=== PATIENT | male | born 1945 | race Caucasian/White ===

== ENCOUNTER 2016-08-22 17:40 | Emergency (ER) | payer OTHER, MEDICARE ==
[~2016-08-22] VITALS: Ht 175.3 cm; Wt 93.2 kg
[~2016-08-22 17:40] MED LIST: ASPI81CH CHEW; MULTCAP14; NAPR220T95 PO; VITA100T2 PO; VITATAB11
[2016-08-22 18:04] VITALS: BP 137/77; PULSE 112; RESP 20; TEMP 98.3; O2SAT 93
== END 2016-08-22 21:47 | disposition left against medical advice (07) ==
LOC: NED 17:40
DX: Z03.89 Encounter for observation for other suspected diseases and conditions ruled out (principal)
CPT/HCPCS: 99281

== ENCOUNTER 2016-09-16 16:29 | Observation (INO) | payer OTHER, MEDICARE ==
[~2016-09-16] VITALS: Ht 167.6 cm; Wt 90.0 kg
[2016-09-16 16:57] VITALS: BP 136/64; PULSE 90; RESP 17; TEMP 98.7; O2SAT 95
[2016-09-16] MEDS ORDERED: MECLIZINE HCL 25 MG TAB PO ONE (17:15)
[2016-09-16] MEDS ORDERED: SODIUM CHLORID 0.9% 500 ML INJ 500 ML IV ONE (17:15)
[2016-09-16] MEDS ORDERED: SODIUM CHLORIDE 0.9% FLUSH 10 ML FLUSH IVF PRN (17:15)
[2016-09-16 17:44] LABS: AUTOMATED NEUTROPHIL # 2.5 TH/MM3 (1.8-7.7); BASOPHIL % 0.7 % (0.0-2.0); EOSINOPHIL % 0.9 % (0.0-4.0); HEMATOCRIT 39.2 % (39.0-51.0); LYMPHOCYTE # 1.6 TH/MM3 (1.0-4.8); MEAN CELL VOLUME 97.9 FL (80.0-100.0); MEAN CORPUSCULAR HEMOGLOBIN 33.5 PG (27.0-34.0); MEAN CORPUSCULAR HGB CONC 34.3 % (32.0-36.0); MONO % 11.6 % (0.0-8.0); NEUT % 52.8 % (16.0-70.0); PLATELET COUNT 99 TH/MM3 (150-450); RED CELL DISTRIBUTION WIDTH 14.1 % (11.6-17.2); WHITE BLOOD COUNT 4.7 TH/MM3 (4.0-11.0)
[2016-09-16 17:46] LABS: HEMO FLAGS AUTO DIFF
[2016-09-16 17:53] VITALS: BP 146/84; PULSE 92; RESP 18; O2SAT 99
[2016-09-16 17:58] LABS: APTT (PATIENT) 31.3 SEC (24.3-30.1); INTERNATIONAL NORMALIZED RATIO 1.1 RATIO; PROTHROMBIN TIME - PATIENT 12.7 SEC (9.8-11.6)
--- NOTE | 2016-09-16 18:03 | RADRPT ---
EXAM DATE/TIME: 09/16/2016 17:31 [facility] COMPARISON: CHEST SINGLE AP, April 18, 2016, 20:37. INDICATIONS : Shortness of breath. MEDICAL HISTORY : None. SURGICAL HISTORY : None. ENCOUNTER: Initial ACUITY: 1 day PAIN SCORE: 0/10 LOCATION: Bilateral chest FINDINGS: The lungs are clear without infiltrate, nodule, or mass. There is no appreciable pleural effusion fo r technique. Heart and mediastinum are unremarkable. There are old healed rib fractures in the left chest with slight pleural thickening chronic in nature laterally. CONCLUSION: No acute cardiopulmonary disease. David Meyer MD on September 16, 2016 at 18:00 Board Certified Radiologist. This report was verified electronically.
[2016-09-16 18:11] LABS: PLATELET ESTIMATE SMEAR LOW (NORMAL); PLATELET MORPHOLOGY ENLARGED (NORMAL); SCAN/DIFF AUTO DIFF CONFIRMED
[2016-09-16 18:17] LABS: ALT (GPT) 81 U/L (12-78); ANION GAP 13 MEQ/L (5-15); AST (GOT) 116 U/L (15-37); BICARBONATE 22.5 MEQ/L (21.0-32.0); BLOOD UREA NITROGEN 3 MG/DL (7-18); CHLORIDE 101 MEQ/L (98-107); GLOMERULAR FILTRATION RATE 161 ML/MIN (>89); POTASSIUM 3.2 MEQ/L (3.5-5.1); SODIUM (NA) 136 MEQ/L (136-145)
--- NOTE | 2016-09-16 18:17 | PD ---
HPI Chief Complaint: Syncope/Near-Syncope Time Seen by Provider: 17:07 Travel History International Travel<30 days: No Contact w/Intl Traveler<30days: No Traveled to known affect area: No History of Present Illness HPI Patient is a 70 year old male who comes in complaining of dizziness and near syncope. He says he drinks daily, and he has been experiencing this dizziness for the past year. He says it is worse when he moves around. Today he said he was getting up she is the bathroom when he suddenly felt like he was going to pass out, so he went back to his chair and sat down. He did not lose consciousness, he did not fall. He then called 911 because he was worried that he would fall and pass out. He denies any chest pain or shortness of breath. He describes the dizziness as a lightheadedness. He denies any fever or chills. He has never spoken to her doctor about these symptoms. PFSH Past Medical History Arthritis: Yes Cancer: No Cardiovascular Problems: No Endocrine: No Gastrointestinal Disorders: No Genitourinary: No Hypertension: Yes Immune Disorder: No Neurologic: Yes Psychiatric: No Reproductive: No Respiratory: No Seizures: Yes Shingles: Yes Tetanus Vaccination: > 5 Years Influenza Vaccination: Yes Past Surgical History Tonsillectomy: Yes Other Surgery: No Social History Alcohol Use: Yes (DAILY, BEER) Tobacco Use: No Substance Use: No Allergies-Medications (Allergen,Severity, Reaction): Coded Allergies: No Known Allergies (Unverified , 09/16/16) Reported Meds & Prescriptions Reported Meds & Active Scripts Active Vitamin B-1 (Thiamine HCl) 100 Mg Tab 100 Mg PO DAILY Reported Multi For Him (Multiple Vitamins W/ Minerals) 1 Cap Cap Vitamin B Complex (B-Complex Vitamins) 1 Tab Aleve (Naproxen Sodium) 220 Mg Tab 220 Mg PO BID PRN Aspirin 81 Mg Chew 81 Mg CHEW DAILY Review of Systems Except as stated in HPI: all other systems reviewed are Neg General / Constitutional: No: Fever, Chills Eyes: No: Blurred Vision HENT: Positive: Lightheadedness, No: Headaches Cardiovascular: No: Chest Pain or Discomfort Respiratory: No: Shortness of Breath Gastrointestinal: No: Nausea, Vomiting Musculoskeletal: No: Pain Skin: No Rash, No Change in Pigmentation Neurologic: Positive: Dizziness, No: Weakness Physical Exam Narrative GENERAL: Awake and alert, in no acute distress. SKIN: Focused skin assessment warm/dry. HEAD: Atraumatic. Normocephalic. EYES: Pupils equal and round. No scleral icterus. Extraocular movements intact , no nystagmus. ENT: Mucous membranes pink and moist. NECK: Trachea midline. No JVD. CARDIOVASCULAR: Regular rate and rhythm. No murmur appreciated. RESPIRATORY: No accessory muscle use. Clear to auscultation. Breath sounds equal bilaterally. GASTROINTESTINAL: Abdomen soft, non-tender, nondistended. MUSCULOSKELETAL: No obvious deformities. No clubbing. No cyanosis. No edema. NEUROLOGICAL: Awake and alert. No obvious cranial nerve deficits. Motor grossly within normal limits. Normal speech. Cerebellar function testing within normal limits. PSYCHIATRIC: Appropriate mood and affect; insight and judgment normal. Data Data Last Documented VS Vital Signs Date Time Temp Pulse Resp B/P Pulse Ox O2 Delivery O2 Flow Rate FiO2 09/16/16 19:09 89 18 133/68 94 Room Air 09/16/16 16:57 98.7 Orders Electrocardiogram (09/16/16 17:15) Complete Blood Count With Diff (09/16/16 17:15) Comprehensive Metabolic Panel (09/16/16 17:15) B-Type Natriuretic Peptide (09/16/16 17:15) Ckmb (Isoenzyme) Profile (09/16/16 17:15) Troponin I (09/16/16 17:15) Act Partial Throm Time (Ptt) (09/16/16 17:15) Prothrombin Time / Inr (Pt) (09/16/16 17:15) Chest, Single Ap (09/16/16 17:15) Ct Brain W/O Iv Contrast(Rout) (09/16/16 17:15) Ecg Monitoring (09/16/16 17:15) Iv Access Insert/Monitor (09/16/16 17:15) Oximetry (09/16/16 17:15) Meclizine (Antivert) (09/16/16 17:15) Sodium Chloride 0.9% Flush (Ns Flush) (09/16/16 17:15) Sodium Chlorid 0.9% 500 Ml Inj (Ns 500 M (09/16/16 17:15) CKMB (09/16/16 17:30) CKMB% (09/16/16 17:30) Lorazepam Inj (Ativan Inj) (09/16/16 19:15) Admit Order (Ed Use Only) (09/16/16 ) Place In Observation (09/16/16 ) Vital Signs (Adult) Q4H (09/16/16 19:33) Activity Oob Ad Catalina (09/16/16 19:33) Dining Service Worker / Telemetry .CONTINUOUS (09/16/16 19:33) Intake + Output ALLAN.QSHIFT (09/16/16 19:33) Diet Heart Healthy (09/17/16 Breakfast) Sodium Chlor 0.9% 1000 Ml Inj (Ns 1000 M (09/16/16 19:33) Sodium Chloride 0.9% Flush (Ns Flush) (09/16/16 19:45) Sodium Chloride 0.9% Flush (Ns Flush) (09/16/16 21:00) Acetaminophen (Tylenol) (09/16/16 19:45) Ondansetron Inj (Zofran Inj) (09/16/16 19:45) Basic Metabolic Panel (Bmp) (09/17/16 06:00) Complete Blood Count With Diff (09/17/16 06:00) Resp Oxygen Fran C Titrat 1-4 L (09/16/16 ) Pt Request For Service (09/16/16 19:33) Scd Bilateral/Knee High ALLAN.BID (09/16/16 19:33) Naloxone Inj (Narcan Inj) (09/16/16 19:45) Aspirin Chew (Aspirin Chew) (09/17/16 09:00) Thiamine (Vit B1) (Vitamin B1) (09/17/16 09:00) Neuro Checks Q4H (09/16/16 19:33) Alcohol Withdrawal Asmt-Ciwa Q4HX18 (09/16/16 19:33) ^ Seizure Precautions (09/16/16 19:33) Folic Acid (Folate) (09/17/16 09:00) Flumazenil Inj (Romazicon Inj) (09/16/16 19:45) Lorazepam (Ativan) (09/16/16 19:45) Lorazepam Inj (Ativan Inj) (09/16/16 19:45) Lorazepam (Ativan) (09/16/16 19:45) Lorazepam Inj (Ativan Inj) (09/16/16 19:45) Lorazepam Inj (Ativan Inj) (09/16/16 19:45) Lorazepam Inj (Ativan Inj) (09/16/16 19:45) Orthostatic Blood Pressure (09/16/16 19:33) Orthostatic Vital Signs (09/16/16 19:33) Labs Laboratory Tests Test 09/16/16 17:30 White Blood Count 4.7 TH/MM3 Red Blood Count 4.00 MIL/MM3 Hemoglobin 13.4 GM/DL Hematocrit 39.2 % Mean Corpuscular Volume 97.9 FL Mean Corpuscular Hemoglobin 33.5 PG Mean Corpuscular Hemoglobin 34.3 % Concent Red Cell Distribution Width 14.1 % Platelet Count 99 TH/MM3 Mean Platelet Volume 9.1 FL Neutrophils (%) (Auto) 52.8 % Lymphocytes (%) (Auto) 34.0 % Monocytes (%) (Auto) 11.6 % Eosinophils (%) (Auto) 0.9 % Basophils (%) (Auto) 0.7 % Neutrophils # (Auto) 2.5 TH/MM3 Lymphocytes # (Auto) 1.6 TH/MM3 Monocytes # (Auto) 0.5 TH/MM3 Eosinophils # (Auto) 0.0 TH/MM3 Basophils # (Auto) 0.0 TH/MM3 CBC Comment AUTO DIFF Differential Comment AUTO DIFF CONFIRMED Platelet Estimate LOW Platelet Morphology Comment ENLARGED Red Cell Morphology Comment NORMAL Prothrombin Time 12.7 SEC Prothromb Time International 1.1 RATIO Ratio Activated Partial 31.3 SEC Thromboplast Time Sodium Level 136 MEQ/L Potassium Level 3.2 MEQ/L Chloride Level 101 MEQ/L Carbon Dioxide Level 22.5 MEQ/L Anion Gap 13 MEQ/L Blood Urea Nitrogen 3 MG/DL Creatinine 0.51 MG/DL Estimat Glomerular Filtration 161 ML/MIN Rate Random Glucose 116 MG/DL Calcium Level 8.4 MG/DL Total Bilirubin 2.2 MG/DL Aspartate Amino Transf 116 U/L (AST/SGOT) Alanine Aminotransferase 81 U/L (ALT/SGPT) Alkaline Phosphatase 110 U/L Total Creatine Kinase 199 U/L Creatine Kinase MB 2.0 NG/ML Troponin I LESS THAN 0.02 NG/ML B-Type Natriuretic Peptide 45 PG/ML Total Protein 7.2 GM/DL Albumin 3.5 GM/DL MDM Medical Decision Making Medical Screen Exam Complete: Yes Emergency Medical Condition: Yes Medical Record Reviewed: Yes Interpretation(s) ECG shows NSR at 87, large artifact, no ST elevation Differential Diagnosis Electrolyte abnormalities vs dehydration vs ACS vs intoxication Narrative Course Patient is a 71 year old male who comes in complaining of a near syncopal episode. Exam shows no neurologic abnormalities. Patient admits to drinking daily. IV established, labs sent. Connected to the ekg monitor tech. ECG shows no evidence of ischemia. Patient hydrated with IVF. Labs show evidence of worsening liver function. Patient given Ativan because he said he felt he was starting to withdraw from alcohol. Placed in observation for further management. Diagnosis Primary Impression: Syncope, near Additional Impression: Alcohol withdrawal Qualified Code: F10.230 - Alcohol withdrawal, uncomplicated Admitting Information Admitting Physician Requests: Observation Scripts Walker/Adult/Folding 1 Mis Mis #1 EA .ROUTE CONTINUOUS Ref 0 Use walker when weak Prov:Graham Kirk MD 09/18/16 Condition: Stable Concha Benz MD Sep 16, 2016 18:17
--- NOTE | 2016-09-16 18:20 | RADRPT ---
EXAM DATE/TIME: 09/16/2016 17:59 [facility] COMPARISON: MRI BRAIN W/O CONTRAST, April 20, 2016, 16:05. CT BRAIN W/O CONTRAST, April 18, 2016, 21:20. INDICATIONS : Trauma; fall. ETOH. RADIATION DOSE: 56.35 CTDIvol (mGy) MEDICAL HISTORY : Seizures. Hypertension. ETOH abuse SURGICAL HISTORY : None. ENCOUNTER: Initial ACUITY: 1 day PAIN SCALE: Non-responsive LOCATION: cranial TECHNIQUE: Multiple contiguous axial images were obtained of the head. Using automated exposure control and adj ustment of the mA and/or kV according to patient size, radiation dose was kept as low as reasonably a chievable to obtain optimal diagnostic quality images. FINDINGS: There is no evidence for intracranial hemorrhage, mass effect, mass lesions, or edema. The visualize d bony structures appear intact. Moderate degree of brain atrophy is seen. Slight periventricular wh ite matter changes are seen nonspecific mostly consistent with chronic small vessel ischemic changes. There are no signs of acute infarction for technique. CONCLUSION: Chronic and small vessel ischemic changes without any evidence for acute hemorrhage o r mass effect. David Meyer MD on September 16, 2016 at 18:17 Board Certified Radiologist. This report was verified electronically.
[2016-09-16 18:21] LABS: ALKALINE PHOSPHATASE 110 U/L (45-117); CREATINE KINASE 199 U/L (39-308); TOTAL BILIRUBIN ADULT 2.2 MG/DL (0.2-1.0)
[2016-09-16 19:09] VITALS: BP 133/68; PULSE 89; RESP 18; O2SAT 94
[2016-09-16] MEDS ORDERED: LORazepam 2 MG/ML VIAL IV PUSH ONE (19:15)
[2016-09-16] MEDS ORDERED: LORazepam 2 MG TAB PO PRN (19:45)
[2016-09-16] MEDS ORDERED: POTASSIUM CHLORIDE 20 MEQ CONTROLLED RELEASE TAB PO ONE (19:45)
[2016-09-16] MEDS ORDERED: SODIUM CHLORIDE 0.9% FLUSH 10 ML FLUSH IV FLUSH PRN (19:45)
[2016-09-16] MEDS ORDERED: LORazepam 2 MG/ML VIAL IV PUSH PRN ×4 (19:45)
[2016-09-16] MEDS ORDERED: FLUMAZENIL 0.5 MG/5 ML VIAL IV PUSH PRN (19:45)
[2016-09-16] MEDS ORDERED: NALOXONE HCL 0.4 MG/ML AMP IV PRN (19:45)
[2016-09-16] MEDS ORDERED: ACETAMINOPHEN 325 MG TAB PO PRN (19:45)
[2016-09-16] MEDS ORDERED: ONDANSETRON HCL 4 MG/2 ML VIAL IVP PRN (19:45)
[2016-09-16] MEDS ORDERED: LORazepam 1 MG TAB PO PRN (19:45)
[2016-09-16 19:55] VITALS: O2SAT 94
--- NOTE | 2016-09-16 20:07 | HHI.HP ---
[facility] Primary Care Physician [facility] Admission Diagnosis syncope Diagnoses: Chief Complaint: I think I had a seizure Travel History International Travel<30 Days: No Contact w/Intl Traveler <30 Da: No Traveled to Known Affected Are: No History of Present Illness This is a 70 year old male patient with a past medical history of ETOH abuse and HTN- no longer on medication secondary to hypotension. Patient is a poor historian therefore information gathered from patient as well as prior computerized charting. Patient reports he usually drinks a 12 pack of 16 ounce beers every day. Patient reports 3-4 days every month takes a break from drinking. Patient was trying to abstain from alcohol for the past 2-3 days and reports he thinks he had a seizure this morning approximately 9- 10 AM. The patient believes he lost consciousness for unknown period of time as he lives alone. Patient woke up laying on the floor was able to get up have lunch drink approximately 6 beers and then had information security specialist call 911 to take him to the hospital for further evaluation and treatment. Patient denies tongue biting, incontinence or head trauma during the incident. Patient believes he had a seizure as he has had seizures before when he stops drinking. Patient also complains that when he rolls from side to side in bed he gets dizzy. Patient reports this has been going on for approximately 2 days. At this time the dizziness is better after receiving meclizine in the emergency department. Patient reports shortness of breath is at baseline. Patient denies chest pain nausea or vomiting at this time. Review of Systems ROS Limitations: Poor Historian Except as stated in HPI: all other systems reviewed are Neg Past Family Social History Past Medical History EtOH abuse and hypertension no longer medications are clear to hypotension Past Surgical History Tonsillectomy as a child Reported Medications Reported Meds & Active Scripts Active Vitamin B-1 (Thiamine HCl) 100 Mg Tab 100 Mg PO DAILY Reported Multi For Him (Multiple Vitamins W/ Minerals) 1 Cap Cap Vitamin B Complex (B-Complex Vitamins) 1 Tab Aleve (Naproxen Sodium) 220 Mg Tab 220 Mg PO BID PRN Aspirin 81 Mg Chew 81 Mg CHEW DAILY Allergies: Coded Allergies: No Known Allergies (Unverified , 09/16/16) Active Ordered Medications Current Medications Medications (Trade) Dose Ordered Sig/Joés Route Start Time Stop Time Status Last Admin Sodium Chloride 2 ml 2 ml UNSCH PRN IVF 09/16/16 17:15 (NS 1000 ml Inj) 1,000 ml @ 100 mls/hr Q10H IV 09/16/16 19:33 (NS Flush) 2 ml UNSCH PRN IV FLUSH 09/16/16 19:45 (NS Flush) 2 ml BID IV FLUSH 09/16/16 21:00 (Tylenol) 650 mg Q4H PRN PO 09/16/16 19:45 (Zofran Inj) 4 mg Q6H PRN IVP 09/16/16 19:45 (Narcan Inj) 0.4 mg UNSCH PRN IV 09/16/16 19:45 (Aspirin Chew) 81 mg DAILY CHEW 09/17/16 09:00 (Vitamin B1) 100 mg DAILY PO 09/17/16 09:00 (Folate) 1 mg DAILY PO 09/17/16 09:00 09/22/16 08:59 (Romazicon Inj) 0.2 mg Q1M PRN IV PUSH 09/16/16 19:45 (Ativan) 1 mg Q4H PRN PO 09/16/16 19:45 (Ativan Inj) 1 mg Q4H PRN IV PUSH 09/16/16 19:45 (Ativan) 2 mg Q2H PRN PO 09/16/16 19:45 (Ativan Inj) 2 mg Q2H PRN IV PUSH 09/16/16 19:45 (Ativan Inj) 2 mg Q1H PRN IV PUSH 09/16/16 19:45 (Ativan Inj) 2 mg Q15M PRN IV PUSH 09/16/16 19:45 Family History Mother at 86 secondary to old age Father at 73 6. Lung cancer Patient reports paternal uncle had CAD Social History Patient lives alone Express my 12 pack 16 ounce beers per day Denies tobacco use now the past Denies illicit drug use Physical Exam Vital Signs Vital Signs Date Time Temp Pulse Resp B/P Pulse Ox O2 Delivery O2 Flow Rate FiO2 09/16/16 19:55 94 09/16/16 19:09 89 18 133/68 94 Room Air 09/16/16 17:53 92 18 146/84 99 Room Air 09/16/16 17:07 Room Air 09/16/16 16:57 98.7 90 17 136/64 95 Physical Exam GENERAL: This is a well-nourished, well-developed patient, mildly tremulous SKIN: Ecchymosis left anterior thorax HEAD: Atraumatic. Normocephalic. No temporal or scalp tenderness. EYES: Extraocular motions intact. No scleral icterus. No injection or drainage. CARDIOVASCULAR: Regular rate and rhythm without murmurs, gallops, or rubs. RESPIRATORY: Clear to auscultation. Breath sounds equal bilaterally. No wheezes , rales, or rhonchi. GASTROINTESTINAL: Abdomen soft, non-tender MUSCULOSKELETAL: Extremities without clubbing, cyanosis, or edema. No joint tenderness, effusion, or edema noted. No calf tenderness. Negative Homans sign bilaterally. NEUROLOGICAL: Awake and alert. No focal deficits appreciated. Motor and sensory grossly within normal limits. 4 out of 5 muscle strength in all muscle groups. Normal speech. Laboratory Laboratory Tests Test 09/16/16 17:30 White Blood Count 4.7 Red Blood Count 4.00 Hemoglobin 13.4 Hematocrit 39.2 Mean Corpuscular Volume 97.9 Mean Corpuscular Hemoglobin 33.5 Mean Corpuscular Hemoglobin 34.3 Concent Red Cell Distribution Width 14.1 Platelet Count 99 Mean Platelet Volume 9.1 Neutrophils (%) (Auto) 52.8 Lymphocytes (%) (Auto) 34.0 Monocytes (%) (Auto) 11.6 Eosinophils (%) (Auto) 0.9 Basophils (%) (Auto) 0.7 Neutrophils # (Auto) 2.5 Lymphocytes # (Auto) 1.6 Monocytes # (Auto) 0.5 Eosinophils # (Auto) 0.0 Basophils # (Auto) 0.0 CBC Comment AUTO DIFF Differential Comment AUTO DIFF CONFIRMED Platelet Estimate LOW Platelet Morphology Comment ENLARGED Red Cell Morphology Comment NORMAL Prothrombin Time 12.7 Prothromb Time International 1.1 Ratio Activated Partial 31.3 Thromboplast Time Sodium Level 136 Potassium Level 3.2 Chloride Level 101 Carbon Dioxide Level 22.5 Anion Gap 13 Blood Urea Nitrogen 3 Creatinine 0.51 Estimat Glomerular Filtration 161 Rate Random Glucose 116 Calcium Level 8.4 Total Bilirubin 2.2 Aspartate Amino Transf 116 (AST/SGOT) Alanine Aminotransferase 81 (ALT/SGPT) Alkaline Phosphatase 110 Total Creatine Kinase 199 Creatine Kinase MB 2.0 Troponin I LESS THAN 0.02 B-Type Natriuretic Peptide 45 Total Protein 7.2 Albumin 3.5 Result Diagram: 09/16/16 1730 09/16/16 1730 Imaging Last Impressions Head CT 09/16/16 1715 Signed Impressions: Service Date/Time: Friday, September 16, 2016 17:59 - CONCLUSION: Chronic and small vessel ischemic changes without any evidence for acute hemorrhage or mass effect. David Meyer MD Chest X-Ray 09/16/161714 Signed Impressions: Service Date/Time: Friday, September 16, 2016 17:31 - CONCLUSION: No acute cardiopulmonary disease. David Meyer MD Assessment and Plan Problem List: (1) Syncopal episodes ICD Code: R55 Status: Acute (2) Vertigo ICD Code: R42 Status: Acute Assessment and Plan This is a 70 year old male patient with a past medical history of ETOH abuse and HTN- no longer on medication secondary to hypotension. Presents with seizure secondary EtOH withdrawal and vertigo symptoms. Syncope possible seizure secondary to EtOH withdrawal EtOH abuse CT of the head reviewed reveals chronic and small vessel ischemic changes without any evidence for acute hemorrhage or mass effect Patient counseled on EtOH abuse encouraged to abstain CIWA protocol with thiamine and folic acid Seizure precautions Patient had ultrasound bilateral carotid arteries 04/19/2017 showed no hemodynamically significant stenosis Patient had echocardiogram 04/19/2017 showed EF 55-60% no aortic stenosis Dizziness likely Vertigo Improved with meclizine given in emergency department will continue meclizine as needed DVT prophylaxis with SCDs Discussed with the provider, nursing, Dr. Kirk and patient This note was transcribed by scribe [Ruthann Ramey]. I, Dr. Graham Kirk personally performed the history, physical exam, and medical decision making; and confirmed the accuracy of the information in the transcribed note. Authenticated by Dr. Graham Kirk on 09/17/16 at 00:10. Ruthann Ramey Sep 16, 2016 20:07 Graham Kirk MD September 17, 2016 00:11
[2016-09-16] MEDS: SODIUM CHLOR 0.9% 1000 ML INJ 1,000 ML IV SCH (20:18)
[2016-09-16] MEDS ORDERED: MECLIZINE HCL 25 MG TAB PO PRN (20:30)
[2016-09-16] MEDS: SODIUM CHLORIDE 0.9% FLUSH 10 ML FLUSH IV FLUSH SCH (21:00)
[2016-09-16 21:25] VITALS: BP 141/69; PULSE 87; RESP 18; TEMP 98.4; O2SAT 97
[2016-09-17] VITALS (9 sets, daily range): BP systolic 136–165; BP diastolic 64–100; PULSE 68–96; RESP 17–20; TEMP 98–100; O2SAT 93–97
[2016-09-17] MEDS: SODIUM CHLOR 0.9% 1000 ML INJ 1,000 ML IV SCH (07:24)
[2016-09-17 08:01] LABS: AUTOMATED NEUTROPHIL # 2.2 TH/MM3 (1.8-7.7); BASOPHIL % 0.6 % (0.0-2.0); EOSINOPHIL % 0.6 % (0.0-4.0); HEMATOCRIT 40.9 % (39.0-51.0); LYMPH % 27.3 % (9.0-44.0); LYMPHOCYTE # 1.1 TH/MM3 (1.0-4.8); MEAN CELL VOLUME 98.2 FL (80.0-100.0); MEAN CORPUSCULAR HEMOGLOBIN 33.8 PG (27.0-34.0); MEAN CORPUSCULAR HGB CONC 34.4 % (32.0-36.0); MONO % 16.8 % (0.0-8.0); NEUT % 54.7 % (16.0-70.0); PLATELET COUNT 91 TH/MM3 (150-450); RED BLOOD COUNT 4.16 MIL/MM3 (4.50-5.90); RED CELL DISTRIBUTION WIDTH 14.1 % (11.6-17.2)
[2016-09-17 08:05] LABS: HEMO FLAGS AUTO DIFF
[2016-09-17 08:25] LABS: BICARBONATE 26.9 MEQ/L (21.0-32.0); POTASSIUM 3.9 MEQ/L (3.5-5.1)
[2016-09-17 08:43] LABS: PLATELET ESTIMATE SMEAR LOW (NORMAL); PLATELET MORPHOLOGY NORMAL (NORMAL); SCAN/DIFF AUTO DIFF CONFIRMED
[2016-09-17] MEDS: SODIUM CHLORIDE 0.9% FLUSH 10 ML FLUSH IV FLUSH SCH ×3 (09:00→21:28)
[2016-09-17] MEDS: FOLIC ACID 1 MG TAB PO SCH (11:04)
[2016-09-17] MEDS: ASPIRIN 81 MG CHEW TAB CHEW SCH (11:05)
[2016-09-17] MEDS: THIAMINE HCL 100 MG TAB PO SCH (11:05)
--- NOTE | 2016-09-17 14:47 | HHI.PR ---
Subjective Remarks Mr. Jo feels fatigued today and still has tremors. PT has recommended a walker, he prefers a cane. However, he does not feel as if he could function at home in his present state. No further seizure activity. Orthostatic BP check remains pending and is a needed evaluation prior to discharge. Objective Vital Signs Date Time Temp Pulse Resp B/P Pulse Ox O2 Delivery O2 Flow Rate FiO2 09/17/16 12:11 99.3 96 18 136/64 95 09/17/16 08:00 96 21 09/17/16 08:00 100.0 70 20 165/77 94 09/17/16 01:40 68 09/17/16 00:20 98.8 78 18 148/77 97 09/16/16 21:25 98.4 87 18 141/69 97 09/16/16 19:55 94 09/16/16 19:09 89 18 133/68 94 Room Air 09/16/16 17:53 92 18 146/84 99 Room Air 09/16/16 17:07 Room Air 09/16/16 16:57 98.7 90 17 136/64 95 I/O 09/16/16 09/16/16 09/16/16 09/17/16 09/17/16 09/17/16 07:00 15:00 23:00 07:00 15:00 23:00 Output Total 300 ml Balance -300 ml Output Urine Total 300 ml Result Diagram: 09/17/16 0657 09/17/16 0657 Objective Remarks GENERAL: NAD, A&Ox3 SKIN: Warm and dry. HEAD: Normocephalic. EYES: No scleral icterus. No injection or drainage. NECK: Supple, trachea midline. No JVD or lymphadenopathy. CARDIOVASCULAR: Regular rate and rhythm without murmurs, gallops, or rubs. RESPIRATORY: Breath sounds equal bilaterally. No accessory muscle use. GASTROINTESTINAL: Abdomen soft, non-tender, nondistended. MUSCULOSKELETAL: No cyanosis, or edema. BACK: Nontender without obvious deformity. No CVA tenderness. Medications and IVs Administered Medications Medications (Trade) Dose Ordered Sig/José Route PRN Reason Start Time Stop Time Status Last Admin Dose Admin Aspirin (Aspirin Chew) 81 mg DAILY CHEW 09/17/16 09:00 09/17/16 11:05 Thiamine HCl (Vitamin B1) 100 mg DAILY PO 09/17/16 09:00 09/17/16 11:05 Folic Acid (Folate) 1 mg DAILY PO 09/17/16 09:00 09/22/16 08:59 09/17/16 11:04 Lorazepam (Ativan) 1 mg Q4H PRN PO CIWA 8 - 10 09/16/16 19:45 09/17/16 07:23 A/P Problem List: (1) Alcohol withdrawal ICD Code: F10.239 (2) Alcohol withdrawal seizure ICD Code: F10.239 (3) Syncopal episodes ICD Code: R55 Assessment and Plan Syncope Recent work up No need for repeat ultrasound or echo Repeat orthostatic BP check pending ETOH Withdraw ETOH Withdraw seizure No further recurrence Continue CIWA and follow Librium started Thiamine, Folic Acid Weakness Walker with PT while in hospital Graham Kirk MD September 17, 2016 14:47
--- NOTE | 2016-09-17 23:01 | EKG ---
Date Performed: 09/16/2016 Time Performed: 17:25:59 PTAGE: 70 years EKG: Sinus rhythm ABNORMAL RHYTHM ECG PREVIOUS TRACING : 04/19/2016 12.49 Compared to prior tracing no significant change DOCTOR: Bharat Major Interpretating Date/Time 09/17/2016 22:59:55
[2016-09-18 00:06] VITALS: BP 147/70; PULSE 78; RESP 18; TEMP 98; O2SAT 97
[2016-09-18 04:54] VITALS: BP 142/68; PULSE 87; RESP 21; TEMP 98; O2SAT 96
[2016-09-18 07:52] VITALS: BP 154/78; PULSE 81; RESP 22; TEMP 98.3; O2SAT 94
[2016-09-18] MEDS: ASPIRIN 81 MG CHEW TAB CHEW SCH (10:22)
[2016-09-18] MEDS: THIAMINE HCL 100 MG TAB PO SCH (10:23)
[2016-09-18] MEDS: FOLIC ACID 1 MG TAB PO SCH (10:23)
[2016-09-18] MEDS ORDERED: WALKER/ADULT/FO1 MIS (13:29)
--- NOTE | 2016-09-18 13:31 | HHI.FF ---
Face to Face Verification Diagnosis: (1) Generalized weakness Physical Therapy Order: Evaluate and Treat I have seen patient Mario Jo on 09/18/16. My clinical findings support the need for the requested home health care services because: Patient has SOB Med compliance is questionable Limited ability to care for self High risk of falls I certify that my clinical findings support that this patient is homebound because: Impaired cognitive ability/safety Unsteady gait/balance Unable to use public transportation Graham Kirk MD September 18, 2016 13:31
--- NOTE | 2016-09-19 14:48 | HHI.DS ---
Discharge Summary Admission Date Sep 16, 2016 at 19:36 Discharge Date: September 18, 2016 Admitting Diagnosis syncope (1) Syncopal episodes ICD Code: R55 Diagnosis: Principal (2) Vertigo ICD Code: R42 Diagnosis: Secondary Procedures none Brief History - From Admission This is a 70 year old male patient with a past medical history of ETOH abuse and HTN- no longer on medication secondary to hypotension. Patient is a poor historian therefore information gathered from patient as well as prior computerized charting. Patient reports he usually drinks a 12 pack of 16 ounce beers every day. Patient reports 3-4 days every month takes a break from drinking. Patient was trying to abstain from alcohol for the past 2-3 days and reports he thinks he had a seizure this morning approximately 9- 10 AM. The patient believes he lost consciousness for unknown period of time as he lives alone. Patient woke up laying on the floor was able to get up have lunch drink approximately 6 beers and then had information security architect call 911 to take him to the hospital for further evaluation and treatment. Patient denies tongue biting, incontinence or head trauma during the incident. Patient believes he had a seizure as he has had seizures before when he stops drinking. Patient also complains that when he rolls from side to side in bed he gets dizzy. Patient reports this has been going on for approximately 2 days. At this time the dizziness is better after receiving meclizine in the emergency department. Patient reports shortness of breath is at baseline. Patient denies chest pain nausea or vomiting at this time. CBC/BMP: 09/17/16 0657 09/17/16 0657 Significant Findings Laboratory Tests Test 09/16/16 09/17/16 17:30 06:57 Red Blood Count 4.00 MIL/MM3 4.16 MIL/MM3 (4.50-5.90) (4.50-5.90) Platelet Count 99 TH/MM3 91 TH/MM3 (150-450) (150-450) Monocytes (%) (Auto) 11.6 % 16.8 % (0.0-8.0) (0.0-8.0) Platelet Estimate LOW (NORMAL) LOW (NORMAL) Platelet Morphology Comment ENLARGED (NORMAL) Prothrombin Time 12.7 SEC (9.8-11.6) Activated Partial 31.3 SEC Thromboplast Time (24.3-30.1) Potassium Level 3.2 MEQ/L (3.5-5.1) Blood Urea Nitrogen 3 MG/DL (7-18) 6 MG/DL (7-18) Creatinine 0.51 MG/DL 0.53 MG/DL (0.60-1.30) (0.60-1.30) Random Glucose 116 MG/DL (74-106) Calcium Level 8.4 MG/DL (8.5-10.1) Total Bilirubin 2.2 MG/DL (0.2-1.0) Aspartate Amino Transf 116 U/L (15-37) (AST/SGOT) Alanine Aminotransferase 81 U/L (12-78) (ALT/SGPT) Troponin I LESS THAN 0.02 NG/ML (0.02-0.05) Imaging Last Impressions Head CT 09/16/161714 Signed Impressions: Service Date/Time: Friday, September 16, 2016 17:59 - CONCLUSION: Chronic and small vessel ischemic changes without any evidence for acute hemorrhage or mass effect. David Meyer MD Chest X-Ray 09/16/161714 Signed Impressions: Service Date/Time: Friday, September 16, 2016 17:31 - CONCLUSION: No acute cardiopulmonary disease. David Meyer MD PE at Discharge GENERAL: NAD, A&Ox3 SKIN: Warm and dry. HEAD: Normocephalic. EYES: No scleral icterus. No injection or drainage. NECK: Supple, trachea midline. No JVD or lymphadenopathy. CARDIOVASCULAR: Regular rate and rhythm without murmurs, gallops, or rubs. RESPIRATORY: Breath sounds equal bilaterally. No accessory muscle use. GASTROINTESTINAL: Abdomen soft, non-tender, nondistended. MUSCULOSKELETAL: No cyanosis, or edema. BACK: Nontender without obvious deformity. No CVA tenderness. Pt update on day of discharge SNF offered patient elects for home with home PT. Hospital Course Mr. Jo is a 71 year old male with a history of alcoholism. He had stopped drinking to see if he could quit and says he has done this occasionally since the age of 18. He was brought in for syncope, but etiology may have been related to a seizure from ETOH withdraw. He was briefly treated with librium and never suffered progressive DTs. At day of discharge his DT symptoms resolved. He remained unsteady, but was ambulatory with a walker. SNF was offered, but he decliend and elected for home health PT. Medically cleared and stable for discharge to home. Pt Condition on Discharge: Stable Discharge Disposition: Disch w/ Home Health Serv Discharge Time: > 30 minutes Discharge Instructions DIET: Follow Instructions for: As Tolerated, No Restrictions Activities you can perform: Regular-No Restrictions Follow up Referrals: PCP Follow-up New Medications: Walker/Adult/Folding (Walker/Adult/Folding) 1 Mis Mis 1 EA .ROUTE CONTINUOUS Use walker when weak weakness #1 Ref 0 EA Continued Medications: Aspirin (Aspirin) 81 Mg Chew 81 MG CHEW DAILY Ref 0 TAB B-Complex Vitamins (Vitamin B Complex) 1 Tab Multiple Vitamins W/ Minerals (Multi For Him) 1 Cap Cap Naproxen Sodium (Aleve) 220 Mg Tab 220 MG PO BID PRN Pain Management Ref 0 TAB Thiamine (Vitamin B-1) 100 Mg Tab 100 MG PO DAILY supplement #30 TAB Graham Kirk MD September 19, 2016 14:48
== END 2016-09-18 14:45 | disposition home or self-care (01) ==
LOC: NEPE 16:29 → UNDOADMIN 19:17 → NEDA 19:17 → INTOOBSV 19:36 → NEPGCP 20:29
PROVIDERS: ADMIT Hospitalist; ATTEND Hospitalist
DX: R55 Syncope and collapse (principal); R42 Dizziness and giddiness; I10 Essential (primary) hypertension; F10.230 Alcohol dependence with withdrawal, uncomplicated
CPT/HCPCS: 70450; 71010; 80048; 80053; 82550; 82552; 83880; 84484; 85025; 85610; 85730; 93005; 96374; 97162; 99285; G0378; G8987; G8988; J2060; J7030; J7040

== ENCOUNTER 2017-01-17 18:40 | Emergency (ER) | payer OTHER, MEDICARE ==
[~2017-01-17] VITALS: Ht 177.8 cm; Wt 86.4 kg
[~2017-01-17 18:40] MED LIST changes: +WALKER/ADULT/FO1 MIS
--- NOTE | 2017-01-17 19:19 | PD ---
HPI Chief Complaint: feeling weak, constipation Time Seen by Provider: 19:18 Travel History International Travel<30 days: No Contact w/Intl Traveler<30days: No Traveled to known affect area: No History of Present Illness HPI 71-year-old male came to the emergency room with history of constipation. Patient says he last went and had a bowel movement 4 days ago. He is tried taking lax[facility] that [facility] as well as [id number] nothing seems to be helping. He says he's just tired and was feeling weak and called EMS. When ambulance arrived they noticed that his blood pressure was 88 systolic. They gave him a liter fluid bolus after which his blood pressure was in 100s. Patient says his appetite has been good. No history of vomiting. No history of abdominal pain. No history of fever or chills. PFSH Past Medical History Narrative Medical List of his past medical, surgical, social and family history reviewed from the nursing note. Arthritis: Yes Blood Disorders: No Heart Rhythm Problems: No Cancer: No Cardiovascular Problems: No High Cholesterol: No Chest Pain: No Congestive Heart Failure: No Endocrine: No Gastrointestinal Disorders: No Genitourinary: No Hypertension: Yes Immune Disorder: No Neurologic: Yes Psychiatric: No Reproductive: No Respiratory: No Seizures: Yes Shingles: Yes Past Surgical History Tonsillectomy: Yes Other Surgery: No Social History Alcohol Use: Yes (DAILY, BEER) Tobacco Use: No Substance Use: No Allergies-Medications (Allergen,Severity, Reaction): Coded Allergies: No Known Allergies (Unverified , 01/17/17) Comments No known drug allergies Reported Meds & Prescriptions Reported Meds & Active Scripts Active Walker/Adult/Folding (Device) 1 Mis Mis 1 Ea .ROUTE CONTINUOUS Use walker when weak Reported Multi For Him (Multiple Vitamins W/ Minerals) 0.4 Mg-2 Mg-250 Mcg Tab Aleve Arthritis (Naproxen Sodium) 220 Mg Tab 220 Mg PO BID Vitamin B Complex (B-Complex Vitamins) 1 Tab Aspirin 81 Mg Chew 81 Mg CHEW DAILY Narrative Medication List of his home medications reviewed from the nursing note. Review of Systems Except as stated in HPI: all other systems reviewed are Neg Physical Exam Narrative GENERAL: Awake, alert, moderate distress SKIN: Focused skin assessment warm/dry. HEAD: Atraumatic. Normocephalic. EYES: Pupils equal and round. No scleral icterus. No injection or drainage. ENT: No nasal bleeding or discharge. Mucous membranes pink and moist. NECK: Trachea midline. No JVD. CARDIOVASCULAR: Regular rate and rhythm. No murmur appreciated. RESPIRATORY: No accessory muscle use. Clear to auscultation. Breath sounds equal bilaterally. GASTROINTESTINAL: Abdomen soft, non-tender, nondistended. Hepatic and splenic margins not palpable. Rectal was done and has hard stool in the rectal MUSCULOSKELETAL: No obvious deformities. No clubbing. No cyanosis. No edema. NEUROLOGICAL: Awake and alert. No obvious cranial nerve deficits. Motor grossly within normal limits. Normal speech. PSYCHIATRIC: Appropriate mood and affect; insight and judgment normal. Data Data Last Documented VS Vital Signs Date Time Temp Pulse Resp B/P (MAP) Pulse Ox O2 Delivery O2 Flow Rate FiO2 01/17/17 19:31 95 Room Air 01/17/17 19:20 98.6 88 16 107/69 (82) Orders Orders Complete Blood Count With Diff (01/17/17 19:26) Comprehensive Metabolic Panel (01/17/17 19:26) Prothrombin Time / Inr (Pt) (01/17/17 19:26) Urinalysis - C+S If Indicated (01/17/17 19:26) Iv Access Insert/Monitor (01/17/17 19:26) Ecg Monitoring (01/17/17 19:26) Oximetry (01/17/17 19:26) Sodium Chlor 0.9% 1000 Ml Inj (Ns 1000 M (01/17/17 19:26) Sodium Chloride 0.9% Flush (Ns Flush) (01/17/17 19:30) Enema (01/17/17 19:26) Labs Laboratory Tests Test 01/17/17 20:05 01/17/17 20:10 Urine Color LIGHT-YELLOW Urine Turbidity CLEAR Urine pH 6.0 Urine Specific [place] 1.002 Urine Protein NEG mg/dL Urine Glucose (UA) NEG mg/dL Urine Ketones NEG mg/dL Urine Occult Blood NEG Urine Nitrite NEG Urine Bilirubin NEG Urine Urobilinogen LESS THAN 2.0 MG/DL Urine Leukocyte Esterase NEG Microscopic Urinalysis Comment CULT NOT INDICATED White Blood Count 7.5 TH/MM3 Red Blood Count 4.00 MIL/MM3 Hemoglobin 13.3 GM/DL Hematocrit 40.1 % Mean Corpuscular Volume 100.3 FL Mean Corpuscular Hemoglobin 33.2 PG Mean Corpuscular Hemoglobin Concent 33.1 % Red Cell Distribution Width 13.3 % Platelet Count 150 TH/MM3 Mean Platelet Volume 9.0 FL Neutrophils (%) (Auto) 54.7 % Lymphocytes (%) (Auto) 36.0 % Monocytes (%) (Auto) 7.9 % Eosinophils (%) (Auto) 0.8 % Basophils (%) (Auto) 0.6 % Neutrophils # (Auto) 4.1 TH/MM3 Lymphocytes # (Auto) 2.7 TH/MM3 Monocytes # (Auto) 0.6 TH/MM3 Eosinophils # (Auto) 0.1 TH/MM3 Basophils # (Auto) 0.0 TH/MM3 CBC Comment DIFF FINAL Differential Comment Prothrombin Time 12.0 SEC Prothromb Time International Ratio 1.1 RATIO Blood Urea Nitrogen 2 MG/DL Creatinine 0.57 MG/DL Random Glucose 74 MG/DL Total Protein 6.3 GM/DL Albumin 2.8 GM/DL Calcium Level 7.6 MG/DL Alkaline Phosphatase 105 U/L Aspartate Amino Transf (AST/SGOT) 46 U/L Alanine Aminotransferase (ALT/SGPT) 38 U/L Total Bilirubin 0.7 MG/DL Sodium Level 140 MEQ/L Potassium Level 3.7 MEQ/L Chloride Level 109 MEQ/L Carbon Dioxide Level 21.3 MEQ/L Anion Gap 10 MEQ/L Estimat Glomerular Filtration Rate 141 ML/MIN [facility] Medical Decision Making Medical Screen Exam Complete: Yes Emergency Medical Condition: Yes Medical Record Reviewed: Yes Differential Diagnosis Constipation, dehydration Narrative Course 9:56 PM patient was given soapsuds enema. I was told by the nurse that there was a large stool output and patient feels much better. The test results of back and they appear to be within normal limit. He was given 1 more liter of IV fluid bolus. I will discharge him home. Procedures EKG Prior to Arrival: No Diagnosis Primary Impression: Constipation Qualified Codes: K59.00 - Constipation, unspecified Additional Impression: Generalized weakness Referrals: Primary Care Physician Additional Instructions: Eat diet that surgeon fiber and drink lots of fluid. Continue taking the laxative that your primary care has given you. Follow-up with your primary care in next couple days. Return to the ER if the condition worsens or any other new concerns. Med/Other Pt SpecificInfo: No Change to Meds Disposition: 01 DISCHARGE HOME Condition: Stable Sherita Sykes MD Jan 17, 2017 19:19
[2017-01-17 19:20] VITALS: BP 107/69; PULSE 88; RESP 16; TEMP 98.6; O2SAT 96
[2017-01-17] MEDS ORDERED: SODIUM CHLOR 0.9% 1000 ML INJ 1,000 ML IV SCH (19:26)
[2017-01-17] MEDS ORDERED: MULTTAB22 (19:27)
[2017-01-17] MEDS ORDERED: ALEV220T14 PO (19:27)
[2017-01-17] MEDS ORDERED: SODIUM CHLORIDE 0.9% FLUSH 10 ML FLUSH IV FLUSH PRN (19:30)
[2017-01-17 19:31] VITALS: O2SAT 95
[2017-01-17 20:48] LABS: AUTOMATED NEUTROPHIL # 4.1 TH/MM3 (1.8-7.7); BASOPHIL % 0.6 % (0.0-2.0); EOSINOPHIL # 0.1 TH/MM3 (0-0.4); EOSINOPHIL % 0.8 % (0.0-4.0); HEMATOCRIT 40.1 % (39.0-51.0); HEMO FLAGS DIFF FINAL; LYMPHOCYTE # 2.7 TH/MM3 (1.0-4.8); MEAN CELL VOLUME 100.3 FL (80.0-100.0); MEAN CORPUSCULAR HEMOGLOBIN 33.2 PG (27.0-34.0); MEAN CORPUSCULAR HGB CONC 33.1 % (32.0-36.0); MONO % 7.9 % (0.0-8.0); NEUT % 54.7 % (16.0-70.0); PLATELET COUNT 150 TH/MM3 (150-450); RED CELL DISTRIBUTION WIDTH 13.3 % (11.6-17.2); WHITE BLOOD COUNT 7.5 TH/MM3 (4.0-11.0)
[2017-01-17 20:57] LABS: BLOOD, URINE NEG (NEG); GLUCOSE,URINE NEG (NEG); KETONE, URINE NEG (NEG); NITRITE,URINE NEG (NEG); URINE COLOR LIGHT-YELLOW (YELLW/STRAW)
[2017-01-17 20:58] LABS: INTERNATIONAL NORMALIZED RATIO 1.1 RATIO
[2017-01-17 20:59] LABS: COMMENT (UR) CULT NOT INDICATED; CULTURE IF INDICATED CULT NOT INDICATED
[2017-01-17 21:10] LABS: ANION GAP 10 MEQ/L (5-15); AST (GOT) 46 U/L (15-37); BICARBONATE 21.3 MEQ/L (21.0-32.0); BLOOD UREA NITROGEN 2 MG/DL (7-18); CHLORIDE 109 MEQ/L (98-107); GLOMERULAR FILTRATION RATE 141 ML/MIN (>89); POTASSIUM 3.7 MEQ/L (3.5-5.1); SODIUM (NA) 140 MEQ/L (136-145)
[2017-01-17 21:12] LABS: ALT (GPT) 38 U/L (12-78)
[2017-01-17 21:14] LABS: ALKALINE PHOSPHATASE 105 U/L (45-117); TOTAL BILIRUBIN ADULT 0.7 MG/DL (0.2-1.0)
== END 2017-01-17 22:22 | disposition home or self-care (01) ==
LOC: NEPD 18:40
DX: K59.00 Constipation, unspecified (principal); R53.1 Weakness; R53.83 Other fatigue; I10 Essential (primary) hypertension; Z87.39 Personal history of other diseases of the musculoskeletal system and connective tissue; Z86.69 Personal history of other diseases of the nervous system and sense organs
CPT/HCPCS: 80053; 81001; 85025; 85610; 96360; 99284; J7030

== ENCOUNTER 2017-04-15 17:12 | Inpatient (IN) | payer MEDICARE, OTHER ==
[~2017-04-15] VITALS: Ht 175.3 cm; Wt 88.6 kg
[~2017-04-15 17:12] MED LIST changes: +ALEV220T14 PO; +ASPI-516 CHEW; -ASPI81CH CHEW; -MULTCAP14; +MULTTAB22; -NAPR220T95 PO; -VITA100T2 PO
[2017-04-15 18:08] VITALS: BP 174/84; PULSE 105; RESP 16; O2SAT 98
[2017-04-15] MEDS ORDERED: ASPI-183 PO (18:08)
[2017-04-15 18:12] VITALS: BP 174/84; PULSE 99; RESP 15; O2SAT 98
[2017-04-15] MEDS ORDERED: LORazepam 1 MG TAB PO PRN (18:30)
[2017-04-15] MEDS ORDERED: LORazepam 2 MG/ML VIAL IV PUSH PRN ×3 (18:30)
[2017-04-15] MEDS ORDERED: FLUMAZENIL 0.5 MG/5 ML VIAL IV PUSH PRN (18:30)
[2017-04-15] MEDS ORDERED: LORazepam 2 MG TAB PO PRN (18:30)
--- NOTE | 2017-04-15 18:33 | PD ---
HPI Chief Complaint: Alcohol/Drug Intoxication Time Seen by Provider: 18:30 Travel History International Travel<30 days: No Contact w/Intl Traveler<30days: No Traveled to known affect area: No History of Present Illness HPI 71-year-old male patient with history of alcohol abuse, presents to the ER brought in by EMS because he states he is feeling weak today, according to EMS they believe that he was going through DTs, however, patient is not able to tell me whether he had seizures or not. He denies any chest pains, shortness of breath, vomiting, fevers, or any other symptoms. He reported to EMS that he was not drinking since this morning, trying to quit alcohol again. Modifying Factors: None Associated Signs & Symptoms: General weakness, alcohol withdrawal Risk Factors: Alcohol abuse PFSH Past Medical History Hx Anticoagulant Therapy: Yes (ASPIRIN) Arthritis: Yes Blood Disorders: No Heart Rhythm Problems: No Cancer: No Cardiovascular Problems: No High Cholesterol: No Chest Pain: No Congestive Heart Failure: No Diminished Hearing: No Endocrine: No Gastrointestinal Disorders: No Genitourinary: No Hypertension: Yes Immune Disorder: No Neurologic: Yes Psychiatric: No Reproductive: No Respiratory: No Seizures: Yes (FROM ETOH ) Shingles: Yes Tetanus Vaccination: < 5 Years Past Surgical History Surgical History: No Previous Surgery Tonsillectomy: Yes Other Surgery: No Social History Alcohol Use: Yes (DAILY, BEER) Tobacco Use: No Substance Use: No Allergies-Medications (Allergen,Severity, Reaction): Coded Allergies: No Known Allergies (Verified Adverse Reaction, Unknown, 04/15/17) Reported Meds & Prescriptions Reported Meds & Active Scripts Active Walker/Adult/Folding (Device) 1 Mis Mis 1 Ea .ROUTE CONTINUOUS Use walker when weak Reported Aspirin 325 Mg Tab 325 Mg PO DAILY Aleve Arthritis (Naproxen Sodium) 220 Mg Tab 220 Mg PO BID Vitamin B Complex (B-Complex Vitamins) 1 Tab Review of Systems ROS Limitations: Intoxication Except as stated in HPI: all other systems reviewed are Neg Physical Exam Narrative GENERAL: Well-developed disheveled appearing elderly white male patient currently and mild distress. Awake, alert, oriented 3. SKIN: Focused skin assessment warm/dry. HEAD: Atraumatic. Normocephalic. EYES: Pupils equal and round. No scleral icterus. No injection or drainage. ENT: No nasal bleeding or discharge. Mucous membranes pink and moist. NECK: Trachea midline. No JVD. CARDIOVASCULAR: Regular rate and rhythm. No murmur appreciated. RESPIRATORY: No accessory muscle use. Clear to auscultation. Breath sounds equal bilaterally. GASTROINTESTINAL: Abdomen soft, non-tender, nondistended. Hepatic and splenic margins not palpable. MUSCULOSKELETAL: No obvious deformities. No clubbing. No cyanosis. No edema. NEUROLOGICAL: Awake and alert. No obvious cranial nerve deficits. Motor grossly within normal limits. Normal speech. PSYCHIATRIC: Appropriate mood and affect; insight and judgment poor. Data Data Last Documented VS Vital Signs Date Time Temp Pulse Resp B/P (MAP) Pulse Ox O2 Delivery O2 Flow Rate FiO2 04/15/17 18:12 99 15 174/84 (114) 98 Room Air Orders Orders Bedside Glucose ALLAN.CSUGAR (04/15/17 18:26) Alcohol Withdrawal Asmt-Ciwa ONCE (04/15/17 18:26) Flumazenil Inj (Romazicon Inj) (04/15/17 18:30) Lorazepam (Ativan) (04/15/17 18:30) Lorazepam Inj (Ativan Inj) (04/15/17 18:30) Lorazepam (Ativan) (04/15/17 18:30) Lorazepam Inj (Ativan Inj) (04/15/17 18:30) Lorazepam Inj (Ativan Inj) (04/15/17 18:30) Lorazepam Inj (Ativan Inj) (04/15/17 18:30) Electrocardiogram (04/15/17 18:33) Complete Blood Count With Diff (04/15/17 18:33) Comprehensive Metabolic Panel (04/15/17 18:33) Magnesium (Mg) (04/15/17 18:33) Ckmb (Isoenzyme) Profile (04/15/17 18:33) Troponin I (04/15/17 18:33) Act Partial Throm Time (Ptt) (04/15/17 18:33) Prothrombin Time / Inr (Pt) (04/15/17 18:33) Urinalysis - C+S If Indicated (04/15/17 18:33) Chest, Single Ap (04/15/17 18:33) Ct Brain W/O Iv Contrast(Rout) (04/15/17 18:33) Ecg Monitoring (04/15/17 18:33) Iv Access Insert/Monitor (04/15/17 18:33) Oximetry (04/15/17 18:33) Sodium Chloride 0.9% Flush (Ns Flush) (04/15/17 18:45) [facility] Medical Decision Making Medical Screen Exam Complete: Yes Emergency Medical Condition: Yes Medical Record Reviewed: Yes Differential Diagnosis General weakness: Dehydration versus alcohol withdrawals versus metabolic issues versus intracranial injuries Narrative Course CIWA protocol initiated due to patient's history of alcohol abuse. Lab work, CAT scan initiated in the ER for further evaluation of general weakness. Patient has no focal findings, but is not a reliable historian. Physician Communication Physician Communication Case is signed out to Dr. Cleveland at 7 PM pending workup of generalized weakness. Diagnosis Primary Impression: Generalized weakness Additional Impression: Alcohol withdrawal Condition: Stable Chung Skinner MD Apr 15, 2017 18:33
[2017-04-15] MEDS ORDERED: SODIUM CHLORIDE 0.9% FLUSH 10 ML FLUSH IVF PRN (18:45)
[2017-04-15 19:25] LABS: AUTOMATED NEUTROPHIL # 3.6 TH/MM3 (1.8-7.7); BASOPHIL % 0.4 % (0.0-2.0); HEMATOCRIT 36.2 % (39.0-51.0); LYMPH % 16.7 % (9.0-44.0); LYMPHOCYTE # 0.8 TH/MM3 (1.0-4.8); MEAN CELL VOLUME 98.9 FL (80.0-100.0); MEAN CORPUSCULAR HEMOGLOBIN 33.5 PG (27.0-34.0); MEAN CORPUSCULAR HGB CONC 33.9 % (32.0-36.0); MONO % 10.7 % (0.0-8.0); NEUT % 72.2 % (16.0-70.0); PLATELET COUNT 86 TH/MM3 (150-450); RED BLOOD COUNT 3.66 MIL/MM3 (4.50-5.90); WHITE BLOOD COUNT 4.9 TH/MM3 (4.0-11.0)
[2017-04-15 19:27] LABS: HEMO FLAGS AUTO DIFF
[2017-04-15 19:32] LABS: INTERNATIONAL NORMALIZED RATIO 1.2 RATIO
[2017-04-15 19:42] LABS: ANION GAP 13 MEQ/L (5-15); AST (GOT) 82 U/L (15-37); BLOOD UREA NITROGEN 5 MG/DL (7-18); CHLORIDE 99 MEQ/L (98-107); GLOMERULAR FILTRATION RATE 138 ML/MIN (>89); MAGNESIUM 1.8 MG/DL (1.5-2.5); POTASSIUM 3.4 MEQ/L (3.5-5.1); SODIUM (NA) 135 MEQ/L (136-145)
[2017-04-15 19:43] LABS: ALT (GPT) 33 U/L (12-78)
[2017-04-15 19:45] VITALS: BP 189/88; PULSE 88; RESP 20; O2SAT 98
[2017-04-15 19:47] LABS: ALKALINE PHOSPHATASE 196 U/L (45-117); CREATINE KINASE 285 U/L (39-308); TOTAL BILIRUBIN ADULT 2.6 MG/DL (0.2-1.0)
[2017-04-15 19:59] LABS: CKMB 3.1 NG/ML (0.5-3.6)
[2017-04-15 20:01] LABS: PLATELET ESTIMATE SMEAR LOW (NORMAL); PLATELET MORPHOLOGY NORMAL (NORMAL); SCAN/DIFF AUTO DIFF CONFIRMED
--- NOTE | 2017-04-15 20:05 | RADRPT ---
EXAM DATE/TIME: 04/15/2017 18:45 [facility] COMPARISON: CHEST SINGLE AP, September 16, 2016, 17:31. INDICATIONS : Chest pain and coughing up blood. MEDICAL HISTORY : Seizures. Hypertension. SURGICAL HISTORY : None. ENCOUNTER: Initial ACUITY: 1 day PAIN SCORE: 4/10 LOCATION: Bilateral chest FINDINGS: A single view of the chest is limited by multiple structures overlying the thorax including the left arm. However, lungs remain grossly clear. No obvious effusion. Heart size is normal. Osseous structur es are intact. CONCLUSION: Limited exam with no acute cardiopulmonary process. Benji Panchal MD on April 15, 2017 at 20:02 Board Certified Radiologist. This report was verified electronically.
--- NOTE | 2017-04-15 21:50 | RADRPT ---
EXAM DATE/TIME: 04/15/2017 20:15 [facility] COMPARISON: CT BRAIN W/O CONTRAST, September 16, 2016, 17:59. INDICATIONS : Weakness, dizziness. Altered mental status. RADIATION DOSE: 69.15 CTDIvol (mGy) MEDICAL HISTORY : Hypertension. Seizures. SURGICAL HISTORY : None. ENCOUNTER: Initial ACUITY: 1 day PAIN SCALE: 0/10 LOCATION: cranial TECHNIQUE: Multiple contiguous axial images were obtained of the head. Using automated exposure control and adj ustment of the mA and/or kV according to patient size, radiation dose was kept as low as reasonably a chievable to obtain optimal diagnostic quality images. DICOM format image data is available electro nically for review and comparison. FINDINGS: CEREBRUM: Stable chronic changes with some cortical and central atrophy and minimal periventricular small vesse l ischemic demyelination. No evidence of midline shift, mass lesion, hemorrhage or acute infarction. No extra-axial fluid collections are seen. POSTERIOR FOSSA: The cerebellum and brainstem are intact. The 4th ventricle is midline. The cerebellopontine angle i s unremarkable. EXTRACRANIAL: The visualized portion of the orbits is intact. SKULL: The calvaria is intact. No evidence of skull fracture. CONCLUSION: 1. Stable chronic changes with cortical and central atrophy and minimal periventricular small vessel ischemic demyelination. 2. Nothing acute Benji Panchal MD on April 15, 2017 at 21:47 Board Certified Radiologist. This report was verified electronically.
--- NOTE | 2017-04-15 22:48 | PD ---
Physical Exam Narrative Patient was seen by ED physician and signed out to me. Data Data Last Documented VS Vital Signs Date Time Temp Pulse Resp B/P (MAP) Pulse Ox O2 Delivery O2 Flow Rate FiO2 04/16/17 03:00 81 20 162/78 (106) 96 Room Air Orders Orders Bedside Glucose ALLAN.CSUGAR (04/15/17 18:26) Alcohol Withdrawal Asmt-Ciwa ONCE (04/15/17 18:26) Flumazenil Inj (Romazicon Inj) (04/15/17 18:30) Lorazepam (Ativan) (04/15/17 18:30) Lorazepam Inj (Ativan Inj) (04/15/17 18:30) Lorazepam (Ativan) (04/15/17 18:30) Lorazepam Inj (Ativan Inj) (04/15/17 18:30) Lorazepam Inj (Ativan Inj) (04/15/17 18:30) Lorazepam Inj (Ativan Inj) (04/15/17 18:30) Electrocardiogram (04/15/17 18:33) Complete Blood Count With Diff (04/15/17 18:33) Comprehensive Metabolic Panel (04/15/17 18:33) Magnesium (Mg) (04/15/17 18:33) Ckmb (Isoenzyme) Profile (04/15/17 18:33) Troponin I (04/15/17 18:33) Act Partial Throm Time (Ptt) (04/15/17 18:33) Prothrombin Time / Inr (Pt) (04/15/17 18:33) Urinalysis - C+S If Indicated (04/15/17 18:33) Chest, Single Ap (04/15/17 18:33) Ct Brain W/O Iv Contrast(Rout) (04/15/17 18:33) Ecg Monitoring (04/15/17 18:33) Iv Access Insert/Monitor (04/15/17 18:33) Oximetry (04/15/17 18:33) Sodium Chloride 0.9% Flush (Ns Flush) (04/15/17 18:45) CKMB (04/15/17 19:00) CKMB% (04/15/17 19:00) Sodium Chlor 0.9% 1000 Ml Inj (Ns 1000 M (04/15/17 23:00) Thiamine Inj (Thiamine Inj) (04/16/17 05:30) Sodium Chlor 0.9% 1000 Ml Inj (Ns 1000 M (04/16/17 05:30) Labs Laboratory Tests Test 04/15/17 19:00 04/16/17 02:35 White Blood Count 4.9 TH/MM3 Red Blood Count 3.66 MIL/MM3 Hemoglobin 12.3 GM/DL Hematocrit 36.2 % Mean Corpuscular Volume 98.9 FL Mean Corpuscular Hemoglobin 33.5 PG Mean Corpuscular Hemoglobin Concent 33.9 % Red Cell Distribution Width 15.0 % Platelet Count 86 TH/MM3 Mean Platelet Volume 8.7 FL Neutrophils (%) (Auto) 72.2 % Lymphocytes (%) (Auto) 16.7 % Monocytes (%) (Auto) 10.7 % Eosinophils (%) (Auto) 0.0 % Basophils (%) (Auto) 0.4 % Neutrophils # (Auto) 3.6 TH/MM3 Lymphocytes # (Auto) 0.8 TH/MM3 Monocytes # (Auto) 0.5 TH/MM3 Eosinophils # (Auto) 0.0 TH/MM3 Basophils # (Auto) 0.0 TH/MM3 CBC Comment AUTO DIFF Differential Comment AUTO DIFF CONFIRMED Platelet Estimate LOW Platelet Morphology Comment NORMAL Prothrombin Time 13.0 SEC Prothromb Time International Ratio 1.2 RATIO Activated Partial Thromboplast Time 32.0 SEC Blood Urea Nitrogen 5 MG/DL Creatinine 0.58 MG/DL Random Glucose 80 MG/DL Total Protein 7.3 GM/DL Albumin 3.2 GM/DL Calcium Level 7.5 MG/DL Magnesium Level 1.8 MG/DL Alkaline Phosphatase 196 U/L Aspartate Amino Transf (AST/SGOT) 82 U/L Alanine Aminotransferase (ALT/SGPT) 33 U/L Total Bilirubin 2.6 MG/DL Sodium Level 135 MEQ/L Potassium Level 3.4 MEQ/L Chloride Level 99 MEQ/L Carbon Dioxide Level 23.0 MEQ/L Anion Gap 13 MEQ/L Estimat Glomerular Filtration Rate 138 ML/MIN Total Creatine Kinase 285 U/L Creatine Kinase MB 3.1 NG/ML Troponin I LESS THAN 0.02 NG/ML Urine Color YELLOW Urine Turbidity CLEAR Urine pH 7.0 Urine Specific [place] 1.016 Urine Protein TRACE mg/dL Urine Glucose (UA) NEG mg/dL Urine Ketones 150 mg/dL Urine Occult Blood NEG Urine Nitrite NEG Urine Bilirubin NEG Urine Urobilinogen 4.0 MG/DL Urine Leukocyte Esterase NEG Urine RBC LESS THAN 1 /hpf Urine WBC 2 /hpf Urine Bacteria FEW /hpf Urine Mucus FEW /lpf Microscopic Urinalysis Comment CULT NOT INDICATED [facility] Supervised Visit with PAULO: No Interpretation(s) 22:44 PM. Chest x-ray shows no acute process. CT scan of the brain shows no acute pathology. CBC WBC 4.9. Hemoglobin 12.3 hematocrit 36.2. Platelet 86. 72 neutrophil. Sodium 135. Potassium 3.4. Total bili 2.6. AST 82. Alkaline phosphatase 196. Cardiac enzymes are normal. Narrative Course Patient was given IV fluid and Ativan. 5:25 AM. Patient is unable to ambulate much at all. Patient's unsteady on his feet. Patient will be admitted for observation with PT assessment. Normal saline solution 100 cc an hour. Thiamine 100 mg IV. Diagnosis Primary Impression: Generalized weakness Additional Impressions: Alcohol withdrawal Qualified Codes: F10.239 - Alcohol dependence with withdrawal, unspecified Unable to ambulate Tinea cruris Admitting Information Admitting Physician Requests: Observation Condition: Stable Jonnie Cleveland MD Apr 15, 2017 22:48
[2017-04-15] MEDS ORDERED: SODIUM CHLOR 0.9% 1000 ML INJ 1,000 ML IV ONE (23:00)
[2017-04-15] MEDS: LORazepam 2 MG/ML VIAL IV PUSH PRN (23:51)
[2017-04-16 03:00] VITALS: BP 162/78; PULSE 81; RESP 20; O2SAT 96
[2017-04-16 03:06] LABS: BACTERIA, URINE FEW /hpf; BLOOD, URINE NEG (NEG); COMMENT (UR) CULT NOT INDICATED; CULTURE IF INDICATED CULT NOT INDICATED; GLUCOSE,URINE NEG (NEG); KETONE, URINE 150 mg/dL (NEG); MUCUS URINE FEW /lpf (OCC); NITRITE,URINE NEG (NEG); URINE COLOR YELLOW (YELLW/STRAW)
[2017-04-16] MEDS ORDERED: CLOTRIMAZOLE 1% CREAM 15 GM TOPICAL ONE (05:30)
[2017-04-16] MEDS: SODIUM CHLOR 0.9% 1000 ML INJ 1,000 ML IV SCH ×2 (05:30→15:30)
[2017-04-16] MEDS ORDERED: THIAMINE INJ 100 MG in SODIUM CHLORIDE 0.9% INJ 100 ML IV ONE (05:30)
[2017-04-16] MEDS: LORazepam 2 MG/ML VIAL IV PUSH PRN (05:44)
[2017-04-16 05:45] VITALS: BP 154/73; PULSE 74; RESP 20; O2SAT 95
[2017-04-16] MEDS ORDERED: BISACODYL 10 MG SUPP RECTAL PRN (05:45)
[2017-04-16] MEDS ORDERED: MAGNESIUM HYDROXIDE SUSP 30 ML CUP PO PRN (05:45)
[2017-04-16] MEDS ORDERED: POTASSIUM CHLORIDE 20 MEQ CONTROLLED RELEASE TAB PO ONE (05:45)
[2017-04-16] MEDS ORDERED: ONDANSETRON HCL 4 MG/2 ML VIAL IVP PRN (05:45)
[2017-04-16] MEDS ORDERED: NALOXONE HCL 0.4 MG/ML AMP IV PUSH PRN (05:45)
[2017-04-16] MEDS ORDERED: ACETAMINOPHEN 325 MG TAB PO PRN (05:45)
[2017-04-16] MEDS ORDERED: SODIUM CHLORIDE 0.9% FLUSH 10 ML FLUSH IV FLUSH PRN (05:45)
[2017-04-16] MEDS ORDERED: SENNOSIDES 8.6 MG TAB PO PRN (05:45)
[2017-04-16] MEDS ORDERED: LACTULOSE SYRUP 20 GM/30 ML CUP PO PRN (05:45)
[2017-04-16] MEDS: HEPARIN SODIUM - SQ 10,000 UNITS/ML VIAL SQ SCH ×2 (06:41→15:48)
[2017-04-16 07:28] VITALS: BP 169/82; PULSE 67; RESP 18; TEMP 98; O2SAT 98
[2017-04-16] MEDS: SODIUM CHLORIDE 0.9% FLUSH 10 ML FLUSH IV FLUSH SCH ×2 (09:00→21:00)
[2017-04-16 12:41] VITALS: BP 157/85; PULSE 92; RESP 18; TEMP 98.2; O2SAT 95
--- NOTE | 2017-04-16 12:50 | HHI.HP ---
[facility] Service [facility] Primary Care Physician [facility] Admission Diagnosis physical deconditioning. Alcohol abuse. Diagnoses: Chief Complaint: weakness, withdrawal Travel History International Travel<30 Days: No Contact w/Intl Traveler <30 Da: No Traveled to Known Affected Are: No History of Present Illness Written by Melvina Mon, acting as scribe for Dr. Ferreira on 04/16/17 at 14:18 71-year-old male with history of alcohol abuse, alcohol withdrawal seizures, hypertension, presents with 2 day history of weakness, inability to ambulate, and concern for alcohol withdrawal. The patient reports 2 days ago he just couldn't get out of his chair. He states both legs were weak as well as his back. He denies any specific pains. He reports drinking 12-14 beers a day, stopped drinking yesterday morning, and now reports feeling shaky but denies any seizure activity. He denies any recent fevers/chills, chest pain, palpitations, shortness of breath, lightheadedness, dizziness. The patient does report while he was in the hospital this morning he became nauseous and vomited a small amount of emesis that looked like blood. He denies any abdominal pain. He did not have any episodes of vomiting prior to his arrival to the hospital. He denies any recent diarrhea or constipation. He takes only 1 Aleve daily for arthritic pains. He has a desire to quit drinking and occasionally will stop for a week or so. He has a neighbor friend who will mushroom picker beer for him, or he takes his rolling walker to the store to pick it up himself. He states he did have [facility] agency [employer] who were checking on him before and did help him quite a bit. He has one brother in [place] but otherwise does not have any local family members. He lives alone. He has no other medical complaints to report at this time. Review of Systems Except as stated in HPI: all other systems reviewed are Neg Past Family Social History Past Medical History Hypertension, not on antihypertensives Arthritis Past Surgical History Tonsillectomy Reported Medications Walker/Adult/Folding (Device) 1 Mis Mis 1 Ea .ROUTE CONTINUOUS Use walker when weak Aspirin 325 Mg Tab 325 Mg PO DAILY Aleve Arthritis (Naproxen Sodium) 220 Mg Tab 220 Mg PO BID Vitamin B Complex (B-Complex Vitamins) 1 Tab Allergies: Coded Allergies: No Known Allergies (Verified Allergy, Unknown, 04/16/17) Active Ordered Medications Current Medications Medications (Trade) Dose Ordered Sig/José Route Start Time Stop Time Status Last Admin (Romazicon Inj) 0.2 mg Q1M PRN IV PUSH 04/15/17 18:30 (Ativan) 1 mg Q4H PRN PO 04/15/17 18:30 (Ativan Inj) 1 mg Q4H PRN IV PUSH 04/15/17 18:30 (Ativan) 2 mg Q2H PRN PO 04/15/17 18:30 (Ativan Inj) 2 mg Q2H PRN IV PUSH 04/15/17 18:30 04/16/17 05:44 (Ativan Inj) 2 mg Q1H PRN IV PUSH 04/15/17 18:30 04/15/17 19:43 (Ativan Inj) 2 mg Q15M PRN IV PUSH 04/15/17 18:30 Sodium Chloride 1,000 ml @ 100 mls/hr Q10H IV 04/16/17 05:30 04/16/17 05:30 (NS Flush) 2 ml UNSCH PRN IV FLUSH 04/16/17 05:45 (NS Flush) 2 ml BID IV FLUSH 04/16/17 09:00 (Tylenol) 650 mg Q4H PRN PO 04/16/17 05:45 (Zofran Inj) 4 mg Q6H PRN IVP 04/16/17 05:45 (Heparin Inj) 5,000 units Q8H SQ 04/16/17 06:00 04/16/17 06:41 (Narcan Inj) 0.4 mg UNSCH PRN IV PUSH 04/16/17 05:45 (Milk Of Magnesia Liq) 30 ml Q12H PRN PO 04/16/17 05:45 (Senokot) 17.2 mg Q12H PRN PO 04/16/17 05:45 (Dulcolax Supp) 10 mg DAILY PRN RECTAL 04/16/17 05:45 (Lactulose Liq) 30 ml DAILY PRN PO 04/16/17 05:45 Family History Mother at age 86 secondary to old age Father with Lung cancer Paternal uncle with heart disease, at age 55 Social History Denies any tobacco use Drinks alcohol daily, mostly 12-14 beers a day for 50years Denies any illicit drug use Physical Exam Vital Signs Vital Signs Date Time Temp Pulse Resp B/P (MAP) Pulse Ox O2 Delivery O2 Flow Rate FiO2 04/16/17 12:41 98.2 92 18 157/85 (109) 95 04/16/17 07:28 98.0 67 18 169/82 (111) 98 04/16/17 05:45 74 20 154/73 (100) 95 Room Air 04/16/17 03:00 81 20 162/78 (106) 96 Room Air 04/15/17 19:45 88 20 189/88 (121) 98 Room Air 04/15/17 18:12 99 15 174/84 (114) 98 Room Air 04/15/17 18:12 98 Room Air 04/15/17 18:08 105 16 174/84 (114) 98 Physical Exam GENERAL: Well-nourished, well-developed unkempt appearing male patient in NAD. Tremulous. SKIN: Warm and dry. No rash. Multiple abrasion and scabs throughout bilateral lower extremities, worse on the left foot. Stage 1 sacral pressure ulcer. HEAD: Normocephalic. Atraumatic. EYES: Pupils equal and round. No scleral icterus. No injection or drainage. ENT: No nasal bleeding or discharge. Mucous membranes pink and moist. NECK: Supple. Trachea midline. CARDIOVASCULAR: Regular rate and rhythm. S1, S2 noted. No murmur appreciated. RESPIRATORY: No accessory muscle use. Clear to auscultation. Breath sounds equal bilaterally. GASTROINTESTINAL: Abdomen soft, non-tender, nondistended. Normoactive bowel sounds x4. MUSCULOSKELETAL: No obvious deformities. Extremities without clubbing, cyanosis , or edema. NEUROLOGICAL: Awake and alert. No obvious cranial nerve deficits. Motor grossly within normal limits. 5/5 muscle strength in bilateral upper and lower extremities. Normal speech. PSYCHIATRIC: Appropriate mood and affect; insight and judgment normal. Laboratory Laboratory Tests Test 04/15/17 19:00 04/16/17 02:35 White Blood Count 4.9 Red Blood Count 3.66 Hemoglobin 12.3 Hematocrit 36.2 Mean Corpuscular Volume 98.9 Mean Corpuscular Hemoglobin 33.5 Mean Corpuscular Hemoglobin Concent 33.9 Red Cell Distribution Width 15.0 Platelet Count 86 Mean Platelet Volume 8.7 Neutrophils (%) (Auto) 72.2 Lymphocytes (%) (Auto) 16.7 Monocytes (%) (Auto) 10.7 Eosinophils (%) (Auto) 0.0 Basophils (%) (Auto) 0.4 Neutrophils # (Auto) 3.6 Lymphocytes # (Auto) 0.8 Monocytes # (Auto) 0.5 Eosinophils # (Auto) 0.0 Basophils # (Auto) 0.0 CBC Comment AUTO DIFF Differential Comment AUTO DIFF CONFIRMED Platelet Estimate LOW Platelet Morphology Comment NORMAL Prothrombin Time 13.0 Prothromb Time International Ratio 1.2 Activated Partial Thromboplast Time 32.0 Blood Urea Nitrogen 5 Creatinine 0.58 Random Glucose 80 Total Protein 7.3 Albumin 3.2 Calcium Level 7.5 Magnesium Level 1.8 Alkaline Phosphatase 196 Aspartate Amino Transf (AST/SGOT) 82 Alanine Aminotransferase (ALT/SGPT) 33 Total Bilirubin 2.6 Sodium Level 135 Potassium Level 3.4 Chloride Level 99 Carbon Dioxide Level 23.0 Anion Gap 13 Estimat Glomerular Filtration Rate 138 Total Creatine Kinase 285 Creatine Kinase MB 3.1 Troponin I LESS THAN 0.02 Urine Color YELLOW Urine Turbidity CLEAR Urine pH 7.0 Urine Specific [place] 1.016 Urine Protein TRACE Urine Glucose (UA) NEG Urine Ketones 150 Urine Occult Blood NEG Urine Nitrite NEG Urine Bilirubin NEG Urine Urobilinogen 4.0 Urine Leukocyte Esterase NEG Urine RBC LESS THAN 1 Urine WBC 2 Urine Bacteria FEW Urine Mucus FEW Microscopic Urinalysis Comment CULT NOT INDICATED Result Diagram: 04/15/17189904/15/171899 Imaging Last Impressions Head CT 04/15/171832 Signed Impressions: Service Date/Time: Saturday, April 15, 2017 20:15 - CONCLUSION: 1. Stable chronic changes with cortical and central atrophy and minimal periventricular small vessel ischemic demyelination. 2. Nothing acute Benji Panchal MD Chest X-Ray 04/15/171832 Signed Impressions: Service Date/Time: Saturday, April 15, 2017 18:45 - CONCLUSION: Limited exam with no acute cardiopulmonary process. MD Rizwan Lawson VTE Risk Assessment Caprini VTE Risk Assessment: Mod/High Risk (score >= 2) Caprini Risk Assessment Model Point Value = 1 Point Value = 2 Point Value = 3 Point Value = 5 Age 41-60 Minor surgery BMI > 25 kg/m2 Swollen legs Varicose veins or History of unexplained or recurrent spontaneous Oral contraceptives or hormone replacement Sepsis (< 1 month) Serious lung disease, including pneumonia (< 1 month) Abnormal pulmonary function Acute myocardial infarction Congestive heart failure (< 1 month) History of inflammatory bowel disease Medical patient at bed rest Age 61-74 Arthroscopic surgery Major open surgery (> 45 min) Laparoscopic surgery (> 45 min) Malignancy Confined to bed (> 72 hours) Immobilizing plaster cast Central venous access Age >= 75 History of VTE Family history of VTE Factor V Leiden Prothrombin [id number] Lupus anticoagulant Anticardiolipin antibodies Elevated serum homocysteine Heparin-induced thrombocytopenia Other congenital or acquired thrombophilia Stroke (< 1 month) Elective arthroplasty Hip, pelvis, or leg fracture Acute spinal cord injury (< 1 month) Prophylaxis Regimen Total Risk Factor Score Risk Level Prophylaxis Regimen 0-1 Low Early ambulation 2 Moderate Order ONE of the following: *Sequential Compression Device (SCD) *Heparin 5000 units SQ BID 3-4 Higher Order ONE of the following medications: *Heparin 5000 units SQ TID *Enoxaparin/Lovenox 40 mg SQ daily (WT < 150 kg, CrCl > 30 mL/min) *Enoxaparin/Lovenox 30 mg SQ daily (WT < 150 kg, CrCl > 10-29 mL/min) *Enoxaparin/Lovenox 30 mg SQ BID (WT < 150 kg, CrCl > 30 mL/min) AND/OR *Sequential Compression Device (SCD) 5 or more Highest Order ONE of the following medications: *Heparin 5000 units SQ TID (Preferred with Epidurals) *Enoxaparin/Lovenox 40 mg SQ daily (WT < 150 kg, CrCl > 30 mL/min) *Enoxaparin/Lovenox 30 mg SQ daily (WT < 150 kg, CrCl > 10-29 mL/min) *Enoxaparin/Lovenox 30 mg SQ BID (WT < 150 kg, CrCl > 30 mL/min) AND *Sequential Compression Device (SCD) Assessment and Plan Problem List: (1) Alcohol withdrawal ICD Code: F10.239 - Alcohol dependence with withdrawal, unspecified Status: Acute (2) Unable to ambulate ICD Code: R26.2 - Difficulty in walking, not elsewhere classified Status: Acute (3) Generalized weakness ICD Code: R53.1 - Weakness Status: Acute Assessment and Plan 71-year-old male with history of alcohol abuse, alcohol withdrawal seizures, hypertension, presents with 2 day history of weakness, inability to ambulate, and concern for alcohol withdrawal. Generalized Weakness, Inability to Ambulate: suspect multifactorial with alcohol abuse/withdrawal, chronic deconditioning, dehydration. -Head CT images reviewed, shows stable chronic changes; no acute findings -CXR images reviewed, no acute findings -Urinalysis unremarkable -Give IVF hydration -treat alcohol withdrawal as below -Check vitamin D, TSH, give thiamine 500mg po x1 now -Consult PT, likely needs HHC vs rehab Acute Alcohol Withdrawal: patient tremulous with increased weakness, nausea/ vomiting. Last alcohol drink 04/14. -continue CIWA protocol with IV ativan prn -started on scheduled librium 10mg tid -give IV thiamine x3 days, then po thiamine -started on multivitamin and folate -case management consult Hematemesis: patient reports streaks of blood tinged emesis this morning x1. Suspect secondary to gastritis with alcohol abuse and NSAID use, however possibility of varices. -hold patient's aspirin and aleve -start on PPI -monitor serial H&H -check stool hemoccult and gastroccult -consult GI for further evaluation Hypertension: BP consistently in 160s/80s. Likely secondary to acute alcohol withdrawal. The patient is not on antihypertensives at home. -Monitor for now, treat alcohol withdrawal as above -Clonidine prn SBP > 180 -consider adding antihypertensive if no improvement Thrombocytopenia: Platelets 86K. Suspect secondary to chronic alcohol abuse. -continue to monitor CBC DVT Prophylaxis: teds/SCDs; avoid chemoprophylaxis with possible GI bleed and coagulopathy Discussed Condition With Patient, CDU RN Attending Statement This note was transcribed by vaibhav Mon. I, Dr. Georges Ferreira personally performed the history, physical exam, and medical decision making; and confirmed the accuracy of the information in the transcribed note. Authenticated by Dr. Georges Ferreira on 04/16/17 at 17:20. Problem Qualifiers (1) Alcohol withdrawal: Qualified Codes: F10.239 - Alcohol dependence with withdrawal, unspecified Melvina Mon PA-C Apr 16, 2017 12:50 Georges Ferreira MD Apr 16, 2017 17:20
--- NOTE | 2017-04-16 16:08 | HHI.FF ---
Face to Face Verification Diagnosis: (1) Impaired mobility and ADLs (2) Generalized weakness (3) Unable to ambulate (4) Alcohol withdrawal Physical Therapy Order: Evaluate and Treat, Improve ambulation, Strength and gait training Home Health Nursing Order: Medical education Signs/symptoms of disease process Nursing assessment with vital signs Program Director Order: To Evaluate: Living conditions/environment, Support services Order: To Provide: Long range planning, Community services I have seen patient Mario Jo on 04/16/17. My clinical findings support the need for the requested home health care services because: Ltd mobility - disease progression Deconditioned w/ increased weakness Limited ability to care for self High risk of falls I certify that my clinical findings support that this patient is homebound because: Unsteady gait/balance Unsafe to leave home unassisted Need for psychosocial assistance Unable to use public transportation Melvina Mon PA-C Apr 16, 2017 4:08 pm
[2017-04-16] MEDS ORDERED: PANTOPRAZOLE SOD 40 MG DELAYED RELEASE TAB PO ONE (16:15)
[2017-04-16] MEDS ORDERED: THIAMINE HCL 100 MG TAB PO ONE (16:30)
[2017-04-16] MEDS ORDERED: cloNIDine HCL 0.1 MG TAB PO PRN (16:30)
[2017-04-16 16:48] VITALS: BP 167/97; PULSE 98; RESP 18; TEMP 98.2; O2SAT 96
--- NOTE | 2017-04-16 18:06 | EKG ---
Date Performed: 04/15/2017 Time Performed: 19:25:59 PTAGE: 71 years EKG: Sinus rhythm PROLONGED QT INTERVAL Since previous tracing, no significant change noted ABNORMAL ECG PREVIOUS TRACING : 09/16/2016 17.25.59 DOCTOR: Mariel Gordon Interpretating Date/Time 04/16/2017 18:05:20
[2017-04-16] MEDS: FOLIC ACID 1 MG TAB PO SCH (19:10)
[2017-04-16] MEDS: MULTIVITAMINS/MINERALS THERAPEUTIC TAB PO SCH (19:49)
[2017-04-16] MEDS: THIAMINE INJ 100 MG in SODIUM CHLORIDE 0.9% INJ 100 ML IV SCH (19:52)
[2017-04-16 20:01] VITALS: BP 151/80; PULSE 100; RESP 16; TEMP 97.8; O2SAT 95
[2017-04-16 20:46] LABS: REVIEW FLAG FINAL
[2017-04-17] VITALS (7 sets, daily range): BP systolic 102–158; BP diastolic 52–81; PULSE 87–104; RESP 18–20; TEMP 97.5–99.9; O2SAT 90–97
--- NOTE | 2017-04-17 08:56 | HHI.PR ---
Subjective Remarks She says that extreme weakness continues. Nausea somewhat improved. Denies any chest pain or shortness of breath. Still cannot ambulate by himself. Objective Vital Signs Date Time Temp Pulse Resp B/P (MAP) Pulse Ox O2 Delivery O2 Flow Rate FiO2 04/17/17 05:00 97.5 104 18 158/74 (102) 97 04/17/17 00:00 97.8 94 18 146/72 (96) 96 04/16/17 20:01 97.8 100 16 151/80 (103) 95 04/16/17 16:48 98.2 98 18 167/97 (120) 96 04/16/17 12:41 98.2 92 18 157/85 (109) 95 I/O 04/16/17 04/16/17 04/16/17 04/17/17 04/17/17 04/17/17 07:00 15:00 23:00 07:00 15:00 23:00 Intake Total 100 ml Balance 100 ml Intake IV Total 100 ml Result Diagram: 04/16/17192904/15/171899 Objective Remarks GENERAL: Sitting up in bed. Appears comfortable SKIN: Warm and dry. HEAD: Normocephalic. EYES: No scleral icterus. No injection or drainage. NECK: Supple, trachea midline. No JVD. CARDIOVASCULAR: Regular rate and rhythm without murmurs, gallops, or rubs. RESPIRATORY: Breath sounds equal bilaterally. No accessory muscle use. GASTROINTESTINAL: Abdomen soft, non-tender, nondistended. MUSCULOSKELETAL: No cyanosis, or edema. Neurologic. generalized weakness continues. BACK: Nontender without obvious deformity. No CVA tenderness. A/P Assessment and Plan 71-year-old male with history of alcohol abuse, alcohol withdrawal seizures, hypertension, presents with 2 day history of weakness, inability to ambulate, and concern for alcohol withdrawal. 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 EKG pending. Vitamin D level pending. //Generalized Weakness, Inability to Ambulate: suspect multifactorial with alcohol abuse/withdrawal, chronic deconditioning, dehydration. -Head CT images reviewed, shows stable chronic changes; no acute findings -CXR images reviewed, no acute findings -Urinalysis unremarkable -Give IVF hydration -treat alcohol withdrawal as below -Check vitamin D, TSH, give thiamine 500mg po x1 now -Consult PT, likely needs HHC vs rehab = Appreciate PT assistance. PT will continue to work with patient, but still unable to go home. //Acute Alcohol Withdrawal: patient tremulous with increased weakness, nausea/ vomiting. Last alcohol drink 04/14. -continue CIWA protocol with IV ativan prn -started on scheduled librium 10mg tid -give IV thiamine x3 days, then po thiamine -started on multivitamin and folate -case management consult = Improved on Librium. Still tachycardic. Continue on current dose of Librium with CIWA protocol. //Hematemesis: patient reports streaks of blood tinged emesis this morning x1. Suspect secondary to gastritis with alcohol abuse and NSAID use, however possibility of varices. -hold patient's aspirin and aleve -start on PPI -monitor serial H&H -check stool hemoccult and gastroccult -consult GI for further evaluation = Follow-up GI recommendations. Repeat labs pending. //Hypertension: BP consistently in 160s/80s. Likely secondary to acute alcohol withdrawal. The patient is not on antihypertensives at home. -Monitor for now, treat alcohol withdrawal as above -Clonidine prn SBP > 180 -consider adding antihypertensive if no improvement = Systolic blood pressures in the 150s. Still elevated, but acceptable. Continue to monitor. //Thrombocytopenia: Platelets 86K. Suspect secondary to chronic alcohol abuse. -continue to monitor CBC = Repeat CBC pending. //DVT Prophylaxis: teds/SCDs; avoid chemoprophylaxis with possible GI bleed and coagulopathy Discharge Planning Pending improvement in generalized weakness. Unable to go home at this time. Would likely need SNF. Appreciate PT assistance. Georges Ferreira MD Apr 17, 2017 08:56
[2017-04-17] MEDS: SODIUM CHLORIDE 0.9% FLUSH 10 ML FLUSH IV FLUSH SCH ×2 (09:00→21:00)
[2017-04-17] MEDS ORDERED: PANTOPRAZOLE SOD 40 MG DELAYED RELEASE TAB PO SCH (09:00)
[2017-04-17] MEDS: SODIUM CHLOR 0.9% 1000 ML INJ 1,000 ML IV SCH ×3 (09:18→21:30)
[2017-04-17] MEDS: FOLIC ACID 1 MG TAB PO SCH (09:18)
[2017-04-17] MEDS: MULTIVITAMINS/MINERALS THERAPEUTIC TAB PO SCH (09:18)
--- NOTE | 2017-04-17 09:39 | PD.CONS ---
HPI History of Present Illness This is a 71 year old male admitted on 04/16/17 with alcohol abuse, alcohol withdrawal seizures, weakness and debility. Patient also notes a decreased appetite 1 week before coming into the hospital. Patient also has complaints of dry heaves a lot before his admission. Patient states yesterday he began having coughing spells, along with dry heaves , and states that he coughed up or vomited dark emesis which he states could have been blood X 1 episode. Patient denies any previous episodes of hemoptysis or hematocrit emesis. Patient states he has always been fairly healthy and has never seen any one from gastroenterology or had any type of GI procedures done. Patient denies any recent diarrhea or constipation or dysphasia. Patient has had no recent weight gain or weight loss Patient takes 1 Aleve daily for his arthritic pain. [facility] his [facility] approximately one month ago. (Chanel Paul) PFSH Past Medical History Hypertension, not on antihypertensives Arthritis EtOH abuse/dependence Nausea Past Surgical History Tonsillectomy (Chanel Paul) Coded Allergies: No Known Allergies (Verified Allergy, Unknown, 04/16/17) Medications Administered Medications Medications (Trade) Dose Ordered Sig/José Route PRN Reason Start Time Stop Time Status Last Admin Dose Admin Lorazepam (Ativan) 1 mg Q4H PRN PO CIWA 8 - 10 04/15/17 18:30 04/16/17 23:05 Lorazepam (Ativan Inj) 2 mg Q2H PRN IV PUSH CIWA 11-14 04/15/17 18:30 04/16/17 05:44 Lorazepam (Ativan Inj) 2 mg Q1H PRN IV PUSH CIWA 15-20 04/15/17 18:30 04/15/17 19:43 Sodium Chloride 1,000 ml @ 100 mls/hr Q10H IV 04/16/17 05:30 04/17/17 09:18 Ondansetron HCl (Zofran Inj) 4 mg Q6H PRN IVP NAUSEA OR VOMITING 04/16/17 05:45 04/16/17 23:05 Chlordiazepoxide (Librium) 10 mg TID PO 04/16/17 18:00 04/17/17 09:18 Folic Acid (Folate) 1 mg DAILY PO 04/16/17 16:00 04/21/17 15:59 04/17/17 09:18 Multivitamins/ Minerals Therapeutic (Theragran M Tab) 1 tab DAILY PO 04/16/17 16:00 04/21/17 15:59 04/17/17 09:18 Thiamine HCl 100 mg/Sodium Chloride 101 ml @ 100 mls/hr Q24H IV 04/16/17 16:00 04/18/17 17:01 04/16/17 19:52 Pantoprazole Sodium (Protonix) 40 mg DAILY PO 04/17/17 09:00 04/17/17 09:18 Family History Mother at age 86 secondary to old age Father with Lung cancer Paternal uncle with heart disease, at age 55 Social History Denies any history of tobacco use Drinks alcohol daily, mostly 12-14 beers a day for 53years Denies any illicit drug use Patient's 2, lives alone for many years (Chanel Paul) Review of Systems Constitutional: COMPLAINS OF: Fatigue, Change in appetite Respiratory: COMPLAINS OF: Cough, Hemoptysis Gastrointestinal: COMPLAINS OF: Nausea Musculoskeletal: COMPLAINS OF: Muscle aches Psychiatric: COMPLAINS OF: Anxiety (Chanel Paul) GI Exam Vitals I&O Vital Signs Date Time Temp Pulse Resp B/P (MAP) Pulse Ox O2 Delivery O2 Flow Rate FiO2 04/17/17 08:56 99.0 87 18 154/81 (105) 95 04/17/17 05:00 97.5 104 18 158/74 (102) 97 04/17/17 00:00 97.8 94 18 146/72 (96) 96 04/16/17 20:01 97.8 100 16 151/80 (103) 95 04/16/17 16:48 98.2 98 18 167/97 (120) 96 04/16/17 12:41 98.2 92 18 157/85 (109) 95 I/O 04/16/17 04/16/17 04/16/17 04/17/17 04/17/17 04/17/17 07:00 15:00 23:00 07:00 15:00 23:00 Intake Total 100 ml Balance 100 ml Intake IV Total 100 ml Imaging Last Impressions Head CT 11/27/17 1833 Signed Impressions: Service Date/Time: Saturday, April 15, 2017 20:15 - CONCLUSION: 1. Stable chronic changes with cortical and central atrophy and minimal periventricular small vessel ischemic demyelination. 2. Nothing acute Benji Panchal MD Chest X-Ray 04/15/171832 Signed Impressions: Service Date/Time: Saturday, April 15, 2017 18:45 - CONCLUSION: Limited exam with no acute cardiopulmonary process. Benji Panchal MD Laboratory Test 04/16/17 19:30 Hemoglobin 13.0 GM/DL Hematocrit 39.0 % Thyroid Stimulating Hormone 3rd Gen 1.660 uIU/ML Physical Examination HEENT: Pupils round and reactive to light; normocephalic; atraumatic; no jaundice. Throat clean. NECK: Neck is supple, no JVD, no lymphadenopathy. CHEST: Chest is clear to auscultation and percussion. CARDIAC: Regular rate and rhythm, occasional tachycardia with increase activity ABDOMEN: Round, Soft, nondistended, nontender; no hepatosplenomegaly; bowel sounds are present in all four quadrants. EXTREMITIES: No clubbing, cyanosis, or edema. SKIN: Normal; no rash, Jan complexion; no jaundice. PROSPECTING DRILLER: No focal deficits; fair historian, answers most questions appropriately (Chanel Paul) Assessment and Plan Plan Assessment: Possible GERD Hemoptysis 1 event, 04/16/17 Hematemesis: Patient states 1 event , but has been taking Aleve daily and has a significant history of EtOH abuse and dependence /. Varices varices is also a possibility. Possible gastritis related to EtOH abuse/dependence Hyperbilirubinemia, Note Bilirubin 2.6 AST 82 Plan: PPI / Protonix IV twice a day Monitor H&H's every 6 hours 3 to evaluate for any acute changes. Currently hemoglobin 13., and hematocrit are stable. Heparin subcutaneous be held for now Check Hemoccult/ gastroccult/pending Plan for possible endoscopy for a.m. according to patient has no history of GI procedures. Nothing by mouth except for meds after midnight. Consents to be signed. Check CMP am Plan of care will be based on findings in any acute changes during this admission Discussed with Dr. Gdowin, patient was evaluated and seen on her behalf (Chanel Paul) Physician Comments seen, examined agree with above complaining of back pain, had a recent fall states, has some bruising on knees and abdomen, also perianla rash -possible fungal infection ct abdomen pelvis direct/indirect bilirubin in am egd in am (Lida Godwin MD) Chanel Paul Apr 17, 2017 09:39 Ldia Godwin MD Apr 17, 2017 21:06
[2017-04-17 10:17] LABS: AUTOMATED NEUTROPHIL # 3.1 TH/MM3 (1.8-7.7); BASOPHIL % 0.5 % (0.0-2.0); EOSINOPHIL % 0.4 % (0.0-4.0); HEMO FLAGS AUTO DIFF; LYMPH % 23.8 % (9.0-44.0); LYMPHOCYTE # 1.2 TH/MM3 (1.0-4.8); MEAN CELL VOLUME 99.2 FL (80.0-100.0); MEAN CORPUSCULAR HEMOGLOBIN 32.8 PG (27.0-34.0); MEAN CORPUSCULAR HGB CONC 33.1 % (32.0-36.0); MONO % 12.7 % (0.0-8.0); NEUT % 62.6 % (16.0-70.0); PLATELET COUNT 64 TH/MM3 (150-450); RED BLOOD COUNT 4.24 MIL/MM3 (4.50-5.90); RED CELL DISTRIBUTION WIDTH 15.2 % (11.6-17.2)
[2017-04-17 10:48] LABS: ALKALINE PHOSPHATASE 202 U/L (45-117); ALT (GPT) 41 U/L (12-78); ANION GAP 7 MEQ/L (5-15); AST (GOT) 102 U/L (15-37); BICARBONATE 24.4 MEQ/L (21.0-32.0); BLOOD UREA NITROGEN 6 MG/DL (7-18); CHLORIDE 100 MEQ/L (98-107); GLOMERULAR FILTRATION RATE 147 ML/MIN (>89); SODIUM (NA) 131 MEQ/L (136-145); TOTAL BILIRUBIN ADULT 4.1 MG/DL (0.2-1.0)
[2017-04-17 10:54] LABS: POTASSIUM 2.9 MEQ/L (3.5-5.1)
[2017-04-17 10:59] LABS: PLATELET ESTIMATE SMEAR LOW (NORMAL); PLATELET MORPHOLOGY NORMAL (NORMAL); SCAN/DIFF AUTO DIFF CONFIRMED
[2017-04-17] MEDS ORDERED: CALCIUM GLUCONATE INJ 2 GM in DEXTROSE 5% IN WATER 100ML INJ 100 ML IV ONE ×2 (11:00)
[2017-04-17] MEDS: PANTOPRAZOLE SODIUM 40 MG VIAL IV PUSH SCH ×2 (11:20→21:24)
[2017-04-17] MEDS: THIAMINE INJ 100 MG in SODIUM CHLORIDE 0.9% INJ 100 ML IV SCH (17:08)
[2017-04-17] MEDS ORDERED: MAGNESIUM SULFATE 1 GM PREMIX 100 ML IV ONE (17:15)
[2017-04-17] MEDS: POTASSIUM CHLOR 10 MEQ PREMIX 100 ML IV SCH ×3 (17:15→21:24)
[2017-04-17] MEDS ORDERED: POTASSIUM CHLORIDE 10 MEQ CONTROLLED RELEASE TAB PO ONE (18:00)
[2017-04-17 18:23] LABS: HEMATOCRIT 39.2 % (39.0-51.0)
[2017-04-17 18:24] LABS: REVIEW FLAG FINAL
[2017-04-17] MEDS ORDERED: DIATRIZOATE MEGLUM/DIATRIZOATE SOD 9 ML CUP PO ONE (21:45)
[2017-04-17 23:38] LABS: HEMATOCRIT 39.2 % (39.0-51.0)
[2017-04-17 23:39] LABS: REVIEW FLAG FINAL
[2017-04-18] VITALS (7 sets, daily range): BP systolic 111–142; BP diastolic 58–86; PULSE 79–110; RESP 18–20; TEMP 97.6–99.5; O2SAT 96–99
[2017-04-18] MEDS ORDERED: IOHEXOL 350 MG/ML 10 ML VIAL (for RAD DIAG) IVCONTRAST ONE (01:52)
--- NOTE | 2017-04-18 02:01 | RADRPT ---
EXAM DATE/TIME: 04/18/2017 01:41 [place] COMPARISON: No previous studies available for comparison. INDICATIONS : Abdomen and back pain. Elevated liver enzymes. IV CONTRAST: 90 cc Omnipaque 350 (iohexol) IV ORAL CONTRAST: Prescribed oral contrast ingested. RADIATION DOSE: 14.89 CTDIvol (mGy) MEDICAL HISTORY : Hypertension. ETOH abuse SURGICAL HISTORY : None. ENCOUNTER: Initial ACUITY: 1 day PAIN SCALE: 5/10 LOCATION: back and abdomen TECHNIQUE: Volumetric scanning of the abdomen and pelvis was performed. Using automated exposure control and ad justment of the mA and/or kV according to patient size, radiation dose was kept as low as reasonably achievable to obtain optimal diagnostic quality images. DICOM format image data is available electro nically for review and comparison. FINDINGS: LOWER LUNGS: There is mild increased density at the posterior right lung base related to either consolidation or a telectasis. Coronary artery calcifications are present. LIVER: There is diffuse decreased attenuation the liver. There is some heterogeneity to the liver. Calcified gallstones are not present. SPLEEN: Normal size without lesion. PANCREAS: There are a few calcifications in the pancreatic head region which may be from mild chronic pancreati tis. Acute pancreatitis is not seen. KIDNEYS: Normal in size and shape. There is no mass, stone or hydronephrosis. ADRENAL GLANDS: Within normal limits. VASCULAR: There is no aortic aneurysm. BOWEL/MESENTERY: The stomach, small bowel, and colon demonstrate no acute abnormality. There is no free intraperitone al air or fluid. The appendix appears normal. There are scattered colonic diverticula. ABDOMINAL WALL: Within normal limits. RETROPERITONEUM: There is no lymphadenopathy. BLADDER: No wall thickening or mass. REPRODUCTIVE: Within normal limits. INGUINAL: There is no lymphadenopathy or hernia. MUSCULOSKELETAL: There is degenerative change throughout the lumbar spine. CONCLUSION: 1. Hepatic steatosis. 2. There are a few scattered calcifications of the pancreatic head which may be from chronic pancreat itis. Acute pancreatitis is not present. 3. Degenerative change in lumbar spine. 4. Suspected mild atelectasis or consolidation at the posterior right lung base. Nehemias Marcelino MD on April 18, 2017 at 1:56 Board Certified Radiologist. This report was verified electronically.
[2017-04-18] MEDS ORDERED: POTASSIUM CHLOR 20 MEQ PREMIX 100 ML IV ONE (09:30)
--- NOTE | 2017-04-18 10:45 | GIPROC ---
[facility] [address] [facility]. [facility], [address] EGD PROCEDURE REPORT EXAM DATE: 04/18/2017 PATIENT NAME: Mario Jo MR #: [id number] BIRTHDATE: 1945 ATTENDING: Lida Godwin MD ORDER #: [id number] SHIPPING LEAD PERSON: Giovanny Davalos and Joyce Pak STATUS: inpatient INDICATIONS: The patient is a 71 yr old male here for an EGD due to gi bleeding, abdominal pain PROCEDURE PERFORMED: EGD w/ biopsy MEDICATIONS: None and Per Anesthesia. TOPICAL ANESTHETIC: none CONSENT: The patient understands the risks and benefits of the procedure and understands that these risks include, but are not limited to: sedation, allergic reaction, infection, perforation and/or bleeding. Alternative means of evaluation and treatment include, among others: physical exam, x-rays, and/or surgical intervention. The patient elects to proceed with this endoscopic procedure. medical equipment was checked for proper function. Hand hygiene and appropriate measures for infection prevention was taken. After the risks, benefits and alternatives of the procedure were thoroughly explained, Informed consent was verified, confirmed and timeout was successfully executed by the treatment team. The patient was anesthetized with topical anesthesia and the Pentax EG-[id number] endoscope was introduced through the mouth and advanced to the second portion of the duodenum. Retroflexed views revealed a hiatal hernia The gastroscope was then slowly withdrawn and removed. Duodenitis second portion-biopsy superficial ulcers antrum-biopsy esophagitis/Schatzki's ring -biopsy. Ok to dc home from gi point if dc fu gi 2 weeks. ADVERSE EVENTS: There were no complications. IMPRESSIONS: 1. Duodenitis second portion-biopsy superficial ulcers antrum-biopsy esophagitis/Schatzki's ring -biopsy 2. Retroflexed views revealed a hiatal hernia RECOMMENDATIONS: 1. Await biopsy results. Biopsy results will not be ready for 7-10 days. If you don't hear from us in two weeks, call our office for biopsy results. 2. Anti-reflux regimen 3. Continue PPI 4. Avoid NSAIDS 5. Avoid ETOH pancreatic enzymes -Creon with meals and snacks colonoscopy-screening -op same time with egd PATIENT CONDITION: stable DISPOSITION: Inpatient REPEAT EXAM: Return 3 months EGD Lida Godwin MD eSigned: Lida Godwin MD 04/18/2017 10:44 AM cc: PATIENT NAME: Mario Jo MR#: [id number]
[2017-04-18] MEDS: FOLIC ACID 1 MG TAB PO SCH (11:44)
[2017-04-18] MEDS: PANTOPRAZOLE SODIUM 40 MG VIAL IV PUSH SCH ×2 (11:45→22:40)
[2017-04-18] MEDS: SODIUM CHLORIDE 0.9% FLUSH 10 ML FLUSH IV FLUSH SCH ×2 (11:45→22:40)
[2017-04-18] MEDS: SODIUM CHLOR 0.9% 1000 ML INJ 1,000 ML IV SCH ×2 (11:46→22:41)
[2017-04-18] MEDS ORDERED: PROPOFOL 200 MG/20 ML AMP IV ONE (12:00)
--- NOTE | 2017-04-18 12:26 | HHI.PR ---
Subjective Remarks Follow-up on patient with generalized weakness, hematemesis. Patient seen and examined. Patient reports persistent weakness. Denies any complaints of fever or chills. Denies any chest pain or shortness of breath. Reports he has some nausea but denies any vomiting. Denies any abdominal pain. Denies any urinary difficulties, diarrhea or constipation. Objective Vitals Vital Signs Date Time Temp Pulse Resp B/P (MAP) Pulse Ox O2 Delivery O2 Flow Rate FiO2 04/18/17 11:52 98.3 79 18 123/58 (79) 96 04/18/17 10:56 111/68 (82) 04/18/17 10:39 97.3 91 18 105/69 (81) 98 04/18/17 07:28 98.4 80 18 129/66 (87) 99 04/18/17 03:57 97.8 81 19 123/59 (80) 98 04/18/17 00:05 97.6 110 20 142/73 (96) 99 04/17/17 21:54 98.0 90 20 118/61 (80) 97 04/17/17 15:27 99.9 94 18 118/56 (76) 96 I/O 04/17/17 04/17/17 04/17/17 04/18/17 04/18/17 04/18/17 07:00 15:00 23:00 07:00 15:00 23:00 Intake Total 120 ml 201 ml 1150 ml Balance 120 ml 201 ml 1150 ml Intake IV Total 120 ml 201 ml 950 ml Other 200 ml # Voids 3 Result Diagram: 04/17/17 2252 04/17/17 0955 Imaging Last Impressions Abdomen/Pelvis CT 04/17/17 0000 Signed Impressions: Service Date/Time: March 01:41 - CONCLUSION: 1. Hepatic steatosis. 2. There are a few scattered calcifications of the pancreatic head which may be from chronic pancreatitis. Acute pancreatitis is not present. 3. Degenerative change in lumbar spine. 4. Suspected mild atelectasis or consolidation at the posterior right lung base. Nehemias Marcelino MD Head CT 04/15/17 1833 Signed Impressions: Service Date/Time: Saturday, April 15, 2017 20:15 - CONCLUSION: 1. Stable chronic changes with cortical and central atrophy and minimal periventricular small vessel ischemic demyelination. 2. Nothing acute Benji D. Klioze, MD Chest X-Ray 04/15/17 3319 Signed Impressions: Service Date/Time: Saturday, April 15, 2017 18:45 - CONCLUSION: Limited exam with no acute cardiopulmonary process. Benji Panchal MD Objective Remarks GENERAL: Well-nourished, well-developed patient in NAD. Awake and alert. Appears comfortable. SKIN: Warm and dry. No rash. HEAD: Normocephalic. Atraumatic. EYES: EOMI. No scleral icterus. No injection or drainage. ENT: No nasal bleeding or discharge. Mucous membranes pink and moist. NECK: Supple. Trachea midline. CARDIOVASCULAR: Regular rate and rhythm. S1, S2 noted. No murmur appreciated. RESPIRATORY: Nonlabored. Clear to auscultation. Breath sounds equal bilaterally. GASTROINTESTINAL: Abdomen soft, non-tender, nondistended. Normoactive bowel sounds x4. MUSCULOSKELETAL: No obvious deformities. Extremities without clubbing, cyanosis , or edema. NEUROLOGICAL: Awake and alert. No obvious cranial nerve deficits. Motor grossly within normal limits. 5/5 muscle strength in bilateral upper and lower extremities. Normal speech. Medications and IVs Current Medications Medications (Trade) Dose Ordered Sig/José Route Start Time Stop Time Status Last Admin (Romazicon Inj) 0.2 mg Q1M PRN IV PUSH 04/15/17 18:30 (Ativan) 1 mg Q4H PRN PO 04/15/17 18:30 04/16/17 23:05 (Ativan Inj) 1 mg Q4H PRN IV PUSH 04/15/17 18:30 (Ativan) 2 mg Q2H PRN PO 04/15/17 18:30 (Ativan Inj) 2 mg Q2H PRN IV PUSH 04/15/17 18:30 04/16/17 05:44 (Ativan Inj) 2 mg Q1H PRN IV PUSH 04/15/17 18:30 04/15/17 19:43 (Ativan Inj) 2 mg Q15M PRN IV PUSH 04/15/17 18:30 Sodium Chloride 1,000 ml @ 100 mls/hr Q10H IV 04/16/17 05:30 04/18/17 11:46 (NS Flush) 2 ml UNSCH PRN IV FLUSH 04/16/17 05:45 (NS Flush) 2 ml BID IV FLUSH 04/16/17 09:00 04/18/17 11:45 (Tylenol) 650 mg Q4H PRN PO 04/16/17 05:45 (Zofran Inj) 4 mg Q6H PRN IVP 04/16/17 05:45 04/16/17 23:05 (Narcan Inj) 0.4 mg UNSCH PRN IV PUSH 04/16/17 05:45 (Milk Of Magnesia Liq) 30 ml Q12H PRN PO 04/16/17 05:45 (Senokot) 17.2 mg Q12H PRN PO 04/16/17 05:45 (Dulcolax Supp) 10 mg DAILY PRN RECTAL 04/16/17 05:45 (Lactulose Liq) 30 ml DAILY PRN PO 04/16/17 05:45 (Librium) 10 mg TID PO 04/16/17 18:00 04/18/17 11:44 (Folate) 1 mg DAILY PO 04/16/17 16:00 04/21/17 15:59 04/18/17 11:44 (Theragran M Tab) 1 tab DAILY PO 04/16/17 16:00 04/21/17 15:59 04/17/17 09:18 Thiamine HCl 100 mg/Sodium Chloride 101 ml @ 100 mls/hr Q24H IV 04/16/17 16:00 04/18/17 17:01 04/17/17 17:08 (Vitamin B1) 100 mg DAILY PO 04/19/17 09:00 (Catapres) 0.1 mg Q6H PRN PO 04/16/17 16:30 (Protonix Inj) 40 mg Q12HR IV PUSH 04/17/17 09:30 04/18/17 11:45 A/P Problem List: (1) Alcohol withdrawal ICD Code: F10.239 - Alcohol dependence with withdrawal, unspecified Status: Acute (2) Unable to ambulate ICD Code: R26.2 - Difficulty in walking, not elsewhere classified Status: Acute (3) Generalized weakness ICD Code: R53.1 - Weakness Status: Acute Assessment and Plan 71-year-old male with history of alcohol abuse, alcohol withdrawal seizures, hypertension, presents with 2 day history of weakness, inability to ambulate, and concern for alcohol withdrawal. 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 //Generalized Weakness, Inability to Ambulate: suspect multifactorial with alcohol abuse/withdrawal, chronic deconditioning, dehydration. -Head CT images reviewed, shows stable chronic changes; no acute findings -CXR images reviewed, no acute findings -Urinalysis unremarkable -Continue IVF hydration -treat alcohol withdrawal as below -Vitamin D level pending -TSH WNL -Continue participation with PT who recommends home with home health PT or inpatient rehabilitation. //Acute Alcohol Withdrawal: patient tremulous with increased weakness, nausea/ vomiting. Last alcohol drink 04/14. -CT abd/pelvis showing Hepatic steatosis and calcifications of the pancreatic head which may be from chronic pancreatitis. Acute pancreatitis is not present -continue CIWA protocol with IV ativan prn -started on scheduled librium 10mg tid - improved. Begin taper. -given IV thiamine x3 days, now on po thiamine -continue on multivitamin and folate -case management consult, reviewed last note. Patient plans to return home at time of discharge. //Hematemesis: patient reports streaks of blood tinged emesis this morning x1. Suspect secondary to gastritis with alcohol abuse and NSAID use, however possibility of varices. -hold patient's aspirin and aleve -GI following, appreciate his assistance. Status post EGD this morning showing esophagitis, duodenitis and superficial ulcers. Recommends Creon with meals and snacks. Repeat EGD in 3 months with colonoscopy screening. -Discussed with patient the importance of alcohol cessation and avoidance of NSAIDs. -continue on PPI -monitor serial H&H, stable -check stool hemoccult and gastroccult //Hypokalemia -Potassium 2.9 yesterday. Status post IV and po repletion. Am labs pending. //Hyponatremia - //Hypertension: BP consistently in 160s/80s. Likely secondary to acute alcohol withdrawal. The patient is not on antihypertensives at home. -Monitor for now, treat alcohol withdrawal as above -Clonidine prn SBP > 180 -BP improved, 123/58 -consider adding antihypertensive if BP worsens //Thrombocytopenia: Platelets 86K. Suspect secondary to chronic alcohol abuse. -continue to monitor CBC -Platelets trending down, now 64,000. //DVT Prophylaxis: teds/SCDs; avoid chemoprophylaxis with possible GI bleed and coagulopathy Discussed with patient, , nursing staff and Dr. Ferreira Problem Qualifiers (1) Alcohol withdrawal: Qualified Codes: F10.239 - Alcohol dependence with withdrawal, unspecified Aliza Yang Apr 18, 2017 12:25
[2017-04-18] MEDS ORDERED: WALKER WHEELS/F1 MIS (13:04)
[2017-04-18 13:49] LABS: ALT (GPT) 55 U/L (12-78); ANION GAP 5 MEQ/L (5-15); AST (GOT) 100 U/L (15-37); BICARBONATE 26.8 MEQ/L (21.0-32.0); BLOOD UREA NITROGEN 7 MG/DL (7-18); CHLORIDE 102 MEQ/L (98-107); GLOMERULAR FILTRATION RATE 176 ML/MIN (>89); POTASSIUM 3.3 MEQ/L (3.5-5.1); SODIUM (NA) 134 MEQ/L (136-145)
[2017-04-18 13:51] LABS: ALKALINE PHOSPHATASE 178 U/L (45-117); TOTAL BILIRUBIN ADULT 3.3 MG/DL (0.2-1.0)
[2017-04-18] MEDS ORDERED: POTASSIUM CHLORIDE 10 MEQ CONTROLLED RELEASE TAB PO ONE (16:30)
[2017-04-18] MEDS: MULTIVITAMINS/MINERALS THERAPEUTIC TAB PO SCH (17:16)
[2017-04-18] MEDS: THIAMINE INJ 100 MG in SODIUM CHLORIDE 0.9% INJ 100 ML IV SCH (17:16)
[2017-04-19] VITALS: BP 112/54; PULSE 76; RESP 20; TEMP 98; O2SAT 96
[2017-04-19 04:00] VITALS: BP 119/64; PULSE 78; RESP 20; TEMP 98; O2SAT 96
[2017-04-19 08:10] LABS: ALT (GPT) 50 U/L (12-78); ANION GAP 5 MEQ/L (5-15); AST (GOT) 84 U/L (15-37); BICARBONATE 27.9 MEQ/L (21.0-32.0); BLOOD UREA NITROGEN 8 MG/DL (7-18); CHLORIDE 104 MEQ/L (98-107); GLOMERULAR FILTRATION RATE 176 ML/MIN (>89); SODIUM (NA) 137 MEQ/L (136-145)
[2017-04-19 08:12] LABS: ALKALINE PHOSPHATASE 156 U/L (45-117); TOTAL BILIRUBIN ADULT 2.5 MG/DL (0.2-1.0)
[2017-04-19 08:44] VITALS: BP 130/62; PULSE 76; RESP 18; TEMP 99.1; O2SAT 96
[2017-04-19] MEDS ORDERED: POTASSIUM BICARBONATE 25 MEQ EFFERVESCENT TAB PO ONE (08:45)
[2017-04-19] MEDS ORDERED: ERGOCALCIFEROL (VIT D2) 50,000 UNIT CAP PO ONE (09:00)
[2017-04-19] MEDS: THIAMINE HCL 100 MG TAB PO SCH (09:05)
[2017-04-19] MEDS: MULTIVITAMINS/MINERALS THERAPEUTIC TAB PO SCH (09:05)
[2017-04-19] MEDS: SODIUM CHLORIDE 0.9% FLUSH 10 ML FLUSH IV FLUSH SCH ×2 (09:06→21:15)
[2017-04-19] MEDS: FOLIC ACID 1 MG TAB PO SCH (09:06)
[2017-04-19] MEDS: PANTOPRAZOLE SODIUM 40 MG VIAL IV PUSH SCH (09:06)
--- NOTE | 2017-04-19 09:54 | HHI.GIFU ---
Subjective Remarks Resting in bed. Denies any dysphagia. No nausea or vomiting. Complains of occasional mild lower abdominal cramping, but states his main discomfort is in his lower back. He reports that he feels weak and has not been able to walk. No bleeding (Hanna Amaya) Objective Vitals I&O Vital Signs Date Time Temp Pulse Resp B/P (MAP) Pulse Ox O2 Delivery O2 Flow Rate FiO2 04/19/17 08:44 99.1 76 18 130/62 (84) 96 04/19/17 04:00 98.0 78 20 119/64 (82) 96 04/19/17 00:00 98.0 76 20 112/54 (73) 96 04/18/17 20:00 97.6 79 20 123/86 (98) 97 04/18/17 15:40 99.5 89 18 118/67 (84) 96 04/18/17 11:52 98.3 79 18 123/58 (79) 96 04/18/17 10:56 111/68 (82) 04/18/17 10:39 97.3 91 18 105/69 (81) 98 I/O 04/18/17 04/18/17 04/18/17 04/19/17 04/19/17 04/19/17 07:00 15:00 23:00 07:00 15:00 23:00 Intake Total 1350 ml 100 ml 300 ml Balance 1350 ml 100 ml 300 ml Intake Oral 300 ml IV Total 1150 ml 100 ml Other 200 ml # Voids 3 Laboratory Laboratory Tests Test 04/18/17 12:51 04/18/17 17:08 04/19/17 06:30 Blood Urea Nitrogen 7 8 Creatinine 0.47 0.47 Random Glucose 89 80 Total Protein 7.0 6.3 Albumin 3.1 2.7 Calcium Level 8.4 8.1 Alkaline Phosphatase 178 156 Aspartate Amino Transf (AST/SGOT) 100 84 Alanine Aminotransferase (ALT/SGPT) 55 50 Total Bilirubin 3.3 2.5 Direct Bilirubin 1.4 Sodium Level 134 137 Potassium Level 3.3 3.0 Chloride Level 102 104 Carbon Dioxide Level 26.8 27.9 Anion Gap 5 5 Estimat Glomerular Filtration Rate 176 176 Imaging Last Impressions Abdomen/Pelvis CT 04/17/17 0000 Signed Impressions: Service Date/Time: March 01:41 - CONCLUSION: 1. Hepatic steatosis. 2. There are a few scattered calcifications of the pancreatic head which may be from chronic pancreatitis. Acute pancreatitis is not present. 3. Degenerative change in lumbar spine. 4. Suspected mild atelectasis or consolidation at the posterior right lung base. Nehemias Marcelino MD Head CT 04/15/171832 Signed Impressions: Service Date/Time: Saturday, April 15, 2017 20:15 - CONCLUSION: 1. Stable chronic changes with cortical and central atrophy and minimal periventricular small vessel ischemic demyelination. 2. Nothing acute Benji Panchal MD Chest X-Ray 04/15/171832 Signed Impressions: Service Date/Time: Saturday, April 15, 2017 18:45 - CONCLUSION: Limited exam with no acute cardiopulmonary process. Benji Panchal MD Physical Exam HEENT: Normocephalic; atraumatic; no jaundice. CHEST: CTA CARDIAC: RRR ABDOMEN: Soft, nondistended, nontender; no hepatosplenomegaly; bowel sounds are present in all four quadrants. EXTREMITIES: No clubbing, cyanosis, or edema. SKIN: Normal; no rash; no jaundice. RESCUE INSTRUCTOR: No focal deficits; alert and oriented times three. (Hanna Amaya) Assessment and Plan Plan Assessment: - Hematemesis. S/P EGD (04/18/17)---> 1. Duodenitis second portion-biopsy superficial ulcers antrum-biopsy esophagitis/Schatzki's ring -biopsy 2. Retroflexed views revealed a hiatal hernia. Pathology pending. No further episodes. HH stable. PPI - Esophagitis, Duodenitis, Superficial gastric ulcers. Pathology pending. PPI. - Elevated LFTs, pattern consistent with ETOH abuse. Trending down. T. Bili 2.5, AST 84, ALk phosph 156. Hepatitis profile pending. Recommend ETOH cessation. Plan: - Okay to d/c home from GI standpoint - RAMANDEEP - Await biopsy - PPI - Avoid NSAIDs - ETOH Cessation - FU COLT 2 weeks - Pt seen and examined by Dr. Godwin and myself and this note is written on her behalf (Hanna Amaya) Hanna Amaya Apr 19, 2017 09:54 Lida Godwin MD Apr 19, 2017 19:33
--- NOTE | 2017-04-19 12:19 | HHI.PR ---
Subjective Remarks Written by Aliza Yang, acting as scribe for Dr. Lopez on 04/19/17 at 12: 19. Follow-up on patient with generalized weakness, hematemesis. Patient seen and examined. Patient complaining of difficulty walking. He does not feel he can go home. He would like to go to a rehabilitation facility. Otherwise, patient is doing well. Denies any complaints of active bleeding. Tolerating diet. Denies any fever or chills. Denies any nausea, vomiting or abdominal pain. Denies any chest pain or shortness of breath. Objective Vitals Vital Signs Date Time Temp Pulse Resp B/P (MAP) Pulse Ox O2 Delivery O2 Flow Rate FiO2 04/19/17 08:44 99.1 76 18 130/62 (84) 96 04/19/17 04:00 98.0 78 20 119/64 (82) 96 04/19/17 00:00 98.0 76 20 112/54 (73) 96 04/18/17 20:00 97.6 79 20 123/86 (98) 97 04/18/17 15:40 99.5 89 18 118/67 (84) 96 I/O 04/18/17 04/18/17 04/18/17 04/19/17 04/19/17 04/19/17 07:00 15:00 23:00 07:00 15:00 23:00 Intake Total 1350 ml 100 ml 300 ml Balance 1350 ml 100 ml 300 ml Intake Oral 300 ml IV Total 1150 ml 100 ml Other 200 ml # Voids 3 Result Diagram: 04/17/17 2252 04/19/17 0630 Imaging Last Impressions Abdomen/Pelvis CT 04/17/17 0000 Signed Impressions: Service Date/Time: March 01:41 - CONCLUSION: 1. Hepatic steatosis. 2. There are a few scattered calcifications of the pancreatic head which may be from chronic pancreatitis. Acute pancreatitis is not present. 3. Degenerative change in lumbar spine. 4. Suspected mild atelectasis or consolidation at the posterior right lung base. Nehemias Marcelino MD Head CT 04/15/17 1833 Signed Impressions: Service Date/Time: Saturday, April 15, 2017 20:15 - CONCLUSION: 1. Stable chronic changes with cortical and central atrophy and minimal periventricular small vessel ischemic demyelination. 2. Nothing acute Benji Panchal MD Chest X-Ray 04/15/17 0865 Signed Impressions: Service Date/Time: Saturday, April 15, 2017 18:45 - CONCLUSION: Limited exam with no acute cardiopulmonary process. Benji Panchal MD Objective Remarks GENERAL: Well-nourished, well-developed patient in NAD. Awake and alert. Appears comfortable. Sitting on side of bed eating breakfast. SKIN: Warm and dry. No rash. HEAD: Normocephalic. Atraumatic. EYES: EOMI. No scleral icterus. No injection or drainage. ENT: No nasal bleeding or discharge. Mucous membranes pink and moist. NECK: Supple. Trachea midline. CARDIOVASCULAR: Regular rate and rhythm. S1, S2 noted. No murmur appreciated. RESPIRATORY: Nonlabored. Clear to auscultation. Breath sounds equal bilaterally. GASTROINTESTINAL: Abdomen soft, non-tender, nondistended. Normoactive bowel sounds x4. MUSCULOSKELETAL: No obvious deformities. Extremities without clubbing, cyanosis , or edema. NEUROLOGICAL: Awake and alert. No obvious cranial nerve deficits. Motor grossly within normal limits. 5/5 muscle strength in bilateral upper and lower extremities. Normal speech. Medications and IVs Current Medications Medications (Trade) Dose Ordered Sig/José Route Start Time Stop Time Status Last Admin (Romazicon Inj) 0.2 mg Q1M PRN IV PUSH 04/15/17 18:30 (Ativan) 1 mg Q4H PRN PO 04/15/17 18:30 04/16/17 23:05 (Ativan Inj) 1 mg Q4H PRN IV PUSH 04/15/17 18:30 (Ativan) 2 mg Q2H PRN PO 04/15/17 18:30 (Ativan Inj) 2 mg Q2H PRN IV PUSH 04/15/17 18:30 04/16/17 05:44 (Ativan Inj) 2 mg Q1H PRN IV PUSH 04/15/17 18:30 04/15/17 19:43 (Ativan Inj) 2 mg Q15M PRN IV PUSH 04/15/17 18:30 Sodium Chloride 1,000 ml @ 100 mls/hr Q10H IV 04/16/17 05:30 04/18/17 22:41 (NS Flush) 2 ml UNSCH PRN IV FLUSH 04/16/17 05:45 (NS Flush) 2 ml BID IV FLUSH 04/16/17 09:00 04/19/17 09:06 (Tylenol) 650 mg Q4H PRN PO 04/16/17 05:45 (Zofran Inj) 4 mg Q6H PRN IVP 04/16/17 05:45 04/16/17 23:05 (Narcan Inj) 0.4 mg UNSCH PRN IV PUSH 04/16/17 05:45 (Milk Of Magnesia Liq) 30 ml Q12H PRN PO 04/16/17 05:45 (Senokot) 17.2 mg Q12H PRN PO 04/16/17 05:45 (Dulcolax Supp) 10 mg DAILY PRN RECTAL 04/16/17 05:45 (Lactulose Liq) 30 ml DAILY PRN PO 04/16/17 05:45 (Folate) 1 mg DAILY PO 04/16/17 16:00 04/21/17 15:59 04/19/17 09:06 (Theragran M Tab) 1 tab DAILY PO 04/16/17 16:00 04/21/17 15:59 04/19/17 09:05 (Vitamin B1) 100 mg DAILY PO 04/19/17 09:00 04/19/17 09:05 (Catapres) 0.1 mg Q6H PRN PO 04/16/17 16:30 (Protonix Inj) 40 mg Q12HR IV PUSH 04/17/17 09:30 04/19/17 09:06 (Librium) 10 mg BID PO 04/18/17 21:00 04/19/17 09:05 (Vitamin D3) 2,000 units DAILY PO 04/20/17 09:00 A/P Problem List: (1) Alcohol withdrawal ICD Code: F10.239 - Alcohol dependence with withdrawal, unspecified Status: Acute (2) Unable to ambulate ICD Code: R26.2 - Difficulty in walking, not elsewhere classified Status: Acute (3) Generalized weakness ICD Code: R53.1 - Weakness Status: Acute Assessment and Plan 71-year-old male with history of alcohol abuse, alcohol withdrawal seizures, hypertension, presents with 2 day history of weakness, inability to ambulate, and concern for alcohol withdrawal. 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 //Generalized Weakness, Inability to Ambulate: suspect multifactorial with alcohol abuse/withdrawal, chronic deconditioning, dehydration. -Head CT images reviewed, shows stable chronic changes; no acute findings -CXR images reviewed, no acute findings -Urinalysis unremarkable -treat alcohol withdrawal as below -TSH WNL -Continue participation with PT. patient does not feel he can be discharged to home secondary to difficulty with ambulation. Will discuss with case management rehabilitation options discharge. //Acute Alcohol Withdrawal: patient tremulous with increased weakness, nausea/ vomiting. Last alcohol drink 04/14. -Advised on complete alcohol abstinence -CT abd/pelvis showing Hepatic steatosis and calcifications of the pancreatic head which may be from chronic pancreatitis. Acute pancreatitis is not present -continue CIWA protocol with IV ativan prn -started on scheduled librium, now on taper -given IV thiamine x3 days, now on po thiamine -continue on multivitamin and folate //Chronic pancreatitis -Started on Creon with meals and with snacks per GI -Reiterated to patient importance of complete alcohol cessation //Hematemesis: patient reports streaks of blood tinged emesis this morning x1. Suspect secondary to gastritis with alcohol abuse and NSAID use, however possibility of varices. -GI following, appreciate his assistance. Status post EGD showing esophagitis, duodenitis and superficial ulcers. Repeat EGD in 3 months with colonoscopy screening. -Discussed with patient the importance of alcohol cessation and avoidance of NSAIDs. -cleared for discharge from GI standpoint. F/U with COLT in 2 weeks. -continue on PPI -monitor serial H&H, stable //Hyperbilirubinemia -Trending down -Discussed with GI. Follow up as outpatient //Hypokalemia -Potassium 3.0, replete, am labs to monitor response -Mag 1.7 04/16 //Hyponatremia -given IVF -resolved //Vitamin D deficiency - ergocalciferol 50,000u today - Vitamin D supplementation 2000u daily - follow up with PCP in 3 mos to have Vitamin D level rechecked //Hypertension: BP consistently in 160s/80s. Likely secondary to acute alcohol withdrawal. The patient is not on antihypertensives at home. -Monitor for now, treat alcohol withdrawal as above -Clonidine prn SBP > 180 -BP controlled overall -consider adding antihypertensive if BP worsens //Thrombocytopenia: Platelets 86K. Suspect secondary to chronic alcohol abuse. -continue to monitor CBC -Platelets trending down, now 64,000. -CBC in am //DVT Prophylaxis: teds/SCDs; avoid chemoprophylaxis with possible GI bleed and coagulopathy This note was transcribed by vaibhav Yang. I, Dr. Rodrigo Lopez personally performed the history, physical exam, and medical decision making; and confirmed the accuracy of the information in the transcribed note. Authenticated by Dr. Rodrigo Lopez on 04/19/17 at 12:19. Discharge Planning Likely discharge tomorrow to rehabilitation facility Problem Qualifiers (1) Alcohol withdrawal: Qualified Codes: F10.239 - Alcohol dependence with withdrawal, unspecified Aliza Yang Apr 19, 2017 12:19 Rodrigo Lopez MD Apr 19, 2017 12:19
[2017-04-19 12:34] VITALS: BP 141/90; PULSE 96; RESP 18; TEMP 97.8; O2SAT 100
[2017-04-19] MEDS: SODIUM CHLOR 0.9% 1000 ML INJ 1,000 ML IV SCH (14:01)
[2017-04-19] MEDS ORDERED: LIPASE/PROTEASE/AMYLASE (24,000/76,000/120,000) CAP PO SCH (15:45)
[2017-04-19 16:00] VITALS: BP 121/66; PULSE 79; RESP 16; TEMP 98; O2SAT 99
[2017-04-19] MEDS: LIPASE/PROTEASE/AMYLASE (24,000/76,000/120,000) CAP PO SCH (17:50)
[2017-04-19 20:00] VITALS: BP 121/72; PULSE 78; RESP 17; TEMP 99.2; O2SAT 99
[2017-04-20] VITALS: BP 131/75; PULSE 87; RESP 16; TEMP 96.2; O2SAT 97
[2017-04-20 04:00] VITALS: BP 114/68; PULSE 69; RESP 17; TEMP 98.3; O2SAT 96
[2017-04-20 06:22] LABS: AUTOMATED NEUTROPHIL # 2.8 TH/MM3 (1.8-7.7); BASOPHIL % 0.6 % (0.0-2.0); EOSINOPHIL # 0.1 TH/MM3 (0-0.4); EOSINOPHIL % 1.5 % (0.0-4.0); HEMATOCRIT 34.7 % (39.0-51.0); LYMPH % 26.3 % (9.0-44.0); LYMPHOCYTE # 1.3 TH/MM3 (1.0-4.8); MEAN CELL VOLUME 101.6 FL (80.0-100.0); MEAN CORPUSCULAR HEMOGLOBIN 33.6 PG (27.0-34.0); MEAN CORPUSCULAR HGB CONC 33.1 % (32.0-36.0); MONO % 16.1 % (0.0-8.0); NEUT % 55.5 % (16.0-70.0); PLATELET COUNT 71 TH/MM3 (150-450); RED BLOOD COUNT 3.42 MIL/MM3 (4.50-5.90); RED CELL DISTRIBUTION WIDTH 15.1 % (11.6-17.2)
[2017-04-20 06:28] LABS: HEMO FLAGS DIFF FINAL
[2017-04-20 08:57] VITALS: BP 111/59; PULSE 66; RESP 18; TEMP 98.5; O2SAT 96
[2017-04-20] MEDS ORDERED: CHOLECALCIFEROL (VIT D3) 1000 UNIT TAB PO SCH (09:00)
[2017-04-20] MEDS ORDERED: PANTOPRAZOLE SOD 40 MG DELAYED RELEASE TAB PO SCH (09:00)
[2017-04-20] MEDS: MULTIVITAMINS/MINERALS THERAPEUTIC TAB PO SCH (10:09)
[2017-04-20] MEDS: THIAMINE HCL 100 MG TAB PO SCH (10:09)
[2017-04-20] MEDS: FOLIC ACID 1 MG TAB PO SCH (10:09)
[2017-04-20] MEDS: SODIUM CHLORIDE 0.9% FLUSH 10 ML FLUSH IV FLUSH SCH (10:09)
[2017-04-20] MEDS: LIPASE/PROTEASE/AMYLASE (24,000/76,000/120,000) CAP PO SCH ×2 (10:09→14:15)
[2017-04-20 12:00] VITALS: BP 116/66; PULSE 77; RESP 17; TEMP 98.3; O2SAT 98
--- NOTE | 2017-04-20 12:13 | HHI.PR ---
Subjective Remarks Less tremors. Eating well no n/v/d/c. Says he feels good. No chest pain or sob. No palpitations. Objective Vitals Vital Signs Date Time Temp Pulse Resp B/P (MAP) Pulse Ox O2 Delivery O2 Flow Rate FiO2 04/20/17 08:57 98.5 66 18 111/59 (76) 96 04/20/17 04:00 98.3 69 17 114/68 (83) 96 04/20/17 00:00 96.2 87 16 131/75 (93) 97 04/19/17 20:00 99.2 78 17 121/72 (88) 99 04/19/17 16:00 98.0 79 16 121/66 (84) 99 04/19/17 12:34 97.8 96 18 141/90 (107) 100 I/O 04/19/17 04/19/17 04/19/17 04/20/17 04/20/17 04/20/17 07:00 15:00 23:00 07:00 15:00 23:00 Intake Total 300 ml 950 ml 480 ml 480 ml Balance 300 ml 950 ml 480 ml 480 ml Intake Oral 300 ml 480 ml 480 ml IV Total 950 ml # Voids 2 2 Result Diagram: 04/20/17 0531 04/20/17 0531 Imaging Last Impressions Abdomen/Pelvis CT 04/17/17 0000 Signed Impressions: Service Date/Time: March 01:41 - CONCLUSION: 1. Hepatic steatosis. 2. There are a few scattered calcifications of the pancreatic head which may be from chronic pancreatitis. Acute pancreatitis is not present. 3. Degenerative change in lumbar spine. 4. Suspected mild atelectasis or consolidation at the posterior right lung base. Nehemias Marcelino MD Head CT 04/15/171832 Signed Impressions: Service Date/Time: Saturday, April 15, 2017 20:15 - CONCLUSION: 1. Stable chronic changes with cortical and central atrophy and minimal periventricular small vessel ischemic demyelination. 2. Nothing acute Benji Panchal MD Chest X-Ray 04/15/171832 Signed Impressions: Service Date/Time: Saturday, April 15, 2017 18:45 - CONCLUSION: Limited exam with no acute cardiopulmonary process. Benji Panchal MD Objective Remarks GENERAL: Well-nourished, well-developed patient in NAD. Awake and alert. Appears comfortable. Sitting on side of bed eating breakfast. CARDIOVASCULAR: Regular rate and rhythm. S1, S2 noted. No murmur appreciated. RESPIRATORY: Nonlabored. Clear to auscultation. Breath sounds equal bilaterally. GASTROINTESTINAL: Abdomen soft, non-tender, nondistended. Normoactive bowel sounds x4. MUSCULOSKELETAL: No obvious deformities. Extremities without clubbing, cyanosis , or edema. NEUROLOGICAL: Awake and alert. No obvious cranial nerve deficits. Motor grossly within normal limits. 5/5 muscle strength in bilateral upper and lower extremities. Normal speech. A/P Problem List: (1) Alcohol withdrawal ICD Code: F10.239 - Alcohol dependence with withdrawal, unspecified Status: Acute (2) Unable to ambulate ICD Code: R26.2 - Difficulty in walking, not elsewhere classified Status: Acute (3) Generalized weakness ICD Code: R53.1 - Weakness Status: Acute Assessment and Plan 71-year-old male with history of alcohol abuse, alcohol withdrawal seizures, hypertension, presents with 2 day history of weakness, inability to ambulate, and concern for alcohol withdrawal. 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 Status post EGD showing esophagitis, duodenitis and superficial ulcers. Repeat EGD in 3 months with colonoscopy screening. Discussed with patient the importance of alcohol cessation and avoidance of NSAIDs. Cleared for discharge from GI standpoint. F/U with COLT in 2 weeks. Patient improved. Discharged to rehab in stable condition to follwo up as oP with PCP and consultants. Generalized Weakness, Inability to Ambulate: suspect multifactorial with alcohol abuse/withdrawal, chronic deconditioning, dehydration. -Head CT images reviewed, shows stable chronic changes; no acute findings -CXR images reviewed, no acute findings -Urinalysis unremarkable -treat alcohol withdrawal as below -TSH WNL -Continue participation with PT. patient does not feel he can be discharged to home secondary to difficulty with ambulation. Will discuss with case management rehabilitation options discharge. Acute Alcohol Withdrawal: patient tremulous with increased weakness, nausea/ vomiting. Last alcohol drink 04/14. -Advised on complete alcohol abstinence -CT abd/pelvis showing Hepatic steatosis and calcifications of the pancreatic head which may be from chronic pancreatitis. Acute pancreatitis is not present -continue CIWA protocol with IV ativan prn -started on scheduled librium, now on taper -given IV thiamine x3 days, now on po thiamine -continue on multivitamin and folate Chronic pancreatitis -Started on Creon with meals and with snacks per GI -Reiterated to patient importance of complete alcohol cessation Hematemesis: patient reports streaks of blood tinged emesis this morning x1. Suspect secondary to gastritis with alcohol abuse and NSAID use, however possibility of varices. -GI following, appreciate his assistance. Status post EGD showing esophagitis, duodenitis and superficial ulcers. Repeat EGD in 3 months with colonoscopy screening. -Discussed with patient the importance of alcohol cessation and avoidance of NSAIDs. -cleared for discharge from GI standpoint. F/U with COLT in 2 weeks. -continue on PPI -monitor serial H&H, stable Hyperbilirubinemia -Trending down -Discussed with GI. Follow up as outpatient Hypokalemia -Potassium 3.0, replete, am labs to monitor response -Mag 1.7 04/16 Hyponatremia -given IVF -resolved Vitamin D deficiency - ergocalciferol 50,000u today - Vitamin D supplementation 2000u daily - follow up with PCP in 3 mos to have Vitamin D level rechecked Hypertension: BP consistently in 160s/80s. Likely secondary to acute alcohol withdrawal. The patient is not on antihypertensives at home. -Monitor for now, treat alcohol withdrawal as above -Clonidine prn SBP > 180 -BP controlled overall -consider adding antihypertensive if BP worsens Thrombocytopenia: Platelets 86K. Suspect secondary to chronic alcohol abuse. -continue to monitor CBC -Platelets trending down, now 64,000. -CBC in am DVT Prophylaxis: teds/SCDs; avoid chemoprophylaxis with possible GI bleed and coagulopathy Discharge Planning Likely discharge to rehabilitation facility Discussed with the patient. nurse Problem Qualifiers (1) Alcohol withdrawal: Qualified Codes: F10.239 - Alcohol dependence with withdrawal, unspecified Pat Nolen MD Apr 20, 2017 12:13
[2017-04-20] MEDS ORDERED: THERM PO (12:18)
[2017-04-20] MEDS ORDERED: THIA100 PO (12:18)
[2017-04-20] MEDS ORDERED: CHOL1000 PO (12:18)
[2017-04-20] MEDS ORDERED: CREON24 PO (12:18)
[2017-04-20] MEDS ORDERED: PANT40TA3 PO (12:18)
[2017-04-20] MEDS ORDERED: FOLI1TAB6 PO (12:18)
[2017-04-20] MEDS ORDERED: LORA0.5T PO (12:18)
--- NOTE | 2017-04-20 12:19 | HHI.DS ---
Discharge Summary Admission Date Apr 17, 2017 at 08:52 Discharge Date: Apr 20, 2017 Admitting Diagnosis physical deconditioning. Alcohol abuse. (1) Alcohol withdrawal ICD Code: F10.239 - Alcohol dependence with withdrawal, unspecified Status: Acute (2) Unable to ambulate ICD Code: R26.2 - Difficulty in walking, not elsewhere classified Status: Acute (3) Generalized weakness ICD Code: R53.1 - Weakness Status: Acute Procedures egd Brief History - From Admission Written by Melvina Mon, acting as scribe for Dr. Ferreira on 04/16/17 at 14:18 71-year-old male with history of alcohol abuse, alcohol withdrawal seizures, hypertension, presents with 2 day history of weakness, inability to ambulate, and concern for alcohol withdrawal. The patient reports 2 days ago he just couldn't get out of his chair. He states both legs were weak as well as his back. He denies any specific pains. He reports drinking 12-14 beers a day, stopped drinking yesterday morning, and now reports feeling shaky but denies any seizure activity. He denies any recent fevers/chills, chest pain, palpitations, shortness of breath, lightheadedness, dizziness. The patient does report while he was in the hospital this morning he became nauseous and vomited a small amount of emesis that looked like blood. He denies any abdominal pain. He did not have any episodes of vomiting prior to his arrival to the hospital. He denies any recent diarrhea or constipation. He takes only 1 Aleve daily for arthritic pains. He has a desire to quit drinking and occasionally will stop for a week or so. He has a neighbor friend who will cherry picker operator beer for him, or he takes his rolling walker to the store to pick it up himself. He states he did have [facility] agency [employer] who were checking on him before and did help him quite a bit. He has one brother in [place] but otherwise does not have any local family members. He lives alone. He has no other medical complaints to report at this time. CBC/BMP: 04/20/17 0531 04/20/17 0531 Significant Findings Laboratory Tests Test 04/17/17 17:21 04/17/17 22:52 04/18/17 12:51 04/18/17 17:08 Creatinine 0.47 MG/DL (0.60-1.30) Albumin 3.1 GM/DL (3.4-5.0) Calcium Level 8.4 MG/DL (8.5-10.1) Alkaline Phosphatase 178 U/L (45-117) Aspartate Amino Transf (AST/SGOT) 100 U/L (15-37) Total Bilirubin 3.3 MG/DL (0.2-1.0) Direct Bilirubin 1.4 MG/DL (0.0-0.2) Sodium Level 134 MEQ/L (136-145) Potassium Level 3.3 MEQ/L (3.5-5.1) Test 04/19/17 06:30 04/20/17 05:31 Creatinine 0.47 MG/DL (0.60-1.30) Total Protein 6.3 GM/DL (6.4-8.2) Albumin 2.7 GM/DL (3.4-5.0) Calcium Level 8.1 MG/DL (8.5-10.1) Alkaline Phosphatase 156 U/L (45-117) Aspartate Amino Transf (AST/SGOT) 84 U/L (15-37) Total Bilirubin 2.5 MG/DL (0.2-1.0) Potassium Level 3.0 MEQ/L (3.5-5.1) 3.1 MEQ/L (3.5-5.1) Red Blood Count 3.42 MIL/MM3 (4.50-5.90) Hemoglobin 11.5 GM/DL (13.0-17.0) Hematocrit 34.7 % (39.0-51.0) Mean Corpuscular Volume 101.6 FL (80.0-100.0) Platelet Count 71 TH/MM3 (150-450) Monocytes (%) (Auto) 16.1 % (0.0-8.0) PE at Discharge GENERAL: Well-nourished, well-developed patient in NAD. Awake and alert. Appears comfortable. Sitting on side of bed eating breakfast. CARDIOVASCULAR: Regular rate and rhythm. S1, S2 noted. No murmur appreciated. RESPIRATORY: Nonlabored. Clear to auscultation. Breath sounds equal bilaterally. GASTROINTESTINAL: Abdomen soft, non-tender, nondistended. Normoactive bowel sounds x4. MUSCULOSKELETAL: No obvious deformities. Extremities without clubbing, cyanosis , or edema. NEUROLOGICAL: Awake and alert. No obvious cranial nerve deficits. Motor grossly within normal limits. 5/5 muscle strength in bilateral upper and lower extremities. Normal speech. Hospital Course 71-year-old male with history of alcohol abuse, alcohol withdrawal seizures, hypertension, presents with 2 day history of weakness, inability to ambulate, and concern for alcohol withdrawal. 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 Status post EGD showing esophagitis, duodenitis and superficial ulcers. Repeat EGD in 3 months with colonoscopy screening. Discussed with patient the importance of alcohol cessation and avoidance of NSAIDs. Cleared for discharge from GI standpoint. F/U with COLT in 2 weeks. Patient improved. Discharged to rehab in stable condition to follow up as OP with PCP and consultants. Pt Condition on Discharge: Stable Discharge Disposition: Discharge to SNF Discharge Time: > 30 minutes Discharge Instructions DIET: Follow Instructions for: Heart Healthy Diet Activities you can perform: Regular-No Restrictions Follow up Referrals: Gastroenterology - 2 Weeks PCP Follow-up - 1 Week New Medications: Lorazepam (Lorazepam) 0.5 Mg Tab 0.5 MG PO Q8H PRN for ANXIETY, #12 TAB 0 Refills Walker with Front Wheels (Walker with Front Wheels) 1 Mis Mis EA .ROUTE DIRECTED, #1 0 Refills Cholecalciferol (Gnp Vitamin D3 Extra Stre) 1,000 Unit Tab 2000 UNITS PO DAILY for Nutritional Supplement, #30 TAB Folic Acid (Folic Acid) 1 Mg Tablet 1 MG PO DAILY for Nutritional Supplement, #30 MG Multiple Vitamins W/ Minerals (Thera M Plus) 1 Tab 1 TAB PO DAILY for Nutritional Supplement, #30 TAB Pancrelipase (Creon) 24,000-76,000-120,000 Units Cap 1 CAP PO TID for Nutritional Supplement, #90 CAP Pantoprazole (Pantoprazole) 40 Mg Tab 40 MG PO DAILY for Dyspepsia, #30 TAB Thiamine HCl (Gnp Vitamin B-1) 100 Mg Tab 100 MG PO DAILY for Nutritional Supplement, #30 TAB Continued Medications: B-Complex Vitamins (Vitamin B Complex) 1 Tab Walker/Adult/Folding (Walker/Adult/Folding) 1 Mis Mis 1 EA .ROUTE CONTINUOUS for weakness, #1 EA 0 Refills Use walker when weak Discontinued Medications: Aspirin (Aspirin) 325 Mg Tab 325 MG PO DAILY, #30 TAB 0 Refills Naproxen Sodium (Aleve Arthritis) 220 Mg Tab 220 MG PO BID, TAB Pat Nolen MD Apr 20, 2017 12:19
== END 2017-04-20 16:28 | DRG 896 ==
LOC: NEPC 17:12 → NEDA 04-16 05:38 → NEPHCDU 04-16 06:11 → OBSVTOIN 04-17 08:52 → N06A 04-19 15:59
PROVIDERS: ADMIT Hospitalist; ATTEND Hospitalist
PROC: 0DB68ZX Excision of Stomach, Via Natural or Artificial Opening Endoscopic, Diagnostic (ICD-10-PCS; 2017-04-18)
PROC: 0DB58ZX Excision of Esophagus, Via Natural or Artificial Opening Endoscopic, Diagnostic (ICD-10-PCS; 2017-04-18)
PROC: 0DB98ZX Excision of Duodenum, Via Natural or Artificial Opening Endoscopic, Diagnostic (ICD-10-PCS; principal; 2017-04-18 10:23)
DX: F10.239 Alcohol dependence with withdrawal, unspecified (principal); K29.21 Alcoholic gastritis with bleeding; D69.59 Other secondary thrombocytopenia; R04.2 Hemoptysis; K76.0 Fatty (change of) liver, not elsewhere classified; K86.1 Other chronic pancreatitis; K22.2 Esophageal obstruction; K29.81 Duodenitis with bleeding; E87.1 Hypo-osmolality and hyponatremia; E86.0 Dehydration; K20.9 Esophagitis, unspecified; K44.9 Diaphragmatic hernia without obstruction or gangrene; E87.6 Hypokalemia; E55.9 Vitamin D deficiency, unspecified; I10 Essential (primary) hypertension; R26.2 Difficulty in walking, not elsewhere classified; S80.01XA Contusion of right knee, initial encounter; S80.02XA Contusion of left knee, initial encounter; R21 Rash and other nonspecific skin eruption; B35.6 Tinea cruris; M19.90 Unspecified osteoarthritis, unspecified site; W19.XXXA Unspecified fall, initial encounter
CPT/HCPCS: 70450; 71010; 74177; 76937; 80053; 80074; 81001; 82248; 82306; 82550; 82552; 82948; 83735; 84132; 84443; 84484; 85014; 85018; 85025; 85610; 85730; 88305; 88312; 93005; 96361; 96365; 96366; 96375; 96376; C9113; G0378; G8987-GP; G8988-GP; J0610; J1644; J2060; J2405; J3411; J3475; J3480; J7030; Q9963; Q9967

== ENCOUNTER 2017-07-27 17:31 | Inpatient (IN) | payer MEDICARE, OTHER ==
[~2017-07-27] VITALS: Ht 180.3 cm; Wt 102.9 kg
[~2017-07-27 17:31] MED LIST changes: -ALEV220T14 PO; -ASPI-516 CHEW; +CHOL1000 PO; +CREON24 PO; +FOLI1TAB6 PO; +LORA0.5T PO; -MULTTAB22; +PANT40TA3 PO; +THERM PO; +THIA100 PO; +WALKER WHEELS/F1 MIS
[2017-07-27 17:58] VITALS: BP 130/80; PULSE 90; RESP 16; TEMP 98.8; O2SAT 100
--- NOTE | 2017-07-27 23:42 | PD ---
HPI Chief Complaint: Alcohol/Drug Intoxication Time Seen by Provider: 23:34 Travel History International Travel<30 days: No Contact w/Intl Traveler<30days: No Traveled to known affect area: No History of Present Illness HPI 71-year-old male presents via EMS for evaluation after a fall. The circumstances surrounding this are unclear. Patient reports that he typically drinks multiple beers a day. This morning he only drank 2 beers because he was trying to "cut down" on his alcohol intake. At one point or another he fell and he has a large hematoma on his left forehead. He is uncertain how he fell. He is complaining of a mild frontal headache. He is otherwise asymptomatic. Per chart review the patient has been seen here multiple times in the past for alcohol-related issues, generalized weakness, near syncope, syncope, physical deconditioning. PFSH Past Medical History Hx Anticoagulant Therapy: Yes (ASPIRIN) Arthritis: Yes Blood Disorders: No Heart Rhythm Problems: No Cancer: No Cardiovascular Problems: No High Cholesterol: No Chest Pain: No Congestive Heart Failure: No Diminished Hearing: No Endocrine: No Gastrointestinal Disorders: No Genitourinary: No Hypertension: Yes Immune Disorder: No Musculoskeletal: Yes Neurologic: Yes Psychiatric: No Reproductive: No Respiratory: No Seizures: Yes (FROM ETOH ) Shingles: Yes Tetanus Vaccination: < 5 Years Influenza Vaccination: Yes Past Surgical History Tonsillectomy: Yes Other Surgery: No Social History Alcohol Use: Yes (DAILY, BEER) Tobacco Use: No Substance Use: No Allergies-Medications (Allergen,Severity, Reaction): Coded Allergies: No Known Allergies (Verified Allergy, Unknown, 04/16/17) Reported Meds & Prescriptions Reported Meds & Active Scripts Active Lorazepam 0.5 Mg Tab 0.5 Mg PO Q8H PRN Gnp Vitamin B-1 (Thiamine HCl) 100 Mg Tab 100 Mg PO DAILY Gnp Vitamin D3 Extra Stre (Cholecalciferol) 1,000 Unit Tab 2,000 Units PO DAILY Pantoprazole (Pantoprazole Sodium) 40 Mg Tab 40 Mg PO DAILY Folic Acid 1 Mg Tablet 1 Mg PO DAILY Thera M Plus (Multivitamins/Minerals Therapeutic) 1 Tab 1 Tab PO DAILY Creon (Amylase/Lipase/Protease) 24,000-76,000-120,000 Units Cap 1 Cap PO TID Walker with Front Wheels (Device) 1 Mis Mis Ea .ROUTE DIRECTED Walker/Adult/Folding (Device) 1 Mis Mis 1 Ea .ROUTE CONTINUOUS Use walker when weak Reported Vitamin B Complex (B-Complex Vitamins) 1 Tab Review of Systems Except as stated in HPI: all other systems reviewed are Neg Physical Exam Narrative GENERAL: Disheveled elderly male in no acute distress SKIN: Warm and dry. Large left forehead hematoma. HEAD: Skin as noted above. Normocephalic. EYES: Pupils equal and round. No scleral icterus. No injection or drainage. ENT: No nasal bleeding or discharge. Mucous membranes pink and moist. NECK: Trachea midline. No JVD. CARDIOVASCULAR: Regular rate and rhythm. No murmur appreciated. RESPIRATORY: No accessory muscle use. Clear to auscultation. Breath sounds equal bilaterally. GASTROINTESTINAL: Abdomen soft, non-tender, nondistended. Hepatic and splenic margins not palpable. MUSCULOSKELETAL: No obvious deformities. No clubbing. No cyanosis. No edema. NEUROLOGICAL: Awake and alert. No obvious cranial nerve deficits. Motor grossly within normal limits. Normal speech. PSYCHIATRIC: Appropriate mood and affect; insight and judgment normal. Data Data Last Documented VS Vital Signs Date Time Temp Pulse Resp B/P (MAP) Pulse Ox O2 Delivery O2 Flow Rate FiO2 07/28/17 00:03 108 18 104/50 (68) 99 Room Air 07/27/17 17:58 98.8 Orders Orders Electrocardiogram (07/27/17 23:35) Complete Blood Count With Diff (07/27/17 23:35) Comprehensive Metabolic Panel (07/27/17 23:35) Magnesium (Mg) (07/27/17 23:35) Ckmb (Isoenzyme) Profile (07/27/17 23:35) Troponin I (07/27/17 23:35) Chest, Single Ap (07/27/17 23:35) Ct Brain W/O Iv Contrast(Rout) (07/27/17 23:35) Iv Access Insert/Monitor (07/27/17 23:35) Alcohol (Ethanol) (07/27/17 23:35) Sodium Chlor 0.9% 1000 Ml Inj (Ns 1000 M (07/28/17 00:00) Lorazepam Inj (Ativan Inj) (07/28/17 00:00) Ct Thorax/ Chest W Iv Contrast (07/28/17 ) CKMB (07/28/17 00:35) CKMB% (07/28/17 00:35) Iohexol 350 Inj (Omnipaque 350 Inj) (07/28/17 01:26) Admit Order (Ed Use Only) (07/28/17 01:51) Labs Laboratory Tests Test 07/28/17 00:35 White Blood Count 9.1 TH/MM3 Red Blood Count 3.73 MIL/MM3 Hemoglobin 12.2 GM/DL Hematocrit 35.5 % Mean Corpuscular Volume 95.3 FL Mean Corpuscular Hemoglobin 32.7 PG Mean Corpuscular Hemoglobin Concent 34.3 % Red Cell Distribution Width 16.7 % Platelet Count 119 TH/MM3 Mean Platelet Volume 8.7 FL Neutrophils (%) (Auto) 77.2 % Lymphocytes (%) (Auto) 14.4 % Monocytes (%) (Auto) 7.9 % Eosinophils (%) (Auto) 0.0 % Basophils (%) (Auto) 0.5 % Neutrophils # (Auto) 7.1 TH/MM3 Lymphocytes # (Auto) 1.3 TH/MM3 Monocytes # (Auto) 0.7 TH/MM3 Eosinophils # (Auto) 0.0 TH/MM3 Basophils # (Auto) 0.0 TH/MM3 CBC Comment DIFF FINAL Differential Comment Blood Urea Nitrogen 7 MG/DL Creatinine 0.75 MG/DL Random Glucose 146 MG/DL Total Protein 7.6 GM/DL Albumin 3.5 GM/DL Calcium Level 7.6 MG/DL Magnesium Level 2.2 MG/DL Alkaline Phosphatase 129 U/L Aspartate Amino Transf (AST/SGOT) 77 U/L Alanine Aminotransferase (ALT/SGPT) 33 U/L Total Bilirubin 1.6 MG/DL Sodium Level 139 MEQ/L Potassium Level 4.2 MEQ/L Chloride Level 104 MEQ/L Carbon Dioxide Level 20.3 MEQ/L Anion Gap 15 MEQ/L Estimat Glomerular Filtration Rate 103 ML/MIN Total Creatine Kinase 400 U/L Creatine Kinase MB 3.1 NG/ML Creatine Kinase MB % 0.8 % Troponin I LESS THAN 0.02 NG/ML Ethyl Alcohol Level 298 MG/DL [facility] Medical Decision Making Medical Screen Exam Complete: Yes Emergency Medical Condition: Yes Medical Record Reviewed: Yes Differential Diagnosis Alcohol withdrawal seizure, syncope, electrolyte abnormality, dehydration, intoxication, arrhythmia, hypoglycemia Narrative Course The patient was placed on ECG monitoring pulse oximetry. A 12-lead EKG was obtained. Lab work, CT brain have been ordered. CT the brain reveals a small subdural hematoma. Chest x-ray revealed a widened mediastinum and a CT of the thorax was recommended. CT of the thorax reveals tortuous mediastinal vessels which accounts for the widening, no acute abnormalities. Lab work reveals a total CK of 400, AST 77, bilirubin 1.6, negative cardiac enzymes, alcohol level T 98. I discussed with the on-call neurosurgeon Dr. King who will admit the patient into the ICU. Diagnosis Primary Impression: Subdural hematoma Additional Impression: Alcohol intoxication Admitting Information Admitting Physician Requests: Admit Toribio Wilson Jul 27, 2017 23:42
[2017-07-28] VITALS (13 sets, daily range): BP systolic 100–155; BP diastolic 50–79; PULSE 102–122; RESP 15–24; TEMP 97.8–98.5; O2SAT 92–99
[2017-07-28] MEDS ORDERED: SODIUM CHLOR 0.9% 1000 ML INJ 1,000 ML IV SCH
[2017-07-28] MEDS ORDERED: LORazepam 2 MG/ML VIAL IV PUSH ONE
--- NOTE | 2017-07-28 00:12 | RADRPT ---
EXAM DATE/TIME: 07/27/2017 23:46 [facility] COMPARISON: CHEST SINGLE AP, April 18, 2016, 20:37. INDICATIONS : Syncope MEDICAL HISTORY : Hypertension. Seizures. SURGICAL HISTORY : None. ENCOUNTER: Initial ACUITY: 1 day PAIN SCORE: 0/10 LOCATION: Bilateral chest FINDINGS: No infiltrate, effusion or pneumothorax demonstrated. Mild mediastinal widening noted, nonspecific. There are old, healed left rib fractures again seen. CONCLUSION: Apparent mild mediastinal widening and a CT of the chest with intravenous contrast is suggested if fe lt clinically indicated. The lungs are clear. Nehemias Gonzalez MD on July 28, 2017 at 0:10 Board Certified Radiologist. This report was verified electronically.
[2017-07-28 00:43] LABS: AUTOMATED NEUTROPHIL # 7.1 TH/MM3 (1.8-7.7); BASOPHIL % 0.5 % (0.0-2.0); HEMATOCRIT 35.5 % (39.0-51.0); HEMOGLOBIN 12.2 GM/DL (13.0-17.0); LYMPH % 14.4 % (9.0-44.0); LYMPHOCYTE # 1.3 TH/MM3 (1.0-4.8); MEAN CELL VOLUME 95.3 FL (80.0-100.0); MEAN CORPUSCULAR HEMOGLOBIN 32.7 PG (27.0-34.0); MEAN CORPUSCULAR HGB CONC 34.3 % (32.0-36.0); MEAN PLATELET VOLUME 8.7 FL (7.0-11.0); MONO % 7.9 % (0.0-8.0); MONOCYTE # 0.7 TH/MM3 (0-0.9); NEUT % 77.2 % (16.0-70.0); PLATELET COUNT 119 TH/MM3 (150-450); RED BLOOD COUNT 3.73 MIL/MM3 (4.50-5.90); RED CELL DISTRIBUTION WIDTH 16.7 % (11.6-17.2); WHITE BLOOD COUNT 9.1 TH/MM3 (4.0-11.0)
--- NOTE | 2017-07-28 00:50 | RADRPT ---
EXAM DATE/TIME: 07/28/2017 00:21 [facility] COMPARISON: No previous studies available for comparison. INDICATIONS : Trauma, possible fall. RADIATION DOSE: 40.91 CTDIvol (mGy) MEDICAL HISTORY : Seizures. Hypertension. SURGICAL HISTORY : None. ENCOUNTER: Initial ACUITY: 1 day PAIN SCALE: 5/10 LOCATION: cranial and orbital TECHNIQUE: Multiple contiguous axial images were obtained of the head. Using automated exposure control and adj ustment of the mA and/or kV according to patient size, radiation dose was kept as low as reasonably a chievable to obtain optimal diagnostic quality images. DICOM format image data is available electro nically for review and comparison. FINDINGS: Small amount of subdural blood seen focally between the leaves of the upper falx, series 2 image 23. No other intracranial hemorrhage demonstrated. No mass, mass effect or midline shift. No evidence of an acute ischemic event. Soft tissue hematoma seen in the region of the left orbit. No perceptible fracture. CONCLUSION: Small, acute upper falcine subdural hematoma measuring approximately 7 mm in maximal thickness. No as sociated midline shift or significant mass effect. Nehemias Gonzalez MD on July 28, 2017 at 0:46 Board Certified Radiologist. This report was verified electronically.
[2017-07-28 01:07] LABS: ALBUMIN 3.5 GM/DL (3.4-5.0); ALKALINE PHOSPHATASE 129 U/L (45-117); ALT (GPT) 33 U/L (12-78); AST (GOT) 77 U/L (15-37); BICARBONATE 20.3 MEQ/L (21.0-32.0); BLOOD UREA NITROGEN 7 MG/DL (7-18); CALCIUM 7.6 MG/DL (8.5-10.1); CHLORIDE 104 MEQ/L (98-107); CREATININE 0.75 MG/DL (0.60-1.30); GLOMERULAR FILTRATION RATE 103 ML/MIN (>89); GLUCOSE,RANDOM 146 MG/DL (74-106); MAGNESIUM 2.2 MG/DL (1.5-2.5); SODIUM (NA) 139 MEQ/L (136-145); TOTAL BILIRUBIN ADULT 1.6 MG/DL (0.2-1.0); TOTAL PROTEIN 7.6 GM/DL (6.4-8.2); TROPONIN I LESS THAN 0.02 NG/ML (0.02-0.05)
[2017-07-28] MEDS ORDERED: IOHEXOL 350 MG/ML 10 ML VIAL (for RAD DIAG) IVCONTRAST ONE (01:26)
--- NOTE | 2017-07-28 01:40 | RADRPT ---
EXAM DATE/TIME: 07/28/2017 01:25 [facility] COMPARISON: No previous studies available for comparison. INDICATIONS : Mass. Abnormal chest x-ray. IV CONTRAST: 70 cc Omnipaque 350 (iohexol) IV RADIATION DOSE: 13.19 CTDIvol (mGy) MEDICAL HISTORY : Seizures. Hypertension. SURGICAL HISTORY : None. ENCOUNTER: Initial ACUITY: 1 day PAIN SCALE: 0/10 LOCATION: chest TECHNIQUE: Volumetric scanning of the chest was performed. Using automated exposure control and adjustment of t he mA and/or kV according to patient size, radiation dose was kept as low as reasonably achievable to obtain optimal diagnostic quality images. DICOM format image data is available electronically for review and comparison. Follow-up recommendations for detected pulmonary nodules are based at a minimum on nodule size and pa tient risk factors according to Fleischner Society Guidelines. FINDINGS: LUNGS: There is no consolidation or pneumothorax. No concerning pulmonary nodule is visualized. PLEURA: There is no pleural thickening or pleural effusion. MEDIASTINUM: They are tortuous mediastinal vessels which accounts for the prominent width of the mediastinum. Hear t size within normal limits. No mass or pericardial effusion. Coronary artery calcification is noted. AXILLAE: Within normal limits. No lymphadenopathy. SKELETAL: No acute bony abnormality demonstrated. There are multiple old, healed left rib fractures. MISCELLANEOUS: The visualized upper abdominal organs demonstrate no acute abnormality. CONCLUSION: 1. Tortuous mediastinal vessels. No mass or other acute cardiopulmonary disease. 2. Coronary artery calcification. 3. Old left rib fractures. Nehemias Gonzalez MD on July 28, 2017 at 1:37 Board Certified Radiologist. This report was verified electronically.
[2017-07-28] MEDS ORDERED: ACETAMINOPHEN/HYDROcodone 325 MG/5 MG TAB PO PRN (02:00)
[2017-07-28] MEDS ORDERED: NALOXONE HCL 0.4 MG/ML AMP IV PUSH PRN (02:00)
[2017-07-28] MEDS: D5-NS + KCL 20 MEQ INJ 1,000 ML IV SCH ×4 (03:14→20:42)
[2017-07-28] MEDS: ONDANSETRON HCL 4 MG/2 ML VIAL IV PUSH PRN ×4 (03:28→23:46)
[2017-07-28] MEDS: PANTOPRAZOLE SOD 40 MG DELAYED RELEASE TAB PO SCH (09:00)
[2017-07-28] MEDS: DOCUSATE SODIUM 100 MG CAP PO SCH ×2 (09:00→20:39)
[2017-07-28] MEDS: MORPHINE SULFATE 4 MG/ML INJ IV PRN (09:32)
--- NOTE | 2017-07-28 10:05 | EKG ---
Date Performed: 07/27/2017 Time Performed: 23:56:32 PTAGE: 71 years EKG: SINUS TACHYCARDIA ABNORMAL RHYTHM ECG Compared to prior electrocardiogram, rate has increas ed PREVIOUS TRACING : 04/15/2017 19.25 DOCTOR: Shay Pinzon Interpretating Date/Time 07/28/2017 10:05:07
--- NOTE | 2017-07-28 10:24 | RADRPT ---
EXAM DATE/TIME: 07/28/2017 10:04 [place] COMPARISON: CT BRAIN W/O CONTRAST, July 28, 2017, 0:21. INDICATIONS : Abnormal prior CT brain. Evaluate status of subdural hematoma. RADIATION DOSE: 49.59 CTDIvol (mGy) MEDICAL HISTORY : Seizures. Hypertension. SURGICAL HISTORY : None. ENCOUNTER: Initial ACUITY: 1 day PAIN SCALE: Non-responsive LOCATION: Bilateral head TECHNIQUE: Multiple contiguous axial images were obtained of the head. Using automated exposure control and adj ustment of the mA and/or kV according to patient size, radiation dose was kept as low as reasonably a chievable to obtain optimal diagnostic quality images. DICOM format image data is available electro nically for review and comparison. FINDINGS: CEREBRUM: Cerebral hemispheres are stable without evidence of acute infarct or parenchymal hemorrhage. There is no evidence of focal edema. The left parafalcine subdural hematoma in the parietal region is stable. It continues to measure approximate 7 mm in thickness. There is no significant mass effect or POSTERIOR FOSSA: The cerebellum and brainstem are intact. The 4th ventricle is midline. The cerebellopontine angle i s unremarkable. EXTRACRANIAL: The visualized portion of the orbits is intact. SKULL: The calvaria is intact. No evidence of skull fracture. CONCLUSION: 1. Stable small left-sided parafalcine subdural hematoma. 2. No evidence of acute infarct, parenchymal hemorrhage or edema. Lauri Vasquez MD on July 28, 2017 at 10:20 Board Certified Radiologist. This report was verified electronically.
[2017-07-28] MEDS: LIPASE/PROTEASE/AMYLASE (24,000/76,000/120,000) CAP PO SCH ×2 (13:00→18:00)
[2017-07-28] MEDS ORDERED: FLUMAZENIL 0.5 MG/5 ML VIAL IV PUSH PRN ×2 (14:00)
[2017-07-28] MEDS ORDERED: HALOPERIDOL LACTATE 5 MG/ML AMP IM PRN (14:00)
[2017-07-28] MEDS ORDERED: cloNIDine HCL 0.1 MG TAB PO PRN (14:00)
[2017-07-28] MEDS ORDERED: SODIUM CHLORIDE 0.9% FLUSH 10 ML FLUSH IV FLUSH PRN (14:00)
[2017-07-28] MEDS ORDERED: LORazepam 2 MG/ML VIAL IV PUSH PRN (14:00)
[2017-07-28] MEDS ORDERED: THIAMINE INJ 100 MG in SODIUM CHLORIDE 0.9% INJ 100 ML IV SCH ×2 (14:00→15:00)
[2017-07-28] MEDS ORDERED: LORazepam 2 MG TAB PO PRN (14:00)
[2017-07-28] MEDS ORDERED: PROCHLORPERAZINE INJ 10 MG/2 ML VIAL IV PUSH PRN (14:15)
--- NOTE | 2017-07-28 14:45 | PD.CONS ---
[facility] By DR TORRES Reason for Consult Medical management [facility] Diagnoses: (1) Subdural hematoma (2) Alcohol intoxication (3) Alcohol withdrawal (4) Generalized weakness History of Present Illness Patient is a 71-year-old male who presented via EMS today after he had a fall. Patient states he normally drinks a 24 pack of 16 ounce beers every day states he fell he is not sure how he fell. He states that he had only drank a couple beers yesterday because he was "trying to cut down on his alcohol intake because he had not gotten any more alcohol to replace the alcohol that he needed to intake he then fell and had a large hematoma on his left forehead. He does not recall why he fell or how he fell has some mild frontal headache. Has a history of alcohol-related issues history of syncope in the past and generalized weakness and history of probable alcohol withdrawal seizures We have been asked to help regarding his alcohol withdrawal. Since patient is an extensive heavy drinker that really does not stop drinking ever. He states is the first time he stopped drinking in a very long time We will place him on CIWA protocol as well as a multivitamin thiamine and folic acid Continue on Protonix make sure he has antiemetics In place him on Librium Review of Systems Constitutional: COMPLAINS OF: Fatigue, DENIES: Diaphoretic episodes, Fever, Weight gain, Weight loss, Chills, Dizziness, Change in appetite, Night Sweats Endocrine: DENIES: Heat/cold intolerance, Polydipsia, Polyuria, Polyphagia Eyes: COMPLAINS OF: Blurred vision, DENIES: Diplopia, Eye inflammation, Eye pain, Vision loss, Photosensitivity, Double Vision Ears, nose, mouth, throat: DENIES: Tinnitus, Hearing loss, Vertigo, Nasal discharge, Oral lesions, Throat pain, Hoarseness, Ear Pain, Running Nose, Epistaxis, Sinus Pain, Odynophagia Respiratory: DENIES: Apneas, Cough, Snoring, Wheezing, Hemoptysis, Sputum production, Shortness of breath Cardiovascular: DENIES: Chest pain, Palpitations, Syncope, Dyspnea on Exertion , PND, Lower Extremity Edema, Orthopnea Gastrointestinal: DENIES: Abdominal pain, Black stools, Bloody stools, Constipation, Diarrhea, Nausea, Vomiting, Difficulty Swallowing Genitourinary: DENIES: Sexual dysfunction, Urinary frequency, Urinary incontinence, Urgency, Hematuria, Dysuria, Nocturia, Penile Discharge Musculoskeletal: DENIES: Joint pain, Muscle aches, Stiffness, Joint Swelling, Back pain, Neck pain Integumentary: DENIES: Abnormal pigmentation, Nail changes, Pruritus, Rash Hematologic/lymphatic: DENIES: Bruising, Lymphadenopathy Immunologic/allergic: DENIES: Eczema, Urticaria Neurologic: DENIES: Abnormal gait, Headache, Localized weakness, Paresthesias, Seizures, Speech Problems, Tremor, Poor Balance Psychiatric: COMPLAINS OF: Anxiety, Depression, Hallucinations, Agitation, Delusions, DENIES: Confusion, Mood changes, Suicidal Ideation, Homicidal Ideation Except as stated in HPI: all other systems reviewed are Neg Past Family Social History Allergies: Coded Allergies: No Known Allergies (Verified Allergy, Unknown, 04/16/17) Past Medical History Osteoarthritis Hypertension History of seizure disorder from alcohol withdrawals History of shingles Possible history of pancreatitis Past Surgical History Tonsillectomy Reported Medications Reported Meds & Active Scripts Active Lorazepam 0.5 Mg Tab 0.5 Mg PO Q8H PRN Gnp Vitamin B-1 (Thiamine HCl) 100 Mg Tab 100 Mg PO DAILY Gnp Vitamin D3 Extra Stre (Cholecalciferol) 1,000 Unit Tab 2,000 Units PO DAILY Pantoprazole (Pantoprazole Sodium) 40 Mg Tab 40 Mg PO DAILY Folic Acid 1 Mg Tablet 1 Mg PO DAILY Thera M Plus (Multivitamins/Minerals Therapeutic) 1 Tab 1 Tab PO DAILY Creon (Amylase/Lipase/Protease) 24,000-76,000-120,000 Units Cap 1 Cap PO TID Walker with Front Wheels (Device) 1 Mis Mis Ea .ROUTE DIRECTED Walker/Adult/Folding (Device) 1 Mis Mis 1 Ea .ROUTE CONTINUOUS Use walker when weak Reported Vitamin B Complex (B-Complex Vitamins) 1 Tab Active Ordered Medications Current Medications Sodium Chloride 1,000 ml @ 1,000 mls/hr Q1H IV Last administered on 07/28/17at 00:10; Start 07/28/17 at 00:00; Stop 07/28/17 at 00:59; Status DC Lorazepam (Ativan Inj) 1 mg ONCE ONCE IV PUSH Last administered on 07/28/17at 00:10; Start 07/28/17 at 00:00; Stop 07/28/17 at 00:01; Status DC Iohexol (Omnipaque 350 Inj) 70 ml STK-MED ONCE IVCONTRAST Last administered on 07/28/17at 01:26; Start 07/28/17 at 01:26; Stop 07/28/17 at 01:27; Status DC Acetaminophen/ Hydrocodone Bitart ([place] 5-325 Mg) 1 tab Q4H PRN PO PAIN SCALE 3 TO 5; Start 07/28/17 at 02:00 Morphine Sulfate (Morphine Inj) 4 mg Q3H PRN IV Pain 6-10;if unable to take PO Last administered on 07/28/17at 09:32; Start 07/28/17 at 02:00 Naloxone HCl (Narcan Inj) 0.4 mg UNSCH PRN IV PUSH SEE LABEL COMMENTS; Start at 02:00 Potassium Chloride/Dextrose/ Sod Cl 1,000 ml @ 100 mls/hr Q10H IV Last administered on 07/28/17at 03:14; Start 07/28/17 at 01:46 Docusate Sodium (Colace) 100 mg BID PO ; Start 07/28/17 at 09:00 Pantoprazole Sodium (Protonix) 40 mg DAILY PO ; Start 07/28/17 at 09:00 Ondansetron HCl (Zofran Inj) 4 mg Q6H PRN IV PUSH NAUSEA OR VOMITING Last administered on 07/28/17at 09:32; Start 07/28/17 at 02:00 Pneumococcal Polyvalent Vaccine (Pneumovax-23 Inj) 25 mcg ONCE ONCE IM ; Start 07/29/17 at 09:00; Stop 07/29/17 at 09:01 Influenza Virus Vaccine (Flu (Quadrivalent) Vaccine Inj) 0.5 ml ONCE ONCE IM ; Start 07/29/17 at 09:00; Stop 07/29/17 at 09:01 Cholecalciferol (Vitamin D3) 2,000 units DAILY PO ; Start 07/29/17 at 09:00 Amylase/Lipase/ Protease (Creon 2476-120) 1 cap TID PO ; Start 07/28/17 at 13: 00 Pantoprazole Sodium (Protonix) 40 mg DAILY PO ; Start 07/29/17 at 09:00; Status UNV Sodium Chloride (NS Flush) 2 ml UNSCH PRN IV FLUSH FLUSH AFTER USING IV ACCESS ; Start 07/28/17 at 14:00 Sodium Chloride (NS Flush) 2 ml BID IV FLUSH ; Start 07/28/17 at 21:00 Multivitamins 10 ml/Folic Acid 1 mg/Sodium Chloride 510.2 ml @ 125 mls/hr Q24H IV ; Start 07/28/17 at 16:00; Stop 08/02/17 at 15:59 Thiamine HCl 100 mg/Sodium Chloride 101 ml @ 100 mls/hr Q24H IV ; Start at 14:00; Stop 07/31/17 at 13:59 Ondansetron HCl (Zofran Inj) 8 mg Q4H PRN IV PUSH NAUSEA OR VOMITING; Start 04/06 at 14:00 Clonidine (Catapres) 0.1 mg Q6H PRN PO SEE LABEL COMMENTS; Start 07/28/17 at 14 :00 Flumazenil (Romazicon Inj) 0.2 mg Q1M PRN IV PUSH SEE LABEL COMMENTS; Start 04/06 at 14:00 Lorazepam (Ativan) 1 mg Q4H PRN PO CIWA 8 - 10; Start 07/28/17 at 14:00 Lorazepam (Ativan Inj) 1 mg Q4H PRN IV PUSH CIWA 8 - 10; Start 07/28/17 at 14: 00 Lorazepam (Ativan) 2 mg Q2H PRN PO CIWA 11-14; Start 07/28/17 at 14:00 Lorazepam (Ativan Inj) 2 mg Q2H PRN IV PUSH CIWA 11-14; Start 07/28/17 at 14:00 Lorazepam (Ativan Inj) 2 mg Q1H PRN IV PUSH CIWA 15-20; Start 07/28/17 at 14:00 Lorazepam (Ativan Inj) 2 mg Q15M PRN IV PUSH CIWA > 20; Start 07/28/17 at 14:00 Haloperidol Lactate (Haldol Inj) 2 mg Q15M PRN IM SEE LABEL COMMENTS; Start 04/06 at 14:00 Flumazenil (Romazicon Inj) 0.2 mg Q1M PRN IV PUSH SEE LABEL COMMENTS; Start 04/06 at 14:00 Prochlorperazine Edisylate (Compazine Inj) 10 mg Q6H PRN IV PUSH NAUSEA/ VOMITING; Start 07/28/17 at 14:15 Pantoprazole Sodium (Protonix Inj) 40 mg Q12H IV PUSH ; Start 07/28/17 at 18:00 Family History Alcohol abuse and hypertension Social History Alcohol abuse excessive at least a 24 pack/bottles a day of beer Lives alone Denies any tobacco or illicit drug use Physical Exam Vital Signs Vital Signs Date Time Temp Pulse Resp B/P (MAP) Pulse Ox O2 Delivery O2 Flow Rate FiO2 07/28/17 12:00 98.2 115 24 110/67 (81) 95 07/28/17 12:00 114 07/28/17 10:00 90 Nasal Cannula 4.00 07/28/17 10:00 118 07/28/17 09:06 94 Nasal Cannula 2.00 07/28/17 08:00 98.4 108 20 106/60 (75) 95 07/28/17 08:00 108 07/28/17 07:00 90 Nasal Cannula 2.00 07/28/17 06:00 122 07/28/17 04:00 108 07/28/17 04:00 98.0 108 23 100/60 (73) 92 07/28/17 04:00 Nasal Cannula 2.00 07/28/17 03:37 07/28/17 03:21 102 16 130/62 (84) 96 Room Air 07/28/17 00:03 108 18 104/50 (68) 99 Room Air 07/27/17 17:58 98.8 90 16 130/80 (97) 100 Physical Exam GENERAL: This is a well-nourished, well-developed patient, in no apparent distress. Appears quite disheveled SKIN: No rashes, ecchymoses or lesions. Cool and dry. Ecchymosis and bruising above the left eye forehead area large left forehead hematoma HEAD: Atraumatic. Normocephalic. No temporal or scalp tenderness. Large left forehead hematoma EYES: Pupils equal round and reactive. Extraocular motions intact. No scleral icterus. No injection or drainage. ENT: Nose without bleeding, purulent drainage or septal hematoma. Throat without erythema, tonsillar hypertrophy or exudate. Uvula midline. Airway patent. NECK: Trachea midline. No JVD or lymphadenopathy. Supple, nontender, no meningeal signs. CARDIOVASCULAR: Regular rate and rhythm without murmurs, gallops, or rubs. RESPIRATORY: Clear to auscultation. Breath sounds equal bilaterally. No wheezes , rales, or rhonchi. GASTROINTESTINAL: Abdomen soft, non-tender, nondistended. No hepato-splenomegaly , or palpable masses. No guarding. MUSCULOSKELETAL: Extremities without clubbing, cyanosis, or edema. No joint tenderness, effusion, or edema noted. No calf tenderness. Negative Homans sign bilaterally. NEUROLOGICAL: Awake and alert. Cranial nerves II through XII intact. Motor and sensory grossly within normal limits. 4 out of 5 muscle strength in all muscle groups. Normal speech. Insight and judgment limited Mood and behavior somewhat appropriate Laboratory Laboratory Tests Test 07/28/17 00:35 07/28/17 04:00 White Blood Count 9.1 Red Blood Count 3.73 Hemoglobin 12.2 Hematocrit 35.5 Mean Corpuscular Volume 95.3 Mean Corpuscular Hemoglobin 32.7 Mean Corpuscular Hemoglobin Concent 34.3 Red Cell Distribution Width 16.7 Platelet Count 119 Mean Platelet Volume 8.7 Neutrophils (%) (Auto) 77.2 Lymphocytes (%) (Auto) 14.4 Monocytes (%) (Auto) 7.9 Eosinophils (%) (Auto) 0.0 Basophils (%) (Auto) 0.5 Neutrophils # (Auto) 7.1 Lymphocytes # (Auto) 1.3 Monocytes # (Auto) 0.7 Eosinophils # (Auto) 0.0 Basophils # (Auto) 0.0 CBC Comment DIFF FINAL Differential Comment Blood Urea Nitrogen 7 Creatinine 0.75 Random Glucose 146 Total Protein 7.6 Albumin 3.5 Calcium Level 7.6 Magnesium Level 2.2 Alkaline Phosphatase 129 Aspartate Amino Transf (AST/SGOT) 77 Alanine Aminotransferase (ALT/SGPT) 33 Total Bilirubin 1.6 Sodium Level 139 Potassium Level 4.2 Chloride Level 104 Carbon Dioxide Level 20.3 Anion Gap 15 Estimat Glomerular Filtration Rate 103 Total Creatine Kinase 400 Creatine Kinase MB 3.1 Creatine Kinase MB % 0.8 Troponin I LESS THAN 0.02 Ethyl Alcohol Level 298 Nasal Screen MRSA (PCR) MRSA NOT DETECTED Result Diagram: 07/28/17 0035 07/28/17 0035 Imaging Last Impressions Head CT 07/28/17 0000 Signed Impressions: Service Date/Time: Friday, July 28, 2017 10:04 - CONCLUSION: 1. Stable small left-sided parafalcine subdural hematoma. 2. No evidence of acute infarct, parenchymal hemorrhage or edema. Lauri Vasquez MD Chest CT 07/28/17 0000 Signed Impressions: Service Date/Time: Friday, July 28, 2017 01:25 - CONCLUSION: 1. Tortuous mediastinal vessels. No mass or other acute cardiopulmonary disease. 2. Coronary artery calcification. 3. Old left rib fractures. Nehemias Gonzalez MD Chest X-Ray 07/27/17 2335 Signed Impressions: Service Date/Time: Thursday, July 27, 2017 23:46 - CONCLUSION: Apparent mild mediastinal widening and a CT of the chest with intravenous contrast is suggested if felt clinically indicated. The lungs are clear. Nehemias Gonzalez MD Assessment and Plan Assessment and Plan Subdural hematoma secondary to fall -patient was on chronic aspirin will hold this Neurosurgery is the attending Alcohol withdrawals possible alcoholic seizures from withdrawals of alcohol in the past Continue on CIWA protocol with Ativan and Haldol and Librium as needed Seizure precautions Multivitamin, thiamine, folic acid, Antiemetics Catapres as needed for blood pressure Thrombocytopenia suspect secondary to alcohol abuse long-term Physical therapy and occupational therapy to eval and treat Elevated LFTs secondary to chronic alcohol abuse Medical noncompliance AM LABS GI PROPHYLAXIS WITH PROTONIX DVT WITH SCDS AND JERICHO HOSE Code Status Full code Discussed Condition With Patient and RN Delmer Boyer DO Jul 28, 2017 14:44
[2017-07-28] MEDS: LORazepam 2 MG/ML VIAL IV PUSH PRN (15:21)
[2017-07-28] MEDS ORDERED: MULTIVITAMIN INJ 10 ML, FOLIC ACID INJ 1 MG in SODIUM CHLORID 0.9% 500 ML INJ 500 ML IV SCH (16:00)
[2017-07-28 17:25] LABS: MAGNESIUM 1.7 MG/DL (1.5-2.5); PHOSPHORUS 2.5 MG/DL (2.5-4.9)
[2017-07-28] MEDS: PANTOPRAZOLE SODIUM 40 MG VIAL IV PUSH SCH (18:05)
[2017-07-28] MEDS: chlordiazePOXIDE 25 MG CAP PO PRN (19:40)
[2017-07-28] MEDS: SODIUM CHLORIDE 0.9% FLUSH 10 ML FLUSH IV FLUSH SCH (20:39)
[2017-07-28] MEDS: LORazepam 1 MG TAB PO PRN (23:42)
--- NOTE | 2017-07-28 23:51 | HHI.HP ---
HPI Service Neurosurgery Primary Care Physician [facility] History of Present Illness 71 yo male presented to ED after falll. He doesnt recall anything in regards to the fall. He usuallly drinks around 12 beers a day. Yesterday only drank two since he was trying to cut back. Review of Systems Unable to accurately obtain review of systems are altered mental status at the time of admission. Past Family Social History Allergies: Coded Allergies: No Known Allergies (Verified Allergy, Unknown, 04/16/17) Past Medical History Hypertension History of pancreatitis Arthritis Anxiety disorder Past Surgical History Tonsillectomy Reported Medications Reported Meds & Active Scripts Active Lorazepam 0.5 Mg Tab 0.5 Mg PO Q8H PRN Gnp Vitamin B-1 (Thiamine HCl) 100 Mg Tab 100 Mg PO DAILY Gnp Vitamin D3 Extra Stre (Cholecalciferol) 1,000 Unit Tab 2,000 Units PO DAILY Pantoprazole (Pantoprazole Sodium) 40 Mg Tab 40 Mg PO DAILY Folic Acid 1 Mg Tablet 1 Mg PO DAILY Thera M Plus (Multivitamins/Minerals Therapeutic) 1 Tab 1 Tab PO DAILY Creon (Amylase/Lipase/Protease) 24,000-76,000-120,000 Units Cap 1 Cap PO TID Walker with Front Wheels (Device) 1 Mis Mis Ea .ROUTE DIRECTED Walker/Adult/Folding (Device) 1 Mis Mis 1 Ea .ROUTE CONTINUOUS Use walker when weak Reported Vitamin B Complex (B-Complex Vitamins) 1 Tab Family History Alcohol abuse Social History Does not smoke cigarettes No illicit drug use Drinks 1-2 12 pack of beer daily Physical Exam Vital Signs Vital Signs Date Time Temp Pulse Resp B/P (MAP) Pulse Ox O2 Delivery O2 Flow Rate FiO2 07/28/17 22:00 114 07/28/17 20:00 97.8 117 15 155/79 (104) 97 07/28/17 20:00 117 07/28/17 19:00 97 Room Air 07/28/17 18:00 114 07/28/17 16:00 116 07/28/17 16:00 98.5 116 18 129/67 (87) 96 07/28/17 14:00 118 07/28/17 12:00 98.2 115 24 110/67 (81) 95 07/28/17 12:00 114 07/28/17 10:00 90 Nasal Cannula 4.00 07/28/17 10:00 118 07/28/17 09:06 94 Nasal Cannula 2.00 07/28/17 08:00 98.4 108 20 106/60 (75) 95 07/28/17 08:00 108 07/28/17 07:00 90 Nasal Cannula 2.00 07/28/17 06:00 122 07/28/17 04:00 108 07/28/17 04:00 98.0 108 23 100/60 (73) 92 07/28/17 04:00 Nasal Cannula 2.00 07/28/17 03:37 07/28/17 03:21 102 16 130/62 (84) 96 Room Air 07/28/17 00:03 108 18 104/50 (68) 99 Room Air Physical Exam GENERAL: This is a well-nourished, well-developed patient, no apparent distress. SKIN: No abrasions, contusion, rash noted. Skin warm and dry. HEAD: Atraumatic. Normocephalic. No temporal or scalp tenderness. EYES: Sclerae are clear and nonicteric. Mild left periorbital edema and ecchymosis ENT: Left facial abrasions, contusions. Mild left periorbital edema and ecchymosis. NECK: Trachea midline. No cervical spine tenderness. CARDIOVASCULAR: Regular rate and rhythm without murmurs, gallops, or rubs. RESPIRATORY: Clear to auscultation. Breath sounds equal bilaterally. No wheezes , rales, or rhonchi. GASTROINTESTINAL: Abdomen soft, non-tender, nondistended. No hepato-splenomegaly , or palpable masses. No guarding. MUSCULOSKELETAL: Extremities without cyanosis, or edema. No joint tenderness, or edema noted. No calf tenderness. Dorsalis pedis pulses 2+ bilateral NEUROLOGICAL: Moderate lethargy Very confused Speech is slow, mild dysarthria Answers a few simple questions. Does not know where he is out of date. Follows a few simple commands Pupils are equal and reactive to accommodation. Extra-ocular movements, visual mott to confrontation, facial sensorimotor, tongue, palate, sternocleidomastoid testing, hearing to finger rub testing, and bilateral shoulder shrug are all intact. Sensation is intact to light touch in all extremities Strength normal major flexion and extension groups all extremities Clemente's absent bilaterally No ankle clonus Plantar responses absent bilateral Fine motor movements intact upper extremities Laboratory Laboratory Tests Test 07/28/17 00:35 07/28/17 04:00 07/28/17 16:20 White Blood Count 9.1 Red Blood Count 3.73 Hemoglobin 12.2 Hematocrit 35.5 Mean Corpuscular Volume 95.3 Mean Corpuscular Hemoglobin 32.7 Mean Corpuscular Hemoglobin Concent 34.3 Red Cell Distribution Width 16.7 Platelet Count 119 Mean Platelet Volume 8.7 Neutrophils (%) (Auto) 77.2 Lymphocytes (%) (Auto) 14.4 Monocytes (%) (Auto) 7.9 Eosinophils (%) (Auto) 0.0 Basophils (%) (Auto) 0.5 Neutrophils # (Auto) 7.1 Lymphocytes # (Auto) 1.3 Monocytes # (Auto) 0.7 Eosinophils # (Auto) 0.0 Basophils # (Auto) 0.0 CBC Comment DIFF FINAL Differential Comment Blood Urea Nitrogen 7 Creatinine 0.75 Random Glucose 146 Total Protein 7.6 Albumin 3.5 Calcium Level 7.6 Magnesium Level 2.2 1.7 Alkaline Phosphatase 129 Aspartate Amino Transf (AST/SGOT) 77 Alanine Aminotransferase (ALT/SGPT) 33 Total Bilirubin 1.6 Sodium Level 139 Potassium Level 4.2 Chloride Level 104 Carbon Dioxide Level 20.3 Anion Gap 15 Estimat Glomerular Filtration Rate 103 Total Creatine Kinase 400 Creatine Kinase MB 3.1 Creatine Kinase MB % 0.8 Troponin I LESS THAN 0.02 Ethyl Alcohol Level 298 Nasal Screen MRSA (PCR) MRSA NOT DETECTED Phosphorus Level 2.5 Result Diagram: 07/28/17 0035 07/28/17 0035 Imaging Last Impressions Head CT 07/28/17 0000 Signed Impressions: Service Date/Time: Friday, July 28, 2017 10:04 - CONCLUSION: 1. Stable small left-sided parafalcine subdural hematoma. 2. No evidence of acute infarct, parenchymal hemorrhage or edema. Lauri Vasquez MD Chest CT 07/28/17 0000 Signed Impressions: Service Date/Time: Friday, July 28, 2017 01:25 - CONCLUSION: 1. Tortuous mediastinal vessels. No mass or other acute cardiopulmonary disease. 2. Coronary artery calcification. 3. Old left rib fractures. Nehemias Gonzalez MD Chest X-Ray 07/27/17 2854 Signed Impressions: Service Date/Time: Thursday, July 27, 2017 23:46 - CONCLUSION: Apparent mild mediastinal widening and a CT of the chest with intravenous contrast is suggested if felt clinically indicated. The lungs are clear. Nehemias Gonzalez MD Caprini VTE Risk Assessment Caprini VTE Risk Assessment: No/Low Risk (score <= 1) Caprini Risk Assessment Model Point Value = 1 Point Value = 2 Point Value = 3 Point Value = 5 Age 41-60 Minor surgery BMI > 25 kg/m2 Swollen legs Varicose veins or History of unexplained or recurrent spontaneous Oral contraceptives or hormone replacement Sepsis (< 1 month) Serious lung disease, including pneumonia (< 1 month) Abnormal pulmonary function Acute myocardial infarction Congestive heart failure (< 1 month) History of inflammatory bowel disease Medical patient at bed rest Age 61-74 Arthroscopic surgery Major open surgery (> 45 min) Laparoscopic surgery (> 45 min) Malignancy Confined to bed (> 72 hours) Immobilizing plaster cast Central venous access Age >= 75 History of VTE Family history of VTE Factor V Leiden Prothrombin [id number] Lupus anticoagulant Anticardiolipin antibodies Elevated serum homocysteine Heparin-induced thrombocytopenia Other congenital or acquired thrombophilia Stroke (< 1 month) Elective arthroplasty Hip, pelvis, or leg fracture Acute spinal cord injury (< 1 month) Prophylaxis Regimen Total Risk Factor Score Risk Level Prophylaxis Regimen 0-1 Low Early ambulation 2 Moderate Order ONE of the following: *Sequential Compression Device (SCD) *Heparin 5000 units SQ BID 3-4 Higher Order ONE of the following medications: *Heparin 5000 units SQ TID *Enoxaparin/Lovenox 40 mg SQ daily (WT < 150 kg, CrCl > 30 mL/min) *Enoxaparin/Lovenox 30 mg SQ daily (WT < 150 kg, CrCl > 10-29 mL/min) *Enoxaparin/Lovenox 30 mg SQ BID (WT < 150 kg, CrCl > 30 mL/min) AND/OR *Sequential Compression Device (SCD) 5 or more Highest Order ONE of the following medications: *Heparin 5000 units SQ TID (Preferred with Epidurals) *Enoxaparin/Lovenox 40 mg SQ daily (WT < 150 kg, CrCl > 30 mL/min) *Enoxaparin/Lovenox 30 mg SQ daily (WT < 150 kg, CrCl > 10-29 mL/min) *Enoxaparin/Lovenox 30 mg SQ BID (WT < 150 kg, CrCl > 30 mL/min) AND *Sequential Compression Device (SCD) Assessment and Plan Assessment and Plan Impression: TBI Facial and forehead contusion etoH abuse and withdrawal Plan: ISC close neurologic checks and vital signs Follow-up CT scan head Medicine consult for DT Follow-up CBC, BMP Yosef King MD Jul 28, 2017 23:51
[2017-07-29] VITALS (12 sets, daily range): BP systolic 107–150; BP diastolic 61–77; PULSE 98–126; RESP 20–32; TEMP 98.1–99.3; O2SAT 94–100
[2017-07-29 05:48] LABS: INTERNATIONAL NORMALIZED RATIO 1.4 RATIO; PROTHROMBIN TIME - PATIENT 13.9 SEC (9.8-11.6)
[2017-07-29] MEDS: D5-NS + KCL 20 MEQ INJ 1,000 ML IV SCH ×2 (05:51→16:18)
[2017-07-29] MEDS: PANTOPRAZOLE SODIUM 40 MG VIAL IV PUSH SCH ×2 (05:51→18:39)
[2017-07-29 06:07] LABS: AUTOMATED NEUTROPHIL # 5.8 TH/MM3 (1.8-7.7); BASOPHIL % 0.4 % (0.0-2.0); HEMATOCRIT 27.5 % (39.0-51.0); HEMOGLOBIN 9.6 GM/DL (13.0-17.0); LYMPHOCYTE # 1.4 TH/MM3 (1.0-4.8); MEAN CELL VOLUME 97.1 FL (80.0-100.0); MEAN CORPUSCULAR HEMOGLOBIN 33.7 PG (27.0-34.0); MEAN CORPUSCULAR HGB CONC 34.7 % (32.0-36.0); MEAN PLATELET VOLUME 9.5 FL (7.0-11.0); MONO % 11.8 % (0.0-8.0); NEUT % 70.8 % (16.0-70.0); PLATELET COUNT 53 TH/MM3 (150-450); RED BLOOD COUNT 2.83 MIL/MM3 (4.50-5.90); RED CELL DISTRIBUTION WIDTH 16.3 % (11.6-17.2); WHITE BLOOD COUNT 8.2 TH/MM3 (4.0-11.0)
[2017-07-29 06:18] LABS: ALBUMIN 3.5 GM/DL (3.4-5.0); ALKALINE PHOSPHATASE 110 U/L (45-117); ALT (GPT) 117 U/L (12-78); AST (GOT) 214 U/L (15-37); BLOOD UREA NITROGEN 14 MG/DL (7-18); CALCIUM 7.9 MG/DL (8.5-10.1); CHLORIDE 103 MEQ/L (98-107); CREATININE 0.83 MG/DL (0.60-1.30); FREE T4 1.03 NG/DL (0.76-1.46); GLOMERULAR FILTRATION RATE 91 ML/MIN (>89); GLUCOSE,RANDOM 102 MG/DL (74-106); MAGNESIUM 1.9 MG/DL (1.5-2.5); PHOSPHORUS 2.1 MG/DL (2.5-4.9); SODIUM (NA) 138 MEQ/L (136-145); TOTAL BILIRUBIN ADULT 4.9 MG/DL (0.2-1.0)
[2017-07-29] MEDS ORDERED: PNEUMOCOCCAL POLYVALENT INJ 25 MCG/0.5 ML SYR IM ONE (09:00)
[2017-07-29] MEDS: SODIUM CHLORIDE 0.9% FLUSH 10 ML FLUSH IV FLUSH SCH ×2 (09:00→19:46)
[2017-07-29] MEDS ORDERED: INFLUENZA VIRUS VACCINE (QUADRIVALENT) 0.5 ML SYR IM ONE (09:00)
[2017-07-29] MEDS ORDERED: PANTOPRAZOLE SOD 40 MG DELAYED RELEASE TAB PO SCH (09:00)
[2017-07-29] MEDS: ONDANSETRON HCL 4 MG/2 ML VIAL IV PUSH PRN ×2 (09:25→19:46)
[2017-07-29] MEDS: LORazepam 1 MG TAB PO PRN ×3 (09:25→19:46)
[2017-07-29] MEDS: PANTOPRAZOLE SOD 40 MG DELAYED RELEASE TAB PO SCH (09:40)
[2017-07-29] MEDS: LIPASE/PROTEASE/AMYLASE (24,000/76,000/120,000) CAP PO SCH ×3 (09:40→18:39)
[2017-07-29] MEDS: CHOLECALCIFEROL (VIT D3) 1000 UNIT TAB PO SCH (09:40)
[2017-07-29] MEDS: DOCUSATE SODIUM 100 MG CAP PO SCH ×2 (09:40→19:46)
--- NOTE | 2017-07-29 09:57 | HHI.PR ---
Subjective Remarks Patient is a 71-year-old male who presented via EMS today after he had a fall. Patient states he normally drinks a 24 pack of 16 ounce beers every day states he fell he is not sure how he fell. He states that he had only drank a couple beers yesterday because he was "trying to cut down on his alcohol intake because he had not gotten any more alcohol to replace the alcohol that he needed to intake he then fell and had a large hematoma on his left forehead. He does not recall why he fell or how he fell has some mild frontal headache. Has a history of alcohol-related issues history of syncope in the past and generalized weakness and history of probable alcohol withdrawal seizures We have been asked to help regarding his alcohol withdrawal. Since patient is an extensive heavy drinker that really does not stop drinking ever. He states is the first time he stopped drinking in a very long time We will place him on CIWA protocol as well as a multivitamin thiamine and folic acid Continue on Protonix make sure he has antiemetics I will place him on Librium 3-12 patient is no longer vomiting today Continue Librium and CIWA protocol Discussed with RN and patient Physical therapy and occupational therapy to eval and treat Multivitamin thiamine and folic acid Objective Vitals Vital Signs Date Time Temp Pulse Resp B/P (MAP) Pulse Ox O2 Delivery O2 Flow Rate FiO2 07/29/17 08:00 100 07/29/17 08:00 98.8 100 24 150/75 (100) 94 07/29/17 07:00 100 Room Air 07/29/17 06:00 105 07/29/17 04:00 121 07/29/17 04:00 98.5 121 22 107/61 (76) 94 07/29/17 02:00 122 07/29/17 00:00 99.3 126 22 131/73 (92) 96 07/29/17 00:00 126 07/28/17 22:00 114 07/28/17 20:00 97.8 117 15 155/79 (104) 97 07/28/17 20:00 117 07/28/17 19:00 97 Room Air 07/28/17 18:00 114 07/28/17 16:00 116 07/28/17 16:00 98.5 116 18 129/67 (87) 96 07/28/17 14:00 118 07/28/17 12:00 98.2 115 24 110/67 (81) 95 07/28/17 12:00 114 07/28/17 10:00 90 Nasal Cannula 4.00 07/28/17 10:00 118 I/O 07/28/17 07/28/17 07/28/17 07/29/17 07/29/17 07/29/17 07:00 15:00 23:00 07:00 15:00 23:00 Intake Total 1240 ml 1000 ml 1301 ml 1750.2 ml Output Total 225 ml 475 ml Balance 1240 ml 1000 ml 1076 ml 1275.2 ml Intake Oral 240 ml 1200 ml 240 ml IV Total 1000 ml 1000 ml 101 ml 1510.2 ml Output Urine Total 225 ml 475 ml # Voids 1 # Bowel Movements 1 0 1 Result Diagram: 07/29/17 0523 07/29/17 0523 Other Results Laboratory Tests Test 07/28/17 00:35 07/28/17 04:00 07/28/17 16:20 07/29/17 05:23 White Blood Count 9.1 TH/MM3 8.2 TH/MM3 Red Blood Count 3.73 MIL/MM3 2.83 MIL/MM3 Hemoglobin 12.2 GM/DL 9.6 GM/DL Hematocrit 35.5 % 27.5 % Mean Corpuscular Volume 95.3 FL 97.1 FL Mean Corpuscular Hemoglobin 32.7 PG 33.7 PG Mean Corpuscular Hemoglobin Concent 34.3 % 34.7 % Red Cell Distribution Width 16.7 % 16.3 % Platelet Count 119 TH/MM3 53 TH/MM3 Mean Platelet Volume 8.7 FL 9.5 FL Neutrophils (%) (Auto) 77.2 % 70.8 % Lymphocytes (%) (Auto) 14.4 % 17.0 % Monocytes (%) (Auto) 7.9 % 11.8 % Eosinophils (%) (Auto) 0.0 % 0.0 % Basophils (%) (Auto) 0.5 % 0.4 % Neutrophils # (Auto) 7.1 TH/MM3 5.8 TH/MM3 Lymphocytes # (Auto) 1.3 TH/MM3 1.4 TH/MM3 Monocytes # (Auto) 0.7 TH/MM3 1.0 TH/MM3 Eosinophils # (Auto) 0.0 TH/MM3 0.0 TH/MM3 Basophils # (Auto) 0.0 TH/MM3 0.0 TH/MM3 CBC Comment DIFF FINAL AUTO DIFF Differential Comment AUTO DIFF CONFIRMED Blood Urea Nitrogen 7 MG/DL 14 MG/DL Creatinine 0.75 MG/DL 0.83 MG/DL Random Glucose 146 MG/DL 102 MG/DL Total Protein 7.6 GM/DL 7.0 GM/DL Albumin 3.5 GM/DL 3.5 GM/DL Calcium Level 7.6 MG/DL 7.9 MG/DL Magnesium Level 2.2 MG/DL 1.7 MG/DL 1.9 MG/DL Alkaline Phosphatase 129 U/L 110 U/L Aspartate Amino Transf (AST/SGOT) 77 U/L 214 U/L Alanine Aminotransferase (ALT/SGPT) 33 U/L 117 U/L Total Bilirubin 1.6 MG/DL 4.9 MG/DL Sodium Level 139 MEQ/L 138 MEQ/L Potassium Level 4.2 MEQ/L 3.6 MEQ/L Chloride Level 104 MEQ/L 103 MEQ/L Carbon Dioxide Level 20.3 MEQ/L 24.0 MEQ/L Anion Gap 15 MEQ/L 11 MEQ/L Estimat Glomerular Filtration Rate 103 ML/MIN 91 ML/MIN Total Creatine Kinase 400 U/L Creatine Kinase MB 3.1 NG/ML Creatine Kinase MB % 0.8 % Troponin I LESS THAN 0.02 NG/ML Ethyl Alcohol Level 298 MG/DL Nasal Screen MRSA (PCR) MRSA NOT DETECTED Phosphorus Level 2.5 MG/DL 2.1 MG/DL Prothrombin Time 13.9 SEC Prothromb Time International Ratio 1.4 RATIO Activated Partial Thromboplast Time 28.6 SEC Ammonia 51 MCMOL/L Amylase Level 20 U/L Lipase 85 U/L Free Thyroxine 1.03 NG/DL Thyroid Stimulating Hormone 3rd Gen 1.000 uIU/ML Imaging Last Impressions Head CT 07/28/17 0000 Signed Impressions: Service Date/Time: Friday, July 28, 2017 10:04 - CONCLUSION: 1. Stable small left-sided parafalcine subdural hematoma. 2. No evidence of acute infarct, parenchymal hemorrhage or edema. Lauri Vasquez MD Chest CT 07/28/17 0000 Signed Impressions: Service Date/Time: Friday, July 28, 2017 01:25 - CONCLUSION: 1. Tortuous mediastinal vessels. No mass or other acute cardiopulmonary disease. 2. Coronary artery calcification. 3. Old left rib fractures. Nehemias Gonzalez MD Chest X-Ray 07/27/17 5037 Signed Impressions: Service Date/Time: Thursday, July 27, 2017 23:46 - CONCLUSION: Apparent mild mediastinal widening and a CT of the chest with intravenous contrast is suggested if felt clinically indicated. The lungs are clear. Nehemias Gonzalez MD Objective Remarks GENERAL: This is a well-nourished, well-developed patient, in no apparent distress. Appears quite disheveled SKIN: No rashes, ecchymoses or lesions. Cool and dry. Ecchymosis and bruising above the left eye forehead area large left forehead hematoma HEAD: Atraumatic. Normocephalic. No temporal or scalp tenderness. Large left forehead hematoma EYES: Pupils equal round and reactive. Extraocular motions intact. No scleral icterus. No injection or drainage. ENT: Nose without bleeding, purulent drainage or septal hematoma. Throat without erythema, tonsillar hypertrophy or exudate. Uvula midline. Airway patent. NECK: Trachea midline. No JVD or lymphadenopathy. Supple, nontender, no meningeal signs. CARDIOVASCULAR: Regular rate and rhythm without murmurs, gallops, or rubs. S1- S2 no S3 or S4 RESPIRATORY: Clear to auscultation. Breath sounds equal bilaterally. No wheezes , rales, or rhonchi. GASTROINTESTINAL: Abdomen soft, non-tender, nondistended. No hepato-splenomegaly , or palpable masses. No guarding. MUSCULOSKELETAL: Extremities without clubbing, cyanosis, or edema. No joint tenderness, effusion, or edema noted. No calf tenderness. Negative Homans sign bilaterally. NEUROLOGICAL: Awake and alert. Cranial nerves II through XII intact. Motor and sensory grossly within normal limits. 4 out of 5 muscle strength in all muscle groups. Normal speech. Insight and judgment limited Mood and behavior somewhat appropriate Medications and IVs Current Medications Sodium Chloride 1,000 ml @ 1,000 mls/hr Q1H IV Last administered on 07/28/17at 00:10; Start 07/28/17 at 00:00; Stop 07/28/17 at 00:59; Status DC Lorazepam (Ativan Inj) 1 mg ONCE ONCE IV PUSH Last administered on 07/28/17at 00:10; Start 07/28/17 at 00:00; Stop 07/28/17 at 00:01; Status DC Iohexol (Omnipaque 350 Inj) 70 ml STK-MED ONCE IVCONTRAST Last administered on 07/28/17 01:26; Start 07/28/17 at 01:26; Stop 07/28/17 at 01:27; Status DC Acetaminophen/ Hydrocodone Bitart ([place] 5-325 Mg) 1 tab Q4H PRN PO PAIN SCALE 3 TO 5; Start 07/28/17 at 02:00 Morphine Sulfate (Morphine Inj) 4 mg Q3H PRN IV Pain 6-10;if unable to take PO Last administered on 07/28/17 09:32; Start 07/28/17 at 02:00 Naloxone HCl (Narcan Inj) 0.4 mg UNSCH PRN IV PUSH SEE LABEL COMMENTS; Start at 02:00 Potassium Chloride/Dextrose/ Sod Cl 1,000 ml @ 100 mls/hr Q10H IV Last administered on 07/29/17at 05:51; Start 07/28/17 at 01:46 Docusate Sodium (Colace) 100 mg BID PO Last administered on 07/29/17 09:40; Start 07/28/17 at 09:00 Pantoprazole Sodium (Protonix) 40 mg DAILY PO Last administered on 07/29/17 09 :40; Start 07/28/17 at 09:00 Ondansetron HCl (Zofran Inj) 4 mg Q6H PRN IV PUSH NAUSEA OR VOMITING Last administered on 07/29/17 09:25; Start 07/28/17 at 02:00 Pneumococcal Polyvalent Vaccine (Pneumovax-23 Inj) 25 mcg ONCE ONCE IM ; Start 07/29/17 at 09:00; Stop 07/29/17 at 09:01; Status DC Influenza Virus Vaccine (Flu (Quadrivalent) Vaccine Inj) 0.5 ml ONCE ONCE IM ; Start 07/29/17 at 09:00; Stop 07/29/17 at 09:01; Status DC Cholecalciferol (Vitamin D3) 2,000 units DAILY PO Last administered on 09:40; Start 07/29/17 at 09:00 Amylase/Lipase/ Protease (Creon [id number]) 1 cap TID PO Last administered on 3/ 12/18at 09:40; Start 07/28/17 at 13:00 Pantoprazole Sodium (Protonix) 40 mg DAILY PO ; Start 07/29/17 at 09:00; Status UNV Sodium Chloride (NS Flush) 2 ml UNSCH PRN IV FLUSH FLUSH AFTER USING IV ACCESS ; Start 07/28/17 at 14:00 Sodium Chloride (NS Flush) 2 ml BID IV FLUSH Last administered on 07/28/17at 20: 39; Start 07/28/17 at 21:00 Multivitamins 10 ml/Folic Acid 1 mg/Sodium Chloride 510.2 ml @ 125 mls/hr Q24H IV Last administered on 07/28/17at 20:38; Start 07/28/17 at 16:00; Stop at 15:59 Thiamine HCl 100 mg/Sodium Chloride 101 ml @ 100 mls/hr Q24H IV ; Start at 14:00; Stop 07/28/17 at 14:34; Status DC Ondansetron HCl (Zofran Inj) 8 mg Q4H PRN IV PUSH NAUSEA OR VOMITING Last administered on 07/28/17at 23:46; Start 07/28/17 at 14:00 Clonidine (Catapres) 0.1 mg Q6H PRN PO SEE LABEL COMMENTS; Start 07/28/17 at 14 :00 Flumazenil (Romazicon Inj) 0.2 mg Q1M PRN IV PUSH SEE LABEL COMMENTS; Start 04/06 at 14:00 Lorazepam (Ativan) 1 mg Q4H PRN PO CIWA 8 - 10 Last administered on 07/29/17at 09:25; Start 07/28/17 at 14:00 Lorazepam (Ativan Inj) 1 mg Q4H PRN IV PUSH CIWA 8 - 10; Start 07/28/17 at 14: 00 Lorazepam (Ativan) 2 mg Q2H PRN PO CIWA 11-14; Start 07/28/17 at 14:00 Lorazepam (Ativan Inj) 2 mg Q2H PRN IV PUSH CIWA 11-14 Last administered on 04/06at 15:21; Start 07/28/17 at 14:00 Lorazepam (Ativan Inj) 2 mg Q1H PRN IV PUSH CIWA 15-20; Start 07/28/17 at 14:00 Lorazepam (Ativan Inj) 2 mg Q15M PRN IV PUSH CIWA > 20; Start 07/28/17 at 14:00 Haloperidol Lactate (Haldol Inj) 2 mg Q15M PRN IM SEE LABEL COMMENTS; Start 04/06 at 14:00 Flumazenil (Romazicon Inj) 0.2 mg Q1M PRN IV PUSH SEE LABEL COMMENTS; Start 04/06 at 14:00 Prochlorperazine Edisylate (Compazine Inj) 10 mg Q6H PRN IV PUSH NAUSEA/ VOMITING; Start 07/28/17 at 14:15 Pantoprazole Sodium (Protonix Inj) 40 mg Q12H IV PUSH Last administered on 07/29at 05:51; Start 07/28/17 at 18:00 Thiamine HCl 100 mg/Sodium Chloride 101 ml @ 100 mls/hr Q24H IV Last administered on 07/28/17at 16:41; Start 07/28/17 at 15:00 Chlordiazepoxide (Librium) 50 mg Q6H PRN PO WITHDRAWAL Last administered on 04/06at 19:40; Start 07/28/17 at 14:45 A/P Problem List: (1) Subdural hematoma ICD Code: I62.00 - Nontraumatic subdural hemorrhage, unspecified Status: Acute (2) Alcohol intoxication ICD Code: F10.929 - Alcohol use, unspecified with intoxication, unspecified Status: Acute (3) Alcohol withdrawal ICD Code: F10.239 - Alcohol dependence with withdrawal, unspecified Status: Acute (4) Generalized weakness ICD Code: R53.1 - Weakness Status: Acute (5) TBI (traumatic brain injury) ICD Code: S06.9X9A - Unspecified intracranial injury with loss of consciousness of unspecified duration, initial encounter Assessment and Plan Subdural hematoma secondary to fall/TBI -patient was on chronic aspirin will hold this Neurosurgery is the attending Alcohol withdrawals possible alcoholic seizures from withdrawals of alcohol in the past Continue on CIWA protocol with Ativan and Haldol and Librium as needed Seizure precautions Multivitamin, thiamine, folic acid, Antiemetics Catapres as needed for blood pressure NAUSEA AND VOMITING -RESOLVED Thrombocytopenia suspect secondary to alcohol abuse long-term Physical therapy and occupational therapy to eval and treat Elevated LFTs secondary to chronic alcohol abuse Medical noncompliance AM LABS GI PROPHYLAXIS WITH PROTONIX DVT WITH SCDS AND JERICHO ALCANTAR DR, RN AND PT PT AND OT Discharge Planning ONCE CLEARED BY NEUROSURGERY Delmer Boyer DO Jul 29, 2017 09:57
[2017-07-29] MEDS ORDERED: FOLIC ACID 1 MG TAB PO ONE (10:00)
[2017-07-29] MEDS ORDERED: THIAMINE HCL 100 MG TAB PO ONE (10:00)
--- NOTE | 2017-07-29 10:38 | HHI.NSPN ---
(Marcos Ho) History Chief Complaint: Generalised weakness, left shoulder and arm pain. (Marcos Ho) Interval History 07/28: 71 yo male presented to ED after falll. He doesnt recall anything in regards to the fall. He usuallly drinks around 12 beers a day. Yesterday only drank two since he was trying to cut back. 07/29: When seen this morning the patient is awake and alert. He is sitting up in the bed watching TV. He denies any headache or dizziness but did say he was nauseated earlier which has resolved. He states that he has generalised weakness and pain to the left shoulder and arm. Upon examination the patient does have weakness to the left upper extremity that is at least partially related to pain. Sensation is intact. (Marcos Ho) Exam Results 07/27/17 07/27/17 07/28/17 07/28/17 07/29/17 07/29/17 06:00 18:00 06:00 18:00 06:00 18:00 Intake Total 1240 ml 2301 ml 1750.2 ml Output Total 225 ml 475 ml Balance 1240 ml 2076 ml 1275.2 ml Intake Oral 240 ml 1200 ml 240 ml IV Total 1000 ml 1101 ml 1510.2 ml Output Urine Total 225 ml 475 ml # Voids 1 # Bowel Movements 1 0 1 Vital Signs Date Time Temp Pulse Resp B/P (MAP) Pulse Ox O2 Delivery O2 Flow Rate FiO2 07/29/17 08:00 100 07/29/17 08:00 98.8 100 24 150/75 (100) 94 07/29/17 07:00 100 Room Air 07/29/17 06:00 105 07/29/17 04:00 121 07/29/17 04:00 98.5 121 22 107/61 (76) 94 07/29/17 02:00 122 07/29/17 00:00 99.3 126 22 131/73 (92) 96 07/29/17 00:00 126 07/28/17 22:00 114 07/28/17 20:00 97.8 117 15 155/79 (104) 97 07/28/17 20:00 117 07/28/17 19:00 97 Room Air 07/28/17 18:00 114 07/28/17 16:00 116 07/28/17 16:00 98.5 116 18 129/67 (87) 96 07/28/17 14:00 118 07/28/17 12:00 98.2 115 24 110/67 (81) 95 07/28/17 12:00 114 07/28/17 10:00 90 Nasal Cannula 4.00 07/28/17 10:00 118 07/28/17 09:06 94 Nasal Cannula 2.00 07/28/17 08:00 98.4 108 20 106/60 (75) 95 07/28/17 08:00 108 07/28/17 07:00 90 Nasal Cannula 2.00 07/28/17 06:00 122 07/28/17 04:00 108 07/28/17 04:00 98.0 108 23 100/60 (73) 92 07/28/17 04:00 Nasal Cannula 2.00 07/28/17 03:37 07/28/17 03:21 102 16 130/62 (84) 96 Room Air 07/28/17 00:03 108 18 104/50 (68) 99 Room Air 07/27/17 17:58 98.8 90 16 130/80 (97) 100 (Marcos Ho) Physical Examination GENERAL: Awake & alert sitting up in bed. Affect flat. Appears mildly uncomfortable but not in any distress. HEENT: Left-sided forehead & facial abrasions mildly TTP. PERRLA 3 mm brisk, EOMI. No otorrhea or rhinorrhea. MMM & pink, tongue midline to protrusion, no oral lesions noted. NECK: Midline cervical spine mildly TTP, no step offs or deformities palpated. Neck supple. No JVD. Trachea midline. RESPIRATORY: CTAB w/o W/R/R, equal excursion, nonlaboured, on RA. Mildly TTP to superior left chest wall/anterior shoulder. CARDIOVASCULAR: S1S2 w/RRR w/o M/G/R, cap refill < 2 sec, no pedal edema. Monitor is sinus tachycardia w/o any ectopy noted. GASTROINTESTINAL: Abdomen rotund, soft, nontender, positive bowel sounds. MUSCULOSKELETAL: VIDALES purposefully & to command. Left shoulder & arm TTP, ecchymosis evolving, w/decreased ROM. Midline thoracic spine NTTP, Midline lumbar spine mildly TTP, no step offs or deformities palpated. NEUROLOGICAL: Awake & alert, oriented to person, place, president & month but not year. Speech clear & appropriate but slow. Follows commands w/o difficulty. CN II through XII appear grossly intact. PERRLA 3 mm brisk, EOMI. Tongue midline to protrusion. Sensation intact to light touch to all extremities. Motor strength: LUE: Deltoid 1/5, biceps 2+ to 3/5, triceps 2+ to 3/5, weak hand grasp. Part of motor weakness secondary to pain to left shoulder & arm. RUE: Deltoid 3+ to 4/5, biceps 4 to 4+/5, triceps 4 to 4+/5, fairly strong hand grasp. LLE: Iliopsoas 4+ to 5/5, quadriceps 3+ to 4/5, hamstrings 4+ to 5/5, tibialis anterior 4+ to 5/5, gastrocnemius 4+ to 5/5, extensor hallucis longus 4 + to 5/5. RLE: Iliopsoas 4+ to 5/5, quadriceps 3+ to 4/5, hamstrings 4+ to 5/5, tibialis anterior 4+ to 5/5, gastrocnemius 4+ to 5/5, extensor hallucis longus 4 + to 5/5. (Marcos Ho) Lab, Micro, Other Results Recent Impressions Head CT 07/28/17 0000 Signed Impressions: Service Date/Time: Friday, July 28, 2017 10:04 - CONCLUSION: 1. Stable small left-sided parafalcine subdural hematoma. 2. No evidence of acute infarct, parenchymal hemorrhage or edema. Lauri Vasquez MD Chest CT 07/28/17 0000 Signed Impressions: Service Date/Time: Friday, July 28, 2017 01:25 - CONCLUSION: 1. Tortuous mediastinal vessels. No mass or other acute cardiopulmonary disease. 2. Coronary artery calcification. 3. Old left rib fractures. Nehemias Gonzalez MD Head CT 07/27/17 2335 Signed Impressions: Service Date/Time: Friday, July 28, 2017 00:21 - CONCLUSION: Small, acute upper falcine subdural hematoma measuring approximately 7 mm in maximal thickness. No associated midline shift or significant mass effect. Nehemias Gonzalez MD Chest X-Ray 07/27/17 2335 Signed Impressions: Service Date/Time: Thursday, July 27, 2017 23:46 - CONCLUSION: Apparent mild mediastinal widening and a CT of the chest with intravenous contrast is suggested if felt clinically indicated. The lungs are clear. Nehemias Gonzalez MD Laboratory Tests Test 07/28/17 00:35 07/28/17 04:00 07/28/17 16:20 07/29/17 05:23 White Blood Count 9.1 TH/MM3 8.2 TH/MM3 Red Blood Count 3.73 MIL/MM3 2.83 MIL/MM3 Hemoglobin 12.2 GM/DL 9.6 GM/DL Hematocrit 35.5 % 27.5 % Mean Corpuscular Volume 95.3 FL 97.1 FL Mean Corpuscular Hemoglobin 32.7 PG 33.7 PG Mean Corpuscular Hemoglobin Concent 34.3 % 34.7 % Red Cell Distribution Width 16.7 % 16.3 % Platelet Count 119 TH/MM3 53 TH/MM3 Mean Platelet Volume 8.7 FL 9.5 FL Neutrophils (%) (Auto) 77.2 % 70.8 % Lymphocytes (%) (Auto) 14.4 % 17.0 % Monocytes (%) (Auto) 7.9 % 11.8 % Eosinophils (%) (Auto) 0.0 % 0.0 % Basophils (%) (Auto) 0.5 % 0.4 % Neutrophils # (Auto) 7.1 TH/MM3 5.8 TH/MM3 Lymphocytes # (Auto) 1.3 TH/MM3 1.4 TH/MM3 Monocytes # (Auto) 0.7 TH/MM3 1.0 TH/MM3 Eosinophils # (Auto) 0.0 TH/MM3 0.0 TH/MM3 Basophils # (Auto) 0.0 TH/MM3 0.0 TH/MM3 CBC Comment DIFF FINAL AUTO DIFF Differential Comment AUTO DIFF CONFIRMED Blood Urea Nitrogen 7 MG/DL 14 MG/DL Creatinine 0.75 MG/DL 0.83 MG/DL Random Glucose 146 MG/DL 102 MG/DL Total Protein 7.6 GM/DL 7.0 GM/DL Albumin 3.5 GM/DL 3.5 GM/DL Calcium Level 7.6 MG/DL 7.9 MG/DL Magnesium Level 2.2 MG/DL 1.7 MG/DL 1.9 MG/DL Alkaline Phosphatase 129 U/L 110 U/L Aspartate Amino Transf (AST/SGOT) 77 U/L 214 U/L Alanine Aminotransferase (ALT/SGPT) 33 U/L 117 U/L Total Bilirubin 1.6 MG/DL 4.9 MG/DL Sodium Level 139 MEQ/L 138 MEQ/L Potassium Level 4.2 MEQ/L 3.6 MEQ/L Chloride Level 104 MEQ/L 103 MEQ/L Carbon Dioxide Level 20.3 MEQ/L 24.0 MEQ/L Anion Gap 15 MEQ/L 11 MEQ/L Estimat Glomerular Filtration Rate 103 ML/MIN 91 ML/MIN Total Creatine Kinase 400 U/L Creatine Kinase MB 3.1 NG/ML Creatine Kinase MB % 0.8 % Troponin I LESS THAN 0.02 NG/ML Ethyl Alcohol Level 298 MG/DL Nasal Screen MRSA (PCR) MRSA NOT DETECTED Phosphorus Level 2.5 MG/DL 2.1 MG/DL Prothrombin Time 13.9 SEC Prothromb Time International Ratio 1.4 RATIO Activated Partial Thromboplast Time 28.6 SEC Ammonia 51 MCMOL/L Amylase Level 20 U/L Lipase 85 U/L Free Thyroxine 1.03 NG/DL Thyroid Stimulating Hormone 3rd Gen 1.000 uIU/ML (Marcos Ho) Medical Decision Making Impression and Plan Impression: TBI Facial and forehead contusion EtOH abuse and withdrawal The patient is awake & alert. He is oriented to all but the year. He does have LUE weakness which is at least partially accounted for by pain. He also has some mild right deltoid weakness. His speech is still slow. Tachycardia. T max 99.3 at midnight. Reviewed labs for today. Interval drop in haemoglobin most likely r/t IVF. Interval worsening of thrombocytopenia. INR 1.4 & aPTT 28.6. Sodium 138. Interval increase in transaminases but alk phos now WNL. Elevated ammonia level. CT brain demonstrated a stable small left-sided parafalcine SDH. No acute infarct, parenchymal haemorrhage or edema. Plan: Neuro checks. Stat CT brain for any decline in neuro status. Hold pharmacologic DVT prophylaxis. Mechanical DVT prophylaxis. Mobilise patient w/assistance. Physical & Occupational Therapy eval & tx. Hospitalist for medical management. (Marcos Ho) Attending Statement The exam, history, and the medical decision-making described in the above note were completed with the assistance of the mid-level provider. I reviewed and agree with the findings presented. I attest that I had a [id number] encounter with the patient on the same day, and personally performed and documented my assessment and findings in the medical record. On my examination of 07/29/2017, the patient remains mildly lethargic. Arouses relatively moist. Diminishing left frontal contusion and edema. He still exhibits moderate confusion. He answers a few questions appropriately. He is talking about having surgery in the morning. Extraocular movements and visual mott to confrontation intact Facial sensory motor intact Sensation intact all extremities to light touch Strength within normal limits major flexion-extension groups all extremities Hoffmans absent bilateral No ankle clonus No CSF otorrhea or rhinorrhea Labs reviewed Medical notes reviewed Continue ISC close vital signs and neurologic checks following dramatic brain injury, left parafalcine subdural hematoma Alcohol withdrawal Continue CIWA protocol (Yosef King MD) Marcos Ho Jul 29, 2017 10:38 Yosef King MD Jul 29, 2017 23:04
[2017-07-29] MEDS: MULTIVITAMINS/MINERALS THERAPEUTIC TAB PO SCH (11:56)
--- NOTE | 2017-07-29 16:45 | RADRPT ---
EXAM DATE/TIME: 07/29/2017 15:52 [facility] COMPARISON: No previous studies available for comparison. INDICATIONS : Left shoulder pain after fall. MEDICAL HISTORY : None. SURGICAL HISTORY : None. ENCOUNTER: Initial ACUITY: 2 days PAIN SCORE: 10/10 LOCATION: Left shoulder. FINDINGS: There is a impacted fracture of the left proximal humerus at the surgical neck as well as proximal di aphysis and metaphyseal region with displaced fracture fragments seen. Bone density is normal. CONCLUSION: Proximal humerus fracture. Boy Robles MD on July 29, 2017 at 16:42 Board Certified Radiologist. This report was verified electronically.
[2017-07-29 17:01] LABS: HEMOGLOBIN A1C 4.9 % (4.3-6.0)
--- NOTE | 2017-07-29 17:58 | PD.ORT.PN ---
Subjective Subjective Remarks 71yo white male who reports he fell while getting off of the bus on Saturday on his way home from [facility]. reports was drinking. states pain improving. resting comfortably. Objective Vitals Vital Signs Date Time Temp Pulse Resp B/P (MAP) Pulse Ox O2 Delivery O2 Flow Rate FiO2 07/29/17 14:00 111 07/29/17 12:00 104 07/29/17 12:00 98.5 104 23 150/72 (98) 95 07/29/17 10:00 98 07/29/17 08:00 100 07/29/17 08:00 98.8 100 24 150/75 (100) 94 07/29/17 07:00 100 Room Air 07/29/17 06:00 105 07/29/17 04:00 121 07/29/17 04:00 98.5 121 22 107/61 (76) 94 07/29/17 02:00 122 07/29/17 00:00 99.3 126 22 131/73 (92) 96 07/29/17 00:00 126 07/28/17 22:00 114 07/28/17 20:00 97.8 117 15 155/79 (104) 97 07/28/17 20:00 117 07/28/17 19:00 97 Room Air 07/28/17 18:00 114 I/O 07/28/17 07/28/17 07/28/17 07/29/17 07/29/17 07/29/17 07:00 15:00 23:00 07:00 15:00 23:00 Intake Total 1240 ml 1000 ml 1301 ml 1750.2 ml Output Total 225 ml 475 ml Balance 1240 ml 1000 ml 1076 ml 1275.2 ml Intake Oral 240 ml 1200 ml 240 ml IV Total 1000 ml 1000 ml 101 ml 1510.2 ml Output Urine Total 225 ml 475 ml # Voids 1 # Bowel Movements 1 0 1 Result Diagram: 07/29/1752207/29/17522 Other Results Laboratory Tests Test 07/29/17 05:23 Prothromb Time International Ratio 1.4 RATIO Prothrombin Time 13.9 SEC (9.8-11.6) Imaging Last 24 hours Impressions Shoulder X-Ray 07/29/17 0000 Signed Impressions: Service Date/Time: Saturday, July 29, 2017 15:52 - CONCLUSION: Proximal humerus fracture. Boy A. Travis, MD Objective Remarks LUE: +swelling of upper arm. +bruising. full sensation to median/ulnar nerve distribution. full radial nerve function with full ability to extend fingers and wrist. Assessment & Plan Assessment and Plan 1) Left Segmental Proximal Humerus Fracture -NWB -npo after MN -sign consents. consents on chart -will plan for surgery with Dr Sarabia tomorrow. -official consult to follow Eric Gaytan/Marking Clerk PA Jul 29, 2017 17:58
[2017-07-30] VITALS (19 sets, daily range): BP systolic 121–182; BP diastolic 57–92; PULSE 74–120; RESP 12–31; TEMP 97.9–98.5; O2SAT 95–100
[2017-07-30] MEDS: MORPHINE SULFATE 4 MG/ML INJ IV PRN (01:00)
[2017-07-30] MEDS: LORazepam 2 MG/ML VIAL IV PUSH PRN ×5 (03:00→23:02)
[2017-07-30] MEDS: D5-NS + KCL 20 MEQ INJ 1,000 ML IV SCH ×3 (03:46→22:07)
[2017-07-30 04:30] LABS: AUTOMATED NEUTROPHIL # 3.4 TH/MM3 (1.8-7.7); BASOPHIL % 0.2 % (0.0-2.0); EOSINOPHIL % 0.1 % (0.0-4.0); LYMPH % 21.3 % (9.0-44.0); LYMPHOCYTE # 1.1 TH/MM3 (1.0-4.8); MEAN CELL VOLUME 98.5 FL (80.0-100.0); MEAN CORPUSCULAR HGB CONC 34.5 % (32.0-36.0); MEAN PLATELET VOLUME 9.6 FL (7.0-11.0); MONO % 12.4 % (0.0-8.0); MONOCYTE # 0.6 TH/MM3 (0-0.9); PLATELET COUNT 53 TH/MM3 (150-450); RED BLOOD COUNT 1.99 MIL/MM3 (4.50-5.90); RED CELL DISTRIBUTION WIDTH 15.9 % (11.6-17.2); WHITE BLOOD COUNT 5.1 TH/MM3 (4.0-11.0)
[2017-07-30 04:39] LABS: HEMATOCRIT 19.6 % (39.0-51.0); HEMOGLOBIN 6.8 GM/DL (13.0-17.0)
[2017-07-30 05:04] LABS: ALBUMIN 2.9 GM/DL (3.4-5.0); AST (GOT) 110 U/L (15-37); BLOOD UREA NITROGEN 10 MG/DL (7-18); CALCIUM 7.7 MG/DL (8.5-10.1); CHLORIDE 104 MEQ/L (98-107); CREATININE 0.57 MG/DL (0.60-1.30); GLOMERULAR FILTRATION RATE 141 ML/MIN (>89); GLUCOSE,RANDOM 108 MG/DL (74-106); MAGNESIUM 1.8 MG/DL (1.5-2.5); SODIUM (NA) 139 MEQ/L (136-145)
[2017-07-30 05:05] LABS: ALT (GPT) 80 U/L (12-78); PHOSPHORUS 1.8 MG/DL (2.5-4.9)
[2017-07-30 05:12] LABS: ALKALINE PHOSPHATASE 87 U/L (45-117); TOTAL BILIRUBIN ADULT 3.7 MG/DL (0.2-1.0); TOTAL PROTEIN 5.9 GM/DL (6.4-8.2)
--- NOTE | 2017-07-30 05:19 | RADRPT ---
EXAM DATE/TIME: 07/30/2017 04:30 [place] COMPARISON: CT BRAIN W/O CONTRAST, July 28, 2017, 10:04. INDICATIONS : Follow up hemorrhage. RADIATION DOSE: 56.34 CTDIvol (mGy) MEDICAL HISTORY : Hypertension. SURGICAL HISTORY : None. ENCOUNTER: Subsequent ACUITY: 1 day PAIN SCALE: 5/10 LOCATION: cranial TECHNIQUE: Multiple contiguous axial images were obtained of the head. Using automated exposure control and adj ustment of the mA and/or kV according to patient size, radiation dose was kept as low as reasonably a chievable to obtain optimal diagnostic quality images. DICOM format image data is available electro nically for review and comparison. FINDINGS: The examination is stable from the prior exam. A small subdural hematoma seen tracking along the falx . Maximum thickness is 6 mm projecting towards the left of midline. No other sources of hemorrhage ob serve. No mass effect or midline shift. Underlying atrophy. Calvarium is intact. Paranasal sinuses an d mastoid air cells are clear. CONCLUSION: 1. Stable small subdural hematoma along the falx. Joshua Edmonds Jr., MD on July 30, 2017 at 5:16 Board Certified Radiologist. This report was verified electronically.
[2017-07-30] MEDS: PANTOPRAZOLE SODIUM 40 MG VIAL IV PUSH SCH ×2 (06:00→17:50)
--- NOTE | 2017-07-30 07:45 | PD.ORT.PN ---
Subjective Subjective Remarks 71yo white male who reports he fell while getting off of the bus on Saturday on his way home from [facility]. reports was drinking. states pain improving. resting comfortably. Objective Vitals Vital Signs Date Time Temp Pulse Resp B/P (MAP) Pulse Ox O2 Delivery O2 Flow Rate FiO2 07/30/17 07:40 98.1 82 15 121/63 96 07/30/17 06:10 98.4 82 29 136/68 99 07/30/17 06:00 79 07/30/17 04:00 98.0 88 31 138/57 (84) 98 07/30/17 04:00 88 07/30/17 02:00 94 07/30/17 00:00 98.5 98 22 155/73 (100) 96 07/30/17 00:00 98 07/29/17 22:00 108 07/29/17 20:00 124 07/29/17 20:00 98.1 124 32 143/77 (99) 100 07/29/17 19:00 97 Room Air 07/29/17 18:00 104 07/29/17 16:00 98.6 106 20 142/65 (90) 100 07/29/17 16:00 106 07/29/17 14:00 111 07/29/17 12:00 104 07/29/17 12:00 98.5 104 23 150/72 (98) 95 07/29/17 10:00 98 07/29/17 08:00 100 07/29/17 08:00 98.8 100 24 150/75 (100) 94 I/O 07/29/17 07/29/17 07/29/17 07/30/17 07/30/17 07/30/17 07:00 15:00 23:00 07:00 15:00 23:00 Intake Total 1750.2 ml 1400 ml 730 ml 655 ml Output Total 475 ml 450 ml Balance 1275.2 ml 950 ml 730 ml 655 ml Intake Oral 240 ml 400 ml 480 ml IV Total 1510.2 ml 1000 ml Packed Cells 400 ml Blood Product IV Normal Saline Flush 250 ml 255 ml Output Urine Total 475 ml 450 ml # Voids 5 # Bowel Movements 1 0 Result Diagram: 07/30/17 0409 07/30/17 0405 Imaging Last 24 hours Impressions Shoulder X-Ray 07/29/17 0000 Signed Impressions: Service Date/Time: Saturday, July 29, 2017 15:52 - CONCLUSION: Proximal humerus fracture. Boy Robles MD Objective Remarks LUE: +swelling of upper arm. +bruising. full sensation to median/ulnar nerve distribution. full radial nerve function with full ability to extend fingers and wrist. Assessment & Plan Assessment and Plan 1) Left Segmental Proximal Humerus Fracture -NWB -possible surgery today pending status -patient is alcoholic and has low H/H. will re-eval later today for surgery. Eric Gaytan PA/Scrap Piler PA Jul 30, 2017 07:45
[2017-07-30] MEDS: FOLIC ACID 1 MG TAB PO SCH (08:58)
[2017-07-30] MEDS: DOCUSATE SODIUM 100 MG CAP PO SCH ×2 (08:58→21:00)
[2017-07-30] MEDS: MULTIVITAMINS/MINERALS THERAPEUTIC TAB PO SCH (08:58)
[2017-07-30] MEDS: PANTOPRAZOLE SOD 40 MG DELAYED RELEASE TAB PO SCH (08:58)
[2017-07-30] MEDS: SODIUM CHLORIDE 0.9% FLUSH 10 ML FLUSH IV FLUSH SCH ×2 (08:58→21:00)
[2017-07-30] MEDS: LIPASE/PROTEASE/AMYLASE (24,000/76,000/120,000) CAP PO SCH ×3 (08:59→17:50)
[2017-07-30] MEDS: THIAMINE HCL 100 MG TAB PO SCH (08:59)
[2017-07-30] MEDS: CHOLECALCIFEROL (VIT D3) 1000 UNIT TAB PO SCH (08:59)
--- NOTE | 2017-07-30 09:33 | HHI.NSPN ---
(Marcos Ho) History Chief Complaint: Slight headache, weakness (Marcos Ho) Interval History 07/28: 71 yo male presented to ED after falll. He doesnt recall anything in regards to the fall. He usuallly drinks around 12 beers a day. Yesterday only drank two since he was trying to cut back. 07/29: When seen this morning the patient is awake and alert. He is sitting up in the bed watching TV. He denies any headache or dizziness but did say he was nauseated earlier which has resolved. He states that he has generalised weakness and pain to the left shoulder and arm. Upon examination the patient does have weakness to the left upper extremity that is at least partially related to pain. Sensation is intact. 07/30: This morning the patient is extremely drowsy. He does respond to verbal stimulation and requires coaxing to interact. He is receiving his third unit of PRBC and is to receive a fourth. He endorses a headache and generalised weakness. Limited evaluation due to patient's drowsiness but no evident worsening of neuro status. Nursing does report that the heplock being used to give the PRBC is the third one this morning. (Marcos Ho) Exam Results 07/28/17 07/28/17 07/29/17 07/29/17 07/30/17 07/30/17 06:00 18:00 06:00 18:00 06:00 18:00 Intake Total 1240 ml 2301 ml 1750.2 ml 1400 ml 730 ml 1055 ml Output Total 225 ml 475 ml 450 ml Balance 1240 ml 2076 ml 1275.2 ml 950 ml 730 ml 1055 ml Intake Oral 240 ml 1200 ml 240 ml 400 ml 480 ml IV Total 1000 ml 1101 ml 1510.2 ml 1000 ml Packed Cells 800 ml Blood Product IV Normal Saline Flush 250 ml 255 ml Output Urine Total 225 ml 475 ml 450 ml # Voids 1 5 # Bowel Movements 1 0 1 0 Vital Signs Date Time Temp Pulse Resp B/P (MAP) Pulse Ox O2 Delivery O2 Flow Rate FiO2 07/30/17 07:55 98.1 96 29 140/69 99 07/30/17 07:40 98.1 82 15 121/63 96 07/30/17 06:10 98.4 82 29 136/68 99 07/30/17 06:00 79 07/30/17 04:00 98.0 88 31 138/57 (84) 98 07/30/17 04:00 88 07/30/17 02:00 94 07/30/17 00:00 98.5 98 22 155/73 (100) 96 07/30/17 00:00 98 07/29/17 22:00 108 07/29/17 20:00 124 07/29/17 20:00 98.1 124 32 143/77 (99) 100 07/29/17 19:00 97 Room Air 07/29/17 18:00 104 07/29/17 16:00 98.6 106 20 142/65 (90) 100 07/29/17 16:00 106 07/29/17 14:00 111 07/29/17 12:00 104 07/29/17 12:00 98.5 104 23 150/72 (98) 95 07/29/17 10:00 98 07/29/17 08:00 100 07/29/17 08:00 98.8 100 24 150/75 (100) 94 07/29/17 07:00 100 Room Air 07/29/17 06:00 105 07/29/17 04:00 121 07/29/17 04:00 98.5 121 22 107/61 (76) 94 07/29/17 02:00 122 07/29/17 00:00 99.3 126 22 131/73 (92) 96 07/29/17 00:00 126 07/28/17 22:00 114 07/28/17 20:00 97.8 117 15 155/79 (104) 97 07/28/17 20:00 117 07/28/17 19:00 97 Room Air 07/28/17 18:00 114 07/28/17 16:00 116 07/28/17 16:00 98.5 116 18 129/67 (87) 96 07/28/17 14:00 118 07/28/17 12:00 98.2 115 24 110/67 (81) 95 07/28/17 12:00 114 07/28/17 10:00 90 Nasal Cannula 4.00 07/28/17 10:00 118 07/28/17 09:06 94 Nasal Cannula 2.00 07/28/17 08:00 98.4 108 20 106/60 (75) 95 07/28/17 08:00 108 07/28/17 07:00 90 Nasal Cannula 2.00 07/28/17 06:00 122 07/28/17 04:00 108 07/28/17 04:00 98.0 108 23 100/60 (73) 92 07/28/17 04:00 Nasal Cannula 2.00 07/28/17 03:37 07/28/17 03:21 102 16 130/62 (84) 96 Room Air 07/28/17 00:03 108 18 104/50 (68) 99 Room Air 07/27/17 17:58 98.8 90 16 130/80 (97) 100 (Marcos Ho) Physical Examination GENERAL: Extremely drowsy laying in bed. Responds to voice but does require coaxing to interact. Affect flat. Does not appear to be in distress. HEENT: Left-sided forehead & facial abrasions w/evolving ecchymosis. MUSCULOSKELETAL: VIDALES to command. Left shoulder & arm TTP w/swelling & ecchymosis , decreased ROM secondary to injury. NEUROLOGICAL: Extremely drowsy, oriented to person, place & month but not year. Speech soft & appropriate but slow, answering in 2 or 3 words. Follows commands w/o difficulty but requires coaxing. Weak left hand grasp, slight movement of LUE to command. Fairly strong right hand grasp and biceps & triceps movement. Moving BLE strongly to command. UE exam limited due to injury & trying to maintain heplock site. (Marcos Ho) Lab, Micro, Other Results Recent Impressions Head CT 07/30/17 0600 Signed Impressions: Service Date/Time: Sunday, July 30, 2017 04:30 - CONCLUSION: 1. Stable small subdural hematoma along the falx. Joshua Edmonds Jr., MD Shoulder X-Ray 07/29/17 0000 Signed Impressions: Service Date/Time: Saturday, July 29, 2017 15:52 - CONCLUSION: Proximal humerus fracture. Boy Robles MD Head CT 07/28/17 0000 Signed Impressions: Service Date/Time: Friday, July 28, 2017 10:04 - CONCLUSION: 1. Stable small left-sided parafalcine subdural hematoma. 2. No evidence of acute infarct, parenchymal hemorrhage or edema. Lauri Vasquez MD Chest CT 07/28/17 0000 Signed Impressions: Service Date/Time: Friday, July 28, 2017 01:25 - CONCLUSION: 1. Tortuous mediastinal vessels. No mass or other acute cardiopulmonary disease. 2. Coronary artery calcification. 3. Old left rib fractures. Nehemias Gonzalez MD Head CT 07/27/17 2335 Signed Impressions: Service Date/Time: Friday, July 28, 2017 00:21 - CONCLUSION: Small, acute upper falcine subdural hematoma measuring approximately 7 mm in maximal thickness. No associated midline shift or significant mass effect. Nehemias Gonzalez MD Chest X-Ray 07/27/17 2335 Signed Impressions: Service Date/Time: Thursday, July 27, 2017 23:46 - CONCLUSION: Apparent mild mediastinal widening and a CT of the chest with intravenous contrast is suggested if felt clinically indicated. The lungs are clear. Nehemias Gonzalez MD Laboratory Tests Test 07/28/17 00:35 07/28/17 04:00 07/28/17 16:20 07/29/17 05:23 White Blood Count 9.1 TH/MM3 8.2 TH/MM3 Red Blood Count 3.73 MIL/MM3 2.83 MIL/MM3 Hemoglobin 12.2 GM/DL 9.6 GM/DL Hematocrit 35.5 % 27.5 % Mean Corpuscular Volume 95.3 FL 97.1 FL Mean Corpuscular Hemoglobin 32.7 PG 33.7 PG Mean Corpuscular Hemoglobin Concent 34.3 % 34.7 % Red Cell Distribution Width 16.7 % 16.3 % Platelet Count 119 TH/MM3 53 TH/MM3 Mean Platelet Volume 8.7 FL 9.5 FL Neutrophils (%) (Auto) 77.2 % 70.8 % Lymphocytes (%) (Auto) 14.4 % 17.0 % Monocytes (%) (Auto) 7.9 % 11.8 % Eosinophils (%) (Auto) 0.0 % 0.0 % Basophils (%) (Auto) 0.5 % 0.4 % Neutrophils # (Auto) 7.1 TH/MM3 5.8 TH/MM3 Lymphocytes # (Auto) 1.3 TH/MM3 1.4 TH/MM3 Monocytes # (Auto) 0.7 TH/MM3 1.0 TH/MM3 Eosinophils # (Auto) 0.0 TH/MM3 0.0 TH/MM3 Basophils # (Auto) 0.0 TH/MM3 0.0 TH/MM3 CBC Comment DIFF FINAL AUTO DIFF Differential Comment AUTO DIFF CONFIRMED Blood Urea Nitrogen 7 MG/DL 14 MG/DL Creatinine 0.75 MG/DL 0.83 MG/DL Random Glucose 146 MG/DL 102 MG/DL Total Protein 7.6 GM/DL 7.0 GM/DL Albumin 3.5 GM/DL 3.5 GM/DL Calcium Level 7.6 MG/DL 7.9 MG/DL Magnesium Level 2.2 MG/DL 1.7 MG/DL 1.9 MG/DL Alkaline Phosphatase 129 U/L 110 U/L Aspartate Amino Transf (AST/SGOT) 77 U/L 214 U/L Alanine Aminotransferase (ALT/SGPT) 33 U/L 117 U/L Total Bilirubin 1.6 MG/DL 4.9 MG/DL Sodium Level 139 MEQ/L 138 MEQ/L Potassium Level 4.2 MEQ/L 3.6 MEQ/L Chloride Level 104 MEQ/L 103 MEQ/L Carbon Dioxide Level 20.3 MEQ/L 24.0 MEQ/L Anion Gap 15 MEQ/L 11 MEQ/L Estimat Glomerular Filtration Rate 103 ML/MIN 91 ML/MIN Total Creatine Kinase 400 U/L Creatine Kinase MB 3.1 NG/ML Creatine Kinase MB % 0.8 % Troponin I LESS THAN 0.02 NG/ML Ethyl Alcohol Level 298 MG/DL Nasal Screen MRSA (PCR) MRSA NOT DETECTED Phosphorus Level 2.5 MG/DL 2.1 MG/DL Prothrombin Time 13.9 SEC Prothromb Time International Ratio 1.4 RATIO Activated Partial Thromboplast Time 28.6 SEC Hemoglobin A1c 4.9 % Ammonia 51 MCMOL/L Amylase Level 20 U/L Lipase 85 U/L Free Thyroxine 1.03 NG/DL Thyroid Stimulating Hormone 3rd Gen 1.000 uIU/ML Test 07/30/17 04:05 07/30/17 04:09 Blood Urea Nitrogen 10 MG/DL Creatinine 0.57 MG/DL Random Glucose 108 MG/DL Total Protein 5.9 GM/DL Albumin 2.9 GM/DL Calcium Level 7.7 MG/DL Phosphorus Level 1.8 MG/DL Magnesium Level 1.8 MG/DL Alkaline Phosphatase 87 U/L Aspartate Amino Transf (AST/SGOT) 110 U/L Alanine Aminotransferase (ALT/SGPT) 80 U/L Total Bilirubin 3.7 MG/DL Sodium Level 139 MEQ/L Potassium Level 3.4 MEQ/L Chloride Level 104 MEQ/L Carbon Dioxide Level 24.0 MEQ/L Anion Gap 11 MEQ/L Estimat Glomerular Filtration Rate 141 ML/MIN White Blood Count 5.1 TH/MM3 Red Blood Count 1.99 MIL/MM3 Hemoglobin 6.8 GM/DL Hematocrit 19.6 % Mean Corpuscular Volume 98.5 FL Mean Corpuscular Hemoglobin 34.0 PG Mean Corpuscular Hemoglobin Concent 34.5 % Red Cell Distribution Width 15.9 % Platelet Count 53 TH/MM3 Mean Platelet Volume 9.6 FL Neutrophils (%) (Auto) 66.0 % Lymphocytes (%) (Auto) 21.3 % Monocytes (%) (Auto) 12.4 % Eosinophils (%) (Auto) 0.1 % Basophils (%) (Auto) 0.2 % Neutrophils # (Auto) 3.4 TH/MM3 Lymphocytes # (Auto) 1.1 TH/MM3 Monocytes # (Auto) 0.6 TH/MM3 Eosinophils # (Auto) 0.0 TH/MM3 Basophils # (Auto) 0.0 TH/MM3 CBC Comment AUTO DIFF Differential Comment AUTO DIFF CONFIRMED Platelet Estimate LOW Platelet Morphology Comment NORMAL (Marcos Ho) Medical Decision Making Impression and Plan Impression: TBI Facial and forehead contusion EtOH abuse and withdrawal The patient is extremely drowsy today. He is oriented to all but the year. There is no evident worsening of his motor strength. He requires coaxing in order to interact. Tachycardia resolved overnight. Afebrile past 24 hrs. Reviewed labs for today. Haemoglobin w/almost 3 gram drop. Thrombocytopenia stable. Sodium 139. Hypophosphatemia. Interval improvement in transaminases. CT brain demonstrated a stable SDH along the fax. Plan: Neuro checks. Stat CT brain for any decline in neuro status. Hold pharmacologic DVT prophylaxis. Mechanical DVT prophylaxis. Mobilise patient w/assistance. Physical & Occupational Therapy eval & tx. Hospitalist for medical management. (Marcos Ho) Attending Statement The exam, history, and the medical decision-making described in the above note were completed with the assistance of the mid-level provider. I reviewed and agree with the findings presented. I attest that I had a [id number] encounter with the patient on the same day, and personally performed and documented my assessment and findings in the medical record. On examination 07/30/2017, the patient remains awake, relatively alert. He knows that he is in the hospital, not the month. He answers some simple questions. Follows a few commands. No significant agitation. Respirations clear and regular Heart rate regular Abdomen soft nontender Persistent moderate edema and ecchymosis left shoulder and proximal greater than distal left upper extremity with moderate tenderness to palpation. Left upper extremity x-rays reveal positive humerus fracture 07/30/2017 CT scan had images reviewed by the undersigned. Relatively stable left parietal falx subdural hematoma without significant mass effect. Head CT 07/30/17 0600 Signed Impressions: Service Date/Time: Sunday, July 30, 2017 04:30 - CONCLUSION: 1. Stable small subdural hematoma along the falx. Joshua Edmonds Jr., MD Continuing protocol for EtOH withdrawal. Discussed with medicine Hypokalemia correction Anemia-transfuse as needed Orthopedic notes reviewed-planned surgical repair left humerus fracture this week. (Yosef King MD) Marcos Ho Jul 30, 2017 09:33 Yosef King MD Jul 30, 2017 21:51
--- NOTE | 2017-07-30 09:50 | HHI.PR ---
Subjective Remarks Patient is a 71-year-old male who presented via EMS today after he had a fall. Patient states he normally drinks a 24 pack of 16 ounce beers every day states he fell he is not sure how he fell. He states that he had only drank a couple beers yesterday because he was "trying to cut down on his alcohol intake because he had not gotten any more alcohol to replace the alcohol that he needed to intake he then fell and had a large hematoma on his left forehead. He does not recall why he fell or how he fell has some mild frontal headache. Has a history of alcohol-related issues history of syncope in the past and generalized weakness and history of probable alcohol withdrawal seizures We have been asked to help regarding his alcohol withdrawal. Since patient is an extensive heavy drinker that really does not stop drinking ever. He states is the first time he stopped drinking in a very long time We will place him on CIWA protocol as well as a multivitamin thiamine and folic acid Continue on Protonix make sure he has antiemetics I will place him on Librium 3 patient is no longer vomiting today Continue Librium and CIWA protocol Discussed with RN and patient Physical therapy and occupational therapy to eval and treat Multivitamin thiamine and folic acid 07-30 has FRACTURED LEFT HUMERUS- TO GO FOR PROCEDURE WITH ORTHO TODAY HAS AMENIA IS BEING TRANSFUSED DW RN AND PT STILL GOING THROUGH WITHDRAWALS AM LAB ELECTROLYTE PROTOCOLS Objective Vitals Vital Signs Date Time Temp Pulse Resp B/P (MAP) Pulse Ox O2 Delivery O2 Flow Rate FiO2 07/30/17 07:55 98.1 96 29 140/69 99 07/30/17 07:40 98.1 82 15 121/63 96 07/30/17 06:10 98.4 82 29 136/68 99 07/30/17 06:00 79 07/30/17 04:00 98.0 88 31 138/57 (84) 98 07/30/17 04:00 88 07/30/17 02:00 94 07/30/17 00:00 98.5 98 22 155/73 (100) 96 07/30/17 00:00 98 07/29/17 22:00 108 07/29/17 20:00 124 07/29/17 20:00 98.1 124 32 143/77 (99) 100 07/29/17 19:00 97 Room Air 07/29/17 18:00 104 07/29/17 16:00 98.6 106 20 142/65 (90) 100 07/29/17 16:00 106 07/29/17 14:00 111 07/29/17 12:00 104 07/29/17 12:00 98.5 104 23 150/72 (98) 95 07/29/17 10:00 98 I/O 07/29/17 07/29/17 07/29/17 07/30/17 07/30/17 07/30/17 07:00 15:00 23:00 07:00 15:00 23:00 Intake Total 1750.2 ml 1400 ml 730 ml 1055 ml Output Total 475 ml 450 ml Balance 1275.2 ml 950 ml 730 ml 1055 ml Intake Oral 240 ml 400 ml 480 ml IV Total 1510.2 ml 1000 ml Packed Cells 800 ml Blood Product IV Normal Saline Flush 250 ml 255 ml Output Urine Total 475 ml 450 ml # Voids 5 # Bowel Movements 1 0 Result Diagram: 07/30/17 0409 07/30/17 0405 Other Results Laboratory Tests Test 07/28/17 00:35 07/28/17 04:00 07/28/17 16:20 07/29/17 05:23 White Blood Count 9.1 TH/MM3 8.2 TH/MM3 Red Blood Count 3.73 MIL/MM3 2.83 MIL/MM3 Hemoglobin 12.2 GM/DL 9.6 GM/DL Hematocrit 35.5 % 27.5 % Mean Corpuscular Volume 95.3 FL 97.1 FL Mean Corpuscular Hemoglobin 32.7 PG 33.7 PG Mean Corpuscular Hemoglobin Concent 34.3 % 34.7 % Red Cell Distribution Width 16.7 % 16.3 % Platelet Count 119 TH/MM3 53 TH/MM3 Mean Platelet Volume 8.7 FL 9.5 FL Neutrophils (%) (Auto) 77.2 % 70.8 % Lymphocytes (%) (Auto) 14.4 % 17.0 % Monocytes (%) (Auto) 7.9 % 11.8 % Eosinophils (%) (Auto) 0.0 % 0.0 % Basophils (%) (Auto) 0.5 % 0.4 % Neutrophils # (Auto) 7.1 TH/MM3 5.8 TH/MM3 Lymphocytes # (Auto) 1.3 TH/MM3 1.4 TH/MM3 Monocytes # (Auto) 0.7 TH/MM3 1.0 TH/MM3 Eosinophils # (Auto) 0.0 TH/MM3 0.0 TH/MM3 Basophils # (Auto) 0.0 TH/MM3 0.0 TH/MM3 CBC Comment DIFF FINAL AUTO DIFF Differential Comment AUTO DIFF CONFIRMED Blood Urea Nitrogen 7 MG/DL 14 MG/DL Creatinine 0.75 MG/DL 0.83 MG/DL Random Glucose 146 MG/DL 102 MG/DL Total Protein 7.6 GM/DL 7.0 GM/DL Albumin 3.5 GM/DL 3.5 GM/DL Calcium Level 7.6 MG/DL 7.9 MG/DL Magnesium Level 2.2 MG/DL 1.7 MG/DL 1.9 MG/DL Alkaline Phosphatase 129 U/L 110 U/L Aspartate Amino Transf (AST/SGOT) 77 U/L 214 U/L Alanine Aminotransferase (ALT/SGPT) 33 U/L 117 U/L Total Bilirubin 1.6 MG/DL 4.9 MG/DL Sodium Level 139 MEQ/L 138 MEQ/L Potassium Level 4.2 MEQ/L 3.6 MEQ/L Chloride Level 104 MEQ/L 103 MEQ/L Carbon Dioxide Level 20.3 MEQ/L 24.0 MEQ/L Anion Gap 15 MEQ/L 11 MEQ/L Estimat Glomerular Filtration Rate 103 ML/MIN 91 ML/MIN Total Creatine Kinase 400 U/L Creatine Kinase MB 3.1 NG/ML Creatine Kinase MB % 0.8 % Troponin I LESS THAN 0.02 NG/ML Ethyl Alcohol Level 298 MG/DL Nasal Screen MRSA (PCR) MRSA NOT DETECTED Phosphorus Level 2.5 MG/DL 2.1 MG/DL Prothrombin Time 13.9 SEC Prothromb Time International Ratio 1.4 RATIO Activated Partial Thromboplast Time 28.6 SEC Hemoglobin A1c 4.9 % Ammonia 51 MCMOL/L Amylase Level 20 U/L Lipase 85 U/L Free Thyroxine 1.03 NG/DL Thyroid Stimulating Hormone 3rd Gen 1.000 uIU/ML Test 07/30/17 04:05 07/30/17 04:09 Blood Urea Nitrogen 10 MG/DL Creatinine 0.57 MG/DL Random Glucose 108 MG/DL Total Protein 5.9 GM/DL Albumin 2.9 GM/DL Calcium Level 7.7 MG/DL Phosphorus Level 1.8 MG/DL Magnesium Level 1.8 MG/DL Alkaline Phosphatase 87 U/L Aspartate Amino Transf (AST/SGOT) 110 U/L Alanine Aminotransferase (ALT/SGPT) 80 U/L Total Bilirubin 3.7 MG/DL Sodium Level 139 MEQ/L Potassium Level 3.4 MEQ/L Chloride Level 104 MEQ/L Carbon Dioxide Level 24.0 MEQ/L Anion Gap 11 MEQ/L Estimat Glomerular Filtration Rate 141 ML/MIN White Blood Count 5.1 TH/MM3 Red Blood Count 1.99 MIL/MM3 Hemoglobin 6.8 GM/DL Hematocrit 19.6 % Mean Corpuscular Volume 98.5 FL Mean Corpuscular Hemoglobin 34.0 PG Mean Corpuscular Hemoglobin Concent 34.5 % Red Cell Distribution Width 15.9 % Platelet Count 53 TH/MM3 Mean Platelet Volume 9.6 FL Neutrophils (%) (Auto) 66.0 % Lymphocytes (%) (Auto) 21.3 % Monocytes (%) (Auto) 12.4 % Eosinophils (%) (Auto) 0.1 % Basophils (%) (Auto) 0.2 % Neutrophils # (Auto) 3.4 TH/MM3 Lymphocytes # (Auto) 1.1 TH/MM3 Monocytes # (Auto) 0.6 TH/MM3 Eosinophils # (Auto) 0.0 TH/MM3 Basophils # (Auto) 0.0 TH/MM3 CBC Comment AUTO DIFF Differential Comment AUTO DIFF CONFIRMED Platelet Estimate LOW Platelet Morphology Comment NORMAL Imaging Last Impressions Head CT 07/30/17 0600 Signed Impressions: Service Date/Time: Sunday, July 30, 2017 04:30 - CONCLUSION: 1. Stable small subdural hematoma along the falx. Joshua Edmonds Jr., MD Shoulder X-Ray 07/29/17 0000 Signed Impressions: Service Date/Time: Saturday, July 29, 2017 15:52 - CONCLUSION: Proximal humerus fracture. Boy Robles MD Chest CT 07/28/17 0000 Signed Impressions: Service Date/Time: Friday, July 28, 2017 01:25 - CONCLUSION: 1. Tortuous mediastinal vessels. No mass or other acute cardiopulmonary disease. 2. Coronary artery calcification. 3. Old left rib fractures. Nehemias Gonzalez MD Chest X-Ray 07/27/17 8775 Signed Impressions: Service Date/Time: Thursday, July 27, 2017 23:46 - CONCLUSION: Apparent mild mediastinal widening and a CT of the chest with intravenous contrast is suggested if felt clinically indicated. The lungs are clear. Nehemias Gonzalez MD Objective Remarks GENERAL: This is a well-nourished, well-developed patient, in no apparent distress. Appears quite disheveled SKIN: No rashes, ecchymoses or lesions. Cool and dry. Ecchymosis and bruising above the left eye forehead area large left forehead hematoma HEAD: Atraumatic. Normocephalic. No temporal or scalp tenderness. Large left forehead hematoma EYES: Pupils equal round and reactive. Extraocular motions intact. No scleral icterus. No injection or drainage. ENT: Nose without bleeding, purulent drainage or septal hematoma. Throat without erythema, tonsillar hypertrophy or exudate. Uvula midline. Airway patent. NECK: Trachea midline. No JVD or lymphadenopathy. Supple, nontender, no meningeal signs. CARDIOVASCULAR: Regular rate and rhythm without murmurs, gallops, or rubs. S1- S2 no S3 or S4 RESPIRATORY: Clear to auscultation. Breath sounds equal bilaterally. No wheezes , rales, or rhonchi. GASTROINTESTINAL: Abdomen soft, non-tender, nondistended. No hepato-splenomegaly , or palpable masses. No guarding. MUSCULOSKELETAL: Extremities without clubbing, cyanosis, or edema. No joint tenderness, effusion, or edema noted. No calf tenderness. Negative Homans sign bilaterally.LEFT SHOULDER HUMERUS DECREASED RANGE OF MOTION DUE TO PAIN AND FRACTURE NEUROLOGICAL: Awake and alert. Cranial nerves II through XII intact. Motor and sensory grossly within normal limits. 4 out of 5 muscle strength in all muscle groups. Normal speech. Insight and judgment limited Mood and behavior somewhat appropriate Medications and IVs Current Medications Sodium Chloride 1,000 ml @ 1,000 mls/hr Q1H IV Last administered on 07/28/17at 00:10; Start 07/28/17 at 00:00; Stop 07/28/17 at 00:59; Status DC Lorazepam (Ativan Inj) 1 mg ONCE ONCE IV PUSH Last administered on 07/28/17at 00:10; Start 07/28/17 at 00:00; Stop 07/28/17 at 00:01; Status DC Iohexol (Omnipaque 350 Inj) 70 ml STK-MED ONCE IVCONTRAST Last administered on 07/28/17at 01:26; Start 07/28/17 at 01:26; Stop 07/28/17 at 01:27; Status DC Acetaminophen/ Hydrocodone Bitart (Leona 5-325 Mg) 1 tab Q4H PRN PO PAIN SCALE 3 TO 5; Start 07/28/17 at 02:00 Morphine Sulfate (Morphine Inj) 4 mg Q3H PRN IV Pain 6-10;if unable to take PO Last administered on 07/30/17at 01:00; Start 07/28/17 at 02:00 Naloxone HCl (Narcan Inj) 0.4 mg UNSCH PRN IV PUSH SEE LABEL COMMENTS; Start at 02:00 Potassium Chloride/Dextrose/ Sod Cl 1,000 ml @ 100 mls/hr Q10H IV Last administered on 07/30/17at 03:46; Start 07/28/17 at 01:46 Docusate Sodium (Colace) 100 mg BID PO Last administered on 07/29/17at 09:40; Start 07/28/17 at 09:00 Pantoprazole Sodium (Protonix) 40 mg DAILY PO Last administered on 07/29/17at 09 :40; Start 07/28/17 at 09:00 Ondansetron HCl (Zofran Inj) 4 mg Q6H PRN IV PUSH NAUSEA OR VOMITING Last administered on 07/29/17at 19:46; Start 07/28/17 at 02:00 Pneumococcal Polyvalent Vaccine (Pneumovax-23 Inj) 25 mcg ONCE ONCE IM ; Start 07/29/17 at 09:00; Stop 07/29/17 at 09:01; Status DC Influenza Virus Vaccine (Flu (Quadrivalent) Vaccine Inj) 0.5 ml ONCE ONCE IM ; Start 07/29/17 at 09:00; Stop 07/29/17 at 09:01; Status DC Cholecalciferol (Vitamin D3) 2,000 units DAILY PO Last administered on at 09:40; Start 07/29/17 at 09:00 Amylase/Lipase/ Protease (Creon 24-76-120) 1 cap TID PO Last administered on 05/06at 18:39; Start 07/28/17 at 13:00 Pantoprazole Sodium (Protonix) 40 mg DAILY PO ; Start 07/29/17 at 09:00; Status UNV Sodium Chloride (NS Flush) 2 ml UNSCH PRN IV FLUSH FLUSH AFTER USING IV ACCESS ; Start 07/28/17 at 14:00 Sodium Chloride (NS Flush) 2 ml BID IV FLUSH Last administered on 07/30/17at 08: 58; Start 07/28/17 at 21:00 Multivitamins 10 ml/Folic Acid 1 mg/Sodium Chloride 510.2 ml @ 125 mls/hr Q24H IV Last administered on 07/28/17at 20:38; Start 07/28/17 at 16:00; Stop at 10:35; Status DC Thiamine HCl 100 mg/Sodium Chloride 101 ml @ 100 mls/hr Q24H IV ; Start at 14:00; Stop 07/28/17 at 14:34; Status DC Ondansetron HCl (Zofran Inj) 8 mg Q4H PRN IV PUSH NAUSEA OR VOMITING Last administered on 07/28/17at 23:46; Start 07/28/17 at 14:00 Clonidine (Catapres) 0.1 mg Q6H PRN PO SEE LABEL COMMENTS; Start 07/28/17 at 14 :00 Flumazenil (Romazicon Inj) 0.2 mg Q1M PRN IV PUSH SEE LABEL COMMENTS; Start 04/06 at 14:00 Lorazepam (Ativan) 1 mg Q4H PRN PO CIWA 8 - 10 Last administered on 07/29/17at 19:46; Start 07/28/17 at 14:00 Lorazepam (Ativan Inj) 1 mg Q4H PRN IV PUSH CIWA 8 - 10; Start 07/28/17 at 14: 00 Lorazepam (Ativan) 2 mg Q2H PRN PO CIWA 11-14; Start 07/28/17 at 14:00 Lorazepam (Ativan Inj) 2 mg Q2H PRN IV PUSH CIWA 11-14 Last administered on 04/06at 15:21; Start 07/28/17 at 14:00 Lorazepam (Ativan Inj) 2 mg Q1H PRN IV PUSH CIWA 15-20 Last administered on at 03:00; Start 07/28/17 at 14:00 Lorazepam (Ativan Inj) 2 mg Q15M PRN IV PUSH CIWA > 20; Start 07/28/17 at 14:00 Haloperidol Lactate (Haldol Inj) 2 mg Q15M PRN IM SEE LABEL COMMENTS; Start 04/06 at 14:00 Flumazenil (Romazicon Inj) 0.2 mg Q1M PRN IV PUSH SEE LABEL COMMENTS; Start 04/06 at 14:00 Prochlorperazine Edisylate (Compazine Inj) 10 mg Q6H PRN IV PUSH NAUSEA/ VOMITING; Start 07/28/17 at 14:15 Pantoprazole Sodium (Protonix Inj) 40 mg Q12H IV PUSH Last administered on 07/29at 18:39; Start 07/28/17 at 18:00 Thiamine HCl 100 mg/Sodium Chloride 101 ml @ 100 mls/hr Q24H IV Last administered on 07/28/17at 16:41; Start 07/28/17 at 15:00; Stop 07/29/17 at 10:35 ; Status DC Chlordiazepoxide (Librium) 50 mg Q6H PRN PO WITHDRAWAL Last administered on 04/06at 19:40; Start 07/28/17 at 14:45 Multivitamins/ Minerals Therapeutic (Theragran M Tab) 1 tab DAILY PO Last administered on 07/29/17at 11:56; Start 07/29/17 at 10:00 Thiamine HCl (Vitamin B1) 100 mg DAILY PO ; Start 07/30/17 at 09:00 Thiamine HCl (Vitamin B1) 100 mg ONCE ONCE PO Last administered on 07/29/17at 11:47; Start 07/29/17 at 10:00; Stop 07/29/17 at 10:37; Status DC Folic Acid (Folate) 1 mg ONCE ONCE PO Last administered on 07/29/17at 11:47; Start 07/29/17 at 10:00; Stop 07/29/17 at 10:36; Status DC Folic Acid (Folate) 1 mg DAILY PO ; Start 07/30/17 at 09:00 A/P Problem List: (1) Subdural hematoma ICD Code: I62.00 - Nontraumatic subdural hemorrhage, unspecified Status: Acute (2) Alcohol intoxication ICD Code: F10.929 - Alcohol use, unspecified with intoxication, unspecified Status: Acute (3) Alcohol withdrawal ICD Code: F10.239 - Alcohol dependence with withdrawal, unspecified Status: Acute (4) Generalized weakness ICD Code: R53.1 - Weakness Status: Acute (5) TBI (traumatic brain injury) ICD Code: S06.9X9A - Unspecified intracranial injury with loss of consciousness of unspecified duration, initial encounter (6) Right humeral fracture ICD Code: S42.301A - Unspecified fracture of shaft of humerus, right arm, initial encounter for closed fracture Assessment and Plan Subdural hematoma secondary to fall/TBI -patient was on chronic aspirin will hold this Neurosurgery is the attending Alcohol withdrawals possible alcoholic seizures from withdrawals of alcohol in the past Continue on CIWA protocol with Ativan and Haldol and Librium as needed Seizure precautions Multivitamin, thiamine, folic acid, Antiemetics Catapres as needed for blood pressure NAUSEA AND VOMITING -RESOLVED Thrombocytopenia suspect secondary to alcohol abuse long-term Physical therapy and occupational therapy to eval and treat Elevated LFTs secondary to chronic alcohol abuse Medical noncompliance ANEMIA REPLACE HYPOKALEMIA REPLACE LEFT HUMERUS FRACTURE-ORTHO CONSULT- FOR SURGERY LATER TODAY ELECTROLYTE PANEL AM LABS GI PROPHYLAXIS WITH PROTONIX DVT WITH [facility] AND JERICHO ALCANTAR DR RN AND PT PT AND OT Discharge Planning ONCE CLEARED BY NEUROSURGERY Delmer Boyer DO Jul 30, 2017 09:50
[2017-07-30] MEDS ORDERED: MAGNESIUM OXIDE 400 MG TAB PO PRN (10:00)
[2017-07-30] MEDS ORDERED: POTASSIUM PHOSPHATE MONOBASIC 500 MG TAB PO/TUBE PRN (10:00)
[2017-07-30] MEDS ORDERED: MAGNESIUM SULFATE INJ 2 GM in SODIUM CHLORIDE 0.9% INJ 96 ML IV PRN (10:00)
[2017-07-30] MEDS ORDERED: POTASSIUM PHOSPHATE MONOBASIC 500 MG TAB PO PRN (10:00)
[2017-07-30] MEDS ORDERED: POTASSIUM CHLOR 20 MEQ PREMIX 100 ML IV PRN (10:00)
[2017-07-30] MEDS ORDERED: POTASSIUM PHOSPHATE INJ 30 MMOL in SODIUM CHLOR 0.9% 250 ML INJ 250 ML IV PRN (10:00)
[2017-07-30] MEDS ORDERED: MAGNESIUM SULFATE INJ 4 GM in SODIUM CHLORIDE 0.9% INJ 92 ML IV PRN (10:00)
[2017-07-30] MEDS ORDERED: SODIUM PHOSPHATE INJ 30 MMOL in SODIUM CHLOR 0.9% 250 ML INJ 240 ML IV PRN (10:00)
[2017-07-30] MEDS ORDERED: POTASSIUM CHLOR 40 MEQ PREMIX 100 ML IV PRN ×2 (10:00)
[2017-07-30] MEDS ORDERED: POTASSIUM CHLORIDE 25 MEQ EFFERVESCENT TAB PO PRN (10:00)
--- NOTE | 2017-07-30 11:17 | MB ---
cc: Thaddeus Sarabia MD DATE OF CONSULT: 07/30/2017 REASON FOR CONSULTATION: Left proximal humerus fracture and left humeral shaft fracture. CONSULTING PHYSICIAN: Dr. King HISTORY: Mario is a 71-year-old male who has a history of alcohol abuse. He normally drinks approximately 24 beers a day. He had been drinking when he fell. He does not clearly recall how he fell or why he fell. He has a history of alcohol-related syncope. He currently complains of left arm pain. He is in the intensive care unit. He is having moderate confusion at this time. He is unable to give any further history. He does complain of left arm pain with any movement. PAST MEDICAL HISTORY: ALLERGIES: None. ILLNESSES: Arthritis, hypertension, history of seizure disorder from alcohol withdrawal, possible pancreatitis, alcohol abuse. SURGERIES: Tonsillectomy. MEDICATIONS: Include Lorazepam, vitamin D, vitamin B, pantoprazole, Creon, and multivitamins. SOCIAL HISTORY: The patient drinks approximately 24 beers a day. He denies drug use. He lives alone. He denies tobacco abuse. REVIEW OF SYSTEMS: The patient denies headache, visual changes, neck pain, chest pain, shortness of breath, abdominal pain, nausea, vomiting, recent weight loss or numbness or tingling of the extremities. He complains of left arm pain. Pain is worse with movement. LABS: The patient has a hemoglobin of 6.8 and a hematocrit of 19.6, INR is 1.4, BUN is 10 and creatinine is 0.57. X-RAYS: X-rays of the left humerus were reviewed. X-rays reveal a mildly displaced left humeral neck fracture. He also has a left humeral shaft fracture. PHYSICAL EXAM: GENERAL: The patient is a well-developed, well-nourished 71-year-old male who is moderately overweight. He is awake, but confused. VITAL SIGNS: Temperature 98.2, pulse 77, respirations 13, blood pressure 148/65, O2 sat is 100% on room air. HEAD: The patient is normocephalic. He does have some superficial skin abrasions. EYES: Pupils are equal. NECK: Soft and nontender. Trachea is midline. ABDOMEN: Soft, nontender and nondistended. EXTREMITIES: Examination of the left arm reveals tenderness to palpation around the shoulder and humerus. He has pain with any shoulder motion. He has minimal tenderness around his elbow, wrist and hand. He has intact sensation in all fingers. He has good cap refill in all fingers. Skin is intact. Examination of the right arm reveals no pain with shoulder, elbow or wrist motion. He has intact sensation in all fingers. He has good cap refill in all fingers. Skin is intact. Examination of the bilateral lower extremities reveals no significant pain with hip, knee or ankle motion. Skin is intact. Dorsalis pedis pulse is palpable. IMPRESSIONS: 1. Alcohol abuse. 2. Hypertension. 3. Displaced left humeral shaft fracture. 4. Displaced left proximal humerus fracture. PLAN: At this point, I would recommend surgical intervention for treatment of left humerus fractures. I would recommend open reduction, internal fixation of left humeral neck fracture and left humeral shaft fracture. The risks of surgery include bleeding, infection, injuries to arteries, nerves and blood vessels, nonunion, malunion, painful hardware, infection, as well as medical complications including blood clot, stroke, heart attack and . All questions were answered. The patient will likely need to have a transfusion of blood prior to surgery. I will plan on surgery later this week if he is medically cleared. All questions were answered. A mid-level provider in my office, nurse practitioner or PA, may see this patient on a follow-up basis and continue to implement the objective of this plan including: Starting or adjusting medications, injections of muscle, tendon, bursa or joints, cast application, orthotic or brace application, physical therapy, further radiographic studies including x-ray, MRI, CT, ultrasounds or bone scan, vascular studies, neurologic studies, or other specialist consultations, and proceeding with surgical management as appropriate. MD ELÍAS Waller/LOLY , 10:53 AM , 11:16 AM
--- NOTE | 2017-07-30 11:17 | PQ ---
Physician Query Response Document PATIENT: ESAU NEVILLE : 1945 ADMIT DATE: 07/28/2017 1:52 AM DISCH DATE: RESPONDING PROVIDER #: [email or web address] QUERY TEXT: CDS Clarification Encephalopathy, in the setting of SDH and alcohol withdrawal,treated with CIWA, IV Banana bags, IVF a t 100cc/hr, IV Lorazapam PRN Other explanation of clinical findings. Unable to determine (no explanation for clinical findings). The patient's Clinical Indicators include: The medical record reflects the following clinical findings, treatment, and risk factors. * Clinical Indicators: Mildly lethargic, moderate confusion * Risk Factors: SDH, Alcohol abuse/dependency w/ withdrawal * Treatment: CIWA, IV Banana bags, IVF at 100cc/hr, IV Lorazapam PRN Please clarify and document your clinical opinion in the progress notes and discharge summary includi ng the definitive and/or presumptive diagnosis (suspected or probable), related to the above clinical findings. Please include clinical findings supporting your diagnosis. Thank you, Cori Chacon RN CDS: Contact Number: CDS/RN ext. [phone] Query created by: Cori Chacon on 07/30/2017 11:05 AM RESPONSE TEXT: HAS CHRONIC ALCOHOL ABUSE- FELL DOWN HAD SDH AND LEFT HUMERAL FRACTURE QUERY TEXT: CDS Clarification Acute blood loss anemia in the setting of SDH and humerus fracture requiring transfusions Other explanation of clinical findings. Unable to determine (no explanation for clinical findings). The patient's Clinical Indicators include: The medical record reflects the following clinical findings, treatment, and risk factors. * Clinical Indicators: Hgb 6.8 from 12.2, Hct 19.6 from 35.5 * Risk Factors: Alcohol abuse/dependency w/ withdrawal,SDH, Thrombocytopenia, fracture left humerus * Treatment: Transfusions 4UPC ordered, serial labs Please clarify and document your clinical opinion in the progress notes and discharge summary includi ng the definitive and/or presumptive diagnosis (suspected or probable), related to the above clinical findings. Please include clinical findings supporting your diagnosis. Thank you, Cori Chacon RN CDS Contact Number: [phone]. [phone] Query created by: Cori Chacon on 07/30/2017 11:07 AM RESPONSE TEXT: SUSPECT BLEEDING INTO LEFT ARM AREA- CONTINUED TO BE TRANSFUSED Electronically signed by: Delmer Boyer 07/30/2017 11:13 AM
[2017-07-30] MEDS: POTASSIUM CHLOR 20 MEQ PREMIX 100 ML IV PRN ×2 (11:54→15:01)
[2017-07-30 14:01] LABS: MEAN CELL VOLUME 91.8 FL (80.0-100.0); MEAN CORPUSCULAR HEMOGLOBIN 31.6 PG (27.0-34.0); MEAN CORPUSCULAR HGB CONC 34.4 % (32.0-36.0); PLATELET COUNT 56 TH/MM3 (150-450); RED BLOOD COUNT 3.48 MIL/MM3 (4.50-5.90); RED CELL DISTRIBUTION WIDTH 18.8 % (11.6-17.2); WHITE BLOOD COUNT 5.1 TH/MM3 (4.0-11.0)
--- NOTE | 2017-07-30 19:24 | EKG ---
Date Performed: 07/30/2017 Time Performed: 03:49:38 PTAGE: 71 years EKG: Sinus rhythm . Possible inferior infarct - age undetermined Anterior T wave changes are nonspecific Abnormal ECG S jacob the PREVIOUS TRACING , no significant change noted DOCTOR: Sanjuanita Ha Interpretating Date/Time 07/30/2017 19:22:52
[2017-07-31] VITALS (12 sets, daily range): BP systolic 90–170; BP diastolic 57–91; PULSE 88–116; RESP 13–24; TEMP 98–98.7; O2SAT 94–100
[2017-07-31] MEDS: LORazepam 2 MG/ML VIAL IV PUSH PRN (03:20)
[2017-07-31] MEDS: POTASSIUM CHLOR 20 MEQ PREMIX 100 ML IV PRN (03:20)
[2017-07-31 04:01] LABS: AUTOMATED NEUTROPHIL # 4.5 TH/MM3 (1.8-7.7); BASOPHIL % 0.2 % (0.0-2.0); EOSINOPHIL % 0.2 % (0.0-4.0); HEMATOCRIT 33.3 % (39.0-51.0); HEMOGLOBIN 11.3 GM/DL (13.0-17.0); LYMPH % 16.5 % (9.0-44.0); LYMPHOCYTE # 1.1 TH/MM3 (1.0-4.8); MEAN CELL VOLUME 92.1 FL (80.0-100.0); MEAN CORPUSCULAR HEMOGLOBIN 31.3 PG (27.0-34.0); MEAN PLATELET VOLUME 9.3 FL (7.0-11.0); MONO % 12.7 % (0.0-8.0); MONOCYTE # 0.8 TH/MM3 (0-0.9); NEUT % 70.4 % (16.0-70.0); PLATELET COUNT 85 TH/MM3 (150-450); RED BLOOD COUNT 3.61 MIL/MM3 (4.50-5.90); RED CELL DISTRIBUTION WIDTH 18.2 % (11.6-17.2); WHITE BLOOD COUNT 6.4 TH/MM3 (4.0-11.0)
[2017-07-31 04:26] LABS: ALBUMIN 3.1 GM/DL (3.4-5.0); AST (GOT) 92 U/L (15-37); BICARBONATE 23.5 MEQ/L (21.0-32.0); BLOOD UREA NITROGEN 9 MG/DL (7-18); CHLORIDE 105 MEQ/L (98-107); CREATININE 0.58 MG/DL (0.60-1.30); GLOMERULAR FILTRATION RATE 138 ML/MIN (>89); GLUCOSE,RANDOM 99 MG/DL (74-106); MAGNESIUM 1.8 MG/DL (1.5-2.5); SODIUM (NA) 139 MEQ/L (136-145)
[2017-07-31 04:27] LABS: ALT (GPT) 71 U/L (12-78); PHOSPHORUS 2.4 MG/DL (2.5-4.9)
[2017-07-31 04:29] LABS: ALKALINE PHOSPHATASE 92 U/L (45-117); TOTAL BILIRUBIN ADULT 4.8 MG/DL (0.2-1.0); TOTAL PROTEIN 6.3 GM/DL (6.4-8.2)
[2017-07-31] MEDS: PANTOPRAZOLE SODIUM 40 MG VIAL IV PUSH SCH ×2 (06:00→18:10)
[2017-07-31] MEDS ORDERED: ACETAMINOPHEN 1000 MG/100 ML 0 ML IV ONE (06:12)
[2017-07-31] MEDS ORDERED: GENTAMICIN SULFATE 80 MG/2 ML VIAL ONE (06:50)
[2017-07-31] MEDS ORDERED: VANCOMYCIN HCL 1000 MG VIAL ONE (06:50)
[2017-07-31] MEDS ORDERED: SODIUM CHLOR 0.9% 250 ML INJ 250 ML ONE (06:50)
[2017-07-31] MEDS ORDERED: ceFAZolin 2 GM PREMIX 50 ML ONE (07:48)
[2017-07-31] MEDS: FOLIC ACID 1 MG TAB PO SCH (09:00)
[2017-07-31] MEDS: DOCUSATE SODIUM 100 MG CAP PO SCH ×2 (09:00→20:56)
[2017-07-31] MEDS: SODIUM CHLORIDE 0.9% FLUSH 10 ML FLUSH IV FLUSH SCH ×2 (09:00→20:55)
[2017-07-31] MEDS: MULTIVITAMINS/MINERALS THERAPEUTIC TAB PO SCH (09:00)
[2017-07-31] MEDS: LIPASE/PROTEASE/AMYLASE (24,000/76,000/120,000) CAP PO SCH ×3 (09:00→18:00)
[2017-07-31] MEDS: PANTOPRAZOLE SOD 40 MG DELAYED RELEASE TAB PO SCH (09:00)
[2017-07-31] MEDS: THIAMINE HCL 100 MG TAB PO SCH (09:00)
--- NOTE | 2017-07-31 09:13 | PD.OP ---
cc: Thaddeus Aguilar MD Operative Report Date of Surgery: Jul 31, 2017 Preoperative Diagnosis: Displaced left humeral neck fracture, displaced left humeral shaft fracture Postoperative Diagnosis: Procedure: Open reduction internal fixation left humeral neck fracture, open reduction internal fixation left humeral shaft fracture Anesthesia: Gen. Surgeon: Thaddeus Aguilar Hotel Desk Clerk(s): NAYANA Jain PA-C The surgical procedure was assisted by my physician title i instructional assistant. My P.A. presence was necessary throughout this case for the manipulation and positioning of the surgical extremity. My P.A. was assisting me throughout the duration of this procedure. The skill set of a physician title i instructional assistant was medically necessary to complete this procedure. During the surgical case the registered nurse surgical services was working at the back table and the physician title i instructional assistant was directly assisting me. Operation and Findings: Patient was seen and evaluated preoperatively. Patient was found to have a displaced left proximal humerus fracture with left humeral shaft fracture. The risks and benefits of surgical and nonsurgical options were discussed in detail and informed consent was obtained for surgery. Patient was brought to the operating room and placed on or table. IV sedation and GETA were administered by anesthesiologist. Antibiotics were given prior to incision. Operative arm and shoulder were prepped with alcohol followed by Hibiclens and draped usual sterile fashion. Timeout procedure was performed. Procedure began with a 10 inch incision over the anterior shoulder. Cephalic vein was identified. A deltopectoral approach was utilized proximally. Distally the brachialis was split.. The fracture was now visualized. Soft tissue was retracted. A #2 FiberWire suture was placed into the rotator rotator cuff and greater tuberosity. Patient was noted to have significant rotator cuff tearing. #2 FiberWire sutures were placed into the supraspinatus and subscapularis tendon. Attention was now turned to reduction of the humeral shaft. Gentle traction was applied. Fracture fragments were manipulated to achieve excellent reduction. There was mild comminution of the proximal shaft and metaphyseal region. Fracture keyed into excellent alignment. 2.7 cortical lag screws were used to compress fracture fragments. Next attention was turned to the humeral neck fracture. The humeral shaft was reduced to the humeral head. Fracture was manipulated to achieve excellent reduction. Multiplanar fluoroscopy confirmed well aligned fracture. Multiple K wires were used to hold provisional fixation. A Synthes long proximal humerus plate was selected to span all fractures. Plate was provisionally held in place K wires. 3.5 cortical screws were used to compress plate to bone. Fluoroscopy confirmed appropriate plate placement and fracture reduction. Multiple locking screws were now placed in the humeral head. Screws were predrilled and premeasured for appropriate length. Care was taken not to penetrate the articular surface. Additional screws were placed in the humeral shaft. The FiberWire suture was passed through the holes of the plate and sutured to the plate for additional stability. Final fluoroscopy revealed well aligned fracture with well-placed hardware. Wound was thoroughly irrigated. Fascia was closed with #1 Vicryl, subcutaneous tissues closed with 3-0 Vicryl, and skin was closed with jose luis. Sterile dressings were applied. Patient was placed into a sling. Patient was awakened and transferred to recovery in stable condition. Needle and sponge counts were correct. Thaddeus Aguilar MD Jul 31, 2017 09:13
[2017-07-31] MEDS: D5-NS + KCL 20 MEQ INJ 1,000 ML IV SCH ×2 (09:46→13:58)
[2017-07-31] MEDS ORDERED: *morphine SULFATE 10 MG/ML PERIprocedure ONLY ONE (09:58)
[2017-07-31] MEDS ORDERED: ERGOCALCIFEROL (VIT D2) 50,000 UNIT CAP PO SCH (10:00)
--- NOTE | 2017-07-31 10:02 | HHI.NSPN ---
History Chief Complaint: Slight headache, weakness Interval History 07/28: 71 yo male presented to ED after falll. He doesnt recall anything in regards to the fall. He usuallly drinks around 12 beers a day. Yesterday only drank two since he was trying to cut back. 07/29: When seen this morning the patient is awake and alert. He is sitting up in the bed watching TV. He denies any headache or dizziness but did say he was nauseated earlier which has resolved. He states that he has generalised weakness and pain to the left shoulder and arm. Upon examination the patient does have weakness to the left upper extremity that is at least partially related to pain. Sensation is intact. 07/30: This morning the patient is extremely drowsy. He does respond to verbal stimulation and requires coaxing to interact. He is receiving his third unit of PRBC and is to receive a fourth. He endorses a headache and generalised weakness. Limited evaluation due to patient's drowsiness but no evident worsening of neuro status. Nursing does report that the heplock being used to give the PRBC is the third one this morning. Exam Results 07/29/17 07/29/17 07/30/17 07/30/17 07/31/17 07/31/17 06:00 18:00 06:00 18:00 06:00 18:00 Intake Total 1750.2 ml 1400 ml 730 ml 2055 ml 240 ml 2271 ml Output Total 475 ml 450 ml 300 ml 1950 ml 700 ml Balance 1275.2 ml 950 ml 730 ml 1755 ml -1710 ml 1571 ml Intake Oral 240 ml 400 ml 480 ml 0 ml 240 ml IV Total 1510.2 ml 1000 ml 200 ml Packed Cells 1600 ml FFP 655 ml Platelets 366 ml Blood Product IV Normal Saline Flush 250 ml 255 ml 0 ml Other 1250 ml Output Urine Total 475 ml 450 ml 300 ml 1950 ml 300 ml Estimated Blood Loss 400 ml # Voids 5 6 # Bowel Movements 1 0 0 Vital Signs Date Time Temp Pulse Resp B/P (MAP) Pulse Ox O2 Delivery O2 Flow Rate FiO2 07/31/17 06:34 90 07/31/17 06:33 97.8 92 16 141/73 (95) 97 07/31/17 06:33 97 Room Air 07/31/17 06:00 90 07/31/17 04:00 111 07/31/17 04:00 98.6 111 24 158/88 (111) 98 07/31/17 02:00 110 07/31/17 00:00 112 07/31/17 00:00 98.7 112 23 170/81 (110) 97 07/30/17 22:00 120 07/30/17 20:00 88 07/30/17 20:00 97.9 88 16 152/83 (106) 95 07/30/17 19:00 96 Room Air 07/30/17 18:00 98 07/30/17 16:00 88 07/30/17 16:00 98.2 88 23 182/92 (122) 100 07/30/17 14:00 84 07/30/17 12:00 98.4 86 26 160/85 (110) 98 07/30/17 12:00 86 07/30/17 11:11 98.4 77 16 156/74 95 07/30/17 10:56 98.4 75 12 143/73 97 07/30/17 10:00 74 07/30/17 09:42 98.2 77 13 148/65 100 07/30/17 09:27 98.1 90 25 156/72 97 07/30/17 08:00 98.1 96 29 140/69 (92) 99 07/30/17 08:00 96 07/30/17 07:55 98.1 96 29 140/69 99 07/30/17 07:40 98.1 82 15 121/63 96 07/30/17 07:00 99 Room Air 07/30/17 06:10 98.4 82 29 136/68 99 07/30/17 06:00 79 07/30/17 04:00 98.0 88 31 138/57 (84) 98 07/30/17 04:00 88 07/30/17 02:00 94 07/30/17 00:00 98.5 98 22 155/73 (100) 96 07/30/17 00:00 98 07/29/17 22:00 108 07/29/17 20:00 124 07/29/17 20:00 98.1 124 32 143/77 (99) 100 07/29/17 19:00 97 Room Air 07/29/17 18:00 104 07/29/17 16:00 98.6 106 20 142/65 (90) 100 07/29/17 16:00 106 07/29/17 14:00 111 07/29/17 12:00 104 07/29/17 12:00 98.5 104 23 150/72 (98) 95 07/29/17 10:00 98 07/29/17 08:00 100 07/29/17 08:00 98.8 100 24 150/75 (100) 94 07/29/17 07:00 100 Room Air 07/29/17 06:00 105 07/29/17 04:00 121 07/29/17 04:00 98.5 121 22 107/61 (76) 94 07/29/17 02:00 122 07/29/17 00:00 99.3 126 22 131/73 (92) 96 07/29/17 00:00 126 07/28/17 22:00 114 07/28/17 20:00 97.8 117 15 155/79 (104) 97 07/28/17 20:00 117 07/28/17 19:00 97 Room Air 07/28/17 18:00 114 07/28/17 16:00 116 07/28/17 16:00 98.5 116 18 129/67 (87) 96 07/28/17 14:00 118 07/28/17 12:00 98.2 115 24 110/67 (81) 95 07/28/17 12:00 114 07/28/17 10:00 90 Nasal Cannula 4.00 07/28/17 10:00 118 Physical Examination GENERAL: Extremely drowsy laying in bed. Responds to voice but does require coaxing to interact. Affect flat. Does not appear to be in distress. HEENT: Left-sided forehead & facial abrasions w/evolving ecchymosis. MUSCULOSKELETAL: VIDALES to command. Left shoulder & arm TTP w/swelling & ecchymosis , decreased ROM secondary to injury. NEUROLOGICAL: Extremely drowsy, oriented to person, place & month but not year. Speech soft & appropriate but slow, answering in 2 or 3 words. Follows commands w/o difficulty but requires coaxing. Weak left hand grasp, slight movement of LUE to command. Fairly strong right hand grasp and biceps & triceps movement. Moving BLE strongly to command. UE exam limited due to injury & trying to maintain heplock site. Lab, Micro, Other Results Recent Impressions Head CT 07/30/17 0600 Signed Impressions: Service Date/Time: Sunday, July 30, 2017 04:30 - CONCLUSION: 1. Stable small subdural hematoma along the falx. Joshua Edmodns Jr., MD Shoulder X-Ray 07/29/17 0000 Signed Impressions: Service Date/Time: Saturday, July 29, 2017 15:52 - CONCLUSION: Proximal humerus fracture. Boy Robles MD Laboratory Tests Test 07/28/17 16:20 07/29/17 05:23 07/30/17 04:05 07/30/17 04:09 Phosphorus Level 2.5 MG/DL 2.1 MG/DL 1.8 MG/DL Magnesium Level 1.7 MG/DL 1.9 MG/DL 1.8 MG/DL White Blood Count 8.2 TH/MM3 5.1 TH/MM3 Red Blood Count 2.83 MIL/MM3 1.99 MIL/MM3 Hemoglobin 9.6 GM/DL 6.8 GM/DL Hematocrit 27.5 % 19.6 % Mean Corpuscular Volume 97.1 FL 98.5 FL Mean Corpuscular Hemoglobin 33.7 PG 34.0 PG Mean Corpuscular Hemoglobin Concent 34.7 % 34.5 % Red Cell Distribution Width 16.3 % 15.9 % Platelet Count 53 TH/MM3 53 TH/MM3 Mean Platelet Volume 9.5 FL 9.6 FL Neutrophils (%) (Auto) 70.8 % 66.0 % Lymphocytes (%) (Auto) 17.0 % 21.3 % Monocytes (%) (Auto) 11.8 % 12.4 % Eosinophils (%) (Auto) 0.0 % 0.1 % Basophils (%) (Auto) 0.4 % 0.2 % Neutrophils # (Auto) 5.8 TH/MM3 3.4 TH/MM3 Lymphocytes # (Auto) 1.4 TH/MM3 1.1 TH/MM3 Monocytes # (Auto) 1.0 TH/MM3 0.6 TH/MM3 Eosinophils # (Auto) 0.0 TH/MM3 0.0 TH/MM3 Basophils # (Auto) 0.0 TH/MM3 0.0 TH/MM3 CBC Comment AUTO DIFF AUTO DIFF Differential Comment AUTO DIFF CONFIRMED AUTO DIFF CONFIRMED Prothrombin Time 13.9 SEC Prothromb Time International Ratio 1.4 RATIO Activated Partial Thromboplast Time 28.6 SEC Blood Urea Nitrogen 14 MG/DL 10 MG/DL Creatinine 0.83 MG/DL 0.57 MG/DL Random Glucose 102 MG/DL 108 MG/DL Total Protein 7.0 GM/DL 5.9 GM/DL Albumin 3.5 GM/DL 2.9 GM/DL Calcium Level 7.9 MG/DL 7.7 MG/DL Alkaline Phosphatase 110 U/L 87 U/L Aspartate Amino Transf (AST/SGOT) 214 U/L 110 U/L Alanine Aminotransferase (ALT/SGPT) 117 U/L 80 U/L Total Bilirubin 4.9 MG/DL 3.7 MG/DL Sodium Level 138 MEQ/L 139 MEQ/L Potassium Level 3.6 MEQ/L 3.4 MEQ/L Chloride Level 103 MEQ/L 104 MEQ/L Carbon Dioxide Level 24.0 MEQ/L 24.0 MEQ/L Anion Gap 11 MEQ/L 11 MEQ/L Estimat Glomerular Filtration Rate 91 ML/MIN 141 ML/MIN Hemoglobin A1c 4.9 % Ammonia 51 MCMOL/L Amylase Level 20 U/L Lipase 85 U/L Free Thyroxine 1.03 NG/DL Thyroid Stimulating Hormone 3rd Gen 1.000 uIU/ML Platelet Estimate LOW Platelet Morphology Comment NORMAL Test 07/30/17 13:30 07/30/17 21:43 07/31/17 03:25 07/31/17 03:51 White Blood Count 5.1 TH/MM3 6.4 TH/MM3 Red Blood Count 3.48 MIL/MM3 3.61 MIL/MM3 Hemoglobin 11.0 GM/DL 11.3 GM/DL Hematocrit 32.0 % 33.3 % Mean Corpuscular Volume 91.8 FL 92.1 FL Mean Corpuscular Hemoglobin 31.6 PG 31.3 PG Mean Corpuscular Hemoglobin Concent 34.4 % 34.0 % Red Cell Distribution Width 18.8 % 18.2 % Platelet Count 56 TH/MM3 85 TH/MM3 Mean Platelet Volume 9.0 FL 9.3 FL Phosphorus Level 2.5 MG/DL 2.4 MG/DL Potassium Level 3.3 MEQ/L 3.4 MEQ/L Neutrophils (%) (Auto) 70.4 % Lymphocytes (%) (Auto) 16.5 % Monocytes (%) (Auto) 12.7 % Eosinophils (%) (Auto) 0.2 % Basophils (%) (Auto) 0.2 % Neutrophils # (Auto) 4.5 TH/MM3 Lymphocytes # (Auto) 1.1 TH/MM3 Monocytes # (Auto) 0.8 TH/MM3 Eosinophils # (Auto) 0.0 TH/MM3 Basophils # (Auto) 0.0 TH/MM3 CBC Comment AUTO DIFF Differential Comment AUTO DIFF CONFIRMED Platelet Estimate LOW Platelet Morphology Comment NORMAL Blood Urea Nitrogen 9 MG/DL Creatinine 0.58 MG/DL Random Glucose 99 MG/DL Total Protein 6.3 GM/DL Albumin 3.1 GM/DL Calcium Level 8.0 MG/DL Magnesium Level 1.8 MG/DL Alkaline Phosphatase 92 U/L Aspartate Amino Transf (AST/SGOT) 92 U/L Alanine Aminotransferase (ALT/SGPT) 71 U/L Total Bilirubin 4.8 MG/DL Sodium Level 139 MEQ/L Chloride Level 105 MEQ/L Carbon Dioxide Level 23.5 MEQ/L Anion Gap 11 MEQ/L Estimat Glomerular Filtration Rate 138 ML/MIN Medical Decision Making Impression and Plan Impression: TBI Facial and forehead contusion EtOH abuse and withdrawal The patient is extremely drowsy today. He is oriented to all but the year. There is no evident worsening of his motor strength. He requires coaxing in order to interact. Intermittent tachycardia. Intermittent hypertension. Afebrile past 24 hrs. Reviewed labs for today. Improvement in haemoglobin level &thrombocytopenia. Sodium 139. Hypokalemia essentially stable. Improvement in hypophosphatemia. Interval improvement in transaminases. CT brain demonstrated a stable SDH along the fax. Plan: Neuro checks. Stat CT brain for any decline in neuro status. Hold pharmacologic DVT prophylaxis. Mechanical DVT prophylaxis. Mobilise patient w/assistance. Physical & Occupational Therapy eval & tx. Hospitalist for medical management. Marcos Ho Jul 31, 2017 10:02
[2017-07-31] MEDS ORDERED: DO NOT ADM ANY ANTICOAGULANT DRUGS PRN (10:15)
--- NOTE | 2017-07-31 11:16 | RADRPT ---
EXAM DATE/TIME: 07/31/2017 08:55 [facility] COMPARISON: No previous studies available for comparison. INDICATIONS : Post-op ORIF left humerus fracture. MEDICAL HISTORY : None. SURGICAL HISTORY : None. ENCOUNTER: Subsequent ACUITY: 4 - 6 days PAIN SCORE: Non-responsive. LOCATION: Left upper extremity FINDINGS: There is plate and screw fixation of proximal humeral fracture. Anatomic alignment. No complications identified. CONCLUSION: 1. Postoperative fixation as above. Niranjan Watson MD on July 31, 2017 at 11:13 Board Certified Radiologist. This report was verified electronically.
[2017-07-31] MEDS ORDERED: GLYCOPYRROLATE 1 MG/5 ML SYRINGE IV PUSH ONE (12:00)
[2017-07-31] MEDS ORDERED: NEOSTIGMINE 5 MG/5 ML SYRINGE IV PUSH ONE (12:00)
[2017-07-31] MEDS ORDERED: ONDANSETRON HCL 4 MG/2 ML VIAL IV ONE (12:00)
[2017-07-31] MEDS ORDERED: DEXAMETHASONE SOD PHOS 4 MG/ML VIAL IV ONE (12:00)
[2017-07-31] MEDS ORDERED: PROPOFOL 200 MG/20 ML AMP IV ONE (12:00)
[2017-07-31] MEDS ORDERED: PHENYLEPHRINE HCL 10 MG/ML VIAL IV ONE (12:00)
[2017-07-31] MEDS ORDERED: ROCURONIUM INJ 50 MG/5 ML SYRINGE IV PUSH ONE (12:00)
[2017-07-31] MEDS ORDERED: LIDOCAINE HCL 1% PF 5 ML SYRINGE OTHER ONE (12:00)
[2017-07-31] MEDS ORDERED: PHENYLEPH/NS 1000 MCG/10 ML SYR IV ONE (12:00)
--- NOTE | 2017-07-31 12:54 | HHI.PR ---
Subjective Remarks Patient is a 71-year-old male who presented via EMS today after he had a fall. Patient states he normally drinks a 24 pack of 16 ounce beers every day states he fell he is not sure how he fell. He states that he had only drank a couple beers yesterday because he was "trying to cut down on his alcohol intake because he had not gotten any more alcohol to replace the alcohol that he needed to intake he then fell and had a large hematoma on his left forehead. He does not recall why he fell or how he fell has some mild frontal headache. Has a history of alcohol-related issues history of syncope in the past and generalized weakness and history of probable alcohol withdrawal seizures We have been asked to help regarding his alcohol withdrawal. Since patient is an extensive heavy drinker that really does not stop drinking ever. He states is the first time he stopped drinking in a very long time We will place him on CIWA protocol as well as a multivitamin thiamine and folic acid Continue on Protonix make sure he has antiemetics I will place him on Librium 3-12 patient is no longer vomiting today Continue Librium and CIWA protocol Discussed with RN and patient Physical therapy and occupational therapy to eval and treat Multivitamin thiamine and folic acid 3 has FRACTURED LEFT HUMERUS- TO GO FOR PROCEDURE WITH ORTHO TODAY HAS AMENIA IS BEING TRANSFUSED DW RN AND PT STILL GOING THROUGH WITHDRAWALS AM LAB ELECTROLYTE PROTOCOLS -14 had REPAIR OF LEFT HUMERUS BY DR MCCONNELL LETHARGIC AFTER SURGERY SOME HYPOTENSION- WILL GIVE FLUID BOLUS DW RN AND PT NO NEW COMPLAINTS Objective Vitals Vital Signs Date Time Temp Pulse Resp B/P (MAP) Pulse Ox O2 Delivery O2 Flow Rate FiO2 07/31/17 12:00 98.2 99 15 90/57 94 07/31/17 10:15 98.0 103 13 163/91 99 07/31/17 06:34 90 07/31/17 06:33 97.8 92 16 141/73 (95) 97 07/31/17 06:33 97 Room Air 07/31/17 06:00 90 07/31/17 04:00 111 07/31/17 04:00 98.6 111 24 158/88 (111) 98 07/31/17 02:00 110 07/31/17 00:00 112 07/31/17 00:00 98.7 112 23 170/81 (110) 97 07/30/17 22:00 120 07/30/17 20:00 88 07/30/17 20:00 97.9 88 16 152/83 (106) 95 07/30/17 19:00 96 Room Air 07/30/17 18:00 98 07/30/17 16:00 88 07/30/17 16:00 98.2 88 23 182/92 (122) 100 07/30/17 14:00 84 I/O 07/30/17 07/30/17 07/30/17 07/31/17 07/31/17 07/31/17 07:00 15:00 23:00 07:00 15:00 23:00 Intake Total 730 ml 1955 ml 100 ml 240 ml 2936 ml Output Total 300 ml 1950 ml 700 ml Balance 730 ml 1955 ml -200 ml -1710 ml 2236 ml Intake Oral 480 ml 0 ml 240 ml IV Total 100 ml 100 ml Packed Cells 1600 ml FFP 1320 ml Platelets 366 ml Blood Product IV Normal Saline Flush 250 ml 255 ml 0 ml Other 1250 ml Output Urine Total 300 ml 1950 ml 300 ml Estimated Blood Loss 400 ml # Voids 5 6 # Bowel Movements 0 0 Result Diagram: 07/31/17 0325 07/31/17 0351 Other Results Laboratory Tests Test 07/28/17 16:20 07/29/17 05:23 07/30/17 04:05 07/30/17 04:09 Phosphorus Level 2.5 MG/DL 2.1 MG/DL 1.8 MG/DL Magnesium Level 1.7 MG/DL 1.9 MG/DL 1.8 MG/DL White Blood Count 8.2 TH/MM3 5.1 TH/MM3 Red Blood Count 2.83 MIL/MM3 1.99 MIL/MM3 Hemoglobin 9.6 GM/DL 6.8 GM/DL Hematocrit 27.5 % 19.6 % Mean Corpuscular Volume 97.1 FL 98.5 FL Mean Corpuscular Hemoglobin 33.7 PG 34.0 PG Mean Corpuscular Hemoglobin Concent 34.7 % 34.5 % Red Cell Distribution Width 16.3 % 15.9 % Platelet Count 53 TH/MM3 53 TH/MM3 Mean Platelet Volume 9.5 FL 9.6 FL Neutrophils (%) (Auto) 70.8 % 66.0 % Lymphocytes (%) (Auto) 17.0 % 21.3 % Monocytes (%) (Auto) 11.8 % 12.4 % Eosinophils (%) (Auto) 0.0 % 0.1 % Basophils (%) (Auto) 0.4 % 0.2 % Neutrophils # (Auto) 5.8 TH/MM3 3.4 TH/MM3 Lymphocytes # (Auto) 1.4 TH/MM3 1.1 TH/MM3 Monocytes # (Auto) 1.0 TH/MM3 0.6 TH/MM3 Eosinophils # (Auto) 0.0 TH/MM3 0.0 TH/MM3 Basophils # (Auto) 0.0 TH/MM3 0.0 TH/MM3 CBC Comment AUTO DIFF AUTO DIFF Differential Comment AUTO DIFF CONFIRMED AUTO DIFF CONFIRMED Prothrombin Time 13.9 SEC Prothromb Time International Ratio 1.4 RATIO Activated Partial Thromboplast Time 28.6 SEC Blood Urea Nitrogen 14 MG/DL 10 MG/DL Creatinine 0.83 MG/DL 0.57 MG/DL Random Glucose 102 MG/DL 108 MG/DL Total Protein 7.0 GM/DL 5.9 GM/DL Albumin 3.5 GM/DL 2.9 GM/DL Calcium Level 7.9 MG/DL 7.7 MG/DL Alkaline Phosphatase 110 U/L 87 U/L Aspartate Amino Transf (AST/SGOT) 214 U/L 110 U/L Alanine Aminotransferase (ALT/SGPT) 117 U/L 80 U/L Total Bilirubin 4.9 MG/DL 3.7 MG/DL Sodium Level 138 MEQ/L 139 MEQ/L Potassium Level 3.6 MEQ/L 3.4 MEQ/L Chloride Level 103 MEQ/L 104 MEQ/L Carbon Dioxide Level 24.0 MEQ/L 24.0 MEQ/L Anion Gap 11 MEQ/L 11 MEQ/L Estimat Glomerular Filtration Rate 91 ML/MIN 141 ML/MIN Hemoglobin A1c 4.9 % Ammonia 51 MCMOL/L Amylase Level 20 U/L Lipase 85 U/L Free Thyroxine 1.03 NG/DL Thyroid Stimulating Hormone 3rd Gen 1.000 uIU/ML Platelet Estimate LOW Platelet Morphology Comment NORMAL Test 07/30/17 13:30 07/30/17 21:43 07/31/17 03:25 07/31/17 03:51 White Blood Count 5.1 TH/MM3 6.4 TH/MM3 Red Blood Count 3.48 MIL/MM3 3.61 MIL/MM3 Hemoglobin 11.0 GM/DL 11.3 GM/DL Hematocrit 32.0 % 33.3 % Mean Corpuscular Volume 91.8 FL 92.1 FL Mean Corpuscular Hemoglobin 31.6 PG 31.3 PG Mean Corpuscular Hemoglobin Concent 34.4 % 34.0 % Red Cell Distribution Width 18.8 % 18.2 % Platelet Count 56 TH/MM3 85 TH/MM3 Mean Platelet Volume 9.0 FL 9.3 FL Phosphorus Level 2.5 MG/DL 2.4 MG/DL Potassium Level 3.3 MEQ/L 3.4 MEQ/L Neutrophils (%) (Auto) 70.4 % Lymphocytes (%) (Auto) 16.5 % Monocytes (%) (Auto) 12.7 % Eosinophils (%) (Auto) 0.2 % Basophils (%) (Auto) 0.2 % Neutrophils # (Auto) 4.5 TH/MM3 Lymphocytes # (Auto) 1.1 TH/MM3 Monocytes # (Auto) 0.8 TH/MM3 Eosinophils # (Auto) 0.0 TH/MM3 Basophils # (Auto) 0.0 TH/MM3 CBC Comment AUTO DIFF Differential Comment AUTO DIFF CONFIRMED Platelet Estimate LOW Platelet Morphology Comment NORMAL Blood Urea Nitrogen 9 MG/DL Creatinine 0.58 MG/DL Random Glucose 99 MG/DL Total Protein 6.3 GM/DL Albumin 3.1 GM/DL Calcium Level 8.0 MG/DL Magnesium Level 1.8 MG/DL Alkaline Phosphatase 92 U/L Aspartate Amino Transf (AST/SGOT) 92 U/L Alanine Aminotransferase (ALT/SGPT) 71 U/L Total Bilirubin 4.8 MG/DL Sodium Level 139 MEQ/L Chloride Level 105 MEQ/L Carbon Dioxide Level 23.5 MEQ/L Anion Gap 11 MEQ/L Estimat Glomerular Filtration Rate 138 ML/MIN Imaging Last Impressions Shoulder X-Ray 07/31/17 0000 Signed Impressions: Service Date/Time: Monday, July 31, 2017 08:55 - CONCLUSION: 1. Postoperative fixation as above. Niranjan Watson MD Head CT 07/30/17 0600 Signed Impressions: Service Date/Time: Sunday, July 30, 2017 04:30 - CONCLUSION: 1. Stable small subdural hematoma along the falx. Joshua Edmonds Jr., MD Chest CT 07/28/17 0000 Signed Impressions: Service Date/Time: Friday, July 28, 2017 01:25 - CONCLUSION: 1. Tortuous mediastinal vessels. No mass or other acute cardiopulmonary disease. 2. Coronary artery calcification. 3. Old left rib fractures. Nehemias Gonzalez MD Chest X-Ray 07/27/17 0098 Signed Impressions: Service Date/Time: Thursday, July 27, 2017 23:46 - CONCLUSION: Apparent mild mediastinal widening and a CT of the chest with intravenous contrast is suggested if felt clinically indicated. The lungs are clear. Nehemias Gonzalez MD Objective Remarks GENERAL: This is a well-nourished, well-developed patient, in no apparent distress. Appears quite disheveled SKIN: No rashes, ecchymoses or lesions. Cool and dry. Ecchymosis and bruising above the left eye forehead area large left forehead hematoma HEAD: Atraumatic. Normocephalic. No temporal or scalp tenderness. Large left forehead hematoma EYES: Pupils equal round and reactive. Extraocular motions intact. No scleral icterus. No injection or drainage. ENT: Nose without bleeding, purulent drainage or septal hematoma. Throat without erythema, tonsillar hypertrophy or exudate. Uvula midline. Airway patent. NECK: Trachea midline. No JVD or lymphadenopathy. Supple, nontender, no meningeal signs. CARDIOVASCULAR: Regular rate and rhythm without murmurs, gallops, or rubs. S1- S2 no S3 or S4 RESPIRATORY: Clear to auscultation. Breath sounds equal bilaterally. No wheezes , rales, or rhonchi. GASTROINTESTINAL: Abdomen soft, non-tender, nondistended. No hepato-splenomegaly , or palpable masses. No guarding. MUSCULOSKELETAL: Extremities without clubbing, cyanosis, or edema. No joint tenderness, effusion, or edema noted. No calf tenderness. Negative Homans sign bilaterally.LEFT SHOULDER HUMERUS DECREASED RANGE OF MOTION DUE TO PAIN AND FRACTURE NEUROLOGICAL: Awake and alert. Cranial nerves II through XII intact. Motor and sensory grossly within normal limits. 4 out of 5 muscle strength in all muscle groups. Normal speech. Insight and judgment limited Mood and behavior somewhat appropriate Procedures Date of Surgery: Jul 31, 2017 Preoperative Diagnosis: Displaced left humeral neck fracture, displaced left humeral shaft fracture Postoperative Diagnosis: Procedure: Open reduction internal fixation left humeral neck fracture, open reduction internal fixation left humeral shaft fracture Anesthesia: Gen. Surgeon: Thaddeus Mcconnell Sourcing Consultant(s): NAYANA Jain PA-C The surgical procedure was assisted by my physician process assistant. My P.A. presence was necessary throughout this case for the manipulation and positioning of the surgical extremity. My P.A. was assisting me throughout the duration of this procedure. The skill set of a physician process assistant was medically necessary to complete this procedure. During the surgical case the assembler surgical garment was working at the back table and the physician process assistant was directly assisting me. Operation and Findings: Patient was seen and evaluated preoperatively. Patient was found to have a displaced left proximal humerus fracture with left humeral shaft fracture. The risks and benefits of surgical and nonsurgical options were discussed in detail and informed consent was obtained for surgery. Patient was brought to the operating room and placed on or table. IV sedation and GETA were administered by anesthesiologist. Antibiotics were given prior to incision. Operative arm and shoulder were prepped with alcohol followed by Hibiclens and draped usual sterile fashion. Timeout procedure was performed. Procedure began with a 10 inch incision over the anterior shoulder. Cephalic vein was identified. A deltopectoral approach was utilized proximally. Distally the brachialis was split.. The fracture was now visualized. Soft tissue was retracted. A #2 FiberWire suture was placed into the rotator rotator cuff and greater tuberosity. Patient was noted to have significant rotator cuff tearing. #2 FiberWire sutures were placed into the supraspinatus and subscapularis tendon. Attention was now turned to reduction of the humeral shaft. Gentle traction was applied. Fracture fragments were manipulated to achieve excellent reduction. There was mild comminution of the proximal shaft and metaphyseal region. Fracture keyed into excellent alignment. 2.7 cortical lag screws were used to compress fracture fragments. Next attention was turned to the humeral neck fracture. The humeral shaft was reduced to the humeral head. Fracture was manipulated to achieve excellent reduction. Multiplanar fluoroscopy confirmed well aligned fracture. Multiple K wires were used to hold provisional fixation. A Synthes long proximal humerus plate was selected to span all fractures. Plate was provisionally held in place K wires. 3.5 cortical screws were used to compress plate to bone. Fluoroscopy confirmed appropriate plate placement and fracture reduction. Multiple locking screws were now placed in the humeral head. Screws were predrilled and premeasured for appropriate length. Care was taken not to penetrate the articular surface. Additional screws were placed in the humeral shaft. The FiberWire suture was passed through the holes of the plate and sutured to the plate for additional stability. Final fluoroscopy revealed well aligned fracture with well-placed hardware. Wound was thoroughly irrigated. Fascia was closed with #1 Vicryl, subcutaneous tissues closed with 3-0 Vicryl, and skin was closed with jose luis. Sterile dressings were applied. Patient was placed into a sling. Patient was awakened and transferred to recovery in stable condition. Needle and sponge counts were correct. Thaddeus Mcconnell MD Jul 31, 2017 09:13 Medications and IVs Current Medications Sodium Chloride 1,000 ml @ 1,000 mls/hr Q1H IV Last administered on 07/28/17 00:10; Start 07/28/17 at 00:00; Stop 07/28/17 at 00:59; Status DC Lorazepam (Ativan Inj) 1 mg ONCE ONCE IV PUSH Last administered on 07/28/17at 00:10; Start 07/28/17 at 00:00; Stop 07/28/17 at 00:01; Status DC Iohexol (Omnipaque 350 Inj) 70 ml STK-MED ONCE IVCONTRAST Last administered on 07/28/17at 01:26; Start 07/28/17 at 01:26; Stop 07/28/17 at 01:27; Status DC Acetaminophen/ Hydrocodone Bitart ([place] 5-325 Mg) 1 tab Q4H PRN PO PAIN SCALE 3 TO 5; Start 07/28/17 at 02:00; Stop 07/31/17 at 09:27; Status DC Morphine Sulfate (Morphine Inj) 4 mg Q3H PRN IV Pain 6-10;if unable to take PO Last administered on 07/30/17at 01:00; Start 07/28/17 at 02:00 Naloxone HCl (Narcan Inj) 0.4 mg UNSCH PRN IV PUSH SEE LABEL COMMENTS; Start at 02:00 Potassium Chloride/Dextrose/ Sod Cl 1,000 ml @ 100 mls/hr Q10H IV Last administered on 07/30/17at 22:07; Start 07/28/17 at 01:46 Docusate Sodium (Colace) 100 mg BID PO Last administered on 07/29/17 09:40; Start 07/28/17 at 09:00 Pantoprazole Sodium (Protonix) 40 mg DAILY PO Last administered on 07/29/17at 09 :40; Start 07/28/17 at 09:00 Ondansetron HCl (Zofran Inj) 4 mg Q6H PRN IV PUSH NAUSEA OR VOMITING Last administered on 07/29/17at 19:46; Start 07/28/17 at 02:00 Pneumococcal Polyvalent Vaccine (Pneumovax-23 Inj) 25 mcg ONCE ONCE IM ; Start 07/29/17 at 09:00; Stop 07/29/17 at 09:01; Status DC Influenza Virus Vaccine (Flu (Quadrivalent) Vaccine Inj) 0.5 ml ONCE ONCE IM ; Start 07/29/17 at 09:00; Stop 07/29/17 at 09:01; Status DC Cholecalciferol (Vitamin D3) 2,000 units DAILY PO Last administered on at 09:40; Start 07/29/17 at 09:00; Stop 07/31/17 at 09:28; Status DC Amylase/Lipase/ Protease (Creon 24-76-120) 1 cap TID PO Last administered on at 17:50; Start 07/28/17 at 13:00 Pantoprazole Sodium (Protonix) 40 mg DAILY PO ; Start 07/29/17 at 09:00; Status UNV Sodium Chloride (NS Flush) 2 ml UNSCH PRN IV FLUSH FLUSH AFTER USING IV ACCESS ; Start 07/28/17 at 14:00 Sodium Chloride (NS Flush) 2 ml BID IV FLUSH Last administered on 07/30/17at 21: 00; Start 07/28/17 at 21:00 Multivitamins 10 ml/Folic Acid 1 mg/Sodium Chloride 510.2 ml @ 125 mls/hr Q24H IV Last administered on 07/28/17at 20:38; Start 07/28/17 at 16:00; Stop at 10:35; Status DC Thiamine HCl 100 mg/Sodium Chloride 101 ml @ 100 mls/hr Q24H IV ; Start at 14:00; Stop 07/28/17 at 14:34; Status DC Ondansetron HCl (Zofran Inj) 8 mg Q4H PRN IV PUSH NAUSEA OR VOMITING Last administered on 07/28/17at 23:46; Start 07/28/17 at 14:00 Clonidine (Catapres) 0.1 mg Q6H PRN PO SEE LABEL COMMENTS; Start 07/28/17 at 14 :00 Flumazenil (Romazicon Inj) 0.2 mg Q1M PRN IV PUSH SEE LABEL COMMENTS; Start 04/06 at 14:00; Stop 07/31/17 at 09:17; Status DC Lorazepam (Ativan) 1 mg Q4H PRN PO CIWA 8 - 10 Last administered on 07/29/17at 19:46; Start 07/28/17 at 14:00 Lorazepam (Ativan Inj) 1 mg Q4H PRN IV PUSH CIWA 8 - 10 Last administered on at 16:08; Start 07/28/17 at 14:00 Lorazepam (Ativan) 2 mg Q2H PRN PO CIWA 11-14; Start 07/28/17 at 14:00 Lorazepam (Ativan Inj) 2 mg Q2H PRN IV PUSH CIWA 11-14 Last administered on at 03:20; Start 07/28/17 at 14:00 Lorazepam (Ativan Inj) 2 mg Q1H PRN IV PUSH CIWA 15-20 Last administered on at 23:02; Start 07/28/17 at 14:00 Lorazepam (Ativan Inj) 2 mg Q15M PRN IV PUSH CIWA > 20; Start 07/28/17 at 14:00 Haloperidol Lactate (Haldol Inj) 2 mg Q15M PRN IM SEE LABEL COMMENTS; Start 04/06 at 14:00 Flumazenil (Romazicon Inj) 0.2 mg Q1M PRN IV PUSH SEE LABEL COMMENTS; Start 04/06 at 14:00 Prochlorperazine Edisylate (Compazine Inj) 10 mg Q6H PRN IV PUSH NAUSEA/ VOMITING; Start 07/28/17 at 14:15 Pantoprazole Sodium (Protonix Inj) 40 mg Q12H IV PUSH Last administered on 07/31at 06:00; Start 07/28/17 at 18:00 Thiamine HCl 100 mg/Sodium Chloride 101 ml @ 100 mls/hr Q24H IV Last administered on 07/28/17at 16:41; Start 07/28/17 at 15:00; Stop 07/29/17 at 10:35 ; Status DC Chlordiazepoxide (Librium) 50 mg Q6H PRN PO WITHDRAWAL Last administered on 04/06at 19:40; Start 07/28/17 at 14:45 Multivitamins/ Minerals Therapeutic (Theragran M Tab) 1 tab DAILY PO Last administered on 07/29/17at 11:56; Start 07/29/17 at 10:00 Thiamine HCl (Vitamin B1) 100 mg DAILY PO ; Start 07/30/17 at 09:00 Thiamine HCl (Vitamin B1) 100 mg ONCE ONCE PO Last administered on 07/29/17at 11:47; Start 07/29/17 at 10:00; Stop 07/29/17 at 10:37; Status DC Folic Acid (Folate) 1 mg ONCE ONCE PO Last administered on 07/29/17at 11:47; Start 07/29/17 at 10:00; Stop 07/29/17 at 10:36; Status DC Folic Acid (Folate) 1 mg DAILY PO ; Start 07/30/17 at 09:00 Potassium Chloride 100 ml @ 50 mls/hr Q2H PRN IV For Potassium 2.8 - 3.2 mEq/L ; Start 07/30/17 at 10:00 Potassium Chloride 100 ml @ 50 mls/hr Q2H PRN IV For Potassium 2.8 - 3.2 mEq/L ; Start 07/30/17 at 10:00 Potassium Bicarb/ Potassium Chloride (K-Lyte Cl Eff) 50 meq UNSCH PRN PO For Potassium 3.3 - 3.5 mEq/L; Start 07/30/17 at 10:00 Potassium Chloride 100 ml @ 25 mls/hr UNSCH PRN IV For Potassium 3.3 - 3.5 mEq /L; Start 07/30/17 at 10:00 Potassium Chloride 100 ml @ 50 mls/hr Q2H PRN IV For Potassium 3.3 - 3.5 mEq/ L Last administered on 07/31/17at 03:20; Start 07/30/17 at 10:00 Magnesium Sulfate 4 gm/Sodium Chloride 100 ml @ 50 mls/hr UNSCH PRN IV For Magnesium 0.9 - 1.1 mg/dL; Start 07/30/17 at 10:00 Magnesium Oxide (Mag-Ox) 800 mg UNSCH PRN PO For Magnesium 1.2 - 1.6 mg/dL; Start 07/30/17 at 10:00 Magnesium Sulfate 2 gm/Sodium Chloride 100 ml @ 50 mls/hr UNSCH PRN IV For Magnesium 1.2 - 1.6 mg/dL; Start 07/30/17 at 10:00 Potassium Phosphate (K-Phos) 2,000 mg Q4H PRN PO For Phosphorus < 2.5 mg/dL; Start 07/30/17 at 10:00 Sodium Phosphate 30 mmol/Sodium Chloride 250 ml @ 42 mls/hr UNSCH PRN IV For Phosphorus < 2.5 mg/dL; Start 07/30/17 at 10:00 Potassium Phosphate (K-Phos) 2,000 mg UNSCH PRN PO/TUBE SEE LABEL COMMENTS; Start 07/30/17 at 10:00 Potassium Phosphate 30 mmol/ Sodium Chloride 260 ml @ 42 mls/hr UNSCH PRN IV SEE LABEL COMMENTS; Start 07/30/17 at 10:00 Acetaminophen 0 ml @ As Directed STK-MED ONCE IV ; Start 07/31/17 at 06:12; Stop 07/31/17 at 06:13; Status DC Vancomycin HCl (Vancomycin Inj) 1,000 mg STK-MED ONCE .ROUTE Last administered on 07/31/17at 07:45; Start 07/31/17 at 06:50; Stop 07/31/17 at 06:51; Status DC Gentamicin Sulfate (Gentamicin Inj) 240 mg STK-MED ONCE .ROUTE Last administered on 07/31/17at 07:57; Start 07/31/17 at 06:50; Stop 07/31/17 at 06:51 ; Status DC Sodium Chloride 250 ml @ As Directed STK-MED ONCE .ROUTE Last administered on 07/31/17at 07:45; Start 07/31/17 at 06:50; Stop 07/31/17 at 06:51; Status DC Cefazolin Sodium/ Dextrose 50 ml @ As Directed STK-MED ONCE .ROUTE Last administered on 07/31/17at 07:50; Start 07/31/17 at 07:48; Stop 07/31/17 at 07:49 ; Status DC Cefazolin Sodium/ Dextrose 50 ml @ 100 mls/hr Q8H IV ; Start 07/31/17 at 16:00 ; Stop 08/02/17 at 08:29 Acetaminophen/ Hydrocodone Bitart ([place] 10-325 Mg) 1 tab Q3H PRN PO pain 2<10 ; Start 07/31/17 at 09:15 Diphenhydramine HCl (Benadryl) 25 mg Q6H PRN PO ITCHING; Start 07/31/17 at 09: 15 Ergocalciferol (Drisdol) 50,000 units Q7D PO ; Start 07/31/17 at 10:00 Cholecalciferol (Vitamin D3) 1,000 units DAILY PO ; Start 08/01/17 at 09:00 Morphine Sulfate (*morphine INJ PERIprocedure ONLY) 10 mg STK-MED ONCE .ROUTE ; Start 07/31/17 at 09:58; Stop 07/31/17 at 09:59; Status DC Fentanyl Citrate (fentaNYL INJ) 200 mcg STK-MED ONCE .ROUTE ; Start 07/31/17 at 09:59; Stop 07/31/17 at 10:00; Status DC Miscellaneous Information ALL NURSING DEPARTME... UNSCH PRN .XX SEE LABEL COMMENTS; Start 07/31/17 at 10:15; Stop 08/01/17 at 10:14 A/P Problem List: (1) Subdural hematoma ICD Code: I62.00 - Nontraumatic subdural hemorrhage, unspecified Status: Acute (2) Alcohol intoxication ICD Code: F10.929 - Alcohol use, unspecified with intoxication, unspecified Status: Acute (3) Alcohol withdrawal ICD Code: F10.239 - Alcohol dependence with withdrawal, unspecified Status: Acute (4) Generalized weakness ICD Code: R53.1 - Weakness Status: Acute (5) TBI (traumatic brain injury) ICD Code: S06.9X9A - Unspecified intracranial injury with loss of consciousness of unspecified duration, initial encounter (6) Right humeral fracture ICD Code: S42.301A - Unspecified fracture of shaft of humerus, right arm, initial encounter for closed fracture Assessment and Plan Subdural hematoma secondary to fall/TBI -patient was on chronic aspirin will hold this Neurosurgery is the attending Alcohol withdrawals possible alcoholic seizures from withdrawals of alcohol in the past Continue on CIWA protocol with Ativan and Haldol and Librium as needed Seizure precautions Multivitamin, thiamine, folic acid, Antiemetics Catapres as needed for blood pressure NAUSEA AND VOMITING -RESOLVED Thrombocytopenia suspect secondary to alcohol abuse long-term Physical therapy and occupational therapy to eval and treat Elevated LFTs secondary to chronic alcohol abuse Medical noncompliance ANEMIA REPLACE HYPOKALEMIA REPLACE HYPOPHOSPHATEMIA REPLACE LEFT HUMERUS FRACTURE-ORTHO CONSULT- FOR SURGERY 3-[address] MCCONNELL ELECTROLYTE PANEL AM LABS GI PROPHYLAXIS WITH PROTONIX DVT WITH [facility] AND JERICHO ALCANTAR DR RN AND PT PT AND OT Discharge Planning ONCE CLEARED BY NEUROSURGERY Delmer Boyer DO Jul 31, 2017 12:54
[2017-07-31] MEDS ORDERED: SODIUM CHLOR 0.9% 1000 ML INJ 1,000 ML IV ONE (13:15)
[2017-07-31] MEDS: ceFAZolin 2 GM PREMIX 50 ML IV SCH (16:15)
--- NOTE | 2017-07-31 16:21 | HHI.NSPN ---
(Marcos Ho) History Chief Complaint: Unable to obtain due to patient being extremely drowsy post- operatively. (Marcos Ho) Interval History 07/28: 71 yo male presented to ED after falll. He doesnt recall anything in regards to the fall. He usuallly drinks around 12 beers a day. Yesterday only drank two since he was trying to cut back. 07/29: When seen this morning the patient is awake and alert. He is sitting up in the bed watching TV. He denies any headache or dizziness but did say he was nauseated earlier which has resolved. He states that he has generalised weakness and pain to the left shoulder and arm. Upon examination the patient does have weakness to the left upper extremity that is at least partially related to pain. Sensation is intact. 07/30: This morning the patient is extremely drowsy. He does respond to verbal stimulation and requires coaxing to interact. He is receiving his third unit of PRBC and is to receive a fourth. He endorses a headache and generalised weakness. Limited evaluation due to patient's drowsiness but no evident worsening of neuro status. Nursing does report that the heplock being used to give the PRBC is the third one this morning. 07/31: The patient went for a closed reduction and internal fixation of a left proximal humerus fracture this morning. The patient is extremely drowsy when seen this afternoon. He briefly woke to repeated verbal stimulation and minimally interacted with coaxing. Nursing reports that the patient has been "zonked" since coming back from PACU. (Marcos Ho) System Review Comments Unable to obtain due to patient being extremely drowsy post-operatively. (Marcos Ho) Exam Results 07/29/17 07/29/17 07/30/17 07/30/17 07/31/17 07/31/17 06:00 18:00 06:00 18:00 06:00 18:00 Intake Total 1750.2 ml 1400 ml 730 ml 2055 ml 240 ml 4258 ml Output Total 475 ml 450 ml 300 ml 1950 ml 750 ml Balance 1275.2 ml 950 ml 730 ml 1755 ml -1710 ml 3508 ml Intake Oral 240 ml 400 ml 480 ml 0 ml 240 ml IV Total 1510.2 ml 1000 ml 200 ml 1000 ml Packed Cells 1600 ml FFP 1642 ml Platelets 366 ml Blood Product IV Normal Saline Flush 250 ml 255 ml 0 ml Other 1250 ml Output Urine Total 475 ml 450 ml 300 ml 1950 ml 350 ml Estimated Blood Loss 400 ml # Voids 5 6 # Bowel Movements 1 0 0 Vital Signs Date Time Temp Pulse Resp B/P (MAP) Pulse Ox O2 Delivery O2 Flow Rate FiO2 07/31/17 14:00 89 07/31/17 12:00 98.1 95 13 90/57 (68) 94 07/31/17 12:00 98.2 99 15 90/57 94 07/31/17 12:00 116 07/31/17 10:30 96 14 163/81 (108) 99 Nasal Cannula 3 07/31/17 10:15 98.0 103 13 163/91 99 07/31/17 10:15 96 17 156/80 (105) 96 Nasal Cannula 3 07/31/17 10:00 102 15 143/84 (103) 94 Nasal Cannula 3 07/31/17 09:46 98.5 93 17 132/67 (88) 97 Nasal Cannula 3 07/31/17 06:34 90 07/31/17 06:33 97.8 92 16 141/73 (95) 97 07/31/17 06:33 97 Room Air 07/31/17 06:00 90 07/31/17 04:00 111 07/31/17 04:00 98.6 111 24 158/88 (111) 98 07/31/17 02:00 110 07/31/17 00:00 112 07/31/17 00:00 98.7 112 23 170/81 (110) 97 07/30/17 22:00 120 07/30/17 20:00 88 07/30/17 20:00 97.9 88 16 152/83 (106) 95 07/30/17 19:00 96 Room Air 07/30/17 18:00 98 07/30/17 16:00 88 07/30/17 16:00 98.2 88 23 182/92 (122) 100 07/30/17 14:00 84 07/30/17 12:00 98.4 86 26 160/85 (110) 98 07/30/17 12:00 86 07/30/17 11:11 98.4 77 16 156/74 95 07/30/17 10:56 98.4 75 12 143/73 97 07/30/17 10:00 74 07/30/17 09:42 98.2 77 13 148/65 100 07/30/17 09:27 98.1 90 25 156/72 97 07/30/17 08:00 98.1 96 29 140/69 (92) 99 07/30/17 08:00 96 07/30/17 07:55 98.1 96 29 140/69 99 07/30/17 07:40 98.1 82 15 121/63 96 07/30/17 07:00 99 Room Air 07/30/17 06:10 98.4 82 29 136/68 99 07/30/17 06:00 79 07/30/17 04:00 98.0 88 31 138/57 (84) 98 07/30/17 04:00 88 07/30/17 02:00 94 07/30/17 00:00 98.5 98 22 155/73 (100) 96 07/30/17 00:00 98 07/29/17 22:00 108 07/29/17 20:00 124 07/29/17 20:00 98.1 124 32 143/77 (99) 100 07/29/17 19:00 97 Room Air 07/29/17 18:00 104 07/29/17 16:00 98.6 106 20 142/65 (90) 100 07/29/17 16:00 106 07/29/17 14:00 111 07/29/17 12:00 104 07/29/17 12:00 98.5 104 23 150/72 (98) 95 07/29/17 10:00 98 07/29/17 08:00 100 07/29/17 08:00 98.8 100 24 150/75 (100) 94 07/29/17 07:00 100 Room Air 07/29/17 06:00 105 07/29/17 04:00 121 07/29/17 04:00 98.5 121 22 107/61 (76) 94 07/29/17 02:00 122 3/12/18 00:00 99.3 126 22 131/73 (92) 96 07/29/17 00:00 126 07/28/17 22:00 114 07/28/17 20:00 97.8 117 15 155/79 (104) 97 07/28/17 20:00 117 07/28/17 19:00 97 Room Air 07/28/17 18:00 114 (Marcos Ho) Physical Examination GENERAL: Extremely drowsy laying in bed. Responds to voice but does require coaxing to interact. Does not appear to be in distress. HEENT: Left-sided forehead & facial abrasions w/evolving ecchymosis. PERRLA 3 mm brisk. RESPIRATORY: CTAB w/o W/R/R, equal excursion, nonlaboured, on NC. CARDIOVASCULAR: S1S2 w/RRR w/o M/G/R, cap refill < 2 sec. Monitor is sinus rhythm w/o any ectopy noted. GASTROINTESTINAL: Abdomen, rotund, soft, nontender, bowel sounds not appreciated. MUSCULOSKELETAL: VIDALES to command. LUE in sling w/dressing to left shoulder & arm. NEUROLOGICAL: Extremely drowsy, oriented to person and being in a hospital. Speech very soft, slow, answering in 1or 2 words. Follows some commands with coaxing. LUE in sling, weak hand grasp. Weakly moves other extremities to command. (Marcos Ho) Lab, Micro, Other Results Recent Impressions Shoulder X-Ray 07/31/17 0000 Signed Impressions: Service Date/Time: Monday, July 31, 2017 08:55 - CONCLUSION: 1. Postoperative fixation as above. Niranjan Watson MD Head CT 07/30/17 0600 Signed Impressions: Service Date/Time: Sunday, July 30, 2017 04:30 - CONCLUSION: 1. Stable small subdural hematoma along the falx. Joshua Emdonds Jr., MD Shoulder X-Ray 07/29/17 0000 Signed Impressions: Service Date/Time: Saturday, July 29, 2017 15:52 - CONCLUSION: Proximal humerus fracture. Boy Robles MD Laboratory Tests Test 07/29/17 05:23 07/30/17 04:05 07/30/17 04:09 07/30/17 13:30 White Blood Count 8.2 TH/MM3 5.1 TH/MM3 5.1 TH/MM3 Red Blood Count 2.83 MIL/MM3 1.99 MIL/MM3 3.48 MIL/MM3 Hemoglobin 9.6 GM/DL 6.8 GM/DL 11.0 GM/DL Hematocrit 27.5 % 19.6 % 32.0 % Mean Corpuscular Volume 97.1 FL 98.5 FL 91.8 FL Mean Corpuscular Hemoglobin 33.7 PG 34.0 PG 31.6 PG Mean Corpuscular Hemoglobin Concent 34.7 % 34.5 % 34.4 % Red Cell Distribution Width 16.3 % 15.9 % 18.8 % Platelet Count 53 TH/MM3 53 TH/MM3 56 TH/MM3 Mean Platelet Volume 9.5 FL 9.6 FL 9.0 FL Neutrophils (%) (Auto) 70.8 % 66.0 % Lymphocytes (%) (Auto) 17.0 % 21.3 % Monocytes (%) (Auto) 11.8 % 12.4 % Eosinophils (%) (Auto) 0.0 % 0.1 % Basophils (%) (Auto) 0.4 % 0.2 % Neutrophils # (Auto) 5.8 TH/MM3 3.4 TH/MM3 Lymphocytes # (Auto) 1.4 TH/MM3 1.1 TH/MM3 Monocytes # (Auto) 1.0 TH/MM3 0.6 TH/MM3 Eosinophils # (Auto) 0.0 TH/MM3 0.0 TH/MM3 Basophils # (Auto) 0.0 TH/MM3 0.0 TH/MM3 CBC Comment AUTO DIFF AUTO DIFF Differential Comment AUTO DIFF CONFIRMED AUTO DIFF CONFIRMED Prothrombin Time 13.9 SEC Prothromb Time International Ratio 1.4 RATIO Activated Partial Thromboplast Time 28.6 SEC Blood Urea Nitrogen 14 MG/DL 10 MG/DL Creatinine 0.83 MG/DL 0.57 MG/DL Random Glucose 102 MG/DL 108 MG/DL Total Protein 7.0 GM/DL 5.9 GM/DL Albumin 3.5 GM/DL 2.9 GM/DL Calcium Level 7.9 MG/DL 7.7 MG/DL Phosphorus Level 2.1 MG/DL 1.8 MG/DL 2.5 MG/DL Magnesium Level 1.9 MG/DL 1.8 MG/DL Alkaline Phosphatase 110 U/L 87 U/L Aspartate Amino Transf (AST/SGOT) 214 U/L 110 U/L Alanine Aminotransferase (ALT/SGPT) 117 U/L 80 U/L Total Bilirubin 4.9 MG/DL 3.7 MG/DL Sodium Level 138 MEQ/L 139 MEQ/L Potassium Level 3.6 MEQ/L 3.4 MEQ/L Chloride Level 103 MEQ/L 104 MEQ/L Carbon Dioxide Level 24.0 MEQ/L 24.0 MEQ/L Anion Gap 11 MEQ/L 11 MEQ/L Estimat Glomerular Filtration Rate 91 ML/MIN 141 ML/MIN Hemoglobin A1c 4.9 % Ammonia 51 MCMOL/L Amylase Level 20 U/L Lipase 85 U/L Free Thyroxine 1.03 NG/DL Thyroid Stimulating Hormone 3rd Gen 1.000 uIU/ML Platelet Estimate LOW Platelet Morphology Comment NORMAL Test 07/30/17 21:43 07/31/17 03:25 07/31/17 03:51 Potassium Level 3.3 MEQ/L 3.4 MEQ/L White Blood Count 6.4 TH/MM3 Red Blood Count 3.61 MIL/MM3 Hemoglobin 11.3 GM/DL Hematocrit 33.3 % Mean Corpuscular Volume 92.1 FL Mean Corpuscular Hemoglobin 31.3 PG Mean Corpuscular Hemoglobin Concent 34.0 % Red Cell Distribution Width 18.2 % Platelet Count 85 TH/MM3 Mean Platelet Volume 9.3 FL Neutrophils (%) (Auto) 70.4 % Lymphocytes (%) (Auto) 16.5 % Monocytes (%) (Auto) 12.7 % Eosinophils (%) (Auto) 0.2 % Basophils (%) (Auto) 0.2 % Neutrophils # (Auto) 4.5 TH/MM3 Lymphocytes # (Auto) 1.1 TH/MM3 Monocytes # (Auto) 0.8 TH/MM3 Eosinophils # (Auto) 0.0 TH/MM3 Basophils # (Auto) 0.0 TH/MM3 CBC Comment AUTO DIFF Differential Comment AUTO DIFF CONFIRMED Platelet Estimate LOW Platelet Morphology Comment NORMAL Blood Urea Nitrogen 9 MG/DL Creatinine 0.58 MG/DL Random Glucose 99 MG/DL Total Protein 6.3 GM/DL Albumin 3.1 GM/DL Calcium Level 8.0 MG/DL Phosphorus Level 2.4 MG/DL Magnesium Level 1.8 MG/DL Alkaline Phosphatase 92 U/L Aspartate Amino Transf (AST/SGOT) 92 U/L Alanine Aminotransferase (ALT/SGPT) 71 U/L Total Bilirubin 4.8 MG/DL Sodium Level 139 MEQ/L Chloride Level 105 MEQ/L Carbon Dioxide Level 23.5 MEQ/L Anion Gap 11 MEQ/L Estimat Glomerular Filtration Rate 138 ML/MIN (Marcos Ho) Medical Decision Making Impression and Plan Impression: TBI Facial and forehead contusion EtOH abuse and withdrawal The patient is extremely drowsy after surgery. He does respond to voice and requires coaxing in order to interact. He weakly moves the extremities to command. Intermittent tachycardia. Intermittent hypertension. Hypotensive this afternoon. Afebrile past 24 hrs. Reviewed labs for today. Improvement in haemoglobin level & thrombocytopenia. Sodium 139. Hypokalemia essentially stable. Improvement in hypophosphatemia. Interval improvement in transaminases. CT brain demonstrated a stable SDH along the fax. Plan: Neuro checks. Stat CT brain for any decline in neuro status. Hold pharmacologic DVT prophylaxis. Mechanical DVT prophylaxis. Mobilise patient w/assistance. Physical & Occupational Therapy eval & tx. Hospitalist for medical management. (Marcos Ho) Attending Statement The exam, history, and the medical decision-making described in the above note were completed with the assistance of the mid-level provider. I reviewed and agree with the findings presented. I attest that I had a [id number] encounter with the patient on the same day, and personally performed and documented my assessment and findings in the medical record. Mental status continues to fluctuate Discussed with family Continuing treatment for alcohol withdrawal (Yosef King MD) Marcos Ho Jul 31, 2017 16:21 Yosef King MD Aug 04, 2017 18:19
[2017-07-31] MEDS: chlordiazePOXIDE 25 MG CAP PO PRN (20:58)
[2017-07-31] MEDS: ACETAMINOPHEN/HYDROcodone 325 MG/10 MG TAB PO PRN (20:59)
[2017-08-01] VITALS (15 sets, daily range): BP systolic 104–152; BP diastolic 55–79; PULSE 58–92; RESP 12–21; TEMP 97.4–98.2; O2SAT 97–100
[2017-08-01] MEDS: ACETAMINOPHEN/HYDROcodone 325 MG/10 MG TAB PO PRN (01:16)
[2017-08-01] MEDS: ceFAZolin 2 GM PREMIX 50 ML IV SCH ×4 (01:17→23:23)
[2017-08-01] MEDS: PANTOPRAZOLE SODIUM 40 MG VIAL IV PUSH SCH ×2 (06:01→16:38)
[2017-08-01] MEDS: D5-NS + KCL 20 MEQ INJ 1,000 ML IV SCH ×2 (06:01→15:46)
[2017-08-01] MEDS: chlordiazePOXIDE 25 MG CAP PO PRN (06:03)
[2017-08-01 06:15] LABS: AUTOMATED NEUTROPHIL # 5.7 TH/MM3 (1.8-7.7); BASOPHIL % 0.1 % (0.0-2.0); HEMATOCRIT 21.3 % (39.0-51.0); HEMOGLOBIN 7.4 GM/DL (13.0-17.0); LYMPHOCYTE # 0.8 TH/MM3 (1.0-4.8); MEAN CELL VOLUME 94.7 FL (80.0-100.0); MEAN CORPUSCULAR HEMOGLOBIN 32.9 PG (27.0-34.0); MEAN CORPUSCULAR HGB CONC 34.8 % (32.0-36.0); MEAN PLATELET VOLUME 9.3 FL (7.0-11.0); MONO % 13.7 % (0.0-8.0); NEUT % 75.2 % (16.0-70.0); PLATELET COUNT 99 TH/MM3 (150-450); RED BLOOD COUNT 2.25 MIL/MM3 (4.50-5.90); RED CELL DISTRIBUTION WIDTH 18.1 % (11.6-17.2); WHITE BLOOD COUNT 7.5 TH/MM3 (4.0-11.0)
[2017-08-01 06:44] LABS: ALBUMIN 2.7 GM/DL (3.4-5.0); AST (GOT) 54 U/L (15-37); BICARBONATE 25.1 MEQ/L (21.0-32.0); BLOOD UREA NITROGEN 11 MG/DL (7-18); CALCIUM 7.6 MG/DL (8.5-10.1); CHLORIDE 107 MEQ/L (98-107); CREATININE 0.54 MG/DL (0.60-1.30); GLOMERULAR FILTRATION RATE 150 ML/MIN (>89); GLUCOSE,RANDOM 113 MG/DL (74-106); SODIUM (NA) 140 MEQ/L (136-145)
[2017-08-01 06:45] LABS: ALT (GPT) 45 U/L (12-78)
[2017-08-01 06:47] LABS: ALKALINE PHOSPHATASE 76 U/L (45-117); TOTAL BILIRUBIN ADULT 3.6 MG/DL (0.2-1.0); TOTAL PROTEIN 5.6 GM/DL (6.4-8.2)
--- NOTE | 2017-08-01 07:59 | PD.ORT.PN ---
Subjective Subjective Remarks POD 1 s/p ORIF left proximal humerus nurse reports was confused yesterday. patient reports doign well Objective Vitals Vital Signs Date Time Temp Pulse Resp B/P (MAP) Pulse Ox O2 Delivery O2 Flow Rate FiO2 08/01/17 06:00 78 08/01/17 04:00 58 08/01/17 04:00 97.6 80 21 120/55 (76) 100 08/01/17 02:16 14 08/01/17 02:00 82 08/01/17 00:00 97.4 85 18 125/58 (80) 100 08/01/17 00:00 88 07/31/17 22:00 90 07/31/17 20:00 98.6 91 18 122/67 (85) 100 07/31/17 19:00 100 Nasal Cannula 3.00 07/31/17 18:00 88 07/31/17 16:00 90 07/31/17 16:00 98.2 90 18 105/60 (75) 100 07/31/17 14:00 89 07/31/17 12:00 98.1 95 13 90/57 (68) 94 07/31/17 12:00 98.2 99 15 90/57 94 07/31/17 12:00 116 07/31/17 10:30 96 14 163/81 (108) 99 Nasal Cannula 3 07/31/17 10:15 98.0 103 13 163/91 99 07/31/17 10:15 96 17 156/80 (105) 96 Nasal Cannula 3 07/31/17 10:00 102 15 143/84 (103) 94 Nasal Cannula 3 07/31/17 09:46 98.5 93 17 132/67 (88) 97 Nasal Cannula 3 I/O 07/31/17 07/31/17 07/31/17 08/01/17 08/01/17 08/01/17 07:00 15:00 23:00 07:00 15:00 23:00 Intake Total 240 ml 4258 ml 50 ml 240 ml Output Total 1950 ml 750 ml 1000 ml 700 ml Balance -1710 ml 3508 ml -950 ml -460 ml Intake Oral 240 ml 240 ml IV Total 1000 ml 50 ml FFP 1642 ml Platelets 366 ml Blood Product IV Normal Saline Flush 0 ml Other 1250 ml Output Urine Total 1950 ml 350 ml 1000 ml 700 ml Stool Total 0 ml Estimated Blood Loss 400 ml # Bowel Movements 0 0 Result Diagram: 08/01/17 0450 08/01/17 0450 Imaging Last 24 hours Impressions Shoulder X-Ray 07/29/17 0000 Signed Impressions: Service Date/Time: Saturday, July 29, 2017 15:52 - CONCLUSION: Proximal humerus fracture. Boy Robles MD Objective Remarks LUE: +swelling of upper arm. +bruising. full sensation to median/ulnar nerve distribution. full radial nerve function with full ability to extend fingers and wrist. dressings clean and dry. +sling/swathe Assessment & Plan Assessment and Plan 1) Left Segmental Proximal Humerus Fracture s/p ORIF - POD 1 -NWB -daily dressing changes POD 2 -maintain sling/swathe -ortho surgeries complete -f/u with No or PA in 2 weeks Eric Gaytan/Oceanology Teacher GERSON Aug 01, 2017 07:59
[2017-08-01 09:23] LABS: INTERNATIONAL NORMALIZED RATIO 1.3 RATIO; PROTHROMBIN TIME - PATIENT 12.8 SEC (9.8-11.6)
[2017-08-01 09:26] LABS: POLYCHROMASIA 2.7 % (0.0-1.9)
--- NOTE | 2017-08-01 09:33 | PD.CONS ---
HPI History of Present Illness This is a 71 year old male with hx ETOH abuse who presented after a fall. He is now POD1 s/p ORIF left humerus. GI has been consulted for anemia and etoh. Pt denies any GI bleeding. No bleeding noted by nursing staff. Denies abd pain. Has not had BM recently. He does admit weakness. Denies prior hx liver problems. ADmits taking aleve daily. He says he "drinks too much" and has done so for 50 years. He was evaluated by our service 03/2017 for hematemesis and had an EGD 04/18/17 that found duodenitis with superficial ulcers, schatzki ring, hiatal hernia. CT scan at taht time showed fatty liver, chronic pancreatitis. His hepatitis panel at that time was negative. Has never had colonoscopy. Pt is reluctant historian. (Dorcas Engel) PFSH Past Medical History HTN OA pancreatitis Past Surgical History tonsillectomy ORIF left humerus (Dorcas Engel) Coded Allergies: No Known Allergies (Verified Allergy, Unknown, 04/16/17) Family History noncontributory Social History drinks 24 beers daily but trying to cut back no tobacco or illicit drug use (Dorcas Engel) Review of Systems Constitutional: COMPLAINS OF: Fatigue Endocrine: DENIES: Polydipsia Eyes: DENIES: Blurred vision Ears, nose, mouth, throat: DENIES: Hearing loss Respiratory: DENIES: Cough Gastrointestinal: DENIES: Abdominal pain, Black stools, Bloody stools, Nausea, Vomiting, Hematemesis Genitourinary: DENIES: Urinary frequency Musculoskeletal: COMPLAINS OF: Joint pain Integumentary: DENIES: Abnormal pigmentation Hematologic/lymphatic: DENIES: Bruising Immunologic/allergic: DENIES: Eczema Neurologic: COMPLAINS OF: Abnormal gait Psychiatric: COMPLAINS OF: Confusion (Dorcas Engel) GI Exam Vitals I&O Vital Signs Date Time Temp Pulse Resp B/P (MAP) Pulse Ox O2 Delivery O2 Flow Rate FiO2 08/01/17 08:00 80 08/01/17 08:00 97.8 82 20 107/79 (88) 100 08/01/17 07:00 100 Nasal Cannula 3.00 08/01/17 06:00 78 08/01/17 04:00 58 08/01/17 04:00 97.6 80 21 120/55 (76) 100 08/01/17 02:16 14 08/01/17 02:00 82 08/01/17 00:00 97.4 85 18 125/58 (80) 100 08/01/17 00:00 88 07/31/17 22:00 90 07/31/17 20:00 98.6 91 18 122/67 (85) 100 07/31/17 19:00 100 Nasal Cannula 3.00 07/31/17 18:00 88 07/31/17 16:00 90 07/31/17 16:00 98.2 90 18 105/60 (75) 100 07/31/17 14:00 89 07/31/17 12:00 98.1 95 13 90/57 (68) 94 07/31/17 12:00 98.2 99 15 90/57 94 07/31/17 12:00 116 07/31/17 10:30 96 14 163/81 (108) 99 Nasal Cannula 3 07/31/17 10:15 98.0 103 13 163/91 99 07/31/17 10:15 96 17 156/80 (105) 96 Nasal Cannula 3 07/31/17 10:00 102 15 143/84 (103) 94 Nasal Cannula 3 07/31/17 09:46 98.5 93 17 132/67 (88) 97 Nasal Cannula 3 I/O 07/31/17 07/31/17 07/31/17 08/01/17 08/01/17 08/01/17 07:00 15:00 23:00 07:00 15:00 23:00 Intake Total 240 ml 4258 ml 50 ml 240 ml Output Total 1950 ml 750 ml 1000 ml 700 ml Balance -1710 ml 3508 ml -950 ml -460 ml Intake Oral 240 ml 240 ml IV Total 1000 ml 50 ml FFP 1642 ml Platelets 366 ml Blood Product IV Normal Saline Flush 0 ml Other 1250 ml Output Urine Total 1950 ml 350 ml 1000 ml 700 ml Stool Total 0 ml Estimated Blood Loss 400 ml # Bowel Movements 0 0 Imaging Last Impressions Shoulder X-Ray 07/31/17 0000 Signed Impressions: Service Date/Time: Monday, July 31, 2017 08:55 - CONCLUSION: 1. Postoperative fixation as above. Niranjan Watson MD Head CT 07/30/17 0600 Signed Impressions: Service Date/Time: Sunday, July 30, 2017 04:30 - CONCLUSION: 1. Stable small subdural hematoma along the falx. Joshua Edmonds Jr., MD Chest CT 07/28/17 0000 Signed Impressions: Service Date/Time: Friday, July 28, 2017 01:25 - CONCLUSION: 1. Tortuous mediastinal vessels. No mass or other acute cardiopulmonary disease. 2. Coronary artery calcification. 3. Old left rib fractures. Nehemias Gonzalez MD Chest X-Ray 07/27/17 2335 Signed Impressions: Service Date/Time: Thursday, July 27, 2017 23:46 - CONCLUSION: Apparent mild mediastinal widening and a CT of the chest with intravenous contrast is suggested if felt clinically indicated. The lungs are clear. Nehemias Gonzalez MD Laboratory Test 07/31/17 17:00 08/01/17 04:50 08/01/17 08:27 Potassium Level 4.0 MEQ/L 3.5 MEQ/L White Blood Count 7.5 TH/MM3 Red Blood Count 2.25 MIL/MM3 Hemoglobin 7.4 GM/DL Hematocrit 21.3 % Mean Corpuscular Volume 94.7 FL Mean Corpuscular Hemoglobin 32.9 PG Mean Corpuscular Hemoglobin Concent 34.8 % Red Cell Distribution Width 18.1 % Platelet Count 99 TH/MM3 Mean Platelet Volume 9.3 FL Neutrophils (%) (Auto) 75.2 % Lymphocytes (%) (Auto) 11.0 % Monocytes (%) (Auto) 13.7 % Eosinophils (%) (Auto) 0.0 % Basophils (%) (Auto) 0.1 % Neutrophils # (Auto) 5.7 TH/MM3 Lymphocytes # (Auto) 0.8 TH/MM3 Monocytes # (Auto) 1.0 TH/MM3 Eosinophils # (Auto) 0.0 TH/MM3 Basophils # (Auto) 0.0 TH/MM3 CBC Comment AUTO DIFF Blood Urea Nitrogen 11 MG/DL Creatinine 0.54 MG/DL Random Glucose 113 MG/DL Total Protein 5.6 GM/DL Albumin 2.7 GM/DL Calcium Level 7.6 MG/DL Phosphorus Level 3.0 MG/DL Magnesium Level 2.0 MG/DL Alkaline Phosphatase 76 U/L Aspartate Amino Transf (AST/SGOT) 54 U/L Alanine Aminotransferase (ALT/SGPT) 45 U/L Total Bilirubin 3.6 MG/DL Sodium Level 140 MEQ/L Chloride Level 107 MEQ/L Carbon Dioxide Level 25.1 MEQ/L Anion Gap 8 MEQ/L Estimat Glomerular Filtration Rate 150 ML/MIN Prothrombin Time 12.8 SEC Prothromb Time International Ratio 1.3 RATIO Physical Examination HEENT: PERRL; normocephalic;bruise left brow; mild icterus CHEST: CTA CARDIAC: RRR ABDOMEN: Soft, nondistended, nontender; no hepatosplenomegaly; bowel sounds are present in all four quadrants. EXTREMITIES: LUE in cast and sling, ecchymosis left shoulder SKIN: Normal; no rash; no jaundice. RUG FRAME MOUNTER: slow to answer, mildly lethargic (Dorcas Engel) Assessment and Plan Plan ASSESSMENT - anemia with drop in hgb- likely multifactorial, had orthopedic surgery yesterday. EGD 04/18/17 after hematemesis that found duodenitis with superficial ulcers, schatzki ring, hiatal hernia. no obvious GI bleeding. 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 AST>ALT. CT showed fatty liver, chronic pancreatitis hep panel 03/2017 was negative. will get US liver PLAN - hemoccult - US liver - fractionated bili - monitor HH - transfuse as needed - notify GI of active bleeding - pt refusing endoscopy at this time; EGD and colonoscopy outpt pt seen by myself and DR March and this note is on his behalf (Dorcas Engel) Physician Comments Seen and examined with jose luis Toscano as above. Thank you for the consult. (Javad March MD) Dorcas Engel Aug 01, 2017 09:33 Javad March MD Aug 01, 2017 14:37
--- NOTE | 2017-08-01 09:43 | HHI.NSPN ---
History Chief Complaint: Left arm pain Interval History 07/28: 71 yo male presented to ED after falll. He doesnt recall anything in regards to the fall. He usuallly drinks around 12 beers a day. Yesterday only drank two since he was trying to cut back. 07/29: When seen this morning the patient is awake and alert. He is sitting up in the bed watching TV. He denies any headache or dizziness but did say he was nauseated earlier which has resolved. He states that he has generalised weakness and pain to the left shoulder and arm. Upon examination the patient does have weakness to the left upper extremity that is at least partially related to pain. Sensation is intact. 07/30: This morning the patient is extremely drowsy. He does respond to verbal stimulation and requires coaxing to interact. He is receiving his third unit of PRBC and is to receive a fourth. He endorses a headache and generalised weakness. Limited evaluation due to patient's drowsiness but no evident worsening of neuro status. Nursing does report that the heplock being used to give the PRBC is the third one this morning. 07/31: The patient went for a closed reduction and internal fixation of a left proximal humerus fracture this morning. The patient is extremely drowsy when seen this afternoon. He briefly woke to repeated verbal stimulation and minimally interacted with coaxing. Nursing reports that the patient has been "zonked" since coming back from PACU. 08/01: When seen the patient is awake and fairly alert. He was sitting up in the bed. He complained of pain to the left arm and difficulty being able to eat since he only had one hand to do things with. He denied any headache or dizziness. He denied any numbness, tingling or other pain to the extremities. Motor strength exam improved somewhat. Remains confused and disoriented to time. His haemoglobin level was noted to have dropped and Nursing was getting ready to start the first of two units PRBC ordered by the Hospitalist. Exam Results 3/13/18 3/13/18 3/14/18 3/14/18 3/15/18 3/15/18 06:00 18:00 06:00 18:00 06:00 18:00 Intake Total 730 ml 2055 ml 240 ml 4308 ml 240 ml Output Total 300 ml 1950 ml 1750 ml 700 ml Balance 730 ml 1755 ml -1710 ml 2558 ml -460 ml Intake Oral 480 ml 0 ml 240 ml 240 ml IV Total 200 ml 1050 ml Packed Cells 1600 ml FFP 1642 ml Platelets 366 ml Blood Product IV Normal Saline Flush 250 ml 255 ml 0 ml Other 1250 ml Output Urine Total 300 ml 1950 ml 1350 ml 700 ml Stool Total 0 ml Estimated Blood Loss 400 ml # Voids 5 6 # Bowel Movements 0 0 0 Vital Signs Date Time Temp Pulse Resp B/P (MAP) Pulse Ox O2 Delivery O2 Flow Rate FiO2 08/01/17 08:00 80 08/01/17 08:00 97.8 82 20 107/79 (88) 100 08/01/17 07:00 100 Nasal Cannula 3.00 08/01/17 06:00 78 08/01/17 04:00 58 08/01/17 04:00 97.6 80 21 120/55 (76) 100 08/01/17 02:16 14 08/01/17 02:00 82 08/01/17 00:00 97.4 85 18 125/58 (80) 100 08/01/17 00:00 88 07/31/17 22:00 90 07/31/17 20:00 98.6 91 18 122/67 (85) 100 07/31/17 19:00 100 Nasal Cannula 3.00 07/31/17 18:00 88 07/31/17 16:00 90 07/31/17 16:00 98.2 90 18 105/60 (75) 100 07/31/17 14:00 89 07/31/17 12:00 98.1 95 13 90/57 (68) 94 07/31/17 12:00 98.2 99 15 90/57 94 07/31/17 12:00 116 07/31/17 10:30 96 14 163/81 (108) 99 Nasal Cannula 3 07/31/17 10:15 98.0 103 13 163/91 99 07/31/17 10:15 96 17 156/80 (105) 96 Nasal Cannula 3 07/31/17 10:00 102 15 143/84 (103) 94 Nasal Cannula 3 07/31/17 09:46 98.5 93 17 132/67 (88) 97 Nasal Cannula 3 07/31/17 06:34 90 07/31/17 06:33 97.8 92 16 141/73 (95) 97 07/31/17 06:33 97 Room Air 07/31/17 06:00 90 07/31/17 04:00 111 07/31/17 04:00 98.6 111 24 158/88 (111) 98 07/31/17 02:00 110 07/31/17 00:00 112 07/31/17 00:00 98.7 112 23 170/81 (110) 97 07/30/17 22:00 120 07/30/17 20:00 88 07/30/17 20:00 97.9 88 16 152/83 (106) 95 07/30/17 19:00 96 Room Air 07/30/17 18:00 98 07/30/17 16:00 88 07/30/17 16:00 98.2 88 23 182/92 (122) 100 07/30/17 14:00 84 07/30/17 12:00 98.4 86 26 160/85 (110) 98 07/30/17 12:00 86 07/30/17 11:11 98.4 77 16 156/74 95 07/30/17 10:56 98.4 75 12 143/73 97 07/30/17 10:00 74 07/30/17 09:42 98.2 77 13 148/65 100 07/30/17 09:27 98.1 90 25 156/72 97 07/30/17 08:00 98.1 96 29 140/69 (92) 99 07/30/17 08:00 96 07/30/17 07:55 98.1 96 29 140/69 99 07/30/17 07:40 98.1 82 15 121/63 96 07/30/17 07:00 99 Room Air 07/30/17 06:10 98.4 82 29 136/68 99 07/30/17 06:00 79 07/30/17 04:00 98.0 88 31 138/57 (84) 98 07/30/17 04:00 88 07/30/17 02:00 94 07/30/17 00:00 98.5 98 22 155/73 (100) 96 07/30/17 00:00 98 07/29/17 22:00 108 07/29/17 20:00 124 07/29/17 20:00 98.1 124 32 143/77 (99) 100 07/29/17 19:00 97 Room Air 07/29/17 18:00 104 07/29/17 16:00 98.6 106 20 142/65 (90) 100 07/29/17 16:00 106 07/29/17 14:00 111 07/29/17 12:00 104 07/29/17 12:00 98.5 104 23 150/72 (98) 95 07/29/17 10:00 98 Physical Examination GENERAL: Awake & fairly alert sitting up in bed. Interacts. Affect flat. No apparent distress. HEENT: Left-sided forehead & facial abrasions healing w/o complication & resolving ecchymosis. PERRLA 3 mm brisk. MMM & pink, tongue midline to protrusion. MUSCULOSKELETAL: VIDALES to command. LUE in sling w/intact dressing to left shoulder & arm. NEUROLOGICAL: Awake & fairly alert, oriented to person & place but not time. Speech clear but soft. Slow thought process. Follows simple commands w/o difficulty. LUE in sling, weak hand grasp. 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 Bilateral iliopsoas 4+/5, bilateral quadriceps 4/5, bilateral hamstrings 3+ to 4/5, bilateral tibialis anterior & bilateral gastrocnemius 4+/5, left extensor hallucis longus 4/5 & right 4+/5. Lab, Micro, Other Results Laboratory Tests Test 07/30/17 04:05 07/30/17 04:09 07/30/17 13:30 07/30/17 21:43 Blood Urea Nitrogen 10 MG/DL Creatinine 0.57 MG/DL Random Glucose 108 MG/DL Total Protein 5.9 GM/DL Albumin 2.9 GM/DL Calcium Level 7.7 MG/DL Phosphorus Level 1.8 MG/DL 2.5 MG/DL Magnesium Level 1.8 MG/DL Alkaline Phosphatase 87 U/L Aspartate Amino Transf (AST/SGOT) 110 U/L Alanine Aminotransferase (ALT/SGPT) 80 U/L Total Bilirubin 3.7 MG/DL Sodium Level 139 MEQ/L Potassium Level 3.4 MEQ/L 3.3 MEQ/L Chloride Level 104 MEQ/L Carbon Dioxide Level 24.0 MEQ/L Anion Gap 11 MEQ/L Estimat Glomerular Filtration Rate 141 ML/MIN White Blood Count 5.1 TH/MM3 5.1 TH/MM3 Red Blood Count 1.99 MIL/MM3 3.48 MIL/MM3 Hemoglobin 6.8 GM/DL 11.0 GM/DL Hematocrit 19.6 % 32.0 % Mean Corpuscular Volume 98.5 FL 91.8 FL Mean Corpuscular Hemoglobin 34.0 PG 31.6 PG Mean Corpuscular Hemoglobin Concent 34.5 % 34.4 % Red Cell Distribution Width 15.9 % 18.8 % Platelet Count 53 TH/MM3 56 TH/MM3 Mean Platelet Volume 9.6 FL 9.0 FL Neutrophils (%) (Auto) 66.0 % Lymphocytes (%) (Auto) 21.3 % Monocytes (%) (Auto) 12.4 % Eosinophils (%) (Auto) 0.1 % Basophils (%) (Auto) 0.2 % Neutrophils # (Auto) 3.4 TH/MM3 Lymphocytes # (Auto) 1.1 TH/MM3 Monocytes # (Auto) 0.6 TH/MM3 Eosinophils # (Auto) 0.0 TH/MM3 Basophils # (Auto) 0.0 TH/MM3 CBC Comment AUTO DIFF Differential Comment AUTO DIFF CONFIRMED Platelet Estimate LOW Platelet Morphology Comment NORMAL Test 07/31/17 03:25 07/31/17 03:51 07/31/17 17:00 08/01/17 04:50 White Blood Count 6.4 TH/MM3 7.5 TH/MM3 Red Blood Count 3.61 MIL/MM3 2.25 MIL/MM3 Hemoglobin 11.3 GM/DL 7.4 GM/DL Hematocrit 33.3 % 21.3 % Mean Corpuscular Volume 92.1 FL 94.7 FL Mean Corpuscular Hemoglobin 31.3 PG 32.9 PG Mean Corpuscular Hemoglobin Concent 34.0 % 34.8 % Red Cell Distribution Width 18.2 % 18.1 % Platelet Count 85 TH/MM3 99 TH/MM3 Mean Platelet Volume 9.3 FL 9.3 FL Neutrophils (%) (Auto) 70.4 % 75.2 % Lymphocytes (%) (Auto) 16.5 % 11.0 % Monocytes (%) (Auto) 12.7 % 13.7 % Eosinophils (%) (Auto) 0.2 % 0.0 % Basophils (%) (Auto) 0.2 % 0.1 % Neutrophils # (Auto) 4.5 TH/MM3 5.7 TH/MM3 Lymphocytes # (Auto) 1.1 TH/MM3 0.8 TH/MM3 Monocytes # (Auto) 0.8 TH/MM3 1.0 TH/MM3 Eosinophils # (Auto) 0.0 TH/MM3 0.0 TH/MM3 Basophils # (Auto) 0.0 TH/MM3 0.0 TH/MM3 CBC Comment AUTO DIFF AUTO DIFF Differential Comment AUTO DIFF CONFIRMED AUTO DIFF CONFIRMED Platelet Estimate LOW LOW Platelet Morphology Comment NORMAL NORMAL Blood Urea Nitrogen 9 MG/DL 11 MG/DL Creatinine 0.58 MG/DL 0.54 MG/DL Random Glucose 99 MG/DL 113 MG/DL Total Protein 6.3 GM/DL 5.6 GM/DL Albumin 3.1 GM/DL 2.7 GM/DL Calcium Level 8.0 MG/DL 7.6 MG/DL Phosphorus Level 2.4 MG/DL 3.0 MG/DL Magnesium Level 1.8 MG/DL 2.0 MG/DL Alkaline Phosphatase 92 U/L 76 U/L Aspartate Amino Transf (AST/SGOT) 92 U/L 54 U/L Alanine Aminotransferase (ALT/SGPT) 71 U/L 45 U/L Total Bilirubin 4.8 MG/DL 3.6 MG/DL Sodium Level 139 MEQ/L 140 MEQ/L Potassium Level 3.4 MEQ/L 4.0 MEQ/L 3.5 MEQ/L Chloride Level 105 MEQ/L 107 MEQ/L Carbon Dioxide Level 23.5 MEQ/L 25.1 MEQ/L Anion Gap 11 MEQ/L 8 MEQ/L Estimat Glomerular Filtration Rate 138 ML/MIN 150 ML/MIN Polychromasia 2.7 % Test 08/01/17 08:27 Prothrombin Time 12.8 SEC Prothromb Time International Ratio 1.3 RATIO Medical Decision Making Impression and Plan Impression: TBI Facial and forehead contusion EtOH abuse and withdrawal The patient is awake & fairly alert this morning. He is oriented to person & place. Some improvement in motor strength upon examination. Intermittent tachycardia. Hypertension yesterday morning. Hypotensive yesterday at noon. Afebrile past 24 hrs. Reviewed labs for today. Improvement worsening in haemoglobin level but improvement in thrombocytopenia. Sodium 140. Interval resolution of hypokalemia & hypophosphatemia. Interval improvement in AST, ALT WNL. CT brain demonstrated a stable SDH along the fax. Plan: Neuro checks. Stat CT brain for any decline in neuro status. Hold pharmacologic DVT prophylaxis. Mechanical DVT prophylaxis. Mobilise patient w/assistance. Physical & Occupational Therapy eval & tx. Hospitalist for medical management. Transfuse 2 units PRBC per Hospitalist. CBC at 1500 and in AM. Marcos Ho Aug 01, 2017 09:43
--- NOTE | 2017-08-01 09:48 | HHI.PR ---
Subjective Remarks Patient is a 71-year-old male who presented via EMS today after he had a fall. Patient states he normally drinks a 24 pack of 16 ounce beers every day states he fell he is not sure how he fell. He states that he had only drank a couple beers yesterday because he was "trying to cut down on his alcohol intake because he had not gotten any more alcohol to replace the alcohol that he needed to intake he then fell and had a large hematoma on his left forehead. He does not recall why he fell or how he fell has some mild frontal headache. Has a history of alcohol-related issues history of syncope in the past and generalized weakness and history of probable alcohol withdrawal seizures We have been asked to help regarding his alcohol withdrawal. Since patient is an extensive heavy drinker that really does not stop drinking ever. He states is the first time he stopped drinking in a very long time We will place him on CIWA protocol as well as a multivitamin thiamine and folic acid Continue on Protonix make sure he has antiemetics I will place him on Librium 3-12 patient is no longer vomiting today Continue Librium and CIWA protocol Discussed with RN and patient Physical therapy and occupational therapy to eval and treat Multivitamin thiamine and folic acid 3-13 has FRACTURED LEFT HUMERUS- TO GO FOR PROCEDURE WITH ORTHO TODAY HAS AMENIA IS BEING TRANSFUSED DW RN AND PT STILL GOING THROUGH WITHDRAWALS AM LAB ELECTROLYTE PROTOCOLS 3-14 had REPAIR OF LEFT HUMERUS BY DR MCCONNELL LETHARGIC AFTER SURGERY SOME HYPOTENSION- WILL GIVE FLUID BOLUS DW RN AND PT NO NEW COMPLAINTS 3-15 LOW HEMOGLOBIN WILL TRANSFUSE AND CONSULT GI MAY BE DUE TO SURGERY VS OTHER DW RN AND PT CONTINUE PT AND OT LEFT UE WITH SOME OOZING FROM WOUND Objective Vitals Vital Signs Date Time Temp Pulse Resp B/P (MAP) Pulse Ox O2 Delivery O2 Flow Rate FiO2 08/01/17 08:00 80 08/01/17 08:00 97.8 82 20 107/79 (88) 100 08/01/17 07:00 100 Nasal Cannula 3.00 08/01/17 06:00 78 08/01/17 04:00 58 08/01/17 04:00 97.6 80 21 120/55 (76) 100 08/01/17 02:16 14 08/01/17 02:00 82 08/01/17 00:00 97.4 85 18 125/58 (80) 100 08/01/17 00:00 88 07/31/17 22:00 90 07/31/17 20:00 98.6 91 18 122/67 (85) 100 07/31/17 19:00 100 Nasal Cannula 3.00 07/31/17 18:00 88 07/31/17 16:00 90 07/31/17 16:00 98.2 90 18 105/60 (75) 100 07/31/17 14:00 89 07/31/17 12:00 98.1 95 13 90/57 (68) 94 07/31/17 12:00 98.2 99 15 90/57 94 07/31/17 12:00 116 07/31/17 10:30 96 14 163/81 (108) 99 Nasal Cannula 3 07/31/17 10:15 98.0 103 13 163/91 99 07/31/17 10:15 96 17 156/80 (105) 96 Nasal Cannula 3 07/31/17 10:00 102 15 143/84 (103) 94 Nasal Cannula 3 07/31/17 09:46 98.5 93 17 132/67 (88) 97 Nasal Cannula 3 I/O 07/31/17 07/31/17 07/31/17 08/01/17 08/01/17 08/01/17 07:00 15:00 23:00 07:00 15:00 23:00 Intake Total 240 ml 4258 ml 50 ml 240 ml Output Total 1950 ml 750 ml 1000 ml 700 ml Balance -1710 ml 3508 ml -950 ml -460 ml Intake Oral 240 ml 240 ml IV Total 1000 ml 50 ml FFP 1642 ml Platelets 366 ml Blood Product IV Normal Saline Flush 0 ml Other 1250 ml Output Urine Total 1950 ml 350 ml 1000 ml 700 ml Stool Total 0 ml Estimated Blood Loss 400 ml # Bowel Movements 0 0 Result Diagram: 08/01/17 0450 08/01/17 0450 Other Results Laboratory Tests Test 07/30/17 04:05 07/30/17 04:09 07/30/17 13:30 07/30/17 21:43 Blood Urea Nitrogen 10 MG/DL Creatinine 0.57 MG/DL Random Glucose 108 MG/DL Total Protein 5.9 GM/DL Albumin 2.9 GM/DL Calcium Level 7.7 MG/DL Phosphorus Level 1.8 MG/DL 2.5 MG/DL Magnesium Level 1.8 MG/DL Alkaline Phosphatase 87 U/L Aspartate Amino Transf (AST/SGOT) 110 U/L Alanine Aminotransferase (ALT/SGPT) 80 U/L Total Bilirubin 3.7 MG/DL Sodium Level 139 MEQ/L Potassium Level 3.4 MEQ/L 3.3 MEQ/L Chloride Level 104 MEQ/L Carbon Dioxide Level 24.0 MEQ/L Anion Gap 11 MEQ/L Estimat Glomerular Filtration Rate 141 ML/MIN White Blood Count 5.1 TH/MM3 5.1 TH/MM3 Red Blood Count 1.99 MIL/MM3 3.48 MIL/MM3 Hemoglobin 6.8 GM/DL 11.0 GM/DL Hematocrit 19.6 % 32.0 % Mean Corpuscular Volume 98.5 FL 91.8 FL Mean Corpuscular Hemoglobin 34.0 PG 31.6 PG Mean Corpuscular Hemoglobin Concent 34.5 % 34.4 % Red Cell Distribution Width 15.9 % 18.8 % Platelet Count 53 TH/MM3 56 TH/MM3 Mean Platelet Volume 9.6 FL 9.0 FL Neutrophils (%) (Auto) 66.0 % Lymphocytes (%) (Auto) 21.3 % Monocytes (%) (Auto) 12.4 % Eosinophils (%) (Auto) 0.1 % Basophils (%) (Auto) 0.2 % Neutrophils # (Auto) 3.4 TH/MM3 Lymphocytes # (Auto) 1.1 TH/MM3 Monocytes # (Auto) 0.6 TH/MM3 Eosinophils # (Auto) 0.0 TH/MM3 Basophils # (Auto) 0.0 TH/MM3 CBC Comment AUTO DIFF Differential Comment AUTO DIFF CONFIRMED Platelet Estimate LOW Platelet Morphology Comment NORMAL Test 07/31/17 03:25 07/31/17 03:51 07/31/17 17:00 08/01/17 04:50 White Blood Count 6.4 TH/MM3 7.5 TH/MM3 Red Blood Count 3.61 MIL/MM3 2.25 MIL/MM3 Hemoglobin 11.3 GM/DL 7.4 GM/DL Hematocrit 33.3 % 21.3 % Mean Corpuscular Volume 92.1 FL 94.7 FL Mean Corpuscular Hemoglobin 31.3 PG 32.9 PG Mean Corpuscular Hemoglobin Concent 34.0 % 34.8 % Red Cell Distribution Width 18.2 % 18.1 % Platelet Count 85 TH/MM3 99 TH/MM3 Mean Platelet Volume 9.3 FL 9.3 FL Neutrophils (%) (Auto) 70.4 % 75.2 % Lymphocytes (%) (Auto) 16.5 % 11.0 % Monocytes (%) (Auto) 12.7 % 13.7 % Eosinophils (%) (Auto) 0.2 % 0.0 % Basophils (%) (Auto) 0.2 % 0.1 % Neutrophils # (Auto) 4.5 TH/MM3 5.7 TH/MM3 Lymphocytes # (Auto) 1.1 TH/MM3 0.8 TH/MM3 Monocytes # (Auto) 0.8 TH/MM3 1.0 TH/MM3 Eosinophils # (Auto) 0.0 TH/MM3 0.0 TH/MM3 Basophils # (Auto) 0.0 TH/MM3 0.0 TH/MM3 CBC Comment AUTO DIFF AUTO DIFF Differential Comment AUTO DIFF CONFIRMED AUTO DIFF CONFIRMED Platelet Estimate LOW LOW Platelet Morphology Comment NORMAL NORMAL Blood Urea Nitrogen 9 MG/DL 11 MG/DL Creatinine 0.58 MG/DL 0.54 MG/DL Random Glucose 99 MG/DL 113 MG/DL Total Protein 6.3 GM/DL 5.6 GM/DL Albumin 3.1 GM/DL 2.7 GM/DL Calcium Level 8.0 MG/DL 7.6 MG/DL Phosphorus Level 2.4 MG/DL 3.0 MG/DL Magnesium Level 1.8 MG/DL 2.0 MG/DL Alkaline Phosphatase 92 U/L 76 U/L Aspartate Amino Transf (AST/SGOT) 92 U/L 54 U/L Alanine Aminotransferase (ALT/SGPT) 71 U/L 45 U/L Total Bilirubin 4.8 MG/DL 3.6 MG/DL Sodium Level 139 MEQ/L 140 MEQ/L Potassium Level 3.4 MEQ/L 4.0 MEQ/L 3.5 MEQ/L Chloride Level 105 MEQ/L 107 MEQ/L Carbon Dioxide Level 23.5 MEQ/L 25.1 MEQ/L Anion Gap 11 MEQ/L 8 MEQ/L Estimat Glomerular Filtration Rate 138 ML/MIN 150 ML/MIN Polychromasia 2.7 % Test 08/01/17 08:27 Prothrombin Time 12.8 SEC Prothromb Time International Ratio 1.3 RATIO Imaging Last Impressions Shoulder X-Ray 07/31/17 0000 Signed Impressions: Service Date/Time: Monday, July 31, 2017 08:55 - CONCLUSION: 1. Postoperative fixation as above. Niranjan Watson MD Head CT 07/30/17 0600 Signed Impressions: Service Date/Time: Sunday, July 30, 2017 04:30 - CONCLUSION: 1. Stable small subdural hematoma along the falx. Joshua Edmonds Jr., MD Chest CT 07/28/17 0000 Signed Impressions: Service Date/Time: Friday, July 28, 2017 01:25 - CONCLUSION: 1. Tortuous mediastinal vessels. No mass or other acute cardiopulmonary disease. 2. Coronary artery calcification. 3. Old left rib fractures. Nehemias Gonzalez MD Chest X-Ray 07/27/17 2335 Signed Impressions: Service Date/Time: Thursday, July 27, 2017 23:46 - CONCLUSION: Apparent mild mediastinal widening and a CT of the chest with intravenous contrast is suggested if felt clinically indicated. The lungs are clear. Nehemias Gonzalez MD Objective Remarks GENERAL: This is a well-nourished, well-developed patient, in no apparent distress. Appears quite disheveled SKIN: No rashes, ecchymoses or lesions. Cool and dry. Ecchymosis and bruising above the left eye forehead area large left forehead hematoma HEAD: Atraumatic. Normocephalic. No temporal or scalp tenderness. Large left forehead hematoma EYES: Pupils equal round and reactive. Extraocular motions intact. No scleral icterus. No injection or drainage. ENT: Nose without bleeding, purulent drainage or septal hematoma. Throat without erythema, tonsillar hypertrophy or exudate. Uvula midline. Airway patent. NECK: Trachea midline. No JVD or lymphadenopathy. Supple, nontender, no meningeal signs. CARDIOVASCULAR: Regular rate and rhythm without murmurs, gallops, or rubs. S1- S2 no S3 or S4 RESPIRATORY: Clear to auscultation. Breath sounds equal bilaterally. No wheezes , rales, or rhonchi. GASTROINTESTINAL: Abdomen soft, non-tender, nondistended. No hepato-splenomegaly , or palpable masses. No guarding. MUSCULOSKELETAL: Extremities without clubbing, cyanosis, or edema. No joint tenderness, effusion, or edema noted. No calf tenderness. Negative Homans sign bilaterally.LEFT SHOULDER HUMERUS DECREASED RANGE OF MOTION DUE TO PAIN AND FRACTURE- LEFT UE IN SLING AND DRESSED NEUROLOGICAL: Awake and alert. Cranial nerves II through XII intact. Motor and sensory grossly within normal limits. 4 out of 5 muscle strength in all muscle groups. Normal speech. Insight and judgment limited Mood and behavior somewhat appropriate Procedures Date of Surgery: Jul 31, 2017 Preoperative Diagnosis: Displaced left humeral neck fracture, displaced left humeral shaft fracture Postoperative Diagnosis: Procedure: Open reduction internal fixation left humeral neck fracture, open reduction internal fixation left humeral shaft fracture Anesthesia: Gen. Surgeon: Thaddeus Mcconnell [employer] Heat Pump Machinist(s): NAYANA Jain PA-C The surgical procedure was assisted by my physician assistant track and field coach. My P.A. presence was necessary throughout this case for the manipulation and positioning of the surgical extremity. My P.A. was assisting me throughout the duration of this procedure. The skill set of a physician assistant track and field coach was medically necessary to complete this procedure. During the surgical case the rn surgical pcu was working at the back table and the physician assistant track and field coach was directly assisting me. Operation and Findings: Patient was seen and evaluated preoperatively. Patient was found to have a displaced left proximal humerus fracture with left humeral shaft fracture. The risks and benefits of surgical and nonsurgical options were discussed in detail and informed consent was obtained for surgery. Patient was brought to the operating room and placed on or table. IV sedation and GETA were administered by anesthesiologist. Antibiotics were given prior to incision. Operative arm and shoulder were prepped with alcohol followed by Hibiclens and draped usual sterile fashion. Timeout procedure was performed. Procedure began with a 10 inch incision over the anterior shoulder. Cephalic vein was identified. A deltopectoral approach was utilized proximally. Distally the brachialis was split.. The fracture was now visualized. Soft tissue was retracted. A #2 FiberWire suture was placed into the rotator rotator cuff and greater tuberosity. Patient was noted to have significant rotator cuff tearing. #2 FiberWire sutures were placed into the supraspinatus and subscapularis tendon. Attention was now turned to reduction of the humeral shaft. Gentle traction was applied. Fracture fragments were manipulated to achieve excellent reduction. There was mild comminution of the proximal shaft and metaphyseal region. Fracture keyed into excellent alignment. 2.7 cortical lag screws were used to compress fracture fragments. Next attention was turned to the humeral neck fracture. The humeral shaft was reduced to the humeral head. Fracture was manipulated to achieve excellent reduction. Multiplanar fluoroscopy confirmed well aligned fracture. Multiple K wires were used to hold provisional fixation. A Synthes long proximal humerus plate was selected to span all fractures. Plate was provisionally held in place K wires. 3.5 cortical screws were used to compress plate to bone. Fluoroscopy confirmed appropriate plate placement and fracture reduction. Multiple locking screws were now placed in the humeral head. Screws were predrilled and premeasured for appropriate length. Care was taken not to penetrate the articular surface. Additional screws were placed in the humeral shaft. The FiberWire suture was passed through the holes of the plate and sutured to the plate for additional stability. Final fluoroscopy revealed well aligned fracture with well-placed hardware. Wound was thoroughly irrigated. Fascia was closed with #1 Vicryl, subcutaneous tissues closed with 3-0 Vicryl, and skin was closed with jose luis. Sterile dressings were applied. Patient was placed into a sling. Patient was awakened and transferred to recovery in stable condition. Needle and sponge counts were correct. Thaddeus Mcconnell MD Jul 31, 2017 09:13 Medications and IVs Current Medications Sodium Chloride 1,000 ml @ 1,000 mls/hr Q1H IV Last administered on 07/28/17at 00:10; Start 07/28/17 at 00:00; Stop 07/28/17 at 00:59; Status DC Lorazepam (Ativan Inj) 1 mg ONCE ONCE IV PUSH Last administered on 07/28/17at 00:10; Start 07/28/17 at 00:00; Stop 07/28/17 at 00:01; Status DC Iohexol (Omnipaque 350 Inj) 70 ml STK-MED ONCE IVCONTRAST Last administered on 07/28/17at 01:26; Start 07/28/17 at 01:26; Stop 07/28/17 at 01:27; Status DC Acetaminophen/ Hydrocodone Bitart (Mabel 5-325 Mg) 1 tab Q4H PRN PO PAIN SCALE 3 TO 5; Start 07/28/17 at 02:00; Stop 07/31/17 at 09:27; Status DC Morphine Sulfate (Morphine Inj) 4 mg Q3H PRN IV Pain 6-10;if unable to take PO Last administered on 07/30/17at 01:00; Start 07/28/17 at 02:00 Naloxone HCl (Narcan Inj) 0.4 mg UNSCH PRN IV PUSH SEE LABEL COMMENTS; Start at 02:00 Potassium Chloride/Dextrose/ Sod Cl 1,000 ml @ 100 mls/hr Q10H IV Last administered on 08/01/17at 06:01; Start 07/28/17 at 01:46 Docusate Sodium (Colace) 100 mg BID PO Last administered on 07/31/17at 20:56; Start 07/28/17 at 09:00 Pantoprazole Sodium (Protonix) 40 mg DAILY PO Last administered on 07/29/17at 09 :40; Start 07/28/17 at 09:00 Ondansetron HCl (Zofran Inj) 4 mg Q6H PRN IV PUSH NAUSEA OR VOMITING Last administered on 07/29/17at 19:46; Start 07/28/17 at 02:00 Pneumococcal Polyvalent Vaccine (Pneumovax-23 Inj) 25 mcg ONCE ONCE IM ; Start 07/29/17 at 09:00; Stop 07/29/17 at 09:01; Status DC Influenza Virus Vaccine (Flu (Quadrivalent) Vaccine Inj) 0.5 ml ONCE ONCE IM ; Start 07/29/17 at 09:00; Stop 07/29/17 at 09:01; Status DC Cholecalciferol (Vitamin D3) 2,000 units DAILY PO Last administered on at 09:40; Start 07/29/17 at 09:00; Stop 07/31/17 at 09:28; Status DC Amylase/Lipase/ Protease (Creon 24-76-120) 1 cap TID PO Last administered on at 17:50; Start 07/28/17 at 13:00 Pantoprazole Sodium (Protonix) 40 mg DAILY PO ; Start 07/29/17 at 09:00; Status UNV Sodium Chloride (NS Flush) 2 ml UNSCH PRN IV FLUSH FLUSH AFTER USING IV ACCESS ; Start 07/28/17 at 14:00 Sodium Chloride (NS Flush) 2 ml BID IV FLUSH Last administered on 07/31/17at 20: 55; Start 07/28/17 at 21:00 Multivitamins 10 ml/Folic Acid 1 mg/Sodium Chloride 510.2 ml @ 125 mls/hr Q24H IV Last administered on 07/28/17at 20:38; Start 07/28/17 at 16:00; Stop at 10:35; Status DC Thiamine HCl 100 mg/Sodium Chloride 101 ml @ 100 mls/hr Q24H IV ; Start at 14:00; Stop 07/28/17 at 14:34; Status DC Ondansetron HCl (Zofran Inj) 8 mg Q4H PRN IV PUSH NAUSEA OR VOMITING Last administered on 07/28/17at 23:46; Start 07/28/17 at 14:00 Clonidine (Catapres) 0.1 mg Q6H PRN PO SEE LABEL COMMENTS; Start 07/28/17 at 14 :00 Flumazenil (Romazicon Inj) 0.2 mg Q1M PRN IV PUSH SEE LABEL COMMENTS; Start 04/06 at 14:00; Stop 07/31/17 at 09:17; Status DC Lorazepam (Ativan) 1 mg Q4H PRN PO CIWA 8 - 10 Last administered on 07/29/17at 19:46; Start 07/28/17 at 14:00 Lorazepam (Ativan Inj) 1 mg Q4H PRN IV PUSH CIWA 8 - 10 Last administered on at 16:08; Start 07/28/17 at 14:00 Lorazepam (Ativan) 2 mg Q2H PRN PO CIWA 11-14; Start 07/28/17 at 14:00 Lorazepam (Ativan Inj) 2 mg Q2H PRN IV PUSH CIWA 11-14 Last administered on at 03:20; Start 07/28/17 at 14:00 Lorazepam (Ativan Inj) 2 mg Q1H PRN IV PUSH CIWA 15-20 Last administered on at 23:02; Start 07/28/17 at 14:00 Lorazepam (Ativan Inj) 2 mg Q15M PRN IV PUSH CIWA > 20; Start 07/28/17 at 14:00 Haloperidol Lactate (Haldol Inj) 2 mg Q15M PRN IM SEE LABEL COMMENTS; Start 04/06 at 14:00 Flumazenil (Romazicon Inj) 0.2 mg Q1M PRN IV PUSH SEE LABEL COMMENTS; Start 04/06 at 14:00 Prochlorperazine Edisylate (Compazine Inj) 10 mg Q6H PRN IV PUSH NAUSEA/ VOMITING; Start 07/28/17 at 14:15 Pantoprazole Sodium (Protonix Inj) 40 mg Q12H IV PUSH Last administered on 08/01at 06:01; Start 07/28/17 at 18:00 Thiamine HCl 100 mg/Sodium Chloride 101 ml @ 100 mls/hr Q24H IV Last administered on 07/28/17at 16:41; Start 07/28/17 at 15:00; Stop 07/29/17 at 10:35 ; Status DC Chlordiazepoxide (Librium) 50 mg Q6H PRN PO WITHDRAWAL Last administered on at 06:03; Start 07/28/17 at 14:45 Multivitamins/ Minerals Therapeutic (Theragran M Tab) 1 tab DAILY PO Last administered on 07/29/17at 11:56; Start 07/29/17 at 10:00 Thiamine HCl (Vitamin B1) 100 mg DAILY PO ; Start 07/30/17 at 09:00 Thiamine HCl (Vitamin B1) 100 mg ONCE ONCE PO Last administered on 07/29/17at 11:47; Start 07/29/17 at 10:00; Stop 07/29/17 at 10:37; Status DC Folic Acid (Folate) 1 mg ONCE ONCE PO Last administered on 07/29/17at 11:47; Start 07/29/17 at 10:00; Stop 07/29/17 at 10:36; Status DC Folic Acid (Folate) 1 mg DAILY PO ; Start 07/30/17 at 09:00 Potassium Chloride 100 ml @ 50 mls/hr Q2H PRN IV For Potassium 2.8 - 3.2 mEq/L ; Start 07/30/17 at 10:00 Potassium Chloride 100 ml @ 50 mls/hr Q2H PRN IV For Potassium 2.8 - 3.2 mEq/L ; Start 07/30/17 at 10:00 Potassium Bicarb/ Potassium Chloride (K-Lyte Cl Eff) 50 meq UNSCH PRN PO For Potassium 3.3 - 3.5 mEq/L; Start 07/30/17 at 10:00 Potassium Chloride 100 ml @ 25 mls/hr UNSCH PRN IV For Potassium 3.3 - 3.5 mEq /L; Start 07/30/17 at 10:00 Potassium Chloride 100 ml @ 50 mls/hr Q2H PRN IV For Potassium 3.3 - 3.5 mEq/ L Last administered on 07/31/17at 03:20; Start 07/30/17 at 10:00 Magnesium Sulfate 4 gm/Sodium Chloride 100 ml @ 50 mls/hr UNSCH PRN IV For Magnesium 0.9 - 1.1 mg/dL; Start 07/30/17 at 10:00 Magnesium Oxide (Mag-Ox) 800 mg UNSCH PRN PO For Magnesium 1.2 - 1.6 mg/dL; Start 07/30/17 at 10:00 Magnesium Sulfate 2 gm/Sodium Chloride 100 ml @ 50 mls/hr UNSCH PRN IV For Magnesium 1.2 - 1.6 mg/dL; Start 07/30/17 at 10:00 Potassium Phosphate (K-Phos) 2,000 mg Q4H PRN PO For Phosphorus < 2.5 mg/dL; Start 07/30/17 at 10:00 Sodium Phosphate 30 mmol/Sodium Chloride 250 ml @ 42 mls/hr UNSCH PRN IV For Phosphorus < 2.5 mg/dL Last administered on 07/31/17at 14:00; Start 07/30/17 at 10:00 Potassium Phosphate (K-Phos) 2,000 mg UNSCH PRN PO/TUBE SEE LABEL COMMENTS; Start 07/30/17 at 10:00 Potassium Phosphate 30 mmol/ Sodium Chloride 260 ml @ 42 mls/hr UNSCH PRN IV SEE LABEL COMMENTS; Start 07/30/17 at 10:00 Acetaminophen 0 ml @ As Directed STK-MED ONCE IV ; Start 07/31/17 at 06:12; Stop 07/31/17 at 06:13; Status DC Vancomycin HCl (Vancomycin Inj) 1,000 mg STK-MED ONCE .ROUTE Last administered on 07/31/17at 07:45; Start 07/31/17 at 06:50; Stop 07/31/17 at 06:51; Status DC Gentamicin Sulfate (Gentamicin Inj) 240 mg STK-MED ONCE .ROUTE Last administered on 07/31/17at 07:57; Start 07/31/17 at 06:50; Stop 07/31/17 at 06:51 ; Status DC Sodium Chloride 250 ml @ As Directed STK-MED ONCE .ROUTE Last administered on 07/31/17at 07:45; Start 07/31/17 at 06:50; Stop 07/31/17 at 06:51; Status DC Cefazolin Sodium/ Dextrose 50 ml @ As Directed STK-MED ONCE .ROUTE Last administered on 07/31/17at 07:50; Start 07/31/17 at 07:48; Stop 07/31/17 at 07:49 ; Status DC Cefazolin Sodium/ Dextrose 50 ml @ 100 mls/hr Q8H IV Last administered on 08/01at 08:00; Start 07/31/17 at 16:00; Stop 08/02/17 at 08:29 Acetaminophen/ Hydrocodone Bitart (Mabel 10-325 Mg) 1 tab Q3H PRN PO pain 2<10 Last administered on 08/01/17at 01:16; Start 07/31/17 at 09:15 Diphenhydramine HCl (Benadryl) 25 mg Q6H PRN PO ITCHING; Start 07/31/17 at 09: 15 Ergocalciferol (Drisdol) 50,000 units Q7D PO ; Start 07/31/17 at 10:00 Cholecalciferol (Vitamin D3) 1,000 units DAILY PO ; Start 08/01/17 at 09:00 Morphine Sulfate (*morphine INJ PERIprocedure ONLY) 10 mg STK-MED ONCE .ROUTE Last administered on 07/31/17at 09:58; Start 07/31/17 at 09:58; Stop 07/31/17 at 09:59; Status DC Fentanyl Citrate (fentaNYL INJ) 200 mcg STK-MED ONCE .ROUTE ; Start 07/31/17 at 09:59; Stop 07/31/17 at 10:00; Status DC Miscellaneous Information ALL NURSING DEPARTME... UNSCH PRN .XX SEE LABEL COMMENTS; Start 07/31/17 at 10:15; Stop 08/01/17 at 10:14 Sodium Chloride 1,000 ml @ 999 mls/hr BOLUS ONCE IV Last administered on 07/31at 13:40; Start 07/31/17 at 13:15; Stop 07/31/17 at 14:15; Status DC A/P Problem List: (1) Subdural hematoma ICD Code: I62.00 - Nontraumatic subdural hemorrhage, unspecified Status: Acute (2) Alcohol intoxication ICD Code: F10.929 - Alcohol use, unspecified with intoxication, unspecified Status: Acute (3) Alcohol withdrawal ICD Code: F10.239 - Alcohol dependence with withdrawal, unspecified Status: Acute (4) Generalized weakness ICD Code: R53.1 - Weakness Status: Acute (5) TBI (traumatic brain injury) ICD Code: S06.9X9A - Unspecified intracranial injury with loss of consciousness of unspecified duration, initial encounter (6) Right humeral fracture ICD Code: S42.301A - Unspecified fracture of shaft of humerus, right arm, initial encounter for closed fracture Assessment and Plan Subdural hematoma secondary to fall/TBI -patient was on chronic aspirin will hold this Neurosurgery is the attending Alcohol withdrawals possible alcoholic seizures from withdrawals of alcohol in the past Continue on CIWA protocol with Ativan and Haldol and Librium as needed Seizure precautions Multivitamin, thiamine, folic acid, Antiemetics Catapres as needed for blood pressure NAUSEA AND VOMITING -RESOLVED Thrombocytopenia suspect secondary to alcohol abuse long-term Physical therapy and occupational therapy to eval and treat Elevated LFTs secondary to chronic alcohol abuse Medical noncompliance ANEMIA REPLACE- WILL TRANSFUSE AGAIN HYPOKALEMIA REPLACE HYPOPHOSPHATEMIA REPLACE LEFT HUMERUS FRACTURE-ORTHO CONSULT- FOR SURGERY 3-[address] MCCONNELL ELECTROLYTE PANEL AM [facility] GI PROPHYLAXIS WITH PROTONIX DVT WITH SCDS AND JERICHO ALCANTAR DR RN AND PT PT AND OT ANEMIA WILL TRANSFUSE NEEDS GI EVAL AM LABS Discharge Planning ONCE CLEARED BY NEUROSURGERY Delmer Boyer DO Aug 01, 2017 09:48
[2017-08-01] MEDS: CHOLECALCIFEROL (VIT D3) 1000 UNIT TAB PO SCH (11:37)
[2017-08-01] MEDS: DOCUSATE SODIUM 100 MG CAP PO SCH ×2 (11:37→21:00)
[2017-08-01] MEDS: LIPASE/PROTEASE/AMYLASE (24,000/76,000/120,000) CAP PO SCH ×3 (11:37→18:21)
[2017-08-01] MEDS: FOLIC ACID 1 MG TAB PO SCH (11:37)
[2017-08-01] MEDS: THIAMINE HCL 100 MG TAB PO SCH (11:37)
[2017-08-01] MEDS: PANTOPRAZOLE SOD 40 MG DELAYED RELEASE TAB PO SCH (11:37)
[2017-08-01] MEDS: MULTIVITAMINS/MINERALS THERAPEUTIC TAB PO SCH (11:37)
[2017-08-01] MEDS: SODIUM CHLORIDE 0.9% FLUSH 10 ML FLUSH IV FLUSH SCH ×2 (11:38→21:00)
[2017-08-01 15:29] LABS: HEMATOCRIT 31.1 % (39.0-51.0); HEMOGLOBIN 10.5 GM/DL (13.0-17.0); MEAN CELL VOLUME 92.7 FL (80.0-100.0); MEAN CORPUSCULAR HEMOGLOBIN 31.2 PG (27.0-34.0); MEAN CORPUSCULAR HGB CONC 33.7 % (32.0-36.0); MEAN PLATELET VOLUME 9.1 FL (7.0-11.0); PLATELET COUNT 105 TH/MM3 (150-450); RED BLOOD COUNT 3.36 MIL/MM3 (4.50-5.90); RED CELL DISTRIBUTION WIDTH 17.3 % (11.6-17.2); WHITE BLOOD COUNT 7.2 TH/MM3 (4.0-11.0)
--- NOTE | 2017-08-01 16:22 | RADRPT ---
EXAM DATE/TIME: 08/01/2017 15:53 [facility] COMPARISON: No previous studies available for comparison. INDICATIONS : Cirrhosis. MEDICAL HISTORY : Arthritis. ETOH. SURGICAL HISTORY : Tonsillectomy. ORIF, left humerus. ENCOUNTER: Initial ACUITY: 1 day PAIN SCORE: 0/10 LOCATION: Abdomen. MEASUREMENTS: LIVER: 17.5 cm length COMMON DUCT: 5 mm RIGHT KIDNEY: 11.5 x 5.7 x 5.4 cm SPLEEN: Not visualized FINDINGS: Liver mildly enlarged and fatty infiltrated. Spleen not visualized, related to recent surgical proced ure. Portal venous flow normal direction. Common bile that measures 5 mm. No gallstones. Right kidney unremarkable. No free fluid. CONCLUSION: 1. Fatty liver. No gallstones or biliary ductal dilatation. Niranjan Watson MD on August 01, 2017 at 16:17 Board Certified Radiologist. This report was verified electronically.
[2017-08-01] MEDS: MORPHINE SULFATE 4 MG/ML INJ IV PRN (23:23)
[2017-08-02] VITALS (12 sets, daily range): BP systolic 118–144; BP diastolic 60–70; PULSE 70–114; RESP 12–21; TEMP 97.7–98.4; O2SAT 95–99
[2017-08-02] MEDS: ACETAMINOPHEN/HYDROcodone 325 MG/10 MG TAB PO PRN ×3 (01:05→20:33)
[2017-08-02] MEDS: D5-NS + KCL 20 MEQ INJ 1,000 ML IV SCH (01:46)
[2017-08-02 05:10] LABS: AUTOMATED NEUTROPHIL # 3.5 TH/MM3 (1.8-7.7); BASOPHIL % 0.3 % (0.0-2.0); EOSINOPHIL % 0.7 % (0.0-4.0); HEMOGLOBIN 9.5 GM/DL (13.0-17.0); LYMPH % 23.6 % (9.0-44.0); LYMPHOCYTE # 1.4 TH/MM3 (1.0-4.8); MEAN CELL VOLUME 91.3 FL (80.0-100.0); MEAN CORPUSCULAR HEMOGLOBIN 31.1 PG (27.0-34.0); MONO % 17.5 % (0.0-8.0); NEUT % 57.9 % (16.0-70.0); PLATELET COUNT 101 TH/MM3 (150-450); RED BLOOD COUNT 3.06 MIL/MM3 (4.50-5.90); RED CELL DISTRIBUTION WIDTH 17.6 % (11.6-17.2)
[2017-08-02 05:23] LABS: INTERNATIONAL NORMALIZED RATIO 1.2 RATIO; PROTHROMBIN TIME - PATIENT 12.4 SEC (9.8-11.6)
[2017-08-02 05:39] LABS: ALBUMIN 2.7 GM/DL (3.4-5.0); AST (GOT) 73 U/L (15-37); BICARBONATE 24.2 MEQ/L (21.0-32.0); BLOOD UREA NITROGEN 10 MG/DL (7-18); CHLORIDE 104 MEQ/L (98-107); CREATININE 0.56 MG/DL (0.60-1.30); GLOMERULAR FILTRATION RATE 144 ML/MIN (>89); GLUCOSE,RANDOM 89 MG/DL (74-106); MAGNESIUM 1.9 MG/DL (1.5-2.5); SODIUM (NA) 137 MEQ/L (136-145)
[2017-08-02 05:40] LABS: ALT (GPT) 47 U/L (12-78); DIRECT BILIRUBIN ADULT 1.5 MG/DL (0.0-0.2); PHOSPHORUS 2.3 MG/DL (2.5-4.9)
[2017-08-02 05:42] LABS: ALKALINE PHOSPHATASE 106 U/L (45-117); TOTAL BILIRUBIN ADULT 3.5 MG/DL (0.2-1.0); TOTAL PROTEIN 5.7 GM/DL (6.4-8.2)
[2017-08-02] MEDS: PANTOPRAZOLE SODIUM 40 MG VIAL IV PUSH SCH ×3 (06:15→20:24)
--- NOTE | 2017-08-02 07:31 | PD.ORT.PN ---
Subjective Subjective Remarks POD 2 s/p ORIF left proximal humerus nurse reports was confused yesterday. patient reports doign well Objective Vitals Vital Signs Date Time Temp Pulse Resp B/P (MAP) Pulse Ox O2 Delivery O2 Flow Rate FiO2 08/02/17 06:00 70 08/02/17 04:00 85 08/02/17 04:00 97.7 85 13 126/68 (87) 98 08/02/17 02:00 84 08/02/17 00:00 97.8 93 12 144/68 (93) 96 08/02/17 00:00 93 08/01/17 22:00 91 08/01/17 20:00 98.2 92 18 132/69 (90) 99 08/01/17 20:00 92 08/01/17 19:00 100 Nasal Cannula 3.00 08/01/17 18:00 70 08/01/17 16:00 80 08/01/17 16:00 98.0 74 12 145/68 (93) 97 08/01/17 14:00 76 08/01/17 12:55 97.7 69 12 152/59 100 08/01/17 12:40 97.7 68 17 149/65 100 08/01/17 12:00 70 08/01/17 12:00 97.7 70 12 145/66 (92) 99 08/01/17 10:00 78 08/01/17 10:00 97.7 78 14 107/57 99 08/01/17 09:45 97.8 74 15 104/59 100 08/01/17 08:00 80 08/01/17 08:00 97.8 82 20 107/79 (88) 100 I/O 08/01/17 08/01/17 08/01/17 08/02/17 08/02/17 08/02/17 07:00 15:00 23:00 07:00 15:00 23:00 Intake Total 240 ml 857 ml 1430 ml 2000 ml Output Total 700 ml 750 ml 950 ml Balance -460 ml 857 ml 680 ml 1050 ml Intake Oral 240 ml 480 ml 1000 ml IV Total 50 ml 950 ml 1000 ml Packed Cells 800 ml Blood Product IV Normal Saline Flush 7 ml Output Urine Total 700 ml 750 ml 950 ml Stool Total 0 ml # Bowel Movements 0 Result Diagram: 08/02/177 08/02/17406 Other Results Laboratory Tests Test 08/01/17 08:27 08/02/17 04:07 Prothromb Time International Ratio 1.3 RATIO 1.2 RATIO Prothrombin Time 12.8 SEC (9.8-11.6) 12.4 SEC (9.8-11.6) Imaging Last 24 hours Impressions Shoulder X-Ray 07/29/17 0000 Signed Impressions: Service Date/Time: Saturday, July 29, 2017 15:52 - CONCLUSION: Proximal humerus fracture. Boy Robles MD Objective Remarks LUE: +swelling of upper arm. +bruising. full sensation to median/ulnar nerve distribution. full radial nerve function with full ability to extend fingers and wrist. dressings clean and dry. +sling/swathe Assessment & Plan Assessment and Plan 1) Left Segmental Proximal Humerus Fracture s/p ORIF - POD 2 -NWB -daily dressing changes -maintain sling/swathe -ortho surgeries complete -f/u with No or PA in 2 weeks Eric Gaytan/Grouter Helper GERSON Aug 02, 2017 07:31
[2017-08-02] MEDS: SODIUM CHLORIDE 0.9% FLUSH 10 ML FLUSH IV FLUSH SCH ×2 (08:17→20:33)
[2017-08-02] MEDS: ceFAZolin 2 GM PREMIX 50 ML IV SCH (08:17)
[2017-08-02] MEDS: FOLIC ACID 1 MG TAB PO SCH (08:18)
[2017-08-02] MEDS: MULTIVITAMINS/MINERALS THERAPEUTIC TAB PO SCH (08:18)
[2017-08-02] MEDS: DOCUSATE SODIUM 100 MG CAP PO SCH ×2 (08:18→20:32)
[2017-08-02] MEDS: LIPASE/PROTEASE/AMYLASE (24,000/76,000/120,000) CAP PO SCH ×3 (08:18→17:38)
[2017-08-02] MEDS: THIAMINE HCL 100 MG TAB PO SCH (08:18)
[2017-08-02] MEDS: CHOLECALCIFEROL (VIT D3) 1000 UNIT TAB PO SCH (08:18)
[2017-08-02] MEDS: PANTOPRAZOLE SOD 40 MG DELAYED RELEASE TAB PO SCH (08:19)
[2017-08-02] MEDS ORDERED: POTASSIUM CHLORIDE 10 MEQ CONTROLLED RELEASE TAB PO ONE (09:15)
--- NOTE | 2017-08-02 09:23 | HHI.NSPN ---
(Marcos Ho) History Chief Complaint: Left arm pain (Marcos Ho) Interval History 07/28: 71 yo male presented to ED after falll. He doesnt recall anything in regards to the fall. He usuallly drinks around 12 beers a day. Yesterday only drank two since he was trying to cut back. 07/29: When seen this morning the patient is awake and alert. He is sitting up in the bed watching TV. He denies any headache or dizziness but did say he was nauseated earlier which has resolved. He states that he has generalised weakness and pain to the left shoulder and arm. Upon examination the patient does have weakness to the left upper extremity that is at least partially related to pain. Sensation is intact. 07/30: This morning the patient is extremely drowsy. He does respond to verbal stimulation and requires coaxing to interact. He is receiving his third unit of PRBC and is to receive a fourth. He endorses a headache and generalised weakness. Limited evaluation due to patient's drowsiness but no evident worsening of neuro status. Nursing does report that the heplock being used to give the PRBC is the third one this morning. 07/31: The patient went for a closed reduction and internal fixation of a left proximal humerus fracture this morning. The patient is extremely drowsy when seen this afternoon. He briefly woke to repeated verbal stimulation and minimally interacted with coaxing. Nursing reports that the patient has been "zonked" since coming back from PACU. 08/01: When seen the patient is awake and fairly alert. He was sitting up in the bed. He complained of pain to the left arm and difficulty being able to eat since he only had one hand to do things with. He denied any headache or dizziness. He denied any numbness, tingling or other pain to the extremities. Motor strength exam improved somewhat. Remains confused and disoriented to time. His haemoglobin level was noted to have dropped and Nursing was getting ready to start the first of two units PRBC ordered by the Hospitalist. 08/02: This morning the patient is awake and watching TV. He is more alert and interactive than yesterday. He complains of pain to the left arm and to the left posterior shoulder/scapula region. He denies any headache or dizziness and has no midline neck or back pain. He denies any numbness, tingling or other pain to the extremities. His haemoglobin level is improved from yesterday morning but has drifted back down from the afternoon's. His motor strength is slightly improved from yesterday. He is disoriented as to the year. (Marcos Ho) Exam Results 07/31/17 07/31/17 08/01/17 08/01/17 08/02/17 08/02/17 06:00 18:00 06:00 18:00 06:00 18:00 Intake Total 240 ml 4308 ml 240 ml 2287 ml 2000 ml Output Total 1950 ml 1750 ml 700 ml 750 ml 950 ml Balance -1710 ml 2558 ml -460 ml 1537 ml 1050 ml Intake Oral 240 ml 240 ml 480 ml 1000 ml IV Total 1050 ml 1000 ml 1000 ml Packed Cells 800 ml FFP 1642 ml Platelets 366 ml Blood Product IV Normal Saline Flush 0 ml 7 ml Other 1250 ml Output Urine Total 1950 ml 1350 ml 700 ml 750 ml 950 ml Stool Total 0 ml Estimated Blood Loss 400 ml # Bowel Movements 0 0 0 Vital Signs Date Time Temp Pulse Resp B/P (MAP) Pulse Ox O2 Delivery O2 Flow Rate FiO2 08/02/17 08:00 75 08/02/17 08:00 98.3 74 21 134/63 (86) 99 08/02/17 07:00 98 Room Air 08/02/17 06:00 70 08/02/17 04:00 85 08/02/17 04:00 97.7 85 13 126/68 (87) 98 08/02/17 02:00 84 08/02/17 00:00 97.8 93 12 144/68 (93) 96 08/02/17 00:00 93 08/01/17 22:00 91 08/01/17 20:00 98.2 92 18 132/69 (90) 99 08/01/17 20:00 92 08/01/17 19:00 100 Nasal Cannula 3.00 08/01/17 18:00 70 08/01/17 16:00 80 08/01/17 16:00 98.0 74 12 145/68 (93) 97 08/01/17 14:00 76 08/01/17 12:55 97.7 69 12 152/59 100 08/01/17 12:40 97.7 68 17 149/65 100 08/01/17 12:00 70 08/01/17 12:00 97.7 70 12 145/66 (92) 99 08/01/17 10:00 78 08/01/17 10:00 97.7 78 14 107/57 99 08/01/17 09:45 97.8 74 15 104/59 100 08/01/17 08:00 80 08/01/17 08:00 97.8 82 20 107/79 (88) 100 08/01/17 07:00 100 Nasal Cannula 3.00 08/01/17 06:00 78 08/01/17 04:00 58 08/01/17 04:00 97.6 80 21 120/55 (76) 100 08/01/17 02:16 14 08/01/17 02:00 82 08/01/17 00:00 97.4 85 18 125/58 (80) 100 08/01/17 00:00 88 07/31/17 22:00 90 07/31/17 20:00 98.6 91 18 122/67 (85) 100 07/31/17 19:00 100 Nasal Cannula 3.00 07/31/17 18:00 88 07/31/17 16:00 90 07/31/17 16:00 98.2 90 18 105/60 (75) 100 07/31/17 14:00 89 07/31/17 12:00 98.1 95 13 90/57 (68) 94 07/31/17 12:00 98.2 99 15 90/57 94 07/31/17 12:00 116 07/31/17 10:30 96 14 163/81 (108) 99 Nasal Cannula 3 07/31/17 10:15 98.0 103 13 163/91 99 07/31/17 10:15 96 17 156/80 (105) 96 Nasal Cannula 3 07/31/17 10:00 102 15 143/84 (103) 94 Nasal Cannula 3 07/31/17 09:46 98.5 93 17 132/67 (88) 97 Nasal Cannula 3 07/31/17 06:34 90 07/31/17 06:33 97.8 92 16 141/73 (95) 97 07/31/17 06:33 97 Room Air 07/31/17 06:00 90 07/31/17 04:00 111 07/31/17 04:00 98.6 111 24 158/88 (111) 98 07/31/17 02:00 110 07/31/17 00:00 112 07/31/17 00:00 98.7 112 23 170/81 (110) 97 07/30/17 22:00 120 07/30/17 20:00 88 07/30/17 20:00 97.9 88 16 152/83 (106) 95 07/30/17 19:00 96 Room Air 07/30/17 18:00 98 07/30/17 16:00 88 07/30/17 16:00 98.2 88 23 182/92 (122) 100 07/30/17 14:00 84 07/30/17 12:00 98.4 86 26 160/85 (110) 98 07/30/17 12:00 86 07/30/17 11:11 98.4 77 16 156/74 95 07/30/17 10:56 98.4 75 12 143/73 97 07/30/17 10:00 74 07/30/17 09:42 98.2 77 13 148/65 100 07/30/17 09:27 98.1 90 25 156/72 97 (Marcos Ho) Physical Examination GENERAL: Awake & alert sitting up in bed. Readily interacts & affect essentially normal. No apparent distress. HEENT: Left-sided forehead & facial abrasions healing w/o complication & resolving ecchymosis. PERRLA 3 mm brisk. MMM & pink, tongue midline to protrusion. MUSCULOSKELETAL: VIDALES to command. LUE in sling w/intact dressing to left shoulder & arm. TTP to left posterior shoulder/scapula region. Midline thoracolumbar spine NTTP. NEUROLOGICAL: Awake & alert, oriented to person, place, president & month but not year. Speech clear & appropriate. Slow thought process. Follows simple commands w/o difficulty. CN II through XII appear grossly intact but unable to assess left shoulder shrug due to injury. LUE in sling, left wrist flexors & extensors 4+/5 and left hand intrinsics & extrinsics 4/5. Right deltoid 4 to 4+/5, right biceps & triceps 4/5, right wrist flexors & extensors 4+ to 5/5, right hand intrinsics & extrinsics 4/5. Bilateral iliopsoas 4+/5, bilateral quadriceps 4/5, bilateral hamstrings 4/5, bilateral tibialis anterior & bilateral gastrocnemius 4+/5, left extensor hallucis longus 4/5 & right 4+/5. (Marcos Ho) Lab, Micro, Other Results Recent Impressions Liver Ultrasound 08/01/17 0000 Signed Impressions: Service Date/Time: July 15:53 - CONCLUSION: 1. Fatty liver. No gallstones or biliary ductal dilatation. Niranjan Watson MD Shoulder X-Ray 07/31/17 0000 Signed Impressions: Service Date/Time: Monday, July 31, 2017 08:55 - CONCLUSION: 1. Postoperative fixation as above. Niranjan Watson MD Laboratory Tests Test 07/30/17 13:30 07/30/17 21:43 07/31/17 03:25 07/31/17 03:51 White Blood Count 5.1 TH/MM3 6.4 TH/MM3 Red Blood Count 3.48 MIL/MM3 3.61 MIL/MM3 Hemoglobin 11.0 GM/DL 11.3 GM/DL Hematocrit 32.0 % 33.3 % Mean Corpuscular Volume 91.8 FL 92.1 FL Mean Corpuscular Hemoglobin 31.6 PG 31.3 PG Mean Corpuscular Hemoglobin Concent 34.4 % 34.0 % Red Cell Distribution Width 18.8 % 18.2 % Platelet Count 56 TH/MM3 85 TH/MM3 Mean Platelet Volume 9.0 FL 9.3 FL Phosphorus Level 2.5 MG/DL 2.4 MG/DL Potassium Level 3.3 MEQ/L 3.4 MEQ/L Neutrophils (%) (Auto) 70.4 % Lymphocytes (%) (Auto) 16.5 % Monocytes (%) (Auto) 12.7 % Eosinophils (%) (Auto) 0.2 % Basophils (%) (Auto) 0.2 % Neutrophils # (Auto) 4.5 TH/MM3 Lymphocytes # (Auto) 1.1 TH/MM3 Monocytes # (Auto) 0.8 TH/MM3 Eosinophils # (Auto) 0.0 TH/MM3 Basophils # (Auto) 0.0 TH/MM3 CBC Comment AUTO DIFF Differential Comment AUTO DIFF CONFIRMED Platelet Estimate LOW Platelet Morphology Comment NORMAL Blood Urea Nitrogen 9 MG/DL Creatinine 0.58 MG/DL Random Glucose 99 MG/DL Total Protein 6.3 GM/DL Albumin 3.1 GM/DL Calcium Level 8.0 MG/DL Magnesium Level 1.8 MG/DL Alkaline Phosphatase 92 U/L Aspartate Amino Transf (AST/SGOT) 92 U/L Alanine Aminotransferase (ALT/SGPT) 71 U/L Total Bilirubin 4.8 MG/DL Sodium Level 139 MEQ/L Chloride Level 105 MEQ/L Carbon Dioxide Level 23.5 MEQ/L Anion Gap 11 MEQ/L Estimat Glomerular Filtration Rate 138 ML/MIN Test 07/31/17 17:00 08/01/17 04:50 08/01/17 08:27 08/01/17 15:11 Potassium Level 4.0 MEQ/L 3.5 MEQ/L White Blood Count 7.5 TH/MM3 7.2 TH/MM3 Red Blood Count 2.25 MIL/MM3 3.36 MIL/MM3 Hemoglobin 7.4 GM/DL 10.5 GM/DL Hematocrit 21.3 % 31.1 % Mean Corpuscular Volume 94.7 FL 92.7 FL Mean Corpuscular Hemoglobin 32.9 PG 31.2 PG Mean Corpuscular Hemoglobin Concent 34.8 % 33.7 % Red Cell Distribution Width 18.1 % 17.3 % Platelet Count 99 TH/MM3 105 TH/MM3 Mean Platelet Volume 9.3 FL 9.1 FL Neutrophils (%) (Auto) 75.2 % Lymphocytes (%) (Auto) 11.0 % Monocytes (%) (Auto) 13.7 % Eosinophils (%) (Auto) 0.0 % Basophils (%) (Auto) 0.1 % Neutrophils # (Auto) 5.7 TH/MM3 Lymphocytes # (Auto) 0.8 TH/MM3 Monocytes # (Auto) 1.0 TH/MM3 Eosinophils # (Auto) 0.0 TH/MM3 Basophils # (Auto) 0.0 TH/MM3 CBC Comment AUTO DIFF Differential Comment AUTO DIFF CONFIRMED Platelet Estimate LOW Platelet Morphology Comment NORMAL Polychromasia 2.7 % Blood Urea Nitrogen 11 MG/DL Creatinine 0.54 MG/DL Random Glucose 113 MG/DL Total Protein 5.6 GM/DL Albumin 2.7 GM/DL Calcium Level 7.6 MG/DL Phosphorus Level 3.0 MG/DL Magnesium Level 2.0 MG/DL Alkaline Phosphatase 76 U/L Aspartate Amino Transf (AST/SGOT) 54 U/L Alanine Aminotransferase (ALT/SGPT) 45 U/L Total Bilirubin 3.6 MG/DL Sodium Level 140 MEQ/L Chloride Level 107 MEQ/L Carbon Dioxide Level 25.1 MEQ/L Anion Gap 8 MEQ/L Estimat Glomerular Filtration Rate 150 ML/MIN Prothrombin Time 12.8 SEC Prothromb Time International Ratio 1.3 RATIO Test 08/02/17 04:07 White Blood Count 6.0 TH/MM3 Red Blood Count 3.06 MIL/MM3 Hemoglobin 9.5 GM/DL Hematocrit 28.0 % Mean Corpuscular Volume 91.3 FL Mean Corpuscular Hemoglobin 31.1 PG Mean Corpuscular Hemoglobin Concent 34.0 % Red Cell Distribution Width 17.6 % Platelet Count 101 TH/MM3 Mean Platelet Volume 9.0 FL Neutrophils (%) (Auto) 57.9 % Lymphocytes (%) (Auto) 23.6 % Monocytes (%) (Auto) 17.5 % Eosinophils (%) (Auto) 0.7 % Basophils (%) (Auto) 0.3 % Neutrophils # (Auto) 3.5 TH/MM3 Lymphocytes # (Auto) 1.4 TH/MM3 Monocytes # (Auto) 1.0 TH/MM3 Eosinophils # (Auto) 0.0 TH/MM3 Basophils # (Auto) 0.0 TH/MM3 CBC Comment DIFF FINAL Differential Comment Prothrombin Time 12.4 SEC Prothromb Time International Ratio 1.2 RATIO Blood Urea Nitrogen 10 MG/DL Creatinine 0.56 MG/DL Random Glucose 89 MG/DL Total Protein 5.7 GM/DL Albumin 2.7 GM/DL Calcium Level 8.0 MG/DL Phosphorus Level 2.3 MG/DL Magnesium Level 1.9 MG/DL Alkaline Phosphatase 106 U/L Aspartate Amino Transf (AST/SGOT) 73 U/L Alanine Aminotransferase (ALT/SGPT) 47 U/L Total Bilirubin 3.5 MG/DL Direct Bilirubin 1.5 MG/DL Sodium Level 137 MEQ/L Potassium Level 3.3 MEQ/L Chloride Level 104 MEQ/L Carbon Dioxide Level 24.2 MEQ/L Anion Gap 9 MEQ/L Estimat Glomerular Filtration Rate 144 ML/MIN Indirect Bilirubin 2.0 MG/DL (Marcos Ho) Medical Decision Making Impression and Plan Impression: TBI Facial and forehead contusion EtOH abuse and withdrawal The patient is awake & alert this morning. Improvement in motor strength upon examination. Pain to left arm & posterior shoulder/scapula region. No tachycardia, hypertension or hypotensive past 24 hrs. Afebrile past 24 hrs. Reviewed labs for today. Improvement improvement in haemoglobin level since yesterday morning but downward drift from the afternoon. Essentially stable thrombocytopenia. Sodium 137. Interval development of hypokalemia & hypophosphatemia. Interval increase in AST w/ALT & alk phos WNL. INR 1.2. CT brain demonstrated a stable SDH along the fax. Plan: Neuro checks. Stat CT brain for any decline in neuro status. Hold pharmacologic DVT prophylaxis. Mechanical DVT prophylaxis. Mobilise patient w/assistance. Physical & Occupational Therapy eval & tx. Hospitalist for medical management. CBC at 1500 and in AM. Will d/c IVF. Appreciate GI's, Hospitalist's & Ortho's input. (Marcos Ho) Attending Statement The exam, history, and the medical decision-making described in the above note were completed with the assistance of the mid-level provider. I reviewed and agree with the findings presented. I attest that I had a [id number] encounter with the patient on the same day, and personally performed and documented my assessment and findings in the medical record. A little more oriented and responsive on examination 08/02/17. Continuing protocol for alcohol withdrawal. Medicine following System be slowly improving. Stable for rehabilitation. (Yosef King MD) Marcos Ho Aug 02, 2017 09:22 Yosef King MD Aug 04, 2017 18:21
--- NOTE | 2017-08-02 14:35 | HHI.GIFU ---
Subjective Remarks Pt resting in bed. "I just want to sleep for a few days." + BM, denies blood or black tarry stool. (Dorcas Engel) Objective Vitals I&O Vital Signs Date Time Temp Pulse Resp B/P (MAP) Pulse Ox O2 Delivery O2 Flow Rate FiO2 08/02/17 10:00 75 08/02/17 08:00 75 08/02/17 08:00 98.3 74 21 134/63 (86) 99 08/02/17 07:00 98 Room Air 08/02/17 06:00 70 08/02/17 04:00 85 08/02/17 04:00 97.7 85 13 126/68 (87) 98 08/02/17 02:00 84 08/02/17 00:00 97.8 93 12 144/68 (93) 96 08/02/17 00:00 93 08/01/17 22:00 91 08/01/17 20:00 98.2 92 18 132/69 (90) 99 08/01/17 20:00 92 08/01/17 19:00 100 Nasal Cannula 3.00 08/01/17 18:00 70 08/01/17 16:00 80 08/01/17 16:00 98.0 74 12 145/68 (93) 97 I/O 08/01/17 08/01/17 08/01/17 08/02/17 08/02/17 08/02/17 07:00 15:00 23:00 07:00 15:00 23:00 Intake Total 240 ml 857 ml 1430 ml 2000 ml Output Total 700 ml 750 ml 950 ml Balance -460 ml 857 ml 680 ml 1050 ml Intake Oral 240 ml 480 ml 1000 ml IV Total 50 ml 950 ml 1000 ml Packed Cells 800 ml Blood Product IV Normal Saline Flush 7 ml Output Urine Total 700 ml 750 ml 950 ml Stool Total 0 ml # Bowel Movements 0 Laboratory Laboratory Tests Test 08/01/17 15:11 08/02/17 04:07 White Blood Count 7.2 6.0 Red Blood Count 3.36 3.06 Hemoglobin 10.5 9.5 Hematocrit 31.1 28.0 Mean Corpuscular Volume 92.7 91.3 Mean Corpuscular Hemoglobin 31.2 31.1 Mean Corpuscular Hemoglobin Concent 33.7 34.0 Red Cell Distribution Width 17.3 17.6 Platelet Count 105 101 Mean Platelet Volume 9.1 9.0 Neutrophils (%) (Auto) 57.9 Lymphocytes (%) (Auto) 23.6 Monocytes (%) (Auto) 17.5 Eosinophils (%) (Auto) 0.7 Basophils (%) (Auto) 0.3 Neutrophils # (Auto) 3.5 Lymphocytes # (Auto) 1.4 Monocytes # (Auto) 1.0 Eosinophils # (Auto) 0.0 Basophils # (Auto) 0.0 CBC Comment DIFF FINAL Differential Comment Prothrombin Time 12.4 Prothromb Time International Ratio 1.2 Blood Urea Nitrogen 10 Creatinine 0.56 Random Glucose 89 Total Protein 5.7 Albumin 2.7 Calcium Level 8.0 Phosphorus Level 2.3 Magnesium Level 1.9 Alkaline Phosphatase 106 Aspartate Amino Transf (AST/SGOT) 73 Alanine Aminotransferase (ALT/SGPT) 47 Total Bilirubin 3.5 Direct Bilirubin 1.5 Sodium Level 137 Potassium Level 3.3 Chloride Level 104 Carbon Dioxide Level 24.2 Anion Gap 9 Estimat Glomerular Filtration Rate 144 Indirect Bilirubin 2.0 Imaging Last Impressions Liver Ultrasound 08/01/17 0000 Signed Impressions: Service Date/Time: July 15:53 - CONCLUSION: 1. Fatty liver. No gallstones or biliary ductal dilatation. Niranjan Watson MD Shoulder X-Ray 07/31/17 0000 Signed Impressions: Service Date/Time: Monday, July 31, 2017 08:55 - CONCLUSION: 1. Postoperative fixation as above. Niranjan Watson MD Head CT 07/30/17 0600 Signed Impressions: Service Date/Time: Sunday, July 30, 2017 04:30 - CONCLUSION: 1. Stable small subdural hematoma along the falx. Joshua Edmonds Jr., MD Chest CT 07/28/17 0000 Signed Impressions: Service Date/Time: Friday, July 28, 2017 01:25 - CONCLUSION: 1. Tortuous mediastinal vessels. No mass or other acute cardiopulmonary disease. 2. Coronary artery calcification. 3. Old left rib fractures. Nehemias Gonzalez MD Chest X-Ray 07/27/17 7845 Signed Impressions: Service Date/Time: Thursday, July 27, 2017 23:46 - CONCLUSION: Apparent mild mediastinal widening and a CT of the chest with intravenous contrast is suggested if felt clinically indicated. The lungs are clear. Nehemias Gonzalez MD Physical Exam HEENT: PERRL; normocephalic; atraumatic; no jaundice. CHEST: CTA CARDIAC: RRR ABDOMEN: Soft, nondistended, nontender; no hepatosplenomegaly; bowel sounds are present in all four quadrants. EXTREMITIES: No clubbing, cyanosis, or edema. cast, sling LUE SKIN: ecchymosis left shoulder, no rash; no jaundice. [employer] PROFESS[employer]: lethargic (Dorcas Engel) Assessment and Plan Plan ASSESSMENT - anemia with drop in hgb- likely multifactorial, had orthopedic surgery yesterday. EGD 04/18/17 after hematemesis that found duodenitis with superficial ulcers, schatzki ring, hiatal hernia. no obvious GI bleeding. 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 AST>ALT. CT showed fatty liver, chronic pancreatitis hep panel 03/2017 was negative. will get US liver 08/02/17 - US liver showed fatty liver. HGB mild drop today from yesterday after receiving blood. No obvious GI bleeding. PT will not agree to EGD and colonoscopy, does not answer me. + BM pt denies black tarry stool or blood in stool. PLAN - await hemoccult - monitor HH - transfuse as needed - notify GI of active bleeding - pt refusing endoscopy at this time; EGD and colonoscopy outpt - GI will sign off. please reconsult if needed pt seen by myself and DR March and this note is on his behalf (Dorcas Engel) Physician Comments Agree with above assessment and plan, please notify us if needed again. (Javad March MD) Dorcas Engel Aug 02, 2017 14:35 Javad March MD Aug 02, 2017 14:56
[2017-08-02 16:52] LABS: HEMATOCRIT 31.7 % (39.0-51.0); HEMOGLOBIN 10.7 GM/DL (13.0-17.0); MEAN CELL VOLUME 92.3 FL (80.0-100.0); MEAN CORPUSCULAR HEMOGLOBIN 31.1 PG (27.0-34.0); MEAN CORPUSCULAR HGB CONC 33.7 % (32.0-36.0); MEAN PLATELET VOLUME 9.3 FL (7.0-11.0); PLATELET COUNT 118 TH/MM3 (150-450); RED BLOOD COUNT 3.44 MIL/MM3 (4.50-5.90); RED CELL DISTRIBUTION WIDTH 17.7 % (11.6-17.2); WHITE BLOOD COUNT 6.6 TH/MM3 (4.0-11.0)
[2017-08-02] MEDS: diphenhydrAMINE HCL 25 MG CAP PO PRN (22:00)
--- NOTE | 2017-08-02 23:33 | HHI.PR ---
Subjective Remarks Patient says he is feeling well. Does not want to get out of bed without pants. Family bringing pants. Objective Vital Signs Date Time Temp Pulse Resp B/P (MAP) Pulse Ox O2 Delivery O2 Flow Rate FiO2 08/02/17 22:00 114 08/02/17 20:00 96 08/02/17 20:00 98.4 96 21 118/70 (86) 95 08/02/17 19:00 98 Room Air 08/02/17 18:00 85 08/02/17 16:00 98.0 79 16 119/60 (79) 97 08/02/17 16:00 79 08/02/17 15:15 17 08/02/17 14:00 80 08/02/17 12:00 72 08/02/17 12:00 97.9 72 16 119/63 (81) 98 08/02/17 10:00 75 08/02/17 08:00 75 08/02/17 08:00 98.3 74 21 134/63 (86) 99 08/02/17 07:00 98 Room Air 08/02/17 06:00 70 08/02/17 04:00 85 08/02/17 04:00 97.7 85 13 126/68 (87) 98 08/02/17 02:00 84 08/02/17 00:00 97.8 93 12 144/68 (93) 96 08/02/17 00:00 93 I/O 08/02/17 08/02/17 08/02/17 08/03/17 08/03/17 08/03/17 07:00 15:00 23:00 07:00 15:00 23:00 Intake Total 2000 ml 500 ml 960 ml Output Total 950 ml 1350 ml Balance 1050 ml 500 ml -390 ml Intake Oral 1000 ml 960 ml IV Total 1000 ml 500 ml Output Urine Total 950 ml 1350 ml # Bowel Movements 0 Result Diagram: 08/02/17 1538 08/02/17 0407 Objective Remarks GENERAL: patient sitting up in bed. Appears comfortable. SKIN: Warm and dry. HEAD: Normocephalic. EYES: No scleral icterus. No injection or drainage. NECK: Supple, trachea midline. No JVD. CARDIOVASCULAR: Regular rate and rhythm without murmurs, gallops, or rubs. RESPIRATORY: Breath sounds equal bilaterally. No accessory muscle use. GASTROINTESTINAL: Abdomen soft, non-tender, nondistended. MUSCULOSKELETAL: No cyanosis, or edema. BACK: Nontender without obvious deformity. No CVA tenderness. A/P Assessment and Plan 08/02. Discontinue Hayden, insulin sliding scale. potassium 3.3. Replaced. Discontinue 50 mg as needed Librium. Start scheduled 10 mg Librium 3 times daily. Plan taper. Hemoglobin stable. Discussed with nursing and patient. ========= Subdural hematoma secondary to fall/TBI -patient was on chronic aspirin will hold this Neurosurgery is the attending Alcohol withdrawals possible alcoholic seizures from withdrawals of alcohol in the past Continue on CIWA protocol with Ativan and Haldol and Librium as needed Seizure precautions Multivitamin, thiamine, folic acid, Antiemetics Catapres as needed for blood pressure NAUSEA AND VOMITING -RESOLVED Thrombocytopenia suspect secondary to alcohol abuse long-term Physical therapy and occupational therapy to eval and treat Elevated LFTs secondary to chronic alcohol abuse Medical noncompliance ANEMIA REPLACE- WILL TRANSFUSE AGAIN HYPOKALEMIA REPLACE HYPOPHOSPHATEMIA REPLACE LEFT HUMERUS FRACTURE-ORTHO CONSULT- FOR SURGERY 3-[address] MCCONNELL ELECTROLYTE PANEL AM LABS GI PROPHYLAXIS WITH PROTONIX DVT WITH SCDS AND JERICHO ALCANTAR DR RN AND PT PT AND OT ANEMIA WILL TRANSFUSE NEEDS GI EVAL AM LABS Discharge Planning we will continue to follow. Georges Ferreira MD Aug 02, 2017 23:33
[2017-08-03] VITALS (9 sets, daily range): BP systolic 119–175; BP diastolic 65–87; PULSE 91–120; RESP 16–26; TEMP 98.4–98.8; O2SAT 92–100
[2017-08-03] MEDS: ACETAMINOPHEN/HYDROcodone 325 MG/10 MG TAB PO PRN ×3 (02:48→23:32)
[2017-08-03 06:02] LABS: AUTOMATED NEUTROPHIL # 4.7 TH/MM3 (1.8-7.7); BASOPHIL % 0.4 % (0.0-2.0); EOSINOPHIL # 0.1 TH/MM3 (0-0.4); EOSINOPHIL % 0.7 % (0.0-4.0); HEMATOCRIT 31.2 % (39.0-51.0); HEMOGLOBIN 10.5 GM/DL (13.0-17.0); LYMPH % 19.2 % (9.0-44.0); LYMPHOCYTE # 1.5 TH/MM3 (1.0-4.8); MEAN CELL VOLUME 92.1 FL (80.0-100.0); MEAN CORPUSCULAR HEMOGLOBIN 31.1 PG (27.0-34.0); MEAN CORPUSCULAR HGB CONC 33.8 % (32.0-36.0); MEAN PLATELET VOLUME 8.8 FL (7.0-11.0); MONO % 19.6 % (0.0-8.0); MONOCYTE # 1.5 TH/MM3 (0-0.9); NEUT % 60.1 % (16.0-70.0); PLATELET COUNT 149 TH/MM3 (150-450); RED BLOOD COUNT 3.39 MIL/MM3 (4.50-5.90); RED CELL DISTRIBUTION WIDTH 17.6 % (11.6-17.2); WHITE BLOOD COUNT 7.8 TH/MM3 (4.0-11.0)
[2017-08-03 06:24] LABS: ALBUMIN 2.9 GM/DL (3.4-5.0); BICARBONATE 25.7 MEQ/L (21.0-32.0); CALCIUM 8.4 MG/DL (8.5-10.1); CREATININE 0.57 MG/DL (0.60-1.30); MAGNESIUM 1.8 MG/DL (1.5-2.5); PHOSPHORUS 2.8 MG/DL (2.5-4.9)
[2017-08-03] MEDS: LORazepam 1 MG TAB PO PRN ×2 (06:35→23:31)
[2017-08-03] MEDS: CHOLECALCIFEROL (VIT D3) 1000 UNIT TAB PO SCH (09:51)
[2017-08-03] MEDS: PANTOPRAZOLE SOD 40 MG DELAYED RELEASE TAB PO SCH (09:51)
[2017-08-03] MEDS: LIPASE/PROTEASE/AMYLASE (24,000/76,000/120,000) CAP PO SCH ×3 (09:51→17:10)
[2017-08-03] MEDS: THIAMINE HCL 100 MG TAB PO SCH (09:51)
[2017-08-03] MEDS: DOCUSATE SODIUM 100 MG CAP PO SCH ×2 (09:52→20:12)
[2017-08-03] MEDS: FOLIC ACID 1 MG TAB PO SCH (09:52)
[2017-08-03] MEDS: SODIUM CHLORIDE 0.9% FLUSH 10 ML FLUSH IV FLUSH SCH ×2 (09:52→20:12)
[2017-08-03] MEDS: MULTIVITAMINS/MINERALS THERAPEUTIC TAB PO SCH (09:52)
--- NOTE | 2017-08-03 12:10 | HHI.GIFU ---
Subjective Remarks In the bed 4 point restraints mildly anxious Afebrile Mildly tachycardic heart rate 110, be secondary to his anxiety (Chanel Paul) Objective Vitals I&O Vital Signs Date Time Temp Pulse Resp B/P (MAP) Pulse Ox O2 Delivery O2 Flow Rate FiO2 08/03/17 12:00 91 08/03/17 10:00 104 08/03/17 08:00 114 08/03/17 07:00 95 Room Air 08/03/17 06:00 110 08/03/17 04:00 120 08/03/17 04:00 98.6 120 26 152/78 (102) 98 08/03/17 02:00 105 08/03/17 00:00 102 08/03/17 00:00 98.4 102 21 175/83 (113) 95 08/02/17 22:00 114 08/02/17 20:00 96 08/02/17 20:00 98.4 96 21 118/70 (86) 95 08/02/17 19:00 98 Room Air 08/02/17 18:00 85 08/02/17 16:00 98.0 79 16 119/60 (79) 97 08/02/17 16:00 79 08/02/17 15:15 17 08/02/17 14:00 80 I/O 08/02/17 08/02/17 08/02/17 08/03/17 08/03/17 08/03/17 07:00 15:00 23:00 07:00 15:00 23:00 Intake Total 2000 ml 500 ml 960 ml 240 ml Output Total 950 ml 1350 ml 1750 ml Balance 1050 ml 500 ml -390 ml -1510 ml Intake Oral 1000 ml 960 ml 240 ml IV Total 1000 ml 500 ml Output Urine Total 950 ml 1350 ml 1750 ml # Bowel Movements 0 0 Laboratory Laboratory Tests Test 08/02/17 15:38 08/03/17 05:11 White Blood Count 6.6 7.8 Red Blood Count 3.44 3.39 Hemoglobin 10.7 10.5 Hematocrit 31.7 31.2 Mean Corpuscular Volume 92.3 92.1 Mean Corpuscular Hemoglobin 31.1 31.1 Mean Corpuscular Hemoglobin Concent 33.7 33.8 Red Cell Distribution Width 17.7 17.6 Platelet Count 118 149 Mean Platelet Volume 9.3 8.8 Neutrophils (%) (Auto) 60.1 Lymphocytes (%) (Auto) 19.2 Monocytes (%) (Auto) 19.6 Eosinophils (%) (Auto) 0.7 Basophils (%) (Auto) 0.4 Neutrophils # (Auto) 4.7 Lymphocytes # (Auto) 1.5 Monocytes # (Auto) 1.5 Eosinophils # (Auto) 0.1 Basophils # (Auto) 0.0 CBC Comment DIFF FINAL Differential Comment Blood Urea Nitrogen 9 Creatinine 0.57 Random Glucose 92 Albumin 2.9 Calcium Level 8.4 Phosphorus Level 2.8 Magnesium Level 1.8 Sodium Level 138 Potassium Level 3.6 Chloride Level 103 Carbon Dioxide Level 25.7 Anion Gap 9 Estimat Glomerular Filtration Rate 141 Imaging Last Impressions Liver Ultrasound 08/01/17 0000 Signed Impressions: Service Date/Time: July 15:53 - CONCLUSION: 1. Fatty liver. No gallstones or biliary ductal dilatation. Niranjan Watson MD Shoulder X-Ray 07/31/17 0000 Signed Impressions: Service Date/Time: Monday, July 31, 2017 08:55 - CONCLUSION: 1. Postoperative fixation as above. Niranjan Watson MD Head CT 07/30/17 0600 Signed Impressions: Service Date/Time: Sunday, July 30, 2017 04:30 - CONCLUSION: 1. Stable small subdural hematoma along the falx. Joshua Edmonds Jr., MD Chest CT 07/28/17 0000 Signed Impressions: Service Date/Time: Friday, July 28, 2017 01:25 - CONCLUSION: 1. Tortuous mediastinal vessels. No mass or other acute cardiopulmonary disease. 2. Coronary artery calcification. 3. Old left rib fractures. Nehemias Gonzalez MD Chest X-Ray 07/27/17 [id number] Signed Impressions: Service Date/Time: Thursday, July 27, 2017 23:46 - CONCLUSION: Apparent mild mediastinal widening and a CT of the chest with intravenous contrast is suggested if felt clinically indicated. The lungs are clear. Nehemias Gonzalez MD Physical Exam HEENT: PERRL; normocephalic; atraumatic; no jaundice. , 4 point restraints noted, soft CHEST: CTA, no obvious rhonchi CARDIAC: RRR ABDOMEN: Round, Soft, large, nondistended, nontender; ; bowel sounds are present in all four quadrants EXTREMITIES: No clubbing, cyanosis, or edema. 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 EGD 04/18/17 after hematemesis that found duodenitis with superficial ulcers, schatzki ring, hiatal hernia. no obvious GI bleeding. 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 AST>ALT. CT showed fatty liver, chronic pancreatitis hep panel 03/2017 was negative. will get US liver 08/02/17 - US liver showed fatty liver. HGB mild drop today from yesterday after receiving blood. No obvious GI bleeding. PT will not agree to EGD and colonoscopy, does not answer me. + BM pt denies black tarry stool or blood in stool. 08/03/17, Liver ultrasound on 08/01/17 showed fatty liver no gallstones or biliary duct dilatation. Currently denies any nausea or vomiting . AST 73 on 08/02/17. More active today trying to get out of bed PLAN - notify GI of active bleeding - pt refusing endoscopy at this time; EGD and colonoscopy outpt - GI will sign off. please reconsult if needed. GI will only continue to see if needed pt seen by myself and DR March and this note is on his behalf (Chanel Paul) Physician Comments Agree with plan as above, please notify us if needed again. (Javad March MD) Chanel Paul Aug 03, 2017 12:10 Javad March MD Aug 03, 2017 22:41
[2017-08-03] MEDS: LORazepam 2 MG/ML VIAL IV PUSH PRN (14:00)
[2017-08-03] MEDS ORDERED: MAGNESIUM HYDROXIDE SUSP 30 ML CUP PO ONE (14:30)
[2017-08-03] MEDS ORDERED: DOCUSATE SODIUM 50 MG/SENNA 8.6 MG TAB PO ONE (14:30)
--- NOTE | 2017-08-03 17:02 | HHI.PR ---
Subjective Remarks Patient seen this afternoon around 2 PM. Somewhat more confused than yesterday. Denies any pain. Says he would like to get up. Objective Vital Signs Date Time Temp Pulse Resp B/P (MAP) Pulse Ox O2 Delivery O2 Flow Rate FiO2 08/03/17 12:00 98.5 92 16 142/87 (105) 93 08/03/17 12:00 91 08/03/17 10:00 104 08/03/17 08:00 98.8 114 19 151/75 (100) 92 08/03/17 08:00 114 08/03/17 07:00 95 Room Air 08/03/17 06:00 110 08/03/17 04:00 120 08/03/17 04:00 98.6 120 26 152/78 (102) 98 08/03/17 02:00 105 08/03/17 00:00 102 08/03/17 00:00 98.4 102 21 175/83 (113) 95 08/02/17 22:00 114 08/02/17 20:00 96 08/02/17 20:00 98.4 96 21 118/70 (86) 95 08/02/17 19:00 98 Room Air 08/02/17 18:00 85 I/O 08/02/17 08/02/17 08/02/17 08/03/17 08/03/17 08/03/17 07:00 15:00 23:00 07:00 15:00 23:00 Intake Total 2000 ml 500 ml 960 ml 240 ml Output Total 950 ml 1350 ml 1750 ml Balance 1050 ml 500 ml -390 ml -1510 ml Intake Oral 1000 ml 960 ml 240 ml IV Total 1000 ml 500 ml Output Urine Total 950 ml 1350 ml 1750 ml # Bowel Movements 0 0 Result Diagram: 08/03/17 0511 08/03/17 0511 Objective Remarks GENERAL: patient sitting up in bed. Appears comfortable.patient is disoriented. calm and cooperative on my exam.Moving all extremities. SKIN: Warm and dry. HEAD: Normocephalic. EYES: No scleral icterus. No injection or drainage. NECK: Supple, trachea midline. No JVD. CARDIOVASCULAR: Regular rate and rhythm without murmurs, gallops, or rubs. RESPIRATORY: Breath sounds equal bilaterally. No accessory muscle use. GASTROINTESTINAL: Abdomen soft, non-tender, nondistended. MUSCULOSKELETAL: No cyanosis, or edema. BACK: Nontender without obvious deformity. No CVA tenderness. A/P Assessment and Plan 08/03======= //Slightly worse in alcohol withdrawal. Will increase Librium. Continue CIWA protocol Hemoglobin stable.patient declined endoscopy. GI signed off Transfer to floor as per surgical service. //Constipation. No bowel movement in days. Benign exam. Laxatives ordered. //Subdural hematoma secondary to fall/TBI -patient was on chronic aspirin will hold this Physical therapy and occupational therapy to eval and treat Neurosurgery is the attending //Alcohol withdrawals possible alcoholic seizures from withdrawals of alcohol in the past Continue on CIWA protocol with Ativan and Haldol and Librium as needed Seizure precautions Multivitamin, thiamine, folic acid, Antiemetics Catapres as needed for blood pressure = On scheduled Librium plan for taper. She had of UA protocol. //Constipation. Laxatives ordered. Await return of bowel function. //NAUSEA AND VOMITING -RESOLVED //Thrombocytopenia suspect secondary to alcohol abuse long-term //Elevated LFTs secondary to chronic alcohol abuse //ANEMIA -Status post transfusion. Appears to be stable currently. -GI was consulted. Patient refused endoscopy. Follow with GI as outpatient. //HYPOKALEMIA =REPLACE as necessary. //HYPOPHOSPHATEMIA = Resolved after replacement. //LEFT HUMERUS FRACTURE-ORTHO CONSULT- FOR SURGERY 3-[address] MCCONNELL -Surgery following. Appreciate assistance. //GI PROPHYLAXIS WITH PROTONIX //DVT WITH SCDS AND JERICHO ALCANTAR Discharge Planning we will continue to follow. Georges Ferreira MD Aug 03, 2017 17:02
[2017-08-03] MEDS: PANTOPRAZOLE SODIUM 40 MG VIAL IV PUSH SCH (17:03)
[2017-08-03] MEDS: DOCUSATE SODIUM 50 MG/SENNA 8.6 MG TAB PO SCH (20:12)
--- NOTE | 2017-08-03 23:33 | HHI.NSPN ---
History Chief Complaint: Left arm pain Exam Results Vital Signs Date Time Temp Pulse Resp B/P (MAP) Pulse Ox O2 Delivery O2 Flow Rate FiO2 08/03/17 20:00 104 08/03/17 20:00 98.5 21 146/76 (99) 93 08/03/17 19:00 Room Air 08/01/17 19:00 3.00 Intake and Output 08/03/17 08/03/17 08/04/17 08:00 16:00 00:00 Intake Total 240 ml 360 ml Output Total 1750 ml 1650 ml Balance -1510 ml -1290 ml Physical Examination GENERAL: Awake & alert sitting up in bed. Readily interacts & affect essentially normal. No apparent distress. HEENT: Left-sided forehead & facial abrasions healing w/o complication & resolving ecchymosis. PERRLA 3 mm brisk. MMM & pink, tongue midline to protrusion. MUSCULOSKELETAL: VIDALES to command. LUE in sling w/intact dressing to left shoulder & arm. TTP to left posterior shoulder/scapula region. Midline thoracolumbar spine NTTP. NEUROLOGICAL: Awake & alert, oriented to person, place, president & month but not year. Speech clear & appropriate. Slow thought process. Follows simple commands w/o difficulty. CN II through XII appear grossly intact but unable to assess left shoulder shrug due to injury. LUE in sling, left wrist flexors & extensors 4+/5 and left hand intrinsics & extrinsics 4/5. Right deltoid 4 to 4+/5, right biceps & triceps 4/5, right wrist flexors & extensors 4+ to 5/5, right hand intrinsics & extrinsics 4/5. Bilateral iliopsoas 4+/5, bilateral quadriceps 4/5, bilateral hamstrings 4/5, bilateral tibialis anterior & bilateral gastrocnemius 4+/5, left extensor hallucis longus 4/5 & right 4+/5. Medical Decision Making Impression and Plan Impression: 1. Neurologic exam stable. Mental status continues to fluctuate. Status posttraumatic brain injury. Probable component of encephalopathy, alcohol withdrawal Plan: Medicine is reviewed. Stable for regular floor from neurosurgical standpoint. Continue therapy Continue on CIWA protocol per medicine. Anemia: Stable. Patient refused endoscopy. Continue physical therapy Stable for discharge to inpatient rehabilitation from neurosurgical standpoint. Yosef King MD Aug 03, 2017 23:33
[2017-08-04] VITALS: BP 149/75; PULSE 94; RESP 20; TEMP 98.4; O2SAT 96
[2017-08-04] MEDS: PANTOPRAZOLE SODIUM 40 MG VIAL IV PUSH SCH (05:14)
[2017-08-04] MEDS ORDERED: LACTULOSE SYRUP 20 GM/30 ML CUP PO PRN (06:15)
[2017-08-04] MEDS ORDERED: BISACODYL 10 MG SUPP RECTAL PRN (06:15)
[2017-08-04] MEDS ORDERED: SENNOSIDES 8.6 MG TAB PO PRN (06:15)
[2017-08-04 08:00] VITALS: BP 134/65; PULSE 84; RESP 17; TEMP 98.4; O2SAT 93
[2017-08-04] MEDS: MULTIVITAMINS/MINERALS THERAPEUTIC TAB PO SCH (08:48)
[2017-08-04] MEDS: CHOLECALCIFEROL (VIT D3) 1000 UNIT TAB PO SCH (08:48)
[2017-08-04] MEDS: PANTOPRAZOLE SOD 40 MG DELAYED RELEASE TAB PO SCH (08:48)
[2017-08-04] MEDS: THIAMINE HCL 100 MG TAB PO SCH (08:48)
[2017-08-04] MEDS: DOCUSATE SODIUM 50 MG/SENNA 8.6 MG TAB PO SCH ×2 (08:48→20:37)
[2017-08-04] MEDS: SODIUM CHLORIDE 0.9% FLUSH 10 ML FLUSH IV FLUSH SCH ×2 (08:49→20:40)
[2017-08-04] MEDS: FOLIC ACID 1 MG TAB PO SCH (08:49)
[2017-08-04] MEDS: ACETAMINOPHEN/HYDROcodone 325 MG/10 MG TAB PO PRN ×2 (08:49→20:37)
[2017-08-04] MEDS: LIPASE/PROTEASE/AMYLASE (24,000/76,000/120,000) CAP PO SCH ×3 (08:50→17:04)
[2017-08-04 08:51] LABS: ALBUMIN 2.7 GM/DL (3.4-5.0); BICARBONATE 27.3 MEQ/L (21.0-32.0); CREATININE 0.51 MG/DL (0.60-1.30); MAGNESIUM 2.1 MG/DL (1.5-2.5); PHOSPHORUS 3.7 MG/DL (2.5-4.9)
[2017-08-04] MEDS ORDERED: POTASSIUM CHLORIDE 20 MEQ CONTROLLED RELEASE TAB PO ONE (10:45)
[2017-08-04] MEDS ORDERED: POTASSIUM CHLORIDE 10 MEQ CONTROLLED RELEASE TAB PO ONE (10:45)
[2017-08-04 11:04] LABS: AUTOMATED NEUTROPHIL # 3.5 TH/MM3 (1.8-7.7); BASOPHIL % 0.5 % (0.0-2.0); EOSINOPHIL # 0.1 TH/MM3 (0-0.4); EOSINOPHIL % 1.2 % (0.0-4.0); HEMATOCRIT 27.8 % (39.0-51.0); HEMOGLOBIN 9.8 GM/DL (13.0-17.0); LYMPH % 19.3 % (9.0-44.0); LYMPHOCYTE # 1.2 TH/MM3 (1.0-4.8); MEAN CELL VOLUME 91.7 FL (80.0-100.0); MEAN CORPUSCULAR HEMOGLOBIN 32.4 PG (27.0-34.0); MEAN CORPUSCULAR HGB CONC 35.4 % (32.0-36.0); MEAN PLATELET VOLUME 8.8 FL (7.0-11.0); MONO % 20.4 % (0.0-8.0); MONOCYTE # 1.2 TH/MM3 (0-0.9); NEUT % 58.6 % (16.0-70.0); PLATELET COUNT 166 TH/MM3 (150-450); RED BLOOD COUNT 3.03 MIL/MM3 (4.50-5.90); RED CELL DISTRIBUTION WIDTH 17.2 % (11.6-17.2)
[2017-08-04 12:00] VITALS: BP 94/54; PULSE 76; RESP 17; TEMP 97.8; O2SAT 94
--- NOTE | 2017-08-04 14:47 | HHI.PR ---
Subjective Remarks F/U encephalopathy. Improved MS oriented today. Dw RN to dc restraints Objective Vitals Vital Signs Date Time Temp Pulse Resp B/P (MAP) Pulse Ox O2 Delivery O2 Flow Rate FiO2 08/04/17 12:00 97.8 76 17 94/54 (67) 94 08/04/17 08:00 98.4 84 17 134/65 (88) 93 08/04/17 00:00 98.4 94 20 149/75 (99) 96 08/03/17 20:00 104 08/03/17 20:00 98.5 104 21 146/76 (99) 93 08/03/17 19:00 93 Room Air 08/03/17 16:00 98.7 100 24 119/65 (83) 100 I/O 08/03/17 08/03/17 08/03/17 08/04/17 08/04/17 08/04/17 07:00 15:00 23:00 07:00 15:00 23:00 Intake Total 240 ml 360 ml 240 ml Output Total 1750 ml 1650 ml Balance -1510 ml -1290 ml 240 ml Intake Oral 240 ml 360 ml 240 ml Output Urine Total 1750 ml 1650 ml # Voids 3 # Bowel Movements 0 0 0 Result Diagram: 08/04/17 0710 08/04/17 0710 Imaging Last Impressions Liver Ultrasound 08/01/17 0000 Signed Impressions: Service Date/Time: July 15:53 - CONCLUSION: 1. Fatty liver. No gallstones or biliary ductal dilatation. Niranjan Watson MD Shoulder X-Ray 07/31/17 0000 Signed Impressions: Service Date/Time: Monday, July 31, 2017 08:55 - CONCLUSION: 1. Postoperative fixation as above. Niranjan Watson MD Head CT 07/30/17 0600 Signed Impressions: Service Date/Time: Sunday, July 30, 2017 04:30 - CONCLUSION: 1. Stable small subdural hematoma along the falx. Joshua Edmonds Jr., MD Chest CT 07/28/17 0000 Signed Impressions: Service Date/Time: Friday, July 28, 2017 01:25 - CONCLUSION: 1. Tortuous mediastinal vessels. No mass or other acute cardiopulmonary disease. 2. Coronary artery calcification. 3. Old left rib fractures. Nehemias Gonzalez MD Chest X-Ray 07/27/17 [id number] Signed Impressions: Service Date/Time: Thursday, July 27, 2017 23:46 - CONCLUSION: Apparent mild mediastinal widening and a CT of the chest with intravenous contrast is suggested if felt clinically indicated. The lungs are clear. Nehemias Gonzalez MD Objective Remarks GENERAL: WD WN in [place] HEAD: Normocephalic. EYES: No scleral icterus. No injection or drainage. NECK: Supple, trachea midline. No JVD. CARDIOVASCULAR: Regular rate and rhythm without murmurs, gallops, or rubs. RESPIRATORY: Breath sounds equal bilaterally. No accessory muscle use. GASTROINTESTINAL: Abdomen soft, non-tender, nondistended. MUSCULOSKELETAL: No cyanosis, or edema. Restraints noted Procedures Open reduction internal fixation left humeral neck fracture, open reduction internal fixation left humeral shaft fracture A/P Problem List: (1) Subdural hematoma ICD Code: I62.00 - Nontraumatic subdural hemorrhage, unspecified Status: Acute (2) Alcohol intoxication ICD Code: F10.929 - Alcohol use, unspecified with intoxication, unspecified Status: Acute (3) Alcohol withdrawal ICD Code: F10.239 - Alcohol dependence with withdrawal, unspecified Status: Acute (4) Generalized weakness ICD Code: R53.1 - Weakness Status: Acute (5) TBI (traumatic brain injury) ICD Code: S06.9X9A - Unspecified intracranial injury with loss of consciousness of unspecified duration, initial encounter (6) Right humeral fracture ICD Code: S42.301A - Unspecified fracture of shaft of humerus, right arm, initial encounter for closed fracture Assessment and Plan Subdural hematoma secondary to fall/TBI. Stable ct to monitor, hold antiplatelets. PT and neurosurgery following Alcohol withdrawals possible alcoholic seizures from withdrawals of alcohol in the past. Improving encephalopathy. Continue Librium, CIWA protocol. Counseled regarding alcohol use Constipation. Add [place]-Colace laxatives ordered. Await return of bowel function. Thrombocytopenia suspect secondary to alcohol abuse long-term. Improved Elevated LFTs secondary to chronic alcohol abuse Anemia status post transfusion. Stable refused endoscopy outpatient follow-up with GI Left humerus fracture status post surgery. Nonweightbearing status. Continue postoperative care with PT, wound care, pain management GI prophylaxis with Protonix DVT prophylaxis with SCD. Chemical prophylaxis contraindicated secondary to subdural hematoma Discharge Planning Stable for discharge to [facility] when cleared by neurosurgery Riaz Wright MD Aug 04, 2017 14:47
[2017-08-04 16:00] VITALS: BP 117/66; PULSE 82; RESP 18; TEMP 97.2; O2SAT 97
--- NOTE | 2017-08-04 18:23 | HHI.NSPN ---
History Chief Complaint: Left arm pain Interval History Remains in restraints due to intermittent agitation. Nursing reports that the patient a little more cooperative this afternoon. Was very confused this morning. He has no complaint of headache. He wants out of bed. Exam Results Vital Signs Date Time Temp Pulse Resp B/P (MAP) Pulse Ox O2 Delivery O2 Flow Rate FiO2 08/04/17 16:00 97.2 82 18 117/66 (83) 97 08/03/17 19:00 Room Air 08/01/17 19:00 3.00 Intake and Output 08/04/17 08/04/17 08/05/17 08:00 16:00 00:00 Intake Total 240 ml Balance 240 ml Physical Examination GENERAL: Awake & alert sitting up in bed. Readily interacts & affect essentially normal. No apparent distress. HEENT: Left-sided forehead & facial abrasions healing w/o complication & resolving ecchymosis. PERRLA 3 mm brisk. MMM & pink, tongue midline to protrusion. MUSCULOSKELETAL: VIDALES to command. LUE in sling w/intact dressing to left shoulder & arm. TTP to left posterior shoulder/scapula region. Midline thoracolumbar spine NTTP. NEUROLOGICAL: Awake & alert, oriented to person, place, month, president. Speech clear & appropriate. Slow thought process. Follows simple commands w/o difficulty. CN II through XII appear grossly intact but unable to assess left shoulder shrug due to injury. LUE in sling, left wrist flexors & extensors 4+/5 and left hand intrinsics & extrinsics 4/5. Right deltoid 4 to 4+/5, right biceps & triceps 4/5, right wrist flexors & extensors 4+ to 5/5, right hand intrinsics & extrinsics 4/5. Bilateral iliopsoas 4+/5, bilateral quadriceps 4/5, bilateral hamstrings 4/5, bilateral tibialis anterior & bilateral gastrocnemius 4+/5, left extensor hallucis longus 4/5 & right 4+/5. Lab, Micro, Other Results Laboratory Tests Test 08/04/17 07:10 White Blood Count 6.0 TH/MM3 Red Blood Count 3.03 MIL/MM3 Hemoglobin 9.8 GM/DL Hematocrit 27.8 % Mean Corpuscular Volume 91.7 FL Mean Corpuscular Hemoglobin 32.4 PG Mean Corpuscular Hemoglobin Concent 35.4 % Red Cell Distribution Width 17.2 % Platelet Count 166 TH/MM3 Mean Platelet Volume 8.8 FL Neutrophils (%) (Auto) 58.6 % Lymphocytes (%) (Auto) 19.3 % Monocytes (%) (Auto) 20.4 % Eosinophils (%) (Auto) 1.2 % Basophils (%) (Auto) 0.5 % Neutrophils # (Auto) 3.5 TH/MM3 Lymphocytes # (Auto) 1.2 TH/MM3 Monocytes # (Auto) 1.2 TH/MM3 Eosinophils # (Auto) 0.1 TH/MM3 Basophils # (Auto) 0.0 TH/MM3 CBC Comment DIFF FINAL Differential Comment Blood Urea Nitrogen 14 MG/DL Creatinine 0.51 MG/DL Random Glucose 83 MG/DL Albumin 2.7 GM/DL Calcium Level 8.0 MG/DL Phosphorus Level 3.7 MG/DL Magnesium Level 2.1 MG/DL Sodium Level 140 MEQ/L Potassium Level 3.2 MEQ/L Chloride Level 104 MEQ/L Carbon Dioxide Level 27.3 MEQ/L Anion Gap 9 MEQ/L Estimat Glomerular Filtration Rate 160 ML/MIN Medical Decision Making Impression and Plan Impression: 1. Neurologic exam stable. Mental status continues to fluctuate. Status posttraumatic brain injury. Probable component of encephalopathy, alcohol withdrawal Plan: Continue therapy Continue on CIWA protocol per medicine. Anemia: Stable. Patient refused endoscopy. Continue physical therapy Stable for discharge to inpatient rehabilitation from neurosurgical standpoint. Yosef King MD Aug 04, 2017 18:23
[2017-08-04 20:00] VITALS: BP 102/55; PULSE 80; RESP 20; TEMP 95.6; O2SAT 99
[2017-08-05] VITALS: BP 99/54; PULSE 82; RESP 18; TEMP 96.6; O2SAT 98
[2017-08-05] MEDS: ACETAMINOPHEN/HYDROcodone 325 MG/10 MG TAB PO PRN ×2 (01:03→21:58)
[2017-08-05 08:00] VITALS: BP 111/59; PULSE 67; RESP 16; TEMP 97.9; O2SAT 98
[2017-08-05] MEDS: MULTIVITAMINS/MINERALS THERAPEUTIC TAB PO SCH (10:19)
[2017-08-05] MEDS: DOCUSATE SODIUM 50 MG/SENNA 8.6 MG TAB PO SCH ×2 (10:19→21:53)
[2017-08-05] MEDS: LIPASE/PROTEASE/AMYLASE (24,000/76,000/120,000) CAP PO SCH ×3 (10:20→17:06)
[2017-08-05] MEDS: CHOLECALCIFEROL (VIT D3) 1000 UNIT TAB PO SCH (10:20)
[2017-08-05] MEDS: PANTOPRAZOLE SOD 40 MG DELAYED RELEASE TAB PO SCH (10:20)
[2017-08-05] MEDS: FOLIC ACID 1 MG TAB PO SCH (10:20)
[2017-08-05] MEDS: THIAMINE HCL 100 MG TAB PO SCH (10:20)
[2017-08-05] MEDS: SODIUM CHLORIDE 0.9% FLUSH 10 ML FLUSH IV FLUSH SCH ×2 (10:20→21:52)
[2017-08-05] MEDS: MAGNESIUM HYDROXIDE SUSP 30 ML CUP PO PRN (10:33)
--- NOTE | 2017-08-05 11:19 | HHI.PR ---
Subjective Remarks Follow-up encephalopathy. States he is much better oriented 4 no confusion. Restraints discontinued yesterday. Discussed with nurse Objective Vitals Vital Signs Date Time Temp Pulse Resp B/P (MAP) Pulse Ox O2 Delivery O2 Flow Rate FiO2 08/05/17 08:00 97.9 67 16 111/59 (76) 98 08/05/17 00:00 96.6 82 18 99/54 (69) 98 08/04/17 20:00 95.6 80 20 102/55 (71) 99 08/04/17 16:00 97.2 82 18 117/66 (83) 97 08/04/17 12:00 97.8 76 17 94/54 (67) 94 I/O 08/04/17 08/04/17 08/04/17 08/05/17 08/05/17 08/05/17 07:00 15:00 23:00 07:00 15:00 23:00 Intake Total 240 ml 840 ml 480 ml Output Total 400 ml Balance 240 ml 440 ml 480 ml Intake Oral 240 ml 840 ml 480 ml Output Urine Total 400 ml # Voids 3 4 # Bowel Movements 0 0 0 Result Diagram: 08/04/17 0710 08/04/17 0710 Imaging Last Impressions Liver Ultrasound 08/01/17 0000 Signed Impressions: Service Date/Time: July 15:53 - CONCLUSION: 1. Fatty liver. No gallstones or biliary ductal dilatation. Niranjan Watson MD Shoulder X-Ray 07/31/17 0000 Signed Impressions: Service Date/Time: Monday, July 31, 2017 08:55 - CONCLUSION: 1. Postoperative fixation as above. Niranjan Watson MD Head CT 07/30/17 0600 Signed Impressions: Service Date/Time: Sunday, July 30, 2017 04:30 - CONCLUSION: 1. Stable small subdural hematoma along the falx. Joshua Edmonds Jr., MD Chest CT 07/28/17 0000 Signed Impressions: Service Date/Time: Friday, July 28, 2017 01:25 - CONCLUSION: 1. Tortuous mediastinal vessels. No mass or other acute cardiopulmonary disease. 2. Coronary artery calcification. 3. Old left rib fractures. Nehemias Gonzalez MD Chest X-Ray 07/27/17 [id number] Signed Impressions: Service Date/Time: Thursday, July 27, 2017 23:46 - CONCLUSION: Apparent mild mediastinal widening and a CT of the chest with intravenous contrast is suggested if felt clinically indicated. The lungs are clear. Nehemias Gonzalez MD Objective Remarks GENERAL: WD WN in [place] Bruising left shoulder and left upper chest HEAD: Normocephalic. EYES: No scleral icterus. No injection or drainage. NECK: Supple, trachea midline. No JVD. CARDIOVASCULAR: Regular rate and rhythm without murmurs, gallops, or rubs. RESPIRATORY: Breath sounds equal bilaterally. No accessory muscle use. GASTROINTESTINAL: Abdomen soft, non-tender, nondistended. MUSCULOSKELETAL: No cyanosis, or edema. Procedures Open reduction internal fixation left humeral neck fracture, open reduction internal fixation left humeral shaft fracture A/P Problem List: (1) Subdural hematoma ICD Code: I62.00 - Nontraumatic subdural hemorrhage, unspecified Status: Acute (2) Alcohol intoxication ICD Code: F10.929 - Alcohol use, unspecified with intoxication, unspecified Status: Acute (3) Alcohol withdrawal ICD Code: F10.239 - Alcohol dependence with withdrawal, unspecified Status: Acute (4) Generalized weakness ICD Code: R53.1 - Weakness Status: Acute (5) TBI (traumatic brain injury) ICD Code: S06.9X9A - Unspecified intracranial injury with loss of consciousness of unspecified duration, initial encounter (6) Right humeral fracture ICD Code: S42.301A - Unspecified fracture of shaft of humerus, right arm, initial encounter for closed fracture Assessment and Plan Subdural hematoma secondary to fall/TBI. Stable ct to monitor, hold antiplatelets. PT and neurosurgery following Alcohol withdrawals possible alcoholic seizures from withdrawals. Resolving encephalopathy. Continue Librium, CIWA protocol. Counseled regarding alcohol use Constipation. Added [place]-Colace laxatives ordered. Thrombocytopenia suspect secondary to alcohol abuse long-term. Improved Elevated LFTs secondary to chronic alcohol abuse Anemia status post transfusion. Stable refused endoscopy outpatient follow-up with GI Left humerus fracture status post surgery. Nonweightbearing status. Continue postoperative care with PT, wound care, pain management GI prophylaxis with Protonix DVT prophylaxis with SCD. Chemical prophylaxis contraindicated secondary to subdural hematoma Discharge Planning Stable for discharge to Riaz Solis MD Aug 05, 2017 11:19
[2017-08-05 12:00] VITALS: BP 104/58; PULSE 76; RESP 16; TEMP 98; O2SAT 97
[2017-08-05 15:00] VITALS: BP 128/63; PULSE 77; RESP 16; TEMP 97.6; O2SAT 98
--- NOTE | 2017-08-05 18:37 | HHI.NSPN ---
(Marcos Ho) History Chief Complaint: Left arm pain (Marcos Ho) Interval History 07/28: 71 yo male presented to ED after falll. He doesnt recall anything in regards to the fall. He usuallly drinks around 12 beers a day. Yesterday only drank two since he was trying to cut back. 07/29: When seen this morning the patient is awake and alert. He is sitting up in the bed watching TV. He denies any headache or dizziness but did say he was nauseated earlier which has resolved. He states that he has generalised weakness and pain to the left shoulder and arm. Upon examination the patient does have weakness to the left upper extremity that is at least partially related to pain. Sensation is intact. 07/30: This morning the patient is extremely drowsy. He does respond to verbal stimulation and requires coaxing to interact. He is receiving his third unit of PRBC and is to receive a fourth. He endorses a headache and generalised weakness. Limited evaluation due to patient's drowsiness but no evident worsening of neuro status. Nursing does report that the heplock being used to give the PRBC is the third one this morning. 07/31: The patient went for a closed reduction and internal fixation of a left proximal humerus fracture this morning. The patient is extremely drowsy when seen this afternoon. He briefly woke to repeated verbal stimulation and minimally interacted with coaxing. Nursing reports that the patient has been "zonked" since coming back from PACU. 08/01: When seen the patient is awake and fairly alert. He was sitting up in the bed. He complained of pain to the left arm and difficulty being able to eat since he only had one hand to do things with. He denied any headache or dizziness. He denied any numbness, tingling or other pain to the extremities. Motor strength exam improved somewhat. Remains confused and disoriented to time. His haemoglobin level was noted to have dropped and Nursing was getting ready to start the first of two units PRBC ordered by the Hospitalist. 08/02: This morning the patient is awake and watching TV. He is more alert and interactive than yesterday. He complains of pain to the left arm and to the left posterior shoulder/scapula region. He denies any headache or dizziness and has no midline neck or back pain. He denies any numbness, tingling or other pain to the extremities. His haemoglobin level is improved from yesterday morning but has drifted back down from the afternoon's. His motor strength is slightly improved from yesterday. He is disoriented as to the year. Remains in restraints due to intermittent agitation. Nursing reports that the patient a little more cooperative this afternoon. Was very confused this morning. He has no complaint of headache. He wants out of bed. 08/05: When seen this evening the patient is asleep but awakens to voice. He is confused as to time but knows he is in the hospital. He has pain to the left arm where he has the fracture. He denies any headache or dizziness. He denies any numbness or tingling or other pain to the extremities. His neuro exam remains stable. (Marcos Ho) Exam Results 08/04/17 08/04/17 08/05/17 08/05/17 08/06/17 08/06/17 06:00 18:00 06:00 18:00 06:00 18:00 Intake Total 240 ml 840 ml 880 ml Output Total 400 ml Balance 240 ml 440 ml 880 ml Intake Oral 240 ml 840 ml 880 ml Output Urine Total 400 ml # Voids 3 8 # Bowel Movements 0 0 0 Vital Signs Date Time Temp Pulse Resp B/P (MAP) Pulse Ox O2 Delivery O2 Flow Rate FiO2 08/05/17 15:00 97.6 77 16 128/63 (84) 98 08/05/17 12:00 98.0 76 16 104/58 (73) 97 08/05/17 08:05 Room Air 08/05/17 08:00 97.9 67 16 111/59 (76) 98 08/05/17 00:00 96.6 82 18 99/54 (69) 98 08/04/17 20:00 95.6 80 20 102/55 (71) 99 08/04/17 16:00 97.2 82 18 117/66 (83) 97 08/04/17 12:00 97.8 76 17 94/54 (67) 94 08/04/17 08:00 98.4 84 17 134/65 (88) 93 08/04/17 00:00 98.4 94 20 149/75 (99) 96 08/03/17 20:00 104 08/03/17 20:00 98.5 104 21 146/76 (99) 93 08/03/17 19:00 93 Room Air 08/03/17 16:00 98.7 100 24 119/65 (83) 100 08/03/17 12:00 98.5 92 16 142/87 (105) 93 08/03/17 12:00 91 08/03/17 10:00 104 08/03/17 08:00 98.8 114 19 151/75 (100) 92 08/03/17 08:00 114 08/03/17 07:00 95 Room Air 08/03/17 06:00 110 08/03/17 04:00 120 08/03/17 04:00 98.6 120 26 152/78 (102) 98 08/03/17 02:00 105 08/03/17 00:00 102 08/03/17 00:00 98.4 102 21 175/83 (113) 95 08/02/17 22:00 114 08/02/17 20:00 96 08/02/17 20:00 98.4 96 21 118/70 (86) 95 08/02/17 19:00 98 Room Air (Marcos Ho) Physical Examination GENERAL: Asleep in bed but awakens to voice. Alert after that. Readily interacts & affect slightly flat. No apparent distress. HEENT: Left-sided forehead & facial abrasions healing w/o complication & resolving ecchymosis. PERRLA 3 mm brisk. MMM & pink, tongue midline to protrusion. MUSCULOSKELETAL: VIDALES to command. LUE in sling w/intact dressing to left shoulder & arm. TTP to left posterior shoulder/scapula region. NEUROLOGICAL: Asleep but awakens to voice, alert after that, oriented to person, being in hospital, month & president but not year. Speech clear & appropriate. Slow thought process. Confusion, thinks he is here for hospice. Follows simple commands w/some difficulty. CN II through XII appear grossly intact but unable to assess left shoulder shrug due to injury. LUE not tested due to injury. Right deltoid 4 to 4+/5, right biceps 4/5, right triceps 4+/5. Bilateral iliopsoas 4+/5, bilateral quadriceps 4/5, bilateral hamstrings 4/5, bilateral tibialis anterior & bilateral gastrocnemius 4+/5, left extensor hallucis longus 4/5 & right 4+/5. (Marcos Ho) Lab, Micro, Other Results Laboratory Tests Test 08/03/17 05:11 08/04/17 07:10 White Blood Count 7.8 TH/MM3 6.0 TH/MM3 Red Blood Count 3.39 MIL/MM3 3.03 MIL/MM3 Hemoglobin 10.5 GM/DL 9.8 GM/DL Hematocrit 31.2 % 27.8 % Mean Corpuscular Volume 92.1 FL 91.7 FL Mean Corpuscular Hemoglobin 31.1 PG 32.4 PG Mean Corpuscular Hemoglobin Concent 33.8 % 35.4 % Red Cell Distribution Width 17.6 % 17.2 % Platelet Count 149 TH/MM3 166 TH/MM3 Mean Platelet Volume 8.8 FL 8.8 FL Neutrophils (%) (Auto) 60.1 % 58.6 % Lymphocytes (%) (Auto) 19.2 % 19.3 % Monocytes (%) (Auto) 19.6 % 20.4 % Eosinophils (%) (Auto) 0.7 % 1.2 % Basophils (%) (Auto) 0.4 % 0.5 % Neutrophils # (Auto) 4.7 TH/MM3 3.5 TH/MM3 Lymphocytes # (Auto) 1.5 TH/MM3 1.2 TH/MM3 Monocytes # (Auto) 1.5 TH/MM3 1.2 TH/MM3 Eosinophils # (Auto) 0.1 TH/MM3 0.1 TH/MM3 Basophils # (Auto) 0.0 TH/MM3 0.0 TH/MM3 CBC Comment DIFF FINAL DIFF FINAL Differential Comment Blood Urea Nitrogen 9 MG/DL 14 MG/DL Creatinine 0.57 MG/DL 0.51 MG/DL Random Glucose 92 MG/DL 83 MG/DL Albumin 2.9 GM/DL 2.7 GM/DL Calcium Level 8.4 MG/DL 8.0 MG/DL Phosphorus Level 2.8 MG/DL 3.7 MG/DL Magnesium Level 1.8 MG/DL 2.1 MG/DL Sodium Level 138 MEQ/L 140 MEQ/L Potassium Level 3.6 MEQ/L 3.2 MEQ/L Chloride Level 103 MEQ/L 104 MEQ/L Carbon Dioxide Level 25.7 MEQ/L 27.3 MEQ/L Anion Gap 9 MEQ/L 9 MEQ/L Estimat Glomerular Filtration Rate 141 ML/MIN 160 ML/MIN (Marcos Ho) Medical Decision Making Impression and Plan Impression: TBI Facial and forehead contusion EtOH abuse and withdrawal Left humerus fracture. The patient is doing well, he does have confusion and thinks he is here for hospice. His neuro exam is stable. He has pain to left arm. CT brain demonstrated a stable SDH along the fax. Plan: Neuro checks. Stat CT brain for any decline in neuro status. Mechanical DVT prophylaxis. Mobilise patient w/assistance. Physical & Occupational Therapy eval & tx. Hospitalist for medical management. Appreciate GI's, Hospitalist's & Ortho's input. Patient stable for discharge to [facility]. (Marcos Ho) Attending Statement The exam, history, and the medical decision-making described in the above note were completed with the assistance of the mid-level provider. I reviewed and agree with the findings presented. I attest that I had a [id number] encounter with the patient on the same day, and personally performed and documented my assessment and findings in the medical record. On my examination of the patient 08/05/17, he remains with mild to moderate confusion. Reported to be a little better in the past couple of days. No significant agitation. This exhibits poor judgment and insight. Speech is somewhat slow but without significant dysarthria. Moves all extremities with at least moderate strength to command except diminished left upper extremity related to orthopedic injury. Vital signs and labs reviewed. Stable for discharge to inpatient rehabilitation when arrangements made (Yosef King MD) Marcos Ho Aug 05, 2017 18:37 Yosef King MD Aug 06, 2017 00:35
--- NOTE | 2017-08-05 18:40 | HHI.DCPOC ---
Discharge Care Plan Diagnosis: (1) TBI (traumatic brain injury) (2) Right humeral fracture Your Health Problems Are: Exercise Tolerance Loss of Movements Additional Problems Confusion Goals to Promote Your Health * To prevent worsening of your condition and complications * To maintain your health at the optimal level Directions to Meet Your Goals Take your medications as prescribed Follow your dietary instruction Follow activity as directed Keep your appointments as scheduled Take your immunizations and boosters as scheduled If your symptoms worsen call your PCP, if no PCP go to Urgent Care Center or Emergency Room Smoking is Dangerous to Your Health. Avoid second hand smoke Call the 24-hour hour crisis hotline for domestic abuse at Marcos Ho Aug 05, 2017 18:40
[2017-08-05] MEDS ORDERED: CLON.1 PO (18:55)
[2017-08-05] MEDS ORDERED: HYDR-3583 PO (18:55)
[2017-08-05] MEDS ORDERED: FOLI1TAB6 PO (18:55)
[2017-08-05] MEDS ORDERED: CREON24 PO (18:55)
[2017-08-05] MEDS ORDERED: CHLO5CAP4 PO (18:55)
[2017-08-05] MEDS ORDERED: MAGN30S PO (18:55)
[2017-08-05] MEDS ORDERED: SENN187 PO (18:55)
[2017-08-05] MEDS ORDERED: BENA25CA4 PO (18:55)
[2017-08-05] MEDS ORDERED: VITA500012 PO (18:55)
[2017-08-05] MEDS ORDERED: THERM PO (18:55)
[2017-08-05] MEDS ORDERED: THIA100 PO (18:55)
[2017-08-05] MEDS ORDERED: PERI PO (18:55)
[2017-08-05] MEDS ORDERED: Lactulose Liq PO (18:55)
[2017-08-05] MEDS ORDERED: PANT40TA3 PO (18:55)
[2017-08-05] MEDS ORDERED: CHOL1000 PO (18:55)
[2017-08-05] MEDS ORDERED: BISA10R RECTAL (18:55)
[2017-08-05 20:00] VITALS: BP 107/61; PULSE 75; RESP 17; TEMP 98.3; O2SAT 97
[2017-08-05] MEDS: LORazepam 1 MG TAB PO PRN (21:57)
[2017-08-05] MEDS: diphenhydrAMINE HCL 25 MG CAP PO PRN (23:49)
[2017-08-06] VITALS: BP 127/62; PULSE 79; RESP 18; TEMP 98.9; O2SAT 96
[2017-08-06] MEDS: diphenhydrAMINE HCL 25 MG CAP PO PRN (04:14)
[2017-08-06] MEDS: LORazepam 1 MG TAB PO PRN (04:14)
[2017-08-06] MEDS: ACETAMINOPHEN/HYDROcodone 325 MG/10 MG TAB PO PRN (04:15)
[2017-08-06 08:00] VITALS: BP 101/55; PULSE 79; RESP 16; TEMP 97.2; O2SAT 93
[2017-08-06] MEDS: MULTIVITAMINS/MINERALS THERAPEUTIC TAB PO SCH (09:12)
[2017-08-06] MEDS: MAGNESIUM HYDROXIDE SUSP 30 ML CUP PO PRN (09:12)
[2017-08-06] MEDS: THIAMINE HCL 100 MG TAB PO SCH (09:12)
[2017-08-06] MEDS: LIPASE/PROTEASE/AMYLASE (24,000/76,000/120,000) CAP PO SCH ×3 (09:12→17:06)
[2017-08-06] MEDS: CHOLECALCIFEROL (VIT D3) 1000 UNIT TAB PO SCH (09:12)
[2017-08-06] MEDS: PANTOPRAZOLE SOD 40 MG DELAYED RELEASE TAB PO SCH (09:12)
[2017-08-06] MEDS: FOLIC ACID 1 MG TAB PO SCH (09:12)
[2017-08-06] MEDS: DOCUSATE SODIUM 50 MG/SENNA 8.6 MG TAB PO SCH (09:12)
[2017-08-06] MEDS: SODIUM CHLORIDE 0.9% FLUSH 10 ML FLUSH IV FLUSH SCH (09:12)
--- NOTE | 2017-08-06 11:14 | HHI.PR ---
Subjective Remarks Follow-up encephalopathy. Improving confusion. Discussed with nursing, will taper Librium Objective Vitals Vital Signs Date Time Temp Pulse Resp B/P (MAP) Pulse Ox O2 Delivery O2 Flow Rate FiO2 08/06/17 08:05 Room Air 08/06/17 08:00 97.2 79 16 101/55 (70) 93 08/06/17 00:00 98.9 79 18 127/62 (83) 96 08/05/17 20:00 98.3 75 17 107/61 (76) 97 08/05/17 15:00 97.6 77 16 128/63 (84) 98 08/05/17 12:00 98.0 76 16 104/58 (73) 97 I/O 08/05/17 08/05/17 08/05/17 08/06/17 08/06/17 08/06/17 07:00 15:00 23:00 07:00 15:00 23:00 Intake Total 480 ml 400 ml 240 ml Output Total 300 ml Balance 480 ml 400 ml -60 ml Intake Oral 480 ml 400 ml 240 ml Output Urine Total 300 ml # Voids 4 4 2 # Bowel Movements 0 0 Result Diagram: 08/04/17 0710 08/04/17 0710 Imaging Last Impressions Liver Ultrasound 08/01/17 0000 Signed Impressions: Service Date/Time: July 15:53 - CONCLUSION: 1. Fatty liver. No gallstones or biliary ductal dilatation. Niranjan Watson MD Shoulder X-Ray 07/31/17 0000 Signed Impressions: Service Date/Time: Monday, July 31, 2017 08:55 - CONCLUSION: 1. Postoperative fixation as above. Niranjan Watson MD Head CT 07/30/17 0600 Signed Impressions: Service Date/Time: Sunday, July 30, 2017 04:30 - CONCLUSION: 1. Stable small subdural hematoma along the falx. Joshua Edmonds Jr., MD Chest CT 07/28/17 0000 Signed Impressions: Service Date/Time: Friday, July 28, 2017 01:25 - CONCLUSION: 1. Tortuous mediastinal vessels. No mass or other acute cardiopulmonary disease. 2. Coronary artery calcification. 3. Old left rib fractures. Nehemias Gonzalez MD Chest X-Ray 07/27/17 0175 Signed Impressions: Service Date/Time: Thursday, July 27, 2017 23:46 - CONCLUSION: Apparent mild mediastinal widening and a CT of the chest with intravenous contrast is suggested if felt clinically indicated. The lungs are clear. Nehemias Gonzalez MD Objective Remarks GENERAL: WD WN in [place] Bruising left shoulder and left upper chest HEAD: Normocephalic. EYES: No scleral icterus. No injection or drainage. NECK: Supple, trachea midline. No JVD. CARDIOVASCULAR: Regular rate and rhythm without murmurs, gallops, or rubs. RESPIRATORY: Breath sounds equal bilaterally. No accessory muscle use. GASTROINTESTINAL: Abdomen soft, non-tender, nondistended. MUSCULOSKELETAL: No cyanosis, or edema. Procedures Open reduction internal fixation left humeral neck fracture, open reduction internal fixation left humeral shaft fracture A/P Problem List: (1) Subdural hematoma ICD Code: I62.00 - Nontraumatic subdural hemorrhage, unspecified Status: Acute (2) Alcohol intoxication ICD Code: F10.929 - Alcohol use, unspecified with intoxication, unspecified Status: Acute (3) Alcohol withdrawal ICD Code: F10.239 - Alcohol dependence with withdrawal, unspecified Status: Acute (4) Generalized weakness ICD Code: R53.1 - Weakness Status: Acute (5) TBI (traumatic brain injury) ICD Code: S06.9X9A - Unspecified intracranial injury with loss of consciousness of unspecified duration, initial encounter (6) Right humeral fracture ICD Code: S42.301A - Unspecified fracture of shaft of humerus, right arm, initial encounter for closed fracture Assessment and Plan Subdural hematoma secondary to fall/TBI. Stable ct to monitor, hold antiplatelets. PT and neurosurgery following. Fall precautions Alcohol withdrawals possible alcoholic seizures from withdrawals. Resolving encephalopathy. Stable Librium, continue CIWA protocol. Counseled regarding alcohol use Constipation. Added [place]-Colace laxatives ordered. Thrombocytopenia suspect secondary to alcohol abuse long-term. Improved Elevated LFTs secondary to chronic alcohol abuse Anemia status post transfusion. Stable refused endoscopy outpatient follow-up with GI Left humerus fracture status post surgery. Nonweightbearing status. Continue postoperative care with PT, wound care, pain management GI prophylaxis with Protonix DVT prophylaxis with SCD. Chemical prophylaxis contraindicated secondary to subdural hematoma Discharge Planning Stable for discharge to Riaz Solis MD Aug 06, 2017 11:14
[2017-08-06 12:00] VITALS: BP 123/64; PULSE 83; RESP 16; TEMP 97.3; O2SAT 96
[2017-08-06] MEDS ORDERED: CHLO10CA5 PO (13:39)
[2017-08-06 16:00] VITALS: BP 114/59; PULSE 89; RESP 16; TEMP 97.3; O2SAT 96
== END 2017-08-06 17:45 | DRG 492 ==
LOC: NEPD 17:31 → NEDA 07-28 01:52 → N03A 07-28 03:50 → N07A 08-03 22:00
PROVIDERS: ADMIT Neurological Surgery; ATTEND Neurological Surgery
PROC: 30233N1 Transfusion of Nonautologous Red Blood Cells into Peripheral Vein, Percutaneous Approach (ICD-10-PCS; 2017-07-30)
PROC: 0PSD04Z Reposition Left Humeral Head with Internal Fixation Device, Open Approach (ICD-10-PCS; 2017-07-31)
PROC: 0LQ20ZZ Repair Left Shoulder Tendon, Open Approach (ICD-10-PCS; 2017-07-31)
PROC: 30233R1 Transfusion of Nonautologous Platelets into Peripheral Vein, Percutaneous Approach (ICD-10-PCS; 2017-07-31)
PROC: 30233K1 Transfusion of Nonautologous Frozen Plasma into Peripheral Vein, Percutaneous Approach (ICD-10-PCS; 2017-07-31)
PROC: 0PSG04Z Reposition Left Humeral Shaft with Internal Fixation Device, Open Approach (ICD-10-PCS; principal; 2017-07-31 07:22)
DX: S42.212A Unspecified displaced fracture of surgical neck of left humerus, initial encounter for closed fracture (principal); S06.5X0A Traumatic subdural hemorrhage without loss of consciousness, initial encounter; G93.40 Encephalopathy, unspecified; D69.59 Other secondary thrombocytopenia; I95.9 Hypotension, unspecified; K70.30 Alcoholic cirrhosis of liver without ascites; K76.0 Fatty (change of) liver, not elsewhere classified; K86.1 Other chronic pancreatitis; F10.230 Alcohol dependence with withdrawal, uncomplicated; E83.39 Other disorders of phosphorus metabolism; S42.302A Unspecified fracture of shaft of humerus, left arm, initial encounter for closed fracture; I10 Essential (primary) hypertension; W17.89XA Other fall from one level to another, initial encounter; Y90.8 Blood alcohol level of 240 mg/100 ml or more; S46.012A Strain of muscle(s) and tendon(s) of the rotator cuff of left shoulder, initial encounter; F41.9 Anxiety disorder, unspecified; F10.220 Alcohol dependence with intoxication, uncomplicated; R00.0 Tachycardia, unspecified; M19.90 Unspecified osteoarthritis, unspecified site; D64.9 Anemia, unspecified; E87.6 Hypokalemia; K59.00 Constipation, unspecified; Z78.1 Physical restraint status; Z91.19 Patient's noncompliance with other medical treatment and regimen; Z79.82 Long term (current) use of aspirin
CPT/HCPCS: 36430; 70450; 71045; 71260; 73030; 76000; 76705; 76937; 80053; 80069; 80307; 82140; 82150; 82248; 82550; 82552; 82948; 83036; 83690; 83735; 84100; 84132; 84439; 84443; 84484; 85025; 85027; 85610; 85730; 86850; 86900; 86901; 86920; 86927; 87641; 93005; 94150; 96361; 96374; C1713; C9113; J0131; J0690; J1100; J1580; J2060; J2270; J2370; J2405; J2710; J3010; J3370; J3411; J3480; J7030; J7040; J7050; P9016; P9017; P9035; Q9967

== ENCOUNTER → 2017-08-13 | Outpatient (CLI) | payer MEDICARE, OTHER ==
[~2017-08-13] MED LIST changes: +BENA25CA4 PO; +BISA10R RECTAL; +CHLO10CA5 PO; +CHLORHEXIDINE GLUCONATE 2 % 1 PACK (2 CLOTHS) TOPICAL PRN; +CLON.1 PO; +HYDR-3583 PO; +LACTATED RINGER'S 1000 ML INJ 1,000 ML IV ONE; +LACTATED RINGER'S 1000 ML IV PRN; +LIDOCAINE HCL 1% PF 5 ML SYRINGE OTHER ONE; -LORA0.5T PO; +Lactulose Liq PO; +MAGN30S PO; +METOPROLOL TARTRATE 25 MG TAB PO PRN; +PERI PO; +PHENYLEPH/NS 1000 MCG/10 ML SYR IV ONE; +POVIDONE IODINE 5% (ANTISEPSIS KIT) 4 APPLICATIONS EACH NARE PRN; +PROPOFOL 200 MG/20 ML AMP IV ONE; +ROCURONIUM INJ 50 MG/5 ML SYRINGE IV PUSH ONE; +SENN187 PO; +SODIUM CHLORID 0.9% 500 ML IV PRN; +VITA500012 PO; -VITATAB11
[2017-08-13 17:45] VITALS: BP 106/62; PULSE 70; RESP 20; TEMP 97; O2SAT 95
--- NOTE | 2017-08-13 19:42 | PD.PROCEDR ---
GI Procedure PROCEDURE PERFORMED EGD with biopsy followed by colonoscopy with snare polypectomy INDICATION FOR PROCEDURE Patient with history of cirrhosis, history of GI bleed, newly diagnosed with DVT requiring clearance for anticoagulation PROCEDURE: The procedure, risks and benefits were discussed with Ms. Machado and informed consent was obtained. Anesthesia sedated her with Diprivan. She was placed in the left lateral decubitus position. EGD: The Pentax videoscope was introduced through the oropharynx and advanced to the second portion of the duodenum under direct visualization. Retroflexion was performed in the stomach. FINDINGS: The esophagus there was a grade 1 esophageal varix in the distal esophagus otherwise the esophagus was unremarkable no stigmata of bleeding were noted Stomach there was some punctate and patchy erythema in the antrum but no ulcerations no erosions no blood or bleeding and no gastric varices the antrum was biopsied The duodenum this was normal Colonoscopy: The Pentax videoscope was introduced through the rectum and advanced to cecum where the ileocecal valve and appendiceal orifice were identified. Retroflexion was performed in the rectum. Colonic prep was good FINDINGS: Colonic withdrawal time greater than 6 minutes. As the scope was slowly withdrawn colonic mucosa was carefully inspected the patient was noted to have a polyp in the sigmoid region this was excised using cold snare technique the polyp was sessile and medium size otherwise colonic examination was unremarkable except for mild to moderate diverticulosis in the sigmoid retroflexion in the rectum was unremarkable so his rectal examination ESTIMATED BLOOD LOSS: None SPECIMENS REMOVED: Antral biopsy and colon polyp COMPLICATIONS: None IMPRESSION: Esophageal varices grade 1 Gastritis Colon polyp Diverticulosis PLAN: Await biopsies Supportive care Low-salt diet Okay for anticoagulation at this point but please proceed cautiously Follow-up with GI post discharge We will sign off Bonilla Cohen MD Aug 13, 2017 19:42
== END ==
LOC: HEND 11:33
PROVIDERS: ATTEND Internal Medicine Gastroenterology
DX: K74.60 Unspecified cirrhosis of liver (principal); I85.00 Esophageal varices without bleeding; D12.5 Benign neoplasm of sigmoid colon; K57.30 Diverticulosis of large intestine without perforation or abscess without bleeding; K29.70 Gastritis, unspecified, without bleeding
CPT/HCPCS: 00813; 43239; 45385; 88305; 88312; J2370; J7120

== ENCOUNTER 2017-08-21 08:46 | Emergency (ER) | payer MEDICARE, OTHER ==
[~2017-08-21] VITALS: Ht 177.8 cm; Wt 88.0 kg
[~2017-08-21 08:46] MED LIST changes: -BISA10R RECTAL; -CHLO10CA5 PO; -CHLORHEXIDINE GLUCONATE 2 % 1 PACK (2 CLOTHS) TOPICAL PRN; -CLON.1 PO; -LACTATED RINGER'S 1000 ML INJ 1,000 ML IV ONE; -LACTATED RINGER'S 1000 ML IV PRN; -LIDOCAINE HCL 1% PF 5 ML SYRINGE OTHER ONE; -Lactulose Liq PO; -MAGN30S PO; -METOPROLOL TARTRATE 25 MG TAB PO PRN; -PHENYLEPH/NS 1000 MCG/10 ML SYR IV ONE; +POLY17S PO; +POTA20TA5 PO; -POVIDONE IODINE 5% (ANTISEPSIS KIT) 4 APPLICATIONS EACH NARE PRN; -PROPOFOL 200 MG/20 ML AMP IV ONE; -ROCURONIUM INJ 50 MG/5 ML SYRINGE IV PUSH ONE; -SENN187 PO; -SODIUM CHLORID 0.9% 500 ML IV PRN; -VITA500012 PO
[2017-08-21 08:50] VITALS: BP 105/58; PULSE 86; RESP 17; TEMP 98.2; O2SAT 100
--- NOTE | 2017-08-21 09:18 | PD ---
HPI Chief Complaint: General Weakness Time Seen by Provider: 09:05 Travel History International Travel<30 days: No Contact w/Intl Traveler<30days: No Traveled to known affect area: No History of Present Illness HPI This patient was discharged from rehab yesterday. I read the discharge summary. They wanted to send him to a usp because he lives alone as an alcoholic and is very weak and has poor balance and frequent falls. He refused that and so he went home. He was not able to function well at home. He says he was too weak to get out of a chair. He called 911 after lasting less than a day at home alone. He does not have any new fall or injury. He complains primarily generalized weakness. He denies drinking since he has been home. Symptom severity is moderate. No alleviating factors. No exacerbating factors. Duration of his weakness is one month. PFSH Past Medical History Hx Anticoagulant Therapy: Yes (ASPIRIN) Arthritis: Yes Blood Disorders: No Heart Rhythm Problems: No Cancer: No Cardiovascular Problems: No High Cholesterol: No Chest Pain: No Congestive Heart Failure: No Cerebrovascular Accident: No Diminished Hearing: No Endocrine: No Gastrointestinal Disorders: No Genitourinary: No Hypertension: Yes Immune Disorder: No Musculoskeletal: Yes (Arthritis) Neurologic: No Psychiatric: No Reproductive: No Respiratory: No Migraines: No Seizures: Yes Shingles: Yes Tetanus Vaccination: < 5 Years Influenza Vaccination: Yes Past Surgical History AICD: No Arteriovenous Shunt: No Insulin Pump: No Joint Replacement: No Tonsillectomy: Yes Other Surgery: No Social History Alcohol Use: Yes (DAILY, BEER) Tobacco Use: No Substance Use: No Allergies-Medications (Allergen,Severity, Reaction): Coded Allergies: No Known Allergies (Verified Allergy, Unknown, 08/21/17) Reported Meds & Prescriptions Reported Meds & Active Scripts Active Polyethylene Glycol 3350 Powder (Polyethylene Glycol) 17 Gram Pow 17 Gm PO DAILY 30 Days Potassium Chloride Microencaps 20 Meq Tab 40 Meq PO BID Hydrocodone-Acetamin 10-325 mg (Hydrocodone/Acetaminophen) 10 Mg-325 Mg Tablet 1 Tab PO Q6HR PRN Creon (Amylase/Lipase/Protease) 24,000-76,000-120,000 Units Cap 1 Cap PO TID Thera M Plus (Multivitamins/Minerals Therapeutic) 1 Tab 1 Tab PO DAILY Folic Acid 1 Mg Tablet 1 Mg PO DAILY Pantoprazole (Pantoprazole Sodium) 40 Mg Tab 40 Mg PO DAILY Gnp Senna Plus 8.6-50 mg (Sennosides-Docusate Sodium) 8.6 Mg-50 Mg Tab 1 Tab PO BID Gnp Vitamin B-1 (Thiamine HCl) 100 Mg Tab 100 Mg PO DAILY Benadryl Allergy (Diphenhydramine HCl) 25 Mg Cap 25 Mg PO Q6H PRN Gnp Vitamin D3 Extra Stre (Cholecalciferol) 1,000 Unit Tab 1,000 Units PO DAILY Walker with Front Wheels (Device) 1 Mis Mis Ea .ROUTE DIRECTED Walker/Adult/Folding (Device) 1 Mis Mis 1 Ea .ROUTE CONTINUOUS Use walker when weak Review of Systems General / Constitutional: No: Fever Eyes: No: Visual changes HENT: No: Headaches Cardiovascular: No: Chest Pain or Discomfort Respiratory: No: Shortness of Breath Gastrointestinal: No: Abdominal Pain Genitourinary: No: Dysuria Musculoskeletal: Positive: Weakness, No: Pain Skin: No Rash Neurologic: Positive: Weakness Psychiatric: Positive: Substance Abuse, No: Depression Endocrine: No: Polydipsia Hematologic/Lymphatic: No: Easy Bruising Physical Exam Narrative GENERAL: Well-nourished, well-developed patient in no apparent distress. SKIN: Focused skin assessment reveals no rash and nodules. Skin is Warm and dry. HEAD: Atraumatic. Normocephalic. EYES: Pupils equal and round. No scleral icterus. No injection or drainage. ENT: No nasal bleeding or discharge. Mucous membranes pink and moist. NECK: Trachea midline. No JVD. CARDIOVASCULAR: Regular rate and rhythm. No murmur appreciated. RESPIRATORY: No accessory muscle use. Clear to auscultation. Breath sounds equal bilaterally. GASTROINTESTINAL: Abdomen soft, non-tender, nondistended. Hepatic and splenic margins not palpable. MUSCULOSKELETAL: No obvious deformities. No clubbing. No cyanosis. No edema. NEUROLOGICAL: Awake and alert. No obvious cranial nerve deficits. Motor grossly within normal limits. Normal speech. PSYCHIATRIC: Appropriate mood and affect; insight and judgment poor . Data Data Last Documented VS Vital Signs Date Time Temp Pulse Resp B/P (MAP) Pulse Ox O2 Delivery O2 Flow Rate FiO2 08/21/17 08:50 98.2 86 17 105/58 (74) 100 Orders Orders Complete Blood Count With Diff (08/21/17 09:13) Basic Metabolic Panel (Bmp) (08/21/17 09:13) Iv Access Insert/Monitor (08/21/17 09:13) (Hub Use Only)Inp Phy Cons/Ref (08/21/17 ) Labs Laboratory Tests Test 08/21/17 09:15 White Blood Count 7.7 TH/MM3 Red Blood Count 4.13 MIL/MM3 Hemoglobin 13.1 GM/DL Hematocrit 38.5 % Mean Corpuscular Volume 93.3 FL Mean Corpuscular Hemoglobin 31.7 PG Mean Corpuscular Hemoglobin Concent 34.0 % Red Cell Distribution Width 16.2 % Platelet Count 228 TH/MM3 Mean Platelet Volume 9.7 FL Neutrophils (%) (Auto) 60.4 % Lymphocytes (%) (Auto) 24.2 % Monocytes (%) (Auto) 14.0 % Eosinophils (%) (Auto) 0.6 % Basophils (%) (Auto) 0.8 % Neutrophils # (Auto) 4.7 TH/MM3 Lymphocytes # (Auto) 1.9 TH/MM3 Monocytes # (Auto) 1.1 TH/MM3 Eosinophils # (Auto) 0.0 TH/MM3 Basophils # (Auto) 0.1 TH/MM3 CBC Comment DIFF FINAL Differential Comment Blood Urea Nitrogen 6 MG/DL Creatinine 0.69 MG/DL Random Glucose 97 MG/DL Calcium Level 8.8 MG/DL Sodium Level 133 MEQ/L Potassium Level 5.2 MEQ/L Chloride Level 101 MEQ/L Carbon Dioxide Level 25.3 MEQ/L Anion Gap 7 MEQ/L Estimat Glomerular Filtration Rate 113 ML/MIN MDM Medical Decision Making Medical Screen Exam Complete: Yes Emergency Medical Condition: Yes Medical Record Reviewed: Yes Differential Diagnosis Ataxia, generalized weakness, cirrhosis, neuropathy Narrative Course I have reviewed the patient's electronic medical record. I reviewed his discharge summary from yesterday IV placed and labs sent I am going to discuss with case management to see if he can be placed in usp given his current situation of leaving rehab yesterday CBC is normal Metabolic profile reveals minor hyperkalemia Prior to me rechecking the patient he decided to sign out AGAINST MEDICAL ADVICE He did not wait for me to get back into the room to talk to him He called a cab to the ER with his cell phone and left The case monitor was able to find him a usp but the patient already left Diagnosis Primary Impression: Generalized weakness Additional Impressions: Frequent falls History of alcoholism Disposition: 07 AGAINST MEDICAL ADVICE Luis Merrill MD Aug 21, 2017 09:18
[2017-08-21 09:40] LABS: AUTOMATED NEUTROPHIL # 4.7 TH/MM3 (1.8-7.7); BASOPHIL # 0.1 TH/MM3 (0-0.2); BASOPHIL % 0.8 % (0.0-2.0); EOSINOPHIL % 0.6 % (0.0-4.0); HEMATOCRIT 38.5 % (39.0-51.0); HEMOGLOBIN 13.1 GM/DL (13.0-17.0); LYMPH % 24.2 % (9.0-44.0); LYMPHOCYTE # 1.9 TH/MM3 (1.0-4.8); MEAN CELL VOLUME 93.3 FL (80.0-100.0); MEAN CORPUSCULAR HEMOGLOBIN 31.7 PG (27.0-34.0); MEAN PLATELET VOLUME 9.7 FL (7.0-11.0); MONOCYTE # 1.1 TH/MM3 (0-0.9); NEUT % 60.4 % (16.0-70.0); PLATELET COUNT 228 TH/MM3 (150-450); RED BLOOD COUNT 4.13 MIL/MM3 (4.50-5.90); RED CELL DISTRIBUTION WIDTH 16.2 % (11.6-17.2); WHITE BLOOD COUNT 7.7 TH/MM3 (4.0-11.0)
[2017-08-21 10:05] LABS: BICARBONATE 25.3 MEQ/L (21.0-32.0); CALCIUM 8.8 MG/DL (8.5-10.1); CREATININE 0.69 MG/DL (0.60-1.30)
== END 2017-08-21 10:30 | disposition left against medical advice (07) ==
LOC: NEPC 08:46
DX: R53.1 Weakness (principal); R29.6 Repeated falls; F10.20 Alcohol dependence, uncomplicated
CPT/HCPCS: 80048; 85025; 99283

== ENCOUNTER 2018-02-12 10:16 | Inpatient (IN) ==
[2018-02-12] MEDS ORDERED: Sod Chloride 0.9% Inj 1,000 ML IV.CONT SCH (10:45)
--- NOTE | 2018-02-12 11:44 | XR ---
EXAM DATE: 02/12/2018 10:37 AM EDT AGE/SEX: 72 years / Male INDICATIONS: Fell last night. CLINICAL DATA: This is the patient's initial encounter. Patient reports that signs and symptoms have been present for 2 days and indicates a pain score of Nonresponsive. MEDICAL/SURGICAL HISTORY: Hypertension. seizures, bleed . left shoulder surgery COMPARISON: [facility] [place], [place], CHEST SINGLE AP, 07/27/2017. . FINDINGS: No new focal pleural or parenchymal opacities. No pneumothorax. The cardiomediastinal contours are un remarkable. Partially imaged fixation hardware in the left humerus. Osseous structures are grossly i ntact. CONCLUSION: 1. Negative portable chest. Electronically signed by: Caleb Nguyen MD 02/12/2018 11:43 AM EDT
--- NOTE | 2018-02-12 11:47 | XR ---
EXAM DATE: 02/12/2018 10:37 AM EDT AGE/SEX: 72 years / Male INDICATIONS: Fell yesterday. CLINICAL DATA: This is the patient's initial encounter. Patient reports that signs and symptoms have been present for 2 days and indicates a pain score of Nonresponsive. MEDICAL/SURGICAL HISTORY: Seizures. Hypertension. bleed . left shoulder surgery COMPARISON: No prior exams available for comparison. FINDINGS: Bony structures are intact and in normal alignment. Joints are intact without dislocation. Humerus i s high riding with mild degenerative change. There is also degenerative change about the AC joint. O sseous density is normal. Soft tissues are unremarkable. No radiopaque foreign bodies seen. CONCLUSION: 1. No acute fracture or dislocation. 2. Degenerative osteoarthritis. Electronically signed by: Caleb Nguyen MD 02/12/2018 11:46 AM EDT
--- NOTE | 2018-02-12 11:48 | ED ---
HPI General Chief Complaint: Fall Stated Complaint: Fall Time Seen by Provider: 02/12/18 10:23 Source: patient Mode of arrival: EMS Limitations: other History of Present Illness HPI Narrative: Patient is a 72-year-old male, past medical history significant for alcohol abuse, who presents with complaint of fall. He states that he was using the restroom in the middle of the night when he slipped and fell, he was unable to get up for more than 6 hours. He states that after the fall he had difficulty moving his right upper extremity with some numbness of the extremity as well. He does not remember if he hit his head or not. He is not very forthcoming with information. He states his last drink was "all the time." complaint: fall Onset (ago): hour(s) Fall witnessed: no Place fall occurred: home Loss of consciousness: unsure Prolonged down time: yes Symptoms prior to fall: none Context: tripped/slipped and alcohol use Severity: mild Related Data Home Medications Medication Instructions Recorded Confirmed No Known Home Medications 02/12/18 02/12/18 Allergies Allergy/AdvReac Type Severity Reaction Status Date / Time No Known Allergies Allergy Unverified 02/12/18 10:45 Review of Systems ROS: all other systems reviewed are negative [facility] Medical History Medical History Alcohol abuse (Acute) Patient denies medical problems (Acute) Family History Family History Other Patient denies significant medical history Social History Social History Substance History: No History of Abuse Second Hand Smoke Exposure: Yes Smoking Status: Former smoker Tobacco Type: Cigars How Often Do You Have a Drink Containing Alcohol: 4 or more times a week Recent Travel in [facility] within the Last 8 Weeks: No Recent Out of Country Travel within the Last 8 Weeks: No Exam Narrative Exam Narrative: GENERAL: Disheveled, chronically ill appearing male in no acute distress, covered in urine SKIN: Focused skin assessment warm/dry. HEAD: Atraumatic. Normocephalic. EYES: Pupils equal and round. No scleral icterus. No injection or drainage. ENT: No nasal bleeding or discharge. Mucous membranes pink and dry. Abnormal dentition. NECK: Trachea midline. No JVD. CARDIOVASCULAR: Tachycardic. No murmur appreciated. Intact and equal peripheral pulses. RESPIRATORY: No accessory muscle use. Clear to auscultation. Breath sounds equal bilaterally. GASTROINTESTINAL: Abdomen soft, non-tender, nondistended. Hepatic and splenic margins not palpable. MUSCULOSKELETAL: No obvious deformities. No clubbing. No cyanosis. No edema. NEUROLOGICAL: Awake and alert. No obvious cranial nerve deficits. Normal speech. States his RUE is numb and cannot move, but when distracted, he does move his RUE. Patient will not participate in most of the neurological exam. PSYCHIATRIC: Agitated. Course Initial Documented Vital Signs Temperature 97.9 F 02/12/18 10:45 Pulse Rate 112 H 02/12/18 10:45 Respiratory Rate 24 02/12/18 10:45 Blood Pressure 116/56 L 02/12/18 10:45 Pulse Oximetry 99 02/12/18 10:45 Last Documented Vital Signs Temperature 97.5 F L 02/14/18 08:00 Pulse Rate 93 H 02/14/18 08:00 Respiratory Rate 16 02/14/18 08:00 Blood Pressure 134/66 02/14/18 08:00 Pulse Oximetry 100 02/14/18 08:00 Medical Decision Making MDM Narrative Medical decision making narrative: Patient is a 72-year-old male who presents after a fall in which she was unable to get back up for more than 6 hours. He is agitated and tachycardic on arrival but otherwise hemodynamically stable. He was given fluids and 0.5 mg of Ativan after which his vital signs normalized. CTs do not show acute findings. Labs reveal an elevated CK with a normal creatinine. He continues to complain of weakness of the right upper extremity (present for > 6 hours prior to arrival) and denies being able to move it though he has been seen moving it several times while in the emergency department. He has been admitted to Dr. Perry, hospitalist on-call, for further evaluation and management with possible MRI. Medical Screen Exam Complete: Yes Emergency Medical Condition: Yes Differential Diagnosis Differential Diagnosis: Differential diagnosis includes but is not limited to alcohol withdrawal, dehydration, electrolyte abnormality, fracture, closed head injury, intracranial hemorrhage, stroke. Medical Records Medical records reviewed: Yes I reviewed the patient's medical records. Lab Data Lab results reviewed: Yes I reviewed the patient's lab results. Result diagrams: 02/14/18 06:46 02/14/18 06:46 Lab Results 02/12/18 02/12/18 02/12/18 Range/Units 11:44 11:55 11:55 WBC 10.3 (4.0-11.0) th/mm3 RBC 2.93 L (4.50-5.90) mil/mm3 Hgb 8.1 L (13.0-17.0) gm/dL Hct 24.5 L (39.0-51.0) % MCV 83.6 (80.0-100.0) fL MCH 27.5 (27.0-34.0) pg MCHC 32.9 (32.0-36.0) % RDW 21.9 H (11.6-17.2) % Plt Count 175 (150-450) th/mm3 MPV 7.9 (7.0-11.0) fL Prelim Diff (Auto) Neut % (Auto) 81.8 H (16.0-70.0) % Lymph % (Auto) 7.4 L (9.0-44.0) % [place] % (Auto) 10.7 H (0.0-8.0) % Eos % (Auto) 0.0 (0.0-4.0) % Baso % (Auto) 0.1 (0.0-2.0) % Neut # (Auto) 8.4 H (1.8-7.7) th/mm3 Lymph # (Auto) 0.8 L (1.0-4.8) th/mm3 [place] # (Auto) 1.1 H (0.0-0.9) th/mm3 Eos # (Auto) 0.0 (0.0-0.4) th/mm3 Baso # (Auto) 0.0 (0.0-0.2) th/mm3 WBC Differential . Diff Scan Differential Comment Auto diff final Platelet Estimate (Normal) Platelet Morphology (Normal) Spherocytes (None) Ovalocytes (None) Stomatocytes (None) Acanthocytes (Spur) (None) PT 12.6 H (9.8-11.6) sec INR 1.2 Ratio APTT 25.6 (24.3-30.1) sec Sodium (136-145) meq/L Potassium (3.5-5.1) meq/L Chloride (98-107) meq/L Carbon Dioxide (21.0-32.0) meq/L Anion Gap (5-15) meq/L BUN (7-18) mg/dL Creatinine (0.60-1.30) mg/dL Estimated GFR (>89) mL/min POC Glucose 143 H (68-110) mg/dl Random Glucose (74-106) mg/dL Calcium (8.5-10.1) mg/dL Prot Corrected Calcium (8.5-10.1) mg/dL Magnesium (1.5-2.5) mg/dL Iron (65-175) mcg/dL TIBC (250-450) mcg/dL % Saturation (20-50) % Ferritin (26-388) ng/mL Total Bilirubin (0.2-1.0) mg/dL AST (15-37) U/L ALT (12-78) U/L Alkaline Phosphatase (45-117) U/L Total Creatine Kinase (39-308) U/L CK-MB (CK-2) (0.5-3.6) ng/mL CK-MB (CK-2) % (0.0-4.0) % Troponin I (0.02-0.05) ng/mL Total Protein (6.4-8.2) g/dL Albumin (3.4-5.0) g/dL Lipase (73-393) U/L Vitamin B12 (193-986) pg/mL Folate (3.1-17.5) ng/mL Serum Alcohol (0-5) mg/dL Blood Type Blood Type Recheck Antibody Screen MTS Gel Crossmatch 02/12/18 02/12/18 02/12/18 Range/Units 11:55 20:23 20:23 WBC (4.0-11.0) th/mm3 RBC (4.50-5.90) mil/mm3 Hgb (13.0-17.0) gm/dL Hct (39.0-51.0) % MCV (80.0-100.0) fL MCH (27.0-34.0) pg MCHC (32.0-36.0) % RDW (11.6-17.2) % Plt Count (150-450) th/mm3 MPV (7.0-11.0) fL Prelim Diff (Auto) Neut % (Auto) (16.0-70.0) % Lymph % (Auto) (9.0-44.0) % [place] % (Auto) (0.0-8.0) % Eos % (Auto) (0.0-4.0) % Baso % (Auto) (0.0-2.0) % Neut # (Auto) (1.8-7.7) th/mm3 Lymph # (Auto) (1.0-4.8) th/mm3 [place] # (Auto) (0.0-0.9) th/mm3 Eos # (Auto) (0.0-0.4) th/mm3 Baso # (Auto) (0.0-0.2) th/mm3 WBC Differential Diff Scan Differential Comment Platelet Estimate (Normal) Platelet Morphology (Normal) Spherocytes (None) Ovalocytes (None) Stomatocytes (None) Acanthocytes (Spur) (None) PT (9.8-11.6) sec INR Ratio APTT (24.3-30.1) sec Sodium 142 (136-145) meq/L Potassium 3.1 L (3.5-5.1) meq/L Chloride 104 (98-107) meq/L Carbon Dioxide 18.3 L (21.0-32.0) meq/L Anion Gap 20 H (5-15) meq/L BUN 4 L (7-18) mg/dL Creatinine 1.08 (0.60-1.30) mg/dL Estimated GFR 67 L (>89) mL/min POC Glucose (68-110) mg/dl Random Glucose 127 H (74-106) mg/dL Calcium 7.6 L (8.5-10.1) mg/dL Prot Corrected Calcium (8.5-10.1) mg/dL Magnesium 2.0 (1.5-2.5) mg/dL Iron (65-175) mcg/dL TIBC (250-450) mcg/dL % Saturation (20-50) % Ferritin (26-388) ng/mL Total Bilirubin (0.2-1.0) mg/dL AST (15-37) U/L ALT (12-78) U/L Alkaline Phosphatase (45-117) U/L Total Creatine Kinase 2063 H (39-308) U/L CK-MB (CK-2) 17.9 H (0.5-3.6) ng/mL CK-MB (CK-2) % 0.9 (0.0-4.0) % Troponin I Less than 0.02 L (0.02-0.05) ng/mL Total Protein (6.4-8.2) g/dL Albumin (3.4-5.0) g/dL Lipase (73-393) U/L Vitamin B12 (193-986) pg/mL Folate (3.1-17.5) ng/mL Serum Alcohol 255 H (0-5) mg/dL Blood Type O Positive Blood Type Recheck Not needed Antibody Screen Negative MTS Gel Crossmatch 02/12/18 02/12/18 02/13/18 Range/Units 20:23 21:12 03:27 WBC (4.0-11.0) th/mm3 RBC (4.50-5.90) mil/mm3 Hgb (13.0-17.0) gm/dL Hct (39.0-51.0) % MCV (80.0-100.0) fL MCH (27.0-34.0) pg MCHC (32.0-36.0) % RDW (11.6-17.2) % Plt Count (150-450) th/mm3 MPV (7.0-11.0) fL Prelim Diff (Auto) Neut % (Auto) (16.0-70.0) % Lymph % (Auto) (9.0-44.0) % [place] % (Auto) (0.0-8.0) % Eos % (Auto) (0.0-4.0) % Baso % (Auto) (0.0-2.0) % Neut # (Auto) (1.8-7.7) th/mm3 Lymph # (Auto) (1.0-4.8) th/mm3 [place] # (Auto) (0.0-0.9) th/mm3 Eos # (Auto) (0.0-0.4) th/mm3 Baso # (Auto) (0.0-0.2) th/mm3 WBC Differential Diff Scan Differential Comment Platelet Estimate (Normal) Platelet Morphology (Normal) Spherocytes (None) Ovalocytes (None) Stomatocytes (None) Acanthocytes (Spur) (None) PT (9.8-11.6) sec INR Ratio APTT (24.3-30.1) sec Sodium (136-145) meq/L Potassium (3.5-5.1) meq/L Chloride (98-107) meq/L Carbon Dioxide (21.0-32.0) meq/L Anion Gap (5-15) meq/L BUN (7-18) mg/dL Creatinine (0.60-1.30) mg/dL Estimated GFR (>89) mL/min POC Glucose 114 H (68-110) mg/dl Random Glucose (74-106) mg/dL Calcium (8.5-10.1) mg/dL Prot Corrected Calcium (8.5-10.1) mg/dL Magnesium (1.5-2.5) mg/dL Iron 24 L (65-175) mcg/dL TIBC 329 (250-450) mcg/dL % Saturation 7.3 L (20-50) % Ferritin 54 (26-388) ng/mL Total Bilirubin (0.2-1.0) mg/dL AST (15-37) U/L ALT (12-78) U/L Alkaline Phosphatase (45-117) U/L Total Creatine Kinase 07516 H 44285 H (39-308) U/L CK-MB (CK-2) 61.0 H 48.8 H (0.5-3.6) ng/mL CK-MB (CK-2) % 0.5 0.3 (0.0-4.0) % Troponin I 0.06 H 0.06 H (0.02-0.05) ng/mL Total Protein (6.4-8.2) g/dL Albumin (3.4-5.0) g/dL Lipase (73-393) U/L Vitamin B12 498 (193-986) pg/mL Folate 17.8 H (3.1-17.5) ng/mL Serum Alcohol (0-5) mg/dL Blood Type Blood Type Recheck Antibody Screen MTS Gel Crossmatch 02/13/18 02/13/18 02/13/18 Range/Units 03:27 03:27 03:27 WBC 3.8 L D (4.0-11.0) th/mm3 RBC 2.52 L (4.50-5.90) mil/mm3 Hgb 6.7 L* (13.0-17.0) gm/dL Hct 21.0 L (39.0-51.0) % MCV 83.4 (80.0-100.0) fL MCH 26.6 L (27.0-34.0) pg MCHC 31.8 L (32.0-36.0) % RDW 22.6 H (11.6-17.2) % Plt Count 84 L D (150-450) th/mm3 MPV 7.9 (7.0-11.0) fL Prelim Diff (Auto) Slide review pending Neut % (Auto) 60.1 (16.0-70.0) % Lymph % (Auto) 23.7 (9.0-44.0) % [place] % (Auto) 15.4 H (0.0-8.0) % Eos % (Auto) 0.1 (0.0-4.0) % Baso % (Auto) 0.7 (0.0-2.0) % Neut # (Auto) 2.3 (1.8-7.7) th/mm3 Lymph # (Auto) 0.9 L (1.0-4.8) th/mm3 [place] # (Auto) 0.6 (0.0-0.9) th/mm3 Eos # (Auto) 0.0 (0.0-0.4) th/mm3 Baso # (Auto) 0.0 (0.0-0.2) th/mm3 WBC Differential . Diff Scan Auto diff confirmed Differential Comment . Platelet Estimate Low L (Normal) Platelet Morphology Normal (Normal) Spherocytes Occ H (None) Ovalocytes (None) Stomatocytes 1+ H (None) Acanthocytes (Spur) (None) PT 13.1 H (9.8-11.6) sec INR 1.3 Ratio APTT (24.3-30.1) sec Sodium 142 (136-145) meq/L Potassium 3.4 L (3.5-5.1) meq/L Chloride 109 H (98-107) meq/L Carbon Dioxide 23.8 (21.0-32.0) meq/L Anion Gap 9 (5-15) meq/L BUN 4 L (7-18) mg/dL Creatinine 0.67 (0.60-1.30) mg/dL Estimated GFR Greater than 89 (>89) mL/min POC Glucose (68-110) mg/dl Random Glucose 85 (74-106) mg/dL Calcium 6.9 L* (8.5-10.1) mg/dL Prot Corrected Calcium 7.1 L* (8.5-10.1) mg/dL Magnesium (1.5-2.5) mg/dL Iron (65-175) mcg/dL TIBC (250-450) mcg/dL % Saturation (20-50) % Ferritin (26-388) ng/mL Total Bilirubin 1.8 H (0.2-1.0) mg/dL AST 422 H (15-37) U/L ALT 52 (12-78) U/L Alkaline Phosphatase 106 (45-117) U/L Total Creatine Kinase (39-308) U/L CK-MB (CK-2) (0.5-3.6) ng/mL CK-MB (CK-2) % (0.0-4.0) % Troponin I (0.02-0.05) ng/mL Total Protein 6.7 (6.4-8.2) g/dL Albumin 2.5 L (3.4-5.0) g/dL Lipase 87 (73-393) U/L Vitamin B12 (193-986) pg/mL Folate (3.1-17.5) ng/mL Serum Alcohol (0-5) mg/dL Blood Type Blood Type Recheck Antibody Screen MTS Gel Crossmatch 02/13/18 02/13/18 02/13/18 Range/Units 03:58 11:35 17:20 WBC (4.0-11.0) th/mm3 RBC (4.50-5.90) mil/mm3 Hgb 7.8 L (13.0-17.0) gm/dL Hct 24.2 L (39.0-51.0) % MCV (80.0-100.0) fL MCH (27.0-34.0) pg MCHC (32.0-36.0) % RDW (11.6-17.2) % Plt Count (150-450) th/mm3 MPV (7.0-11.0) fL Prelim Diff (Auto) Neut % (Auto) (16.0-70.0) % Lymph % (Auto) (9.0-44.0) % [place] % (Auto) (0.0-8.0) % Eos % (Auto) (0.0-4.0) % Baso % (Auto) (0.0-2.0) % Neut # (Auto) (1.8-7.7) th/mm3 Lymph # (Auto) (1.0-4.8) th/mm3 [place] # (Auto) (0.0-0.9) th/mm3 Eos # (Auto) (0.0-0.4) th/mm3 Baso # (Auto) (0.0-0.2) th/mm3 WBC Differential Diff Scan Differential Comment Platelet Estimate (Normal) Platelet Morphology (Normal) Spherocytes (None) Ovalocytes (None) Stomatocytes (None) Acanthocytes (Spur) (None) PT (9.8-11.6) sec INR Ratio APTT (24.3-30.1) sec Sodium (136-145) meq/L Potassium (3.5-5.1) meq/L Chloride (98-107) meq/L Carbon Dioxide (21.0-32.0) meq/L Anion Gap (5-15) meq/L BUN (7-18) mg/dL Creatinine (0.60-1.30) mg/dL Estimated GFR (>89) mL/min POC Glucose 127 H (68-110) mg/dl Random Glucose (74-106) mg/dL Calcium (8.5-10.1) mg/dL Prot Corrected Calcium (8.5-10.1) mg/dL Magnesium (1.5-2.5) mg/dL Iron (65-175) mcg/dL TIBC (250-450) mcg/dL % Saturation (20-50) % Ferritin (26-388) ng/mL Total Bilirubin (0.2-1.0) mg/dL AST (15-37) U/L ALT (12-78) U/L Alkaline Phosphatase (45-117) U/L Total Creatine Kinase (39-308) U/L CK-MB (CK-2) (0.5-3.6) ng/mL CK-MB (CK-2) % (0.0-4.0) % Troponin I (0.02-0.05) ng/mL Total Protein (6.4-8.2) g/dL Albumin (3.4-5.0) g/dL Lipase (73-393) U/L Vitamin B12 (193-986) pg/mL Folate (3.1-17.5) ng/mL Serum Alcohol (0-5) mg/dL Blood Type Blood Type Recheck Antibody Screen MTS Gel Crossmatch See Detail 02/13/18 02/14/18 02/14/18 Range/Units 17:20 06:46 06:46 WBC 5.1 (4.0-11.0) th/mm3 RBC 2.82 L (4.50-5.90) mil/mm3 Hgb 7.7 L (13.0-17.0) gm/dL Hct 24.1 L (39.0-51.0) % MCV 85.7 (80.0-100.0) fL MCH 27.3 (27.0-34.0) pg MCHC 31.8 L (32.0-36.0) % RDW 21.1 H (11.6-17.2) % Plt Count 68 L (150-450) th/mm3 MPV 8.3 (7.0-11.0) fL Prelim Diff (Auto) Slide review pending Neut % (Auto) 61.9 (16.0-70.0) % Lymph % (Auto) 24.3 (9.0-44.0) % [place] % (Auto) 12.5 H (0.0-8.0) % Eos % (Auto) 1.0 (0.0-4.0) % Baso % (Auto) 0.3 (0.0-2.0) % Neut # (Auto) 3.1 (1.8-7.7) th/mm3 Lymph # (Auto) 1.2 (1.0-4.8) th/mm3 [place] # (Auto) 0.6 (0.0-0.9) th/mm3 Eos # (Auto) 0.0 (0.0-0.4) th/mm3 Baso # (Auto) 0.0 (0.0-0.2) th/mm3 WBC Differential . Diff Scan Auto diff confirmed Differential Comment . Platelet Estimate Low L (Normal) Platelet Morphology Normal (Normal) Spherocytes (None) Ovalocytes 1+ H (None) Stomatocytes (None) Acanthocytes (Spur) Occ H (None) PT (9.8-11.6) sec INR Ratio APTT (24.3-30.1) sec Sodium 137 (136-145) meq/L Potassium 3.3 L (3.5-5.1) meq/L Chloride 105 (98-107) meq/L Carbon Dioxide 24.1 (21.0-32.0) meq/L Anion Gap 8 (5-15) meq/L BUN 4 L (7-18) mg/dL Creatinine 0.47 L (0.60-1.30) mg/dL Estimated GFR Greater than 89 (>89) mL/min POC Glucose (68-110) mg/dl Random Glucose 94 (74-106) mg/dL Calcium 7.1 L* 6.9 L* (8.5-10.1) mg/dL Prot Corrected Calcium 7.5 L (8.5-10.1) mg/dL Magnesium (1.5-2.5) mg/dL Iron (65-175) mcg/dL TIBC (250-450) mcg/dL % Saturation (20-50) % Ferritin (26-388) ng/mL Total Bilirubin 1.7 H (0.2-1.0) mg/dL AST 533 H (15-37) U/L ALT 72 (12-78) U/L Alkaline Phosphatase 129 H (45-117) U/L Total Creatine Kinase 08201 H 19534 H (39-308) U/L CK-MB (CK-2) 26.3 H (0.5-3.6) ng/mL CK-MB (CK-2) % 0.2 (0.0-4.0) % Troponin I (0.02-0.05) ng/mL Total Protein 5.9 L D (6.4-8.2) g/dL Albumin 2.2 L (3.4-5.0) g/dL Lipase (73-393) U/L Vitamin B12 (193-986) pg/mL Folate (3.1-17.5) ng/mL Serum Alcohol (0-5) mg/dL Blood Type Blood Type Recheck Antibody Screen MTS Gel Crossmatch Imaging Data Attestation: I personally reviewed and interpreted this imaging study as follows : Radiologist's impression: Chest X-Ray 02/12/18 10:37 CONCLUSION: 1. Negative portable chest. Head CTA 02/12/18 10:37 CONCLUSION: 1. Negative CTA Head. Specifically, no evidence for large vessel occlusion. Humerus X-Ray 02/12/18 10:37 CONCLUSION: 1. No acute fracture or dislocation. Neck CTA 02/12/18 10:37 CONCLUSION: 1. No significant carotid flow-limiting stenosis. 2. Eccentric calcified plaque in the distal vertebral arteries bilaterally near the vertebrobasilar junction with resultant bilateral mild stenosis. Pelvis X-Ray 02/12/18 10:37 CONCLUSION: 1. Subacute to chronic right femoral greater trochanteric fracture with fracture fragment retracted cephalad and medially. 2. Degenerative osteoarthritis of the hips. Shoulder X-Ray 02/12/18 10:37 CONCLUSION: 1. No acute fracture or dislocation. 2. Degenerative osteoarthritis. Cervical Spine CT 02/12/18 10:38 CONCLUSION: 1. Mild wedge-shaped compression deformity of T1 with subtle 3 mm anterolisthesis of C7 on T1. Suspect findings are chronic although chronicity cannot be validated due to lack of prior exams. Clinical correlation with physical exam is recommended. Flexion and extension views may be obtained if there is significant concern regarding ligamentous instability and there is continued clinical uncertainty. 2. Mild anterolisthesis of C4 on C5 likely due to facet arthrosis. Head CT 02/12/18 10:38 CONCLUSION: 1. No acute intracranial abnormality. 2. Prominent diffuse cerebral atrophy out of proportion to age. 3. Moderate periventricular ischemic white matter denomination. 4. Bilateral paranasal sinus mucosal disease with fluid in the right maxillary sinus. . Elbow X-Ray 02/13/18 00:00 CONCLUSION: Soft tissue swelling without evidence of acute fracture, dislocation or significant arthropathy. Forearm X-Ray 02/13/18 00:00 CONCLUSION: Soft tissue swelling without evidence of acute fracture or dislocation. Venous Doppler Study 02/13/18 00:00 CONCLUSION: 1. The study is negative for upper extremity deep venous thrombosis. ECG Data EKG Prior to Arrival: No Attestation: I personally reviewed and interpreted this ECG as follows: (Sinus tachycardia at a rate of 115 bpm. Frequent PVCs seen. No ST or T wave changes that are easily visualized.) Prior ECG tracings: available for review Discharge Plan Discharge Disposition Patient Disposition: 30 Still Patient Discharge Condition Condition: Stable Discharge Details Diagnosis: Rhabdomyolysis Physicians Team ED Provider: Renetta Power Primary Care Provider: UNKNOWN, Attending Provider: Dee Palacios Other Providers: José Manuel Georges ; [facility],Agency Discharge Interventions Interventions: ED Discharge Assessment Last Done: 02/12/18 18:49 Vital Signs Last Done: 02/12/18 12:00 Status ED Status: Left Department Discharge Information Discharge Date/Time: 02/12/18 18:15
--- NOTE | 2018-02-12 11:54 | XR ---
EXAM DATE: 02/12/2018 10:37 AM EDT AGE/SEX: 72 years / Male INDICATIONS: Fell yesterday. CLINICAL DATA: This is the patient's initial encounter. Patient reports that signs and symptoms have been present for 2 days and indicates a pain score of Nonresponsive. MEDICAL/SURGICAL HISTORY: Seizures. Hypertension. bleed . left shoulder surgery. [place] [facility] [place]. . FINDINGS: Bony structures are intact and in normal alignment. Osseous density is normal. Soft tissues are unre markable. No radiopaque foreign bodies seen. CONCLUSION: 1. No acute fracture or dislocation. Electronically signed by: Caleb Nguyen MD 02/12/2018 11:53 AM EDT
--- NOTE | 2018-02-12 11:58 | XR ---
EXAM DATE: 02/12/2018 10:37 AM EDT AGE/SEX: 72 years / Male INDICATIONS: Fell yesterday. CLINICAL DATA: This is the patient's initial encounter. Patient reports that signs and symptoms have been present for 2 days and indicates a pain score of Nonresponsive. MEDICAL/SURGICAL HISTORY: Seizures. Hypertension. bleed . left shoulder surgery. COMPARISON: [facility] – [place], SHOULDER COMPLETE RIGHT, 02/12/2018. . FINDINGS: Examination of the pelvis demonstrates no evidence of fracture or dislocation. There is a chronic to subacute right femoral greater trochanteric fracture which has retracted cephalad and medially. Bony mineralization is normal. There is no widening of the sacroiliac joints. Moderate to severe degener ative changes about the right hip. [id number] degenerative changes of the left. No foreign body is identified. CONCLUSION: 1. Subacute to chronic right femoral greater trochanteric fracture with fracture fragment retracted cephalad and medially. 2. Degenerative osteoarthritis of the hips. Electronically signed by: Caleb Nguyen MD 02/12/2018 11:57 AM EDT
[2018-02-12 12:13] LABS: Baso % (Auto) 0.1 % (0.0-2.0); Hematocrit 24.5 % (39.0-51.0); Hemoglobin 8.1 gm/dL (13.0-17.0); Lymph # (Auto) 0.8 th/mm3 (1.0-4.8); Lymph % (Auto) 7.4 % (9.0-44.0); Mean Corpuscular HGB Conc 32.9 % (32.0-36.0); Mean Corpuscular Hemoglobin 27.5 pg (27.0-34.0); Mean Corpuscular Volume 83.6 fL (80.0-100.0); Mean Platelet Volume 7.9 fL (7.0-11.0); Mono # (Auto) 1.1 th/mm3 (0.0-0.9); Mono % (Auto) 10.7 % (0.0-8.0); Neut # (Auto) 8.4 th/mm3 (1.8-7.7); Neut % (Auto) 81.8 % (16.0-70.0); Platelet Count 175 th/mm3 (150-450); Red Blood Count 2.93 mil/mm3 (4.50-5.90); Red Cell Distribution Width 21.9 % (11.6-17.2); White Blood Count 10.3 th/mm3 (4.0-11.0)
[2018-02-12 12:21] LABS: Activated Partial Thrombo Time 25.6 sec (24.3-30.1); INR 1.2 Ratio; Prothrombin Time 12.6 sec (9.8-11.6)
[2018-02-12 12:40] LABS: Anion Gap 20 meq/L (5-15); Blood Urea Nitrogen 4 mg/dL (7-18); Calcium 7.6 mg/dL (8.5-10.1); Carbon Dioxide 18.3 meq/L (21.0-32.0); Chloride 104 meq/L (98-107); Glomerular Filtration Rate 67 mL/min (>89); Glucose,Random 127 mg/dL (74-106); Potassium 3.1 meq/L (3.5-5.1); Sodium 142 meq/L (136-145)
[2018-02-12 12:54] LABS: Creatine Kinase 2063 U/L (39-308)
[2018-02-12 12:57] LABS: Alcohol 255 mg/dL (0-5)
[2018-02-12] MEDS ORDERED: Potassium Chlor 20 mEq Premix 20 MEQ/100 ML PIGGYBACK IV.SIG ONE ×2 (13:00→16:24)
[2018-02-12 13:10] LABS: CKMB Percent 0.9 % (0.0-4.0); Creatine Kinase MB 17.9 ng/mL (0.5-3.6)
[2018-02-12] MEDS ORDERED: Sodium Chlor 0.9% Inj 500 ML IV.SIG SCH (14:00)
--- NOTE | 2018-02-12 14:35 | CT ---
EXAM DATE: 02/12/2018 1:33 PM EDT AGE/SEX: 72 years / Male INDICATIONS: Fell last night. Right arm numbness/weakness. CLINICAL DATA: This is the patient's initial encounter. Patient reports that signs and symptoms have been present for 2 days and indicates a pain score of 0/10. MEDICAL/SURGICAL HISTORY: None. None. RADIATION DOSE: 60.35 CTDI (mGy) COMPARISON: [facility], CTA HEAD W CONTRAST W 3D, 02/12/2018. . TECHNIQUE: CT of the head without contrast. Using automated exposure control and adjustment of the mA and/or kV according to patient size, radiation dose was kept as low as reasonably achievable to ob tain optimal diagnostic quality images. DICOM format image data is available electronically for revi ew and comparison. FINDINGS: Cerebrum: Prominent diffuse cerebral atrophy. The ventricles are normal for degree of atrophy. Moder ate periventricular white matter hypodensities. No evidence of midline shift, mass lesion, hemorrhage or acute infarction. No extraaxial fluid collections are seen. Posterior Fossa: The cerebellum and brainstem are intact. The 4th ventricle is midline. The cerebe llopontine angle is unremarkable. Extracranial: The visualized portion of the orbits is intact. Mucoperiosteal thickening is noted in the sphenoid and bilateral maxillary sinuses with fluid in the right maxillary sinus. Skull: The calvaria is intact. No evidence of skull fracture. CONCLUSION: 1. No acute intracranial abnormality. 2. Prominent diffuse cerebral atrophy out of proportion to age. 3. Moderate periventricular ischemic white matter denomination. 4. Bilateral paranasal sinus mucosal disease with fluid in the right maxillary sinus. . Electronically signed by: Caleb Nguyen MD 02/12/2018 2:34 PM EDT
--- NOTE | 2018-02-12 15:00 | CT ---
EXAM DATE: 02/12/2018 1:33 PM EDT AGE/SEX: 72 years / Male INDICATIONS: Fell last night. Right arm numbness/weakness. CLINICAL DATA: This is the patient's initial encounter. Patient reports that signs and symptoms have been present for 2 days and indicates a pain score of 0/10. MEDICAL/SURGICAL HISTORY: None. None. RADIATION DOSE: 10.39 CTDI (mGy) ; Combined studies COMPARISON: [facility] [place], 02[place]/2018. . TECHNIQUE: Volumetric scanning was performed using a multi-row detector CT scanner during bolus infu melvi of 75 ml Omnipaque 350 (iohexol) nonionic water-soluble contrast as a single exam dose. The d maykel was post processed with a variety of visualization algorithms including full volume maximum inten sity projection, multi-planar sliding thin slab reformation, curved planar reformation, and surface r endering techniques. Using automated exposure control and adjustment of the mA and/or kV according t o patient size, radiation dose was kept as low as reasonably achievable to obtain optimal diagnostic quality images. DICOM format image data is available electronically for review and comparison. FINDINGS: Anterior Circulation: Intracranial Carotid Arteries: Patent. ELENA: There is no evidence for aneurysm, vessel truncation or stenosis, and no evidence for vascular m alformation. MCA: There is no evidence for aneurysm, vessel truncation or stenosis, and no evidence for vascular m alformation. Posterior Circulation: Distal Vertebral Arteries: Distal Vertebral arteries are symetrical and patent. Basilar Artery: There is no evidence for aneurysm, vessel truncation or stenosis, and no evidence for vascular malformation. SAW MAKER and Cerebellar Branches: There is no evidence for aneurysm, vessel truncation or stenosis, and no evidence for vascular malformation. CONCLUSION: 1. Negative CTA Head. Specifically, no evidence for large vessel occlusion. Electronically signed by: Caleb Nguyen MD 02/12/2018 2:59 PM EDT
--- NOTE | 2018-02-12 15:06 | CT ---
EXAM DATE: 02/12/2018 10:38 AM EDT AGE/SEX: 72 years / Male INDICATIONS: Fell last night. Right arm numbness/weakness. CLINICAL DATA: This is the patient's initial encounter. Patient reports that signs and symptoms have been present for 2 days and indicates a pain score of 0/10. MEDICAL/SURGICAL HISTORY: None. None. RADIATION DOSE: 10.39 CTDI (mGy) ; Combined studies [place] [facility] [place]. . TECHNIQUE: Contiguous axial images were obtained using helical multi-row detector technique. Data s ets were acquired after intravenous administration of 75 ml Omnipaque 350 (iohexol) nonionic water-s oluble contrast as a single exam dose.. The volumetric data was post-processed with multiplanar charity nstruction in oblique axial, sagittal and coronal planes. Using automated exposure control and adjust ment of the mA and/or kV according to patient size, radiation dose was kept as low as reasonably achi evable to obtain optimal diagnostic quality images. DICOM format image data is available electronica [facility] for review and comparison. FINDINGS: OSSEOUS STRUCTURES: Mild wedge-shaped compression deformity of the T1 vertebral body anteriorly. Osse ous structures are intact without evidence for acute bony fracture. Dens is intact. ALIGNMENT: 3 mm anterolisthesis of C7 on T1. 2 mm anterolisthesis of C4 on C5. There is a normal C1-2 relationship. Facets are normally aligned. SOFT TISSUES: There is no significant prevertebral soft tissue hematoma. No significant cervical tera nopathy or gross mass. The thyroid appears unremarkable. Visualized lung apices are clear without pn eumothorax. ADDITIONAL FINDINGS: Multilevel degenerative spondylosis of the lower cervical spine. Multilevel face t hypertrophy most prominently in the lower cervical spine. Bony central canal is patent. Bony neura l foramina are patent. CONCLUSION: 1. Mild wedge-shaped compression deformity of T1 with subtle 3 mm anterolisthesis of C7 on T1. Suspe ct findings are chronic although chronicity cannot be validated due to lack of prior exams. Clinical correlation with physical exam is recommended. Flexion and extension views may be obtained if there i s significant concern regarding ligamentous instability and there is continued clinical uncertainty. 2. Mild anterolisthesis of C4 on C5 likely due to facet arthrosis. Electronically signed by: Caleb Nguyen MD 02/12/2018 3:05 PM EDT
--- NOTE | 2018-02-12 15:22 | CT ---
EXAM DATE: 02/12/2018 1:33 PM EDT AGE/SEX: 72 years / Male INDICATIONS: Fell last night. Right arm numbness/weakness. CLINICAL DATA: This is the patient's initial encounter. Patient reports that signs and symptoms have been present for 2 days and indicates a pain score of 0/10. MEDICAL/SURGICAL HISTORY: None. None. RADIATION DOSE: 10.39 CTDI (mGy) ; Combined studies COMPARISON: [facility] – [place], CT CERVICAL SPINE W CONTRAST, 02/12/2018. . TECHNIQUE: Volumetric scanning was performed using a multirow detector CT scanner during bolus infus ion of 75 ml Omnipaque 350 (iohexol) nonionic water-soluble contrast as a cumulative dose for multip le exams. The data was postprocessed with a variety of visualization algorithms including full-volu me maximum intensity projection, multiplanar sliding thin-slab reformation, curved-planar reformation , and surface-rendering techniques. Using automated exposure control and adjustment of the mA and/or kV according to patient size, radiation dose was kept as low as reasonably achievable to obtain opti mal diagnostic quality images. DICOM format image data is available electronically for review and co mparison. Percent stenosis is calculated using the diameter of the stenotic region over the diameter of the nor mal distal internal carotid artery. FINDINGS: Aortic Arch: There is a three-vessel origin of the great vessels from the aorta. No evidence of ost ial narrowing Right Carotid: The common carotid artery is intact. Eccentric calcified plaque extending from the di stal bulb to the origin of the internal carotid artery. Resultant less than 10% stenosis. Internal ca rotid arteries otherwise patent to the skull base.. The external carotid artery is intact. Left Carotid: The common carotid artery is intact scattered mild calcified plaque in the origin of t he internal carotid artery with resultant less than 10% stenosis. Internal carotid is otherwise paten t to the skull base.. The external carotid artery is intact. Vertebrals: Dominant left vertebral artery. Eccentric calcified plaque in the distal vertebral arter ies bilaterally near the vertebrobasilar junction with resultant mild stenosis. General Findings: Lung apices are clear. No significant cervical adenopathy. Mucoperiosteal thickenin g in the right maxillary sinus. CONCLUSION: 1. No significant carotid flow-limiting stenosis. 2. Eccentric calcified plaque in the distal vertebral arteries bilaterally near the vertebrobasilar junction with resultant bilateral mild stenosis. Electronically signed by: Caleb Nguyen MD 02/12/2018 3:21 PM EDT
[2018-02-12] MEDS ORDERED: Acetaminophen 325 MG Tablet PO PRN (16:26)
[2018-02-12] MEDS ORDERED: Haloperidol Inj 5 MG/ML Ampul IV.PUSH PRN (16:56)
[2018-02-12] MEDS ORDERED: Dextrose 50% in Water 50 ML Vial IV.PUSH PRN (17:02)
--- NOTE | 2018-02-12 17:02 | P.HPIM ---
History of Present Illness Primary Care Physician: UNKNOWN Chief Complaint: Fall History of Present Illness: The patient is a 72-year-old male with a past medical history significant for alcohol abuse who presents with a complaint of fall. He states that he was using the restroom in the middle of the night when he slipped and fell while he was holding the towel rack. He said he had an emergency button nearby but he was unable to reach it. He hurt his right arm and hip during the fall. He called out for help but says he was on the ground for more than 6 hours. He states that after the fall he had difficulty moving his right upper extremity with some numbness of the extremity as well. His range of motion has improved but he still can't lift his right arm over his head. He does not remember if he hit his head or not. He states he is a lifelong alcoholic. He says that he typically doesn't eat much. He was found to have bedbugs in the ED. Inpatient Certification: I certify that the inpatient services were ordered in accordance with Medicare regulations governing the order. 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 - Medical History Medical History: Medical History (Last Reviewed 02/12/18 @ 17:00 by Mk Perry DO) Alcohol abuse Patient denies medical problems - Family History Family History: Family History (Last Updated 02/12/18 @ 17:00 by Mk Perry DO) Other Patient denies significant medical history - Tobacco History Second Hand Smoke Exposure: No - Alcohol History How Often Do You Have a Drink Containing Alcohol: 4 or more times a week - Travel History Recent Travel in the [place] Within the Last 8 Weeks: No Recent Travel Out of the Country Within the Last 8 Weeks: No Medications and Allergies Active Medications: Active Medications Acetaminophen (Tylenol) 650 mg PO Q4H PRN PRN Reason: Temp > 100.4 Flumazenil (Romazecon Inj) 0.2 mg IV.PUSH Q1M PRN PRN Reason: OVERSEDATION Haloperidol Lactate (Haldol Inj) 1 mg IV.PUSH Q15M PRN PRN Reason: for severe agitation Sodium Chloride (Ns Inj) 500 mls @ 0 mls/hr IV.SIG BOLUS RAY Last Admin: 02/12/18 14:04 Dose: 500 mls/hr Potassium Chloride (Kcl 20 Meq Premix Inj) 20 meq in 100 mls @ 50 mls/hr IV.SIG ONCE ONE Stop: 02/12/18 18:23 Sodium Chloride (Ns Inj) 1,000 mls @ 150 mls/hr IV.CONT .Q6H40M RAY Lorazepam (Ativan) 1 mg PO Q4H PRN PRN Reason: for CIWA 8-10 Lorazepam (Ativan) 2 mg PO Q2H PRN PRN Reason: for CIWA 11-14 Sodium Chloride (Ns Flush) 2 ml IV.FLUSH PRN PRN PRN Reason: FLUSH AFTER USING IV ACCESS Last Admin: 02/12/18 12:00 Dose: 2 ml Allergies Allergy/AdvReac Type Severity Reaction Status Date / Time No Known Allergies Allergy Unverified 02/12/18 10:45 Home Medications Medication Instructions Recorded Confirmed Type No Known Home Medications 02/12/18 02/12/18 History Exam Vital signs: Vital Signs 02/12/18 10:45 02/12/18 12:00 02/12/18 12:07 Temperature 97.9 F Pulse Rate 112 H 125 H Respiratory Rate 24 20 Blood Pressure 116/56 L 164/89 H Pulse Oximetry 99 100 98 Intake & Output 02/11/18 02/12/18 02/12/18 18:59 06:59 18:59 Intake Total 1000 / 1000 Balance 1000 / 1000 Weight 86.183 kg Intake: IV 1000 / 1000 NS Inj 1,000 ML @ 1000 mls/hr 1000 / 1000 IV.CONT .Q1H [facility] Rx#:[id number] Narrative: GENERAL: Disheveled, chronically ill appearing male in no acute distress. SKIN: Focused skin assessment warm/dry. HEAD: Atraumatic. Normocephalic. EYES: Pupils equal and round. No scleral icterus. No injection or drainage. ENT: No nasal bleeding or discharge. Mucous membranes pink and dry. NECK: Trachea midline. No JVD. CARDIOVASCULAR: Tachycardic. No murmur appreciated. RESPIRATORY: No accessory muscle use. Clear to auscultation. Breath sounds equal bilaterally. GASTROINTESTINAL: Abdomen soft, non-tender, nondistended. Hepatic and splenic margins not palpable. MUSCULOSKELETAL: No obvious deformities. No clubbing. No cyanosis. No edema. Tenderness to palpation of right elbow area. NEUROLOGICAL: Awake and alert. No obvious cranial nerve deficits. Normal speech. Tremulous. RUE ROM limited s/t pain. Results - Labs CBC & Chem 7: 02/12/18 11:55 02/12/18 11:55 Labs: Short CBC 02/12/18 Range/Units 11:55 WBC 10.3 (4.0-11.0) th/mm3 Hgb 8.1 L (13.0-17.0) gm/dL Hct 24.5 L (39.0-51.0) % Plt Count 175 (150-450) th/mm3 BMP 02/12/18 11:55 Sodium 142 Potassium 3.1 L Chloride 104 Carbon Dioxide 18.3 L BUN 4 L Creatinine 1.08 Calcium 7.6 L Cardiac Enzymes 02/12/18 Range/Units 11:55 Total Creatine Kinase 2063 H (39-308) U/L CK-MB (CK-2) 17.9 H (0.5-3.6) ng/mL Troponin I Less than 0.02 L (0.02-0.05) ng/mL - Imaging Impressions Chest X-Ray 02/12/18 10:37 CONCLUSION: 1. Negative portable chest. Head CTA 02/12/18 10:37 CONCLUSION: 1. Negative CTA Head. Specifically, no evidence for large vessel occlusion. Humerus X-Ray 02/12/18 10:37 CONCLUSION: 1. No acute fracture or dislocation. Neck CTA 02/12/18 10:37 CONCLUSION: 1. No significant carotid flow-limiting stenosis. 2. Eccentric calcified plaque in the distal vertebral arteries bilaterally near the vertebrobasilar junction with resultant bilateral mild stenosis. Pelvis X-Ray 02/12/18 10:37 CONCLUSION: 1. Subacute to chronic right femoral greater trochanteric fracture with fracture fragment retracted cephalad and medially. 2. Degenerative osteoarthritis of the hips. Shoulder X-Ray 02/12/18 10:37 CONCLUSION: 1. No acute fracture or dislocation. 2. Degenerative osteoarthritis. Cervical Spine CT 02/12/18 10:38 CONCLUSION: 1. Mild wedge-shaped compression deformity of T1 with subtle 3 mm anterolisthesis of C7 on T1. Suspect findings are chronic although chronicity cannot be validated due to lack of prior exams. Clinical correlation with physical exam is recommended. Flexion and extension views may be obtained if there is significant concern regarding ligamentous instability and there is continued clinical uncertainty. 2. Mild anterolisthesis of C4 on C5 likely due to facet arthrosis. Head CT 02/12/18 10:38 CONCLUSION: 1. No acute intracranial abnormality. 2. Prominent diffuse cerebral atrophy out of proportion to age. 3. Moderate periventricular ischemic white matter denomination. 4. Bilateral paranasal sinus mucosal disease with fluid in the right maxillary sinus. . Caprini VTE Risk Assessment Caprini VTE Risk Assessment: Moderate/High Risk (score >= 2) Caprini Risk Assessment Model: Point Value = 1 Point Value = 2 Point Value = 3 Point Value = 5 Age 41-60 Minor surgery BMI > 25 kg/m2 Swollen legs Varicose veins or History of unexplained or recurrent spontaneous Oral contraceptives or hormone replacement Sepsis (< 1 month) Serious lung disease, including pneumonia (< 1 month) Abnormal pulmonary function Acute myocardial infarction Congestive heart failure (< 1 month) History of inflammatory bowel disease Medical patient at bed rest Age 61-74 Arthroscopic surgery Major open surgery (> 45 min) Laparoscopic surgery (> 45 min) Malignancy Confined to bed (> 72 hours) Immobilizing plaster cast Central venous access Age >= 75 History of VTE Family history of VTE Factor V Leiden Prothrombin [id number] Lupus anticoagulant Anticardiolipin antibodies Elevated serum homocysteine Heparin-induced thrombocytopenia Other congenital or acquired thrombophilia Stroke (< 1 month) Elective arthroplasty Hip, pelvis, or leg fracture Acute spinal cord injury (< 1 month) Prophylaxis Regimen: Total Risk Factor Score Risk Level Prophylaxis Regimen 0-1 Low Early ambulation 2 Moderate Order ONE of the following: *Sequential Compression Device (SCD) *Heparin 5000 units SQ BID 3-4 Higher Order ONE of the following medications: *Heparin 5000 units SQ TID *Enoxaparin/Lovenox 40 mg SQ daily (WT < 150 kg, CrCl > 30 mL/min) *Enoxaparin/Lovenox 30 mg SQ daily (WT < 150 kg, CrCl > 10-29 mL/min) *Enoxaparin/Lovenox 30 mg SQ BID (WT < 150 kg, CrCl > 30 mL/min) AND/OR *Sequential Compression Device (SCD) 5 or more Highest Order ONE of the following medications: *Heparin 5000 units SQ TID (Preferred with Epidurals) *Enoxaparin/Lovenox 40 mg SQ daily (WT < 150 kg, CrCl > 30 mL/min) *Enoxaparin/Lovenox 30 mg SQ daily (WT < 150 kg, CrCl > 10-29 mL/min) *Enoxaparin/Lovenox 30 mg SQ BID (WT < 150 kg, CrCl > 30 mL/min) AND *Sequential Compression Device (SCD) Assessment and Plan - Plan Fall/ Rhabdo The pt says he was on the floor for about 6 [address] over [address]. [address] cervical spine: Mild wedge-shaped compression deformity of T1 with subtle 3 mm anterolisthesis of C7 on T1; Suspect findings are chronic although chronicity cannot be validated due to lack of prior exams; Mild anterolisthesis of C4 on C5 likely due to facet arthrosis. -continue IVFs. -avoid nephrotoxins. -follow Is and Os. -PT/OT. -trend CPK. Hypokalemia S/t alcohol abuse, decreased PO intake. -replete IV and monitor. -check mag and phos levels. -telemetry. Alcohol abuse The pt drinks large quantities of beer daily. -CIWA protocol. -seizure precautions. -cessation instruction. Anemia Acute on chronic. Suspect exacerbated by alcohol abuse. -check iron studies, B12, folate and Hemoccult. -follow CBC. Bedbugs Noted in the ED. -contact precautions. PPx: SCDs Code Status: Full
[2018-02-12] MEDS: Sod Chloride 0.9% Inj 1,000 ML IV.CONT SCH (18:37)
[2018-02-12] MEDS: LORazepam 1 MG Tablet PO PRN ×2 (19:00→23:23)
--- NOTE | 2018-02-12 20:41 | ECG ---
Date Performed: 02/12/2018 Time Performed: 10:29:53 PTAGE: 72 years EKG: SINUS TACHYCARDIA WITH FREQUENT VENTRICULAR PREMATURE COMPLEXES NONSPECIFIC T-WAVE ABNORMAL ITY ABNORMAL RHYTHM ECG PREVIOUS TRACING : 07/30/2017 03.49 Compared to previous tracing, PVCs present DOCTOR: Sanjuanita Ha Interpretating Date/Time 02/12/2018 20:39:54
[2018-02-12 21:35] LABS: % Iron Saturation 7.3 % (20-50); Folate 17.8 ng/mL (3.1-17.5); Troponin I 0.06 ng/mL (0.02-0.05)
[2018-02-12 21:47] LABS: CKMB Percent 0.5 % (0.0-4.0)
[2018-02-13] MEDS: Sod Chloride 0.9% Inj 1,000 ML IV.CONT SCH ×6 (01:29→23:04)
[2018-02-13 03:45] LABS: Baso % (Auto) 0.7 % (0.0-2.0); Eos % (Auto) 0.1 % (0.0-4.0); Lymph # (Auto) 0.9 th/mm3 (1.0-4.8); Lymph % (Auto) 23.7 % (9.0-44.0); Mean Corpuscular HGB Conc 31.8 % (32.0-36.0); Mean Corpuscular Hemoglobin 26.6 pg (27.0-34.0); Mean Corpuscular Volume 83.4 fL (80.0-100.0); Mean Platelet Volume 7.9 fL (7.0-11.0); Mono # (Auto) 0.6 th/mm3 (0.0-0.9); Mono % (Auto) 15.4 % (0.0-8.0); Neut # (Auto) 2.3 th/mm3 (1.8-7.7); Neut % (Auto) 60.1 % (16.0-70.0); Platelet Count 84 th/mm3 (150-450); Red Blood Count 2.52 mil/mm3 (4.50-5.90); Red Cell Distribution Width 22.6 % (11.6-17.2); White Blood Count 3.8 th/mm3 (4.0-11.0)
[2018-02-13 03:51] LABS: Hemoglobin 6.7 gm/dL (13.0-17.0)
[2018-02-13 03:53] LABS: INR 1.3 Ratio; Prothrombin Time 13.1 sec (9.8-11.6)
[2018-02-13] MEDS ORDERED: Sodium Chlor 0.9% Inj 250 ML IV.SIG SCH (04:00)
[2018-02-13 04:07] LABS: Alanine Aminotransferase 52 U/L (12-78); Albumin 2.5 g/dL (3.4-5.0); Alkaline Phosphatase 106 U/L (45-117); Anion Gap 9 meq/L (5-15); Aspartate Aminotransferase 422 U/L (15-37); Blood Urea Nitrogen 4 mg/dL (7-18); Calcium 6.9 mg/dL (8.5-10.1); Carbon Dioxide 23.8 meq/L (21.0-32.0); Chloride 109 meq/L (98-107); Glomerular Filtration Rate Greater Than 89 mL/min (>89); Glucose,Random 85 mg/dL (74-106); Lipase 87 U/L (73-393); Potassium 3.4 meq/L (3.5-5.1); Sodium 142 meq/L (136-145); Total Protein 6.7 g/dL (6.4-8.2)
[2018-02-13] MEDS: LORazepam 1 MG Tablet PO PRN (04:16)
[2018-02-13 04:22] LABS: Troponin I 0.06 ng/mL (0.02-0.05)
[2018-02-13 04:37] LABS: Platelet Morphology Normal (Normal)
[2018-02-13 04:45] LABS: Spherocytes Occ; Stomatocytes 1+
[2018-02-13 05:03] LABS: CKMB Percent 0.3 % (0.0-4.0); Creatine Kinase MB 48.8 ng/mL (0.5-3.6)
--- NOTE | 2018-02-13 09:02 | P.PNIM ---
Subjective Interval history: f/u; rhabdomyolysis in no acute distress. complaining of pain to the right elbow/forearm. no abdominal pain,nausea/vomiting. no active GI bleed. d/w the RN. Physical Exam Vital signs: Vital Signs 02/12/18 10:45 02/12/18 12:00 02/12/18 12:07 Temperature 97.9 F Pulse Rate 112 H 125 H Respiratory Rate 24 20 Blood Pressure 116/56 L 164/89 H Pulse Oximetry 99 100 98 02/12/18 14:00 02/12/18 15:00 02/12/18 16:00 Temperature Pulse Rate 100 H 98 H 108 H Respiratory Rate 18 19 18 Blood Pressure 162/76 H 138/53 L 151/70 H Pulse Oximetry 02/12/18 17:00 02/12/18 17:30 02/12/18 20:00 Temperature 98.1 F 98.5 F Pulse Rate 116 H 107 H 107 H Respiratory Rate 19 20 18 Blood Pressure 163/75 H 158/109 H 166/70 H Pulse Oximetry 100 100 02/12/18 20:13 02/13/18 00:00 02/13/18 04:00 Temperature 98.4 F 99 F Pulse Rate 102 H 104 H 98 H Respiratory Rate 20 18 Blood Pressure 142/62 H 111/75 Pulse Oximetry 100 100 02/13/18 05:13 02/13/18 05:34 02/13/18 07:59 Temperature 98.1 F 98.3 F 96.1 F L Pulse Rate 106 H 103 H 92 H Respiratory Rate 20 18 18 Blood Pressure 145/66 H 126/63 134/67 Pulse Oximetry 100 100 98 Intake & Output 02/12/18 02/13/18 02/13/18 18:59 06:59 18:59 Intake Total 1600 / 1600 1460 / 1460 400 / 400 Balance 1600 / 1600 1460 / 1460 400 / 400 Weight 89.9 kg 88.9 kg Intake: IV 1600 / 1600 1100 / 1100 NS Inj 1,000 ML @ 150 mls/hr IV 1000 / 1000 1000 / 1000 .CONT .Q6H40M [facility] Rx#:[id number] KCl 20 mEq Premix Inj 20 meq In 100 / 100 100 / 100 100 ml @ 50 mls/hr IV.SIG ONCE ONE Rx#:[id number] NS Inj 500 ML @ Wide Open IV. 500 / 500 SIG BOLUS [facility] Rx#:[id number] Oral 360 / 360 Intake (Blood Product) Amt 0 / 0 400 / 400 Rbc As-3 Leukoreduced Unit 0 / 0 400 / 400 [id number] Other: # Voids 4 # Bowel Movements 0 - Constitutional no acute distress - Routine Respiratory Exam Present: CTA bilaterally - Routine Cardiovascular Exam Present: RRR - Routine Abdominal Exam Present: soft - Routine Extremities Exam Comments: edema of the right forearm. - Routine Neurological Exam Present: alert, oriented X3 Results - Labs CBC & Chem 7: 02/13/18 03:27 02/13/18 03:27 Laboratory Results - last 24 hr 02/12/18 02/12/18 02/12/18 11:44 11:55 11:55 WBC 10.3 RBC 2.93 L Hgb 8.1 L Hct 24.5 L MCV 83.6 MCH 27.5 MCHC 32.9 RDW 21.9 H Plt Count 175 MPV 7.9 Prelim Diff (Auto) Neut % (Auto) 81.8 H Lymph % (Auto) 7.4 L [place] % (Auto) 10.7 H Eos % (Auto) 0.0 Baso % (Auto) 0.1 Neut # (Auto) 8.4 H Lymph # (Auto) 0.8 L [place] # (Auto) 1.1 H Eos # (Auto) 0.0 Baso # (Auto) 0.0 WBC Differential . Diff Scan Differential Comment Auto diff final Platelet Estimate Platelet Morphology Spherocytes Stomatocytes PT 12.6 H INR 1.2 APTT 25.6 Sodium Potassium Chloride Carbon Dioxide Anion Gap BUN Creatinine Estimated GFR POC Glucose 143 H Random Glucose Calcium Prot Corrected Calcium Magnesium Iron TIBC % Saturation Ferritin Total Bilirubin AST ALT Alkaline Phosphatase Total Creatine Kinase CK-MB (CK-2) CK-MB (CK-2) % Troponin I Total Protein Albumin Lipase Vitamin B12 Folate Serum Alcohol Blood Type Blood Type Recheck Antibody Screen MTS Gel Crossmatch 02/12/18 02/12/18 02/12/18 11:55 20:23 20:23 WBC RBC Hgb Hct MCV MCH MCHC RDW Plt Count MPV Prelim Diff (Auto) Neut % (Auto) Lymph % (Auto) [place] % (Auto) Eos % (Auto) Baso % (Auto) Neut # (Auto) Lymph # (Auto) [place] # (Auto) Eos # (Auto) Baso # (Auto) WBC Differential Diff Scan Differential Comment Platelet Estimate Platelet Morphology Spherocytes Stomatocytes PT INR APTT Sodium 142 Potassium 3.1 L Chloride 104 Carbon Dioxide 18.3 L Anion Gap 20 H BUN 4 L Creatinine 1.08 Estimated GFR 67 L POC Glucose Random Glucose 127 H Calcium 7.6 L Prot Corrected Calcium Magnesium 2.0 Iron TIBC % Saturation Ferritin Total Bilirubin AST ALT Alkaline Phosphatase Total Creatine Kinase 2063 H CK-MB (CK-2) 17.9 H CK-MB (CK-2) % 0.9 Troponin I Less than 0.02 L Total Protein Albumin Lipase Vitamin B12 Folate Serum Alcohol 255 H Blood Type O Positive Blood Type Recheck Not needed Antibody Screen Negative MTS Gel Crossmatch 02/12/18 02/12/18 02/13/18 20:23 21:12 03:27 WBC RBC Hgb Hct MCV MCH MCHC RDW Plt Count MPV Prelim Diff (Auto) Neut % (Auto) Lymph % (Auto) [place] % (Auto) Eos % (Auto) Baso % (Auto) Neut # (Auto) Lymph # (Auto) [place] # (Auto) Eos # (Auto) Baso # (Auto) WBC Differential Diff Scan Differential Comment Platelet Estimate Platelet Morphology Spherocytes Stomatocytes PT INR APTT Sodium Potassium Chloride Carbon Dioxide Anion Gap BUN Creatinine Estimated GFR POC Glucose 114 H Random Glucose Calcium Prot Corrected Calcium Magnesium Iron 24 L TIBC 329 % Saturation 7.3 L Ferritin 54 Total Bilirubin AST ALT Alkaline Phosphatase Total Creatine Kinase 68984 H 25554 H CK-MB (CK-2) 61.0 H 48.8 H CK-MB (CK-2) % 0.5 0.3 Troponin I 0.06 H 0.06 H Total Protein Albumin Lipase Vitamin B12 498 Folate 17.8 H Serum Alcohol Blood Type Blood Type Recheck Antibody Screen MTS Gel Crossmatch 02/13/18 02/13/18 02/13/18 03:27 03:27 03:27 WBC 3.8 L D RBC 2.52 L Hgb 6.7 L* Hct 21.0 L MCV 83.4 MCH 26.6 L MCHC 31.8 L RDW 22.6 H Plt Count 84 L D MPV 7.9 Prelim Diff (Auto) Slide review pending Neut % (Auto) 60.1 Lymph % (Auto) 23.7 [place] % (Auto) 15.4 H Eos % (Auto) 0.1 Baso % (Auto) 0.7 Neut # (Auto) 2.3 Lymph # (Auto) 0.9 L [place] # (Auto) 0.6 Eos # (Auto) 0.0 Baso # (Auto) 0.0 WBC Differential . Diff Scan Auto diff confirmed Differential Comment . Platelet Estimate Low L Platelet Morphology Normal Spherocytes Occ H Stomatocytes 1+ H PT 13.1 H INR 1.3 APTT Sodium 142 Potassium 3.4 L Chloride 109 H Carbon Dioxide 23.8 Anion Gap 9 BUN 4 L Creatinine 0.67 Estimated GFR Greater than 89 POC Glucose Random Glucose 85 Calcium 6.9 L* Prot Corrected Calcium 7.1 L* Magnesium Iron TIBC % Saturation Ferritin Total Bilirubin 1.8 H AST 422 H ALT 52 Alkaline Phosphatase 106 Total Creatine Kinase CK-MB (CK-2) CK-MB (CK-2) % Troponin I Total Protein 6.7 Albumin 2.5 L Lipase 87 Vitamin B12 Folate Serum Alcohol Blood Type Blood Type Recheck Antibody Screen MTS Gel Crossmatch 02/13/18 03:58 WBC RBC Hgb Hct MCV MCH MCHC RDW Plt Count MPV Prelim Diff (Auto) Neut % (Auto) Lymph % (Auto) [place] % (Auto) Eos % (Auto) Baso % (Auto) Neut # (Auto) Lymph # (Auto) [place] # (Auto) Eos # (Auto) Baso # (Auto) WBC Differential Diff Scan Differential Comment Platelet Estimate Platelet Morphology Spherocytes Stomatocytes PT INR APTT Sodium Potassium Chloride Carbon Dioxide Anion Gap BUN Creatinine Estimated GFR POC Glucose Random Glucose Calcium Prot Corrected Calcium Magnesium Iron TIBC % Saturation Ferritin Total Bilirubin AST ALT Alkaline Phosphatase Total Creatine Kinase CK-MB (CK-2) CK-MB (CK-2) % Troponin I Total Protein Albumin Lipase Vitamin B12 Folate Serum Alcohol Blood Type Blood Type Recheck Antibody Screen MTS Gel Crossmatch See Detail - Imaging Impressions Chest X-Ray 02/12/18 10:37 CONCLUSION: 1. Negative portable chest. Head CTA 02/12/18 10:37 CONCLUSION: 1. Negative CTA Head. Specifically, no evidence for large vessel occlusion. Humerus X-Ray 02/12/18 10:37 CONCLUSION: 1. No acute fracture or dislocation. Neck CTA 02/12/18 10:37 CONCLUSION: 1. No significant carotid flow-limiting stenosis. 2. Eccentric calcified plaque in the distal vertebral arteries bilaterally near the vertebrobasilar junction with resultant bilateral mild stenosis. Pelvis X-Ray 02/12/18 10:37 CONCLUSION: 1. Subacute to chronic right femoral greater trochanteric fracture with fracture fragment retracted cephalad and medially. 2. Degenerative osteoarthritis of the hips. Shoulder X-Ray 02/12/18 10:37 CONCLUSION: 1. No acute fracture or dislocation. 2. Degenerative osteoarthritis. Cervical Spine CT 02/12/18 10:38 CONCLUSION: 1. Mild wedge-shaped compression deformity of T1 with subtle 3 mm anterolisthesis of C7 on T1. Suspect findings are chronic although chronicity cannot be validated due to lack of prior exams. Clinical correlation with physical exam is recommended. Flexion and extension views may be obtained if there is significant concern regarding ligamentous instability and there is continued clinical uncertainty. 2. Mild anterolisthesis of C4 on C5 likely due to facet arthrosis. Head CT 02/12/18 10:38 CONCLUSION: 1. No acute intracranial abnormality. 2. Prominent diffuse cerebral atrophy out of proportion to age. 3. Moderate periventricular ischemic white matter denomination. 4. Bilateral paranasal sinus mucosal disease with fluid in the right maxillary sinus. . Assessment and Plan - Plan Fall/ Rhabdo The pt says he was on the floor for about [address] cervical spine: Mild wedge-shaped compression deformity of T1 with subtle 3 mm anterolisthesis of C7 on T1; Suspect findings are chronic although chronicity cannot be validated due to lack of prior exams; Mild anterolisthesis of C4 on C5 likely due to facet arthrosis. -continue IVFs. -avoid nephrotoxins. -follow Is and Os. -PT/OT. -trend CPK. swelling of the right upper extremity XR of the right shoulder/humerus; negative will check venous doppler/ XR of the right elbow and right forearm. Hypokalemia S/t alcohol abuse, decreased PO intake. -replete IV and monitor. Alcohol abuse The pt drinks large quantities of beer daily. -CIWA protocol. -seizure precautions. -start on thiamine and multivitamin -cessation instruction. Anemia Acute on chronic. Suspect exacerbated by alcohol abuse. -s/pm PRBC transfusion -check iron studies, B12, folate and Hemoccult. -will monitor H/H Bedbugs Noted in the ED. -contact precautions. PPx: SCDs Discharge Planning: dc home within the next 2-3 days if stable.
[2018-02-13] MEDS ORDERED: Calcium Gluconate Inj 1 GM in Sodium Chlor 0.9% Inj 100 ML IV.SIG ONE (11:00)
--- NOTE | 2018-02-13 11:32 | US ---
EXAM DATE: 02/13/2018 12:00 AM EDT AGE/SEX: 72 years / Male INDICATIONS: Right arm swelling. Recent fall. CLINICAL DATA: This is the patient's initial encounter. Patient reports that signs and symptoms have been present for 2 days and indicates a pain score of 2/10. MEDICAL/SURGICAL HISTORY: . Alcohol abuse. None. [place] [facility] [place]. . FINDINGS: The vessels are compressible and augmentation response is documented. No filling defects a re seen. The flow is phasic with respiration. Other: None. CONCLUSION: 1. The study is negative for upper extremity deep venous thrombosis. Electronically signed by: Niranjan Watson MD 02/13/2018 11:30 AM EDT
--- NOTE | 2018-02-13 16:30 | XR ---
EXAM DATE: 02/13/2018 12:00 AM EDT AGE/SEX: 72 years / Male INDICATIONS: Patient stated he got arm caught between towel rack and wall and is unable to move arm. CLINICAL DATA: This is the patient's subsequent encounter. Patient reports that signs and symptoms h ave been present for 1 day and indicates a pain score of 9/10. MEDICAL/SURGICAL HISTORY: . Alcohol abuse None. COMPARISON: No prior exams available for comparison. FINDINGS: Significant soft tissue swelling is identified extending from the elbow to the mid forearm. The bony structures are grossly intact without evidence of fracture. There is no evidence of radiopaque foreig n body. There is no significant arthropathy. CONCLUSION: Soft tissue swelling without evidence of acute fracture or dislocation. Electronically signed by: Lauri Vasquez MD 02/13/2018 4:28 PM EDT
--- NOTE | 2018-02-13 16:32 | XR ---
EXAM DATE: 02/13/2018 12:00 AM EDT AGE/SEX: 72 years / Male INDICATIONS: Patient stated he got arm caught between towel rack and wall and is unable to move arm. CLINICAL DATA: This is the patient's subsequent encounter. Patient reports that signs and symptoms h ave been present for 1 day and indicates a pain score of 9/10. MEDICAL/SURGICAL HISTORY: None. None. COMPARISON: No prior exams available for comparison. FINDINGS: Significant periarticular soft tissue swelling is noted. Swelling extends into the mid forearm. Bony structures are intact. There is no obvious of fracture or dislocation. There is no significant a rthropathy. CONCLUSION: Soft tissue swelling without evidence of acute fracture, dislocation or significant arthropathy. Electronically signed by: Lauri Vasquez MD 02/13/2018 4:30 PM EDT
[2018-02-13 18:09] LABS: Hematocrit 24.2 % (39.0-51.0); Hemoglobin 7.8 gm/dL (13.0-17.0)
[2018-02-13 18:46] LABS: Calcium 7.1 mg/dL (8.5-10.1)
[2018-02-13 19:05] LABS: CKMB Percent 0.2 % (0.0-4.0); Creatine Kinase MB 26.3 ng/mL (0.5-3.6)
[2018-02-14] MEDS: LORazepam 1 MG Tablet PO PRN ×3 (04:15→18:15)
[2018-02-14] MEDS: Sod Chloride 0.9% Inj 1,000 ML IV.CONT SCH ×6 (05:39→23:56)
[2018-02-14 08:13] LABS: Baso % (Auto) 0.3 % (0.0-2.0); Hematocrit 24.1 % (39.0-51.0); Hemoglobin 7.7 gm/dL (13.0-17.0); Lymph # (Auto) 1.2 th/mm3 (1.0-4.8); Lymph % (Auto) 24.3 % (9.0-44.0); Mean Corpuscular HGB Conc 31.8 % (32.0-36.0); Mean Corpuscular Hemoglobin 27.3 pg (27.0-34.0); Mean Corpuscular Volume 85.7 fL (80.0-100.0); Mean Platelet Volume 8.3 fL (7.0-11.0); Mono # (Auto) 0.6 th/mm3 (0.0-0.9); Mono % (Auto) 12.5 % (0.0-8.0); Neut # (Auto) 3.1 th/mm3 (1.8-7.7); Neut % (Auto) 61.9 % (16.0-70.0); Platelet Count 68 th/mm3 (150-450); Red Blood Count 2.82 mil/mm3 (4.50-5.90); Red Cell Distribution Width 21.1 % (11.6-17.2); White Blood Count 5.1 th/mm3 (4.0-11.0)
[2018-02-14 08:58] LABS: Anion Gap 8 meq/L (5-15)
[2018-02-14 09:09] LABS: Alanine Aminotransferase 72 U/L (12-78); Albumin 2.2 g/dL (3.4-5.0); Alkaline Phosphatase 129 U/L (45-117); Aspartate Aminotransferase 533 U/L (15-37); Blood Urea Nitrogen 4 mg/dL (7-18); Calcium 6.9 mg/dL (8.5-10.1); Carbon Dioxide 24.1 meq/L (21.0-32.0); Chloride 105 meq/L (98-107); Creatine Kinase 10951 U/L (39-308); Glomerular Filtration Rate Greater Than 89 mL/min (>89); Glucose,Random 94 mg/dL (74-106); Potassium 3.3 meq/L (3.5-5.1); Sodium 137 meq/L (136-145); Total Protein 5.9 g/dL (6.4-8.2)
[2018-02-14 09:29] LABS: Acanthocytes Occ; Ovalocytes 1+
[2018-02-14 09:30] LABS: Platelet Morphology Normal (Normal)
[2018-02-14 10:22] LABS: CKMB Percent 0.2 % (0.0-4.0); Creatine Kinase MB 17.4 ng/mL (0.5-3.6)
--- NOTE | 2018-02-14 10:50 | P.PNIM ---
Subjective Interval history: f/u; rhabdomyolysis in no acute distress. mildly confused. no fever. pain to the right arm seems better. d/w the RN. Physical Exam Vital signs: Vital Signs 02/13/18 12:00 02/13/18 16:00 02/13/18 20:00 Temperature 98.1 F 98.2 F Pulse Rate 73 104 H 105 H Respiratory Rate 18 18 Blood Pressure 110/58 L 116/72 Pulse Oximetry 100 95 02/13/18 23:39 02/14/18 00:00 02/14/18 04:00 Temperature 98.5 F 98 F Pulse Rate 96 H 107 H 108 H Respiratory Rate 18 18 Blood Pressure 114/70 141/65 H Pulse Oximetry 95 94 L 02/14/18 08:00 Temperature 97.5 F L Pulse Rate 93 H Respiratory Rate 16 Blood Pressure 134/66 Pulse Oximetry 100 Intake & Output 02/13/18 02/14/18 02/14/18 18:59 06:59 18:59 Intake Total 1606 / 1606 2861 / 2861 500 / 500 Output Total 600 / 600 Balance 1006 / 1006 2861 / 2861 500 / 500 Weight 93.6 kg Intake: IV 110 / 110 2071 / 2071 500 / 500 NS Inj 1,000 ML @ 150 mls/hr IV 1970 / 1970 500 / 500 .CONT .Q6H40M [facility] Rx#:[id number] Calcium Gluconate Inj 1 GM In 110 / 110 NS Inj 100 ML @ 110 mls/hr IV. SIG ONCE ONE Rx#:[id number] NS Inj 250 ML @ 15 mls/hr IV. 100 / 100 SIG ONCE [facility] Rx#:[id number] Oral 1096 / 1096 240 / 240 Other 550 / 550 Intake (Blood Product) Amt 400 / 400 Rbc As-3 Leukoreduced Unit 400 / 400 [id number] Output: Urine 600 / 600 Other: Date of Last Bowel Movement 02/13/18 # Bowel Movements 1 0 - Constitutional no acute distress - Routine Respiratory Exam Present: CTA bilaterally - Routine Cardiovascular Exam Present: RRR - Routine Abdominal Exam Present: soft - Routine Extremities Exam Comments: right forearm swelling; slightly improved. - Routine Neurological Exam Present: alert (oriented to person and place.) Results - Labs CBC & Chem 7: 02/14/18 06:46 09/28/18 06:46 Laboratory Results - last 24 hr 02/13/18 02/13/18 02/13/18 11:35 17:20 17:20 WBC RBC Hgb 7.8 L Hct 24.2 L MCV MCH MCHC RDW Plt Count MPV Prelim Diff (Auto) Neut % (Auto) Lymph % (Auto) [place] % (Auto) Eos % (Auto) Baso % (Auto) Neut # (Auto) Lymph # (Auto) [place] # (Auto) Eos # (Auto) Baso # (Auto) WBC Differential Diff Scan Differential Comment Platelet Estimate Platelet Morphology Ovalocytes Acanthocytes (Spur) Sodium Potassium Chloride Carbon Dioxide Anion Gap BUN Creatinine Estimated GFR POC Glucose 127 H Random Glucose Calcium 7.1 L* Prot Corrected Calcium Total Bilirubin AST ALT Alkaline Phosphatase Total Creatine Kinase 76294 H CK-MB (CK-2) 26.3 H CK-MB (CK-2) % 0.2 Total Protein Albumin 02/14/18 02/14/18 06:46 06:46 WBC 5.1 RBC 2.82 L Hgb 7.7 L Hct 24.1 L MCV 85.7 MCH 27.3 MCHC 31.8 L RDW 21.1 H Plt Count 68 L MPV 8.3 Prelim Diff (Auto) Slide review pending Neut % (Auto) 61.9 Lymph % (Auto) 24.3 [place] % (Auto) 12.5 H Eos % (Auto) 1.0 Baso % (Auto) 0.3 Neut # (Auto) 3.1 Lymph # (Auto) 1.2 [place] # (Auto) 0.6 Eos # (Auto) 0.0 Baso # (Auto) 0.0 WBC Differential . Diff Scan Auto diff confirmed Differential Comment . Platelet Estimate Low L Platelet Morphology Normal Ovalocytes 1+ H Acanthocytes (Spur) Occ H Sodium 137 Potassium 3.3 L Chloride 105 Carbon Dioxide 24.1 Anion Gap 8 BUN 4 L Creatinine 0.47 L Estimated GFR Greater than 89 POC Glucose Random Glucose 94 Calcium 6.9 L* Prot Corrected Calcium 7.5 L Total Bilirubin 1.7 H AST 533 H ALT 72 Alkaline Phosphatase 129 H Total Creatine Kinase 67373 H CK-MB (CK-2) 17.4 H CK-MB (CK-2) % 0.2 Total Protein 5.9 L D Albumin 2.2 L - Imaging Impressions Elbow X-Ray 02/13/18 00:00 CONCLUSION: Soft tissue swelling without evidence of acute fracture, dislocation or significant arthropathy. Forearm X-Ray 02/13/18 00:00 CONCLUSION: Soft tissue swelling without evidence of acute fracture or dislocation. Venous Doppler Study 02/13/18 00:00 CONCLUSION: 1. The study is negative for upper extremity deep venous thrombosis. Assessment and Plan - Plan Fall/ Rhabdo The pt says he was on the floor for about [address] cervical spine: Mild wedge-shaped compression deformity of T1 with subtle 3 mm anterolisthesis of C7 on T1; Suspect findings are chronic although chronicity cannot be validated due to lack of prior exams; Mild anterolisthesis of C4 on C5 likely due to facet arthrosis. -CPK trending down. continue to trend. -continue IVFs. -avoid nephrotoxins. -follow Is and Os. -PT/OT. swelling of the right upper extremity XR of the right shoulder/humerus; negative venous doppler negative for DVT/ XR of the right elbow and right forearm; negative for fracture continue with pain control. Hypokalemia/Hypocalcemia S/t alcohol abuse, decreased PO intake. -will replace and monitor. Alcohol abuse The pt drinks large quantities of beer daily. -CIWA protocol. -seizure precautions. -started on thiamine and multivitamin -cessation instruction. Anemia/Thrombocytopenia Acute on chronic. Suspect exacerbated by alcohol abuse. -s/p PRBC transfusion - Hemoccult pending. -will monitor H/H Bedbugs Noted in the ED. -contact precautions. PPx: SCDs Discharge Planning: dc home within the next 2-3 days if stable.
[2018-02-15] MEDS: Sod Chloride 0.9% Inj 1,000 ML IV.CONT SCH ×4 (02:33→18:05)
[2018-02-15 06:53] LABS: Baso % (Auto) 0.3 % (0.0-2.0); Eos % (Auto) 0.8 % (0.0-4.0); Hemoglobin 8.4 gm/dL (13.0-17.0); Lymph # (Auto) 1.4 th/mm3 (1.0-4.8); Lymph % (Auto) 21.8 % (9.0-44.0); Mean Corpuscular HGB Conc 32.3 % (32.0-36.0); Mean Corpuscular Hemoglobin 27.2 pg (27.0-34.0); Mean Corpuscular Volume 84.3 fL (80.0-100.0); Mean Platelet Volume 8.4 fL (7.0-11.0); Mono # (Auto) 0.7 th/mm3 (0.0-0.9); Mono % (Auto) 10.7 % (0.0-8.0); Neut # (Auto) 4.1 th/mm3 (1.8-7.7); Neut % (Auto) 66.4 % (16.0-70.0); Platelet Count 77 th/mm3 (150-450); Red Blood Count 3.09 mil/mm3 (4.50-5.90); Red Cell Distribution Width 21.5 % (11.6-17.2); White Blood Count 6.2 th/mm3 (4.0-11.0)
[2018-02-15 06:55] LABS: Alanine Aminotransferase 112 U/L (12-78); Albumin 2.4 g/dL (3.4-5.0); Anion Gap 10 meq/L (5-15); Aspartate Aminotransferase 723 U/L (15-37); Blood Urea Nitrogen 2 mg/dL (7-18); Calcium 7.2 mg/dL (8.5-10.1); Carbon Dioxide 25.5 meq/L (21.0-32.0); Chloride 106 meq/L (98-107); Glomerular Filtration Rate Greater Than 89 mL/min (>89); Glucose,Random 81 mg/dL (74-106); Potassium 3.4 meq/L (3.5-5.1); Sodium 141 meq/L (136-145)
[2018-02-15 07:18] LABS: Alkaline Phosphatase 128 U/L (45-117); Creatine Kinase 12579 U/L (39-308); Total Protein 6.5 g/dL (6.4-8.2)
[2018-02-15 07:40] LABS: CKMB Percent 0.1 % (0.0-4.0); Creatine Kinase MB 14.6 ng/mL (0.5-3.6)
[2018-02-15 08:46] LABS: Dimorphic RBC Present; Polychromasia 2.6 % (0.0-1.9)
--- NOTE | 2018-02-15 08:46 | P.PNIM ---
Subjective Interval history: f/u; alcohol withdrawal/rhabdomyolysis in no acute distress but somewhat confused. swelling of the right forearm seems better and no pain in passive ROM. no fever. Physical Exam Vital signs: Vital Signs 02/14/18 12:00 02/14/18 16:00 02/14/18 20:00 Temperature 98.0 F 97.9 F 98.0 F Pulse Rate 97 H 93 H 111 H Respiratory Rate 16 16 19 Blood Pressure 137/64 129/60 173/71 H Pulse Oximetry 95 96 96 02/15/18 00:00 02/15/18 04:00 Temperature 98.7 F 98.4 F Pulse Rate 128 H 110 H Respiratory Rate 19 19 Blood Pressure 168/77 H 143/77 H Pulse Oximetry 98 99 Intake & Output 02/14/18 02/15/18 02/15/18 18:59 06:59 18:59 Intake Total 1480 / 1480 2150 / 2150 Balance 1480 / 1480 2150 / 2150 Intake: IV 1000 / 1000 1999 / 1999 NS Inj 1,000 ML @ 150 mls/hr IV 1000 / 1000 1999 .CONT .Q6H40M [facility] Rx#:[id number] Oral 480 / 480 150 / 150 Other: # Voids 2 5 Date of Last Bowel Movement 02/14/18 02/14/18 - Constitutional no acute distress - Routine Respiratory Exam Present: CTA bilaterally - Routine Cardiovascular Exam Present: RRR - Routine Abdominal Exam Present: soft - Routine Extremities Exam Comments: swelling of the right forearm. - Routine Neurological Exam somewhat confused. Results - Labs CBC & Chem 7: 02/15/18 05:43 02/15/18 05:43 Laboratory Results - last 24 hr 02/14/18 02/14/18 02/14/18 06:46 06:46 16:48 WBC RBC Hgb Hct MCV MCH MCHC RDW Plt Count MPV Prelim Diff (Auto) Neut % (Auto) Lymph % (Auto) [place] % (Auto) Eos % (Auto) Baso % (Auto) Neut # (Auto) Lymph # (Auto) [place] # (Auto) Eos # (Auto) Baso # (Auto) WBC Differential . Diff Scan Auto diff confirmed Differential Comment Platelet Estimate Low L Platelet Morphology Normal Ovalocytes 1+ H Acanthocytes (Spur) Occ H Sodium 137 Potassium 3.3 L Chloride 105 Carbon Dioxide 24.1 Anion Gap 8 BUN 4 L Creatinine 0.47 L Estimated GFR Greater than 89 POC Glucose 136 H Random Glucose 94 Calcium 6.9 L* Prot Corrected Calcium 7.5 L Total Bilirubin 1.7 H AST 533 H ALT 72 Alkaline Phosphatase 129 H Total Creatine Kinase 96091 H CK-MB (CK-2) 17.4 H CK-MB (CK-2) % 0.2 Total Protein 5.9 L D Albumin 2.2 L 02/15/18 02/15/18 02/15/18 00:40 05:43 05:43 WBC 6.2 RBC 3.09 L Hgb 8.4 L Hct 26.0 L MCV 84.3 MCH 27.2 MCHC 32.3 RDW 21.5 H Plt Count 77 L MPV 8.4 Prelim Diff (Auto) Slide review pending Neut % (Auto) 66.4 Lymph % (Auto) 21.8 [place] % (Auto) 10.7 H Eos % (Auto) 0.8 Baso % (Auto) 0.3 Neut # (Auto) 4.1 Lymph # (Auto) 1.4 [place] # (Auto) 0.7 Eos # (Auto) 0.0 Baso # (Auto) 0.0 WBC Differential Diff Scan Differential Comment . Platelet Estimate Platelet Morphology Ovalocytes Acanthocytes (Spur) Sodium 141 Potassium 3.4 L Chloride 106 Carbon Dioxide 25.5 Anion Gap 10 BUN 2 L Creatinine 0.42 L Estimated GFR Greater than 89 POC Glucose 97 Random Glucose 81 Calcium 7.2 L* Prot Corrected Calcium 7.5 L Total Bilirubin 1.9 H AST 723 H ALT 112 H Alkaline Phosphatase 128 H Total Creatine Kinase 85200 H CK-MB (CK-2) 14.6 H CK-MB (CK-2) % 0.1 Total Protein 6.5 D Albumin 2.4 L 02/15/18 06:11 WBC RBC Hgb Hct MCV MCH MCHC RDW Plt Count MPV Prelim Diff (Auto) Neut % (Auto) Lymph % (Auto) [place] % (Auto) Eos % (Auto) Baso % (Auto) Neut # (Auto) Lymph # (Auto) [place] # (Auto) Eos # (Auto) Baso # (Auto) WBC Differential Diff Scan Differential Comment Platelet Estimate Platelet Morphology Ovalocytes Acanthocytes (Spur) Sodium Potassium Chloride Carbon Dioxide Anion Gap BUN Creatinine Estimated GFR POC Glucose 90 Random Glucose Calcium Prot Corrected Calcium Total Bilirubin AST ALT Alkaline Phosphatase Total Creatine Kinase CK-MB (CK-2) CK-MB (CK-2) % Total Protein Albumin Assessment and Plan - Plan Fall/ Rhabdo The pt says he was on the floor for about [address] cervical spine: Mild wedge-shaped compression deformity of T1 with subtle 3 mm anterolisthesis of C7 on T1; Suspect findings are chronic although chronicity cannot be validated due to lack of prior exams; Mild anterolisthesis of C4 on C5 likely due to facet arthrosis. -continue to trend the CPK level. -continue IVFs. -avoid nephrotoxins. -follow Is and Os. -PT/OT. swelling of the right upper extremity- seems to be improving. XR of the right shoulder/humerus; negative venous doppler negative for DVT/ XR of the right elbow and right forearm; negative for fracture continue with pain control. Hypokalemia/Hypocalcemia S/t alcohol abuse, decreased PO intake. -will replace and monitor. Alcohol withdrawal The pt drinks large quantities of beer daily. -CIWA protocol. -seizure precautions. -started on thiamine and multivitamin -cessation instruction. Anemia/Thrombocytopenia Acute on chronic. Suspect exacerbated by alcohol abuse. -s/p PRBC transfusion - Hemoccult pending. -will monitor H/H elevated LFT's- possible due to alcohol and rhabdomyolysis will check liver US and hepatitis panel- repeat the LFT's in am. Bedbugs Noted in the ED. -contact precautions. PPx: SCDs Discharge Planning: dc planning to SNF; not ready for discharge yet.
[2018-02-15 11:20] LABS: Hepatitits B Surface Antigen Nonreactive (Nonreactive)
[2018-02-15 11:32] LABS: CKMB Percent 0.1 % (0.0-4.0); Creatine Kinase MB 15.3 ng/mL (0.5-3.6)
[2018-02-15 12:25] LABS: Hepatitis A IgM Antibody Nonreactive (Nonreactive)
--- NOTE | 2018-02-15 17:08 | US ---
EXAM DATE: 02/15/2018 12:00 AM EDT AGE/SEX: 72 years / Male INDICATIONS: Abdominal pain. CLINICAL DATA: This is the patient's subsequent encounter. Patient reports that signs and symptoms h ave been present for 4 - 6 months and indicates a pain score of 2/10. MEDICAL/SURGICAL HISTORY: . Alcohol abuse. Hypertension. Pancreatitis. Arthritis. Anxiety d isorder. . Tonsillectomy. COMPARISON: [facility] – [place] ABDOMEN - LIVER, 08/01/2017. . MEASUREMENTS: Liver:__ 16.5 cm. Common Bile Duct:__ 6mm. Right Kidney:__ 12.7 x 5.6 x 6.1 cm. FINDINGS: Liver: Increased echotexture without focal lesion or ductal dilation. Examination would suggest cirrh osis.. Portal Vein: Hepatopedal flow seen in portal vein. Common Duct: No intraluminal mass or stone visualized. Gallbladder: Demonstrates no wall thickening or pericholecystic fluid. No stones visualized. Pancreas: Not well visualized. Right Kidney: Normal echotexture and cortical thickness. No mass or hydronephrosis. Other: There is a small amount of ascites within the upper abdomen.. CONCLUSION: 1. Heterogeneous echotexture of the liver suggesting possible cirrhosis. 2. There is a small amount of ascites in the upper abdomen. 3. Gallbladder is unremarkable in appearance. Electronically signed by: Graham Hernandez MD 02/15/2018 5:04 PM EDT
[2018-02-16] MEDS: Sod Chloride 0.9% Inj 1,000 ML IV.CONT SCH ×4 (01:07→23:02)
[2018-02-16 07:30] LABS: Alanine Aminotransferase 90 U/L (12-78); Alkaline Phosphatase 100 U/L (45-117); Anion Gap 9 meq/L (5-15); Aspartate Aminotransferase 472 U/L (15-37); Blood Urea Nitrogen 3 mg/dL (7-18); Carbon Dioxide 24.6 meq/L (21.0-32.0); Chloride 105 meq/L (98-107); Glomerular Filtration Rate Greater Than 89 mL/min (>89); Glucose,Random 71 mg/dL (74-106); Potassium 3.1 meq/L (3.5-5.1); Sodium 139 meq/L (136-145); Total Protein 5.6 g/dL (6.4-8.2)
--- NOTE | 2018-02-16 09:43 | P.PNIM ---
Subjective Interval history: f/u; alcohol withdrawal/rhabdomyolysis in no acute distress. awake but still confused. no fever. d/w the RN. Physical Exam Vital signs: Vital Signs 02/15/18 12:00 02/15/18 16:00 02/15/18 20:00 Temperature 98.1 F 98.0 F 97.9 F Pulse Rate 108 H 100 H 91 H Respiratory Rate 19 18 16 Blood Pressure 152/66 H 148/60 H 125/57 L Pulse Oximetry 92 L 95 100 02/16/18 00:00 02/16/18 04:00 02/16/18 08:00 Temperature 97.7 F 97.6 F 98.1 F Pulse Rate 98 H 86 83 Respiratory Rate 16 17 17 Blood Pressure 168/78 H 146/68 H 159/72 H Pulse Oximetry 98 98 100 Intake & Output 02/15/18 02/16/18 02/16/18 18:59 06:59 18:59 Intake Total 2460 / 2460 1120 / 1120 1000 / 1000 Output Total 500 / 500 Balance 2460 / 2460 1120 / 1120 500 / 500 Intake: IV 2000 / 2000 1000 / 1000 1000 / 1000 NS Inj 1,000 ML @ 150 mls/hr IV 2000 / 2000 1000 / 1000 1000 / 1000 .CONT .Q6H40M [facility] Rx#:[id number] Oral 460 / 460 120 / 120 Output: Urine 500 / 500 Other: # Voids 3 # Incontinent Voids 3 1 Date of Last Bowel Movement 02/14/18 02/14/18 # Bowel Movements 1 - Constitutional no acute distress - Routine Respiratory Exam Present: CTA bilaterally - Routine Cardiovascular Exam Present: RRR - Routine Abdominal Exam Present: soft - Routine Extremities Exam Comments: some erythema now noted on the upper right forearm and lower right arm. - Routine Neurological Exam Present: alert (oriented to person and the place but not to time.) Results - Labs CBC & Chem 7: 02/15/18 05:43 02/16/18 05:45 Laboratory Results - last 24 hr 02/15/18 02/15/18 02/15/18 09:49 09:49 18:04 Sodium Potassium Chloride Carbon Dioxide Anion Gap BUN Creatinine Estimated GFR POC Glucose 81 Random Glucose Calcium Prot Corrected Calcium Total Bilirubin AST ALT Alkaline Phosphatase Total Creatine Kinase 57205 H CK-MB (CK-2) 15.3 H CK-MB (CK-2) % 0.1 Total Protein Albumin Hepatitis A IgM Ab Nonreactive Hep Bs Antigen Nonreactive Hep B Core IgM Ab Nonreactive Hep C IgG Ab Nonreactive 02/15/18 02/16/18 02/16/18 20:46 05:45 07:37 Sodium 139 Potassium 3.1 L Chloride 105 Carbon Dioxide 24.6 Anion Gap 9 BUN 3 L Creatinine 0.31 L Estimated GFR Greater than 89 POC Glucose 97 92 Random Glucose 71 L Calcium 7.0 L* Prot Corrected Calcium 7.8 L Total Bilirubin 1.3 H AST 472 H ALT 90 H Alkaline Phosphatase 100 Total Creatine Kinase CK-MB (CK-2) CK-MB (CK-2) % Total Protein 5.6 L D Albumin 2.0 L Hepatitis A IgM Ab Hep Bs Antigen Hep B Core IgM Ab Hep C IgG Ab - Imaging Impressions Liver Ultrasound 02/15/18 00:00 CONCLUSION: 1. Heterogeneous echotexture of the liver suggesting possible cirrhosis. 2. There is a small amount of ascites in the upper abdomen. 3. Gallbladder is unremarkable in appearance. Assessment and Plan - Plan Fall/ Rhabdo The pt says he was on the floor for about [address] cervical spine: Mild wedge-shaped compression deformity of T1 with subtle 3 mm anterolisthesis of C7 on T1; Suspect findings are chronic although chronicity cannot be validated due to lack of prior exams; Mild anterolisthesis of C4 on C5 likely due to facet arthrosis. -continue to trend the CPK level. -continue IVFs. -avoid nephrotoxins. -follow Is and Os. -PT/OT. cellulitis of the right upper extremity start on IV Ancef- keep the right upper extremity elevated. XR of the right shoulder/humerus; negative venous doppler negative for DVT/ XR of the right elbow and right forearm; negative for fracture continue with pain control. Hypokalemia/Hypocalcemia S/t alcohol abuse, decreased PO intake. -will replace and monitor. Alcohol withdrawal The pt drinks large quantities of beer daily. -CIWA protocol. -seizure precautions. -started on thiamine and multivitamin -cessation instruction. Anemia/Thrombocytopenia Acute on chronic. Suspect exacerbated by alcohol abuse. -s/p PRBC transfusion - Hemoccult pending. -will monitor H/H elevated LFT's- possible due to alcohol and rhabdomyolysis- improving. -liver sonogram with possible cirrhosis/ small amount of ascites and hepatitis profile negative. - repeat the LFT's in am. Bedbugs Noted in the ED. -contact precautions. PPx: SCDs Discharge Planning: dc planning to SNF; not ready for discharge yet.
[2018-02-16 10:28] LABS: CKMB Percent 0.1 % (0.0-4.0); Creatine Kinase MB 7.5 ng/mL (0.5-3.6)
[2018-02-16] MEDS ORDERED: Mag Sulf 1 gm/100 ml Premix 100 ML IV.SIG ONE (14:00)
[2018-02-17] MEDS: Sod Chloride 0.9% Inj 1,000 ML IV.CONT SCH ×6 (04:47→22:07)
[2018-02-17 06:54] LABS: White Blood Count 5.2 th/mm3 (4.0-11.0)
[2018-02-17 06:55] LABS: Baso % (Auto) 0.6 % (0.0-2.0); Eos # (Auto) 0.1 th/mm3 (0.0-0.4); Eos % (Auto) 2.3 % (0.0-4.0); Hematocrit 24.2 % (39.0-51.0); Hemoglobin 7.6 gm/dL (13.0-17.0); Lymph # (Auto) 1.3 th/mm3 (1.0-4.8); Lymph % (Auto) 25.7 % (9.0-44.0); Mean Corpuscular HGB Conc 31.3 % (32.0-36.0); Mean Corpuscular Hemoglobin 27.1 pg (27.0-34.0); Mean Corpuscular Volume 86.6 fL (80.0-100.0); Mean Platelet Volume 8.8 fL (7.0-11.0); Mono # (Auto) 0.9 th/mm3 (0.0-0.9); Mono % (Auto) 17.3 % (0.0-8.0); Neut # (Auto) 2.8 th/mm3 (1.8-7.7); Neut % (Auto) 54.1 % (16.0-70.0); Platelet Count 86 th/mm3 (150-450)
[2018-02-17 07:39] LABS: Alanine Aminotransferase 82 U/L (12-78); Albumin 2.2 g/dL (3.4-5.0); Alkaline Phosphatase 120 U/L (45-117); Anion Gap 9 meq/L (5-15); Aspartate Aminotransferase 327 U/L (15-37); Blood Urea Nitrogen 3 mg/dL (7-18); Calcium 7.3 mg/dL (8.5-10.1); Carbon Dioxide 23.9 meq/L (21.0-32.0); Chloride 109 meq/L (98-107); Creatine Kinase 2159 U/L (39-308); Glomerular Filtration Rate Greater Than 89 mL/min (>89); Glucose,Random 93 mg/dL (74-106); Potassium 3.4 meq/L (3.5-5.1); Sodium 142 meq/L (136-145); Total Protein 5.8 g/dL (6.4-8.2)
[2018-02-17 07:59] LABS: CKMB Percent 0.1 % (0.0-4.0); Creatine Kinase MB 3.1 ng/mL (0.5-3.6)
[2018-02-17 08:19] LABS: Ovalocytes 1+; Platelet Morphology Normal (Normal)
--- NOTE | 2018-02-17 10:11 | P.PNIM ---
Subjective Interval history: Patient says he is feeling a little better. Denies any chest pain or shortness of breath. Reports bilateral leg cramps. Physical Exam Vital signs: Vital Signs 02/16/18 12:00 02/16/18 16:00 02/16/18 20:00 Temperature 98.0 F 98.4 F 98.5 F Pulse Rate 80 82 103 H Respiratory Rate 19 18 20 Blood Pressure 156/70 H 148/68 H 159/95 H Pulse Oximetry 100 100 98 02/17/18 00:00 02/17/18 04:00 Temperature 98.4 F 98.3 F Pulse Rate 98 H 94 H Respiratory Rate 20 20 Blood Pressure 159/70 H 129/60 Pulse Oximetry 98 96 Intake & Output 02/16/18 02/17/18 02/17/18 18:59 06:59 18:59 Intake Total 3300 / 3300 1770 / 1770 Output Total 500 / 500 500 / 500 Balance 2800 / 2800 1270 / 1270 Intake: IV 3300 / 3300 1100 / 1100 NS Inj 1,000 ML @ 150 mls/hr IV 3000 / 3000 1000 / 1000 .CONT .Q6H40M [facility] Rx#:[id number] Magnesium Sulfate 1 gm/D5W 100 100 / 100 ml Premix 100 ML @ 100 mls/hr IV.SIG ONCE ONE Rx#:[id number] Ancef Inj 1,000 MG In NS Inj 200 / 200 100 / 100 100 ML @ 200 mls/hr IV.SIG Q8H [facility] Rx#:[id number] Oral 120 / 120 Other 550 / 550 Output: Urine 500 / 500 500 / 500 Other: # Voids 3 3 # Incontinent Voids 3 3 Date of Last Bowel Movement 02/16/18 # Bowel Movements 1 Narrative: GENERAL: Patient sitting up in bed. He is alert and oriented x3. SKIN: Warm and dry. HEAD: Normocephalic. EYES: No scleral icterus. No injection or drainage. NECK: Supple, trachea midline. No JVD. CARDIOVASCULAR: Regular rate and rhythm without murmurs, gallops, or rubs. RESPIRATORY: Breath sounds equal bilaterally. No accessory muscle use. GASTROINTESTINAL: Abdomen soft, non-tender, nondistended. MUSCULOSKELETAL: No cyanosis, or edema. BACK: Nontender without obvious deformity. No CVA tenderness. Results - Labs CBC & Chem 7: 02/17/18 05:34 02/17/18 05:34 Laboratory Results - last 24 hr 02/16/18 02/16/18 02/17/18 05:45 05:45 05:34 WBC 5.2 RBC 2.80 L Hgb 7.6 L Hct 24.2 L MCV 86.6 MCH 27.1 MCHC 31.3 L RDW 23.0 H Plt Count 86 L MPV 8.8 Prelim Diff (Auto) Slide review pending Neut % (Auto) 54.1 Lymph % (Auto) 25.7 [place] % (Auto) 17.3 H Eos % (Auto) 2.3 Baso % (Auto) 0.6 Neut # (Auto) 2.8 Lymph # (Auto) 1.3 [place] # (Auto) 0.9 Eos # (Auto) 0.1 Baso # (Auto) 0.0 WBC Differential . Diff Scan Auto diff confirmed Differential Comment . Platelet Estimate Low L Platelet Morphology Normal Ovalocytes 1+ H Sodium Potassium Chloride Carbon Dioxide Anion Gap BUN Creatinine Estimated GFR Random Glucose Calcium Prot Corrected Calcium Magnesium 1.5 Total Bilirubin AST ALT Alkaline Phosphatase Total Creatine Kinase 5484 H CK-MB (CK-2) 7.5 H CK-MB (CK-2) % 0.1 Total Protein Albumin 02/17/18 02/17/18 05:34 05:34 WBC RBC Hgb Hct MCV MCH MCHC RDW Plt Count MPV Prelim Diff (Auto) Neut % (Auto) Lymph % (Auto) [place] % (Auto) Eos % (Auto) Baso % (Auto) Neut # (Auto) Lymph # (Auto) [place] # (Auto) Eos # (Auto) Baso # (Auto) WBC Differential Diff Scan Differential Comment Platelet Estimate Platelet Morphology Ovalocytes Sodium 142 Potassium 3.4 L Chloride 109 H Carbon Dioxide 23.9 Anion Gap 9 BUN 3 L Creatinine 0.40 L Estimated GFR Greater than 89 Random Glucose 93 Calcium 7.3 L* Prot Corrected Calcium 8.0 L Magnesium 1.8 Total Bilirubin 0.8 AST 327 H ALT 82 H Alkaline Phosphatase 120 H Total Creatine Kinase 2159 H CK-MB (CK-2) 3.1 CK-MB (CK-2) % 0.1 Total Protein 5.8 L Albumin 2.2 L Microbiology 02/16/18 22:25 Stool Stool Occult Blood (SINDHU) - Final Hemoccult negative Assessment and Plan - Plan //Fall/ Rhabdo The pt says he was on the floor for about [address] cervical spine: Mild wedge-shaped compression deformity of T1 with subtle 3 mm anterolisthesis of C7 on T1; Suspect findings are chronic although chronicity cannot be validated due to lack of prior exams; Mild anterolisthesis of C4 on C5 likely due to facet arthrosis. -continue to trend the CPK level. -continue IVFs. -avoid nephrotoxins. -follow Is and Os. -PT/OT. = 02/17. Rhabdomyolysis improving CPK 2159. Continue IV fluids. //cellulitis of the right upper extremity start on IV Ancef- keep the right upper extremity elevated. XR of the right shoulder/humerus; negative venous doppler negative for DVT/ XR of the right elbow and right forearm; negative for fracture continue with pain control. //Hypokalemia/Hypocalcemia S/t alcohol abuse, decreased PO intake. -will replace and monitor. //Alcohol withdrawal The pt drinks large quantities of beer daily. -CIWA protocol. -seizure precautions. -started on thiamine and multivitamin -cessation instruction. //Anemia/Thrombocytopenia Acute on chronic. Suspect exacerbated by alcohol abuse. -s/p PRBC transfusion - Hemoccult pending. -will monitor H/H = Patient refused EGD/colonoscopy. Patient with low normal ferritin, low iron. Could be secondary to bedbugs. Will start on PPI given history of ulcers. Will give single dose of IV iron. //elevated LFT's- possible due to alcohol and rhabdomyolysis- improving. -liver sonogram with possible cirrhosis/ small amount of ascites and hepatitis profile negative. - repeat the LFT's in am. = LFTs slowly improving. //Bedbugs Noted in the ED. -contact precautions. //PPx: SCDs Discussed Condition With: Patient, nurse. Discharge Planning: Discharge to SNF when stable.
[2018-02-17] MEDS ORDERED: Iron Sucrose Inj 100 MG in Sodium Chlor 0.9% Inj 100 ML IV.SIG ONE (12:00)
[2018-02-17] MEDS ORDERED: Iron Sucrose Inj 100 MG/5 ML Vial IV.PUSH ONE (12:00)
[2018-02-17] MEDS: Pantoprazole Inj 40 MG Vial IV.PUSH SCH ×2 (12:14→22:03)
[2018-02-18] MEDS: Sod Chloride 0.9% Inj 1,000 ML IV.CONT SCH ×4 (06:21→21:49)
[2018-02-18 07:24] LABS: Baso # (Auto) 0.1 th/mm3 (0.0-0.2); Baso % (Auto) 1.1 % (0.0-2.0); Eos # (Auto) 0.1 th/mm3 (0.0-0.4); Eos % (Auto) 2.1 % (0.0-4.0); Hematocrit 24.5 % (39.0-51.0); Hemoglobin 7.7 gm/dL (13.0-17.0); Lymph # (Auto) 1.4 th/mm3 (1.0-4.8); Lymph % (Auto) 28.4 % (9.0-44.0); Mean Corpuscular HGB Conc 31.5 % (32.0-36.0); Mean Corpuscular Hemoglobin 27.2 pg (27.0-34.0); Mean Corpuscular Volume 86.3 fL (80.0-100.0); Mean Platelet Volume 8.9 fL (7.0-11.0); Mono # (Auto) 0.9 th/mm3 (0.0-0.9); Mono % (Auto) 18.2 % (0.0-8.0); Neut # (Auto) 2.6 th/mm3 (1.8-7.7); Neut % (Auto) 50.2 % (16.0-70.0); Platelet Count 96 th/mm3 (150-450); Red Blood Count 2.84 mil/mm3 (4.50-5.90); White Blood Count 5.1 th/mm3 (4.0-11.0)
[2018-02-18 08:06] LABS: Anion Gap 9 meq/L (5-15)
[2018-02-18 08:15] LABS: Albumin 2.1 g/dL (3.4-5.0); Blood Urea Nitrogen 3 mg/dL (7-18); Carbon Dioxide 24.6 meq/L (21.0-32.0); Chloride 107 meq/L (98-107); Creatine Kinase 1017 U/L (39-308); Glomerular Filtration Rate Greater Than 89 mL/min (>89); Glucose,Random 80 mg/dL (74-106); Magnesium 1.7 mg/dL (1.5-2.5); Phosphorus 2.8 mg/dL (2.5-4.9); Potassium 3.2 meq/L (3.5-5.1); Sodium 141 meq/L (136-145)
[2018-02-18 08:26] LABS: Ovalocytes 1+; Platelet Morphology Normal (Normal)
[2018-02-18 08:30] LABS: Calcium 7.2 mg/dL (8.5-10.1)
[2018-02-18 09:00] LABS: CKMB Percent 0.2 % (0.0-4.0); Creatine Kinase MB 2.3 ng/mL (0.5-3.6)
--- NOTE | 2018-02-18 09:50 | P.PNIM ---
Subjective Interval history: Patient says he is feeling all right today. Denies any chest pain or shortness of breath. Denies nausea or vomiting. Says he does not want to go to rehab, however says he is not able to go home at this time due to generalized weakness. Patient reports continued pain in right wrist. Physical Exam Vital signs: Vital Signs 02/17/18 12:00 02/17/18 16:00 02/17/18 20:00 Temperature 98.4 F 97.9 F 99.9 F H Pulse Rate 93 H 95 H 110 H Respiratory Rate 20 20 20 Blood Pressure 128/59 L 154/70 H 157/70 H Pulse Oximetry 95 98 98 02/18/18 00:00 02/18/18 04:00 02/18/18 04:10 Temperature 98.6 F 98.2 F Pulse Rate 97 H 95 H 89 Respiratory Rate 18 18 Blood Pressure 95/50 L 198/89 H Pulse Oximetry 95 99 Intake & Output 02/17/18 02/18/18 02/18/18 18:59 06:59 18:59 Intake Total 1785 / 1785 3100 / 3100 Balance 1785 / 1785 3100 / 3100 Weight 98.2 kg Intake: IV 1305 / 1305 3100 / 3100 NS Inj 1,000 ML @ 150 mls/hr IV 1000 / 1000 3000 / 3000 .CONT .Q6H40M [facility] Rx#:[id number] Venofer Inj 100 MG In NS Inj 105 / 105 100 ML @ 105 mls/hr IV.SIG ONCE ONE Rx#:[id number] Ancef Inj 1,000 MG In NS Inj 200 / 200 100 / 100 100 ML @ 200 mls/hr IV.SIG Q8H [facility] Rx#:[id number] Oral 480 / 480 Other: # Voids 1 Date of Last Bowel Movement 02/16/18 02/16/18 # Bowel Movements 1 Narrative: GENERAL: Patient sitting up in bed. He is alert and oriented x3. SKIN: Warm and dry. HEAD: Normocephalic. EYES: No scleral icterus. No injection or drainage. NECK: Supple, trachea midline. No JVD. CARDIOVASCULAR: Regular rate and rhythm without murmurs, gallops, or rubs. RESPIRATORY: Breath sounds equal bilaterally. No accessory muscle use. GASTROINTESTINAL: Abdomen soft, non-tender, nondistended. MUSCULOSKELETAL: No cyanosis, or edema. BACK: Nontender without obvious deformity. No CVA tenderness. Results - Labs CBC & Chem 7: 02/18/18 05:33 02/18/18 05:33 Laboratory Results - last 24 hr 02/18/18 02/18/18 05:33 05:33 WBC 5.1 RBC 2.84 L Hgb 7.7 L Hct 24.5 L MCV 86.3 MCH 27.2 MCHC 31.5 L RDW 23.0 H Plt Count 96 L MPV 8.9 Prelim Diff (Auto) Slide review pending Neut % (Auto) 50.2 Lymph % (Auto) 28.4 [place] % (Auto) 18.2 H Eos % (Auto) 2.1 Baso % (Auto) 1.1 Neut # (Auto) 2.6 Lymph # (Auto) 1.4 [place] # (Auto) 0.9 Eos # (Auto) 0.1 Baso # (Auto) 0.1 WBC Differential . Diff Scan Auto diff confirmed Differential Comment . Platelet Estimate Low L Platelet Morphology Normal Ovalocytes 1+ H Sodium 141 Potassium 3.2 L Chloride 107 Carbon Dioxide 24.6 Anion Gap 9 BUN 3 L Creatinine 0.47 L Estimated GFR Greater than 89 Random Glucose 80 Calcium 7.2 L* Phosphorus 2.8 Magnesium 1.7 Total Creatine Kinase 1017 H CK-MB (CK-2) 2.3 CK-MB (CK-2) % 0.2 Albumin 2.1 L Assessment and Plan - Plan //Fall/ Rhabdo The pt says he was on the floor for about [address] cervical spine: Mild wedge-shaped compression deformity of T1 with subtle 3 mm anterolisthesis of C7 on T1; Suspect findings are chronic although chronicity cannot be validated due to lack of prior exams; Mild anterolisthesis of C4 on C5 likely due to facet arthrosis. -continue to trend the CPK level. -continue IVFs. -avoid nephrotoxins. -follow Is and Os. -PT/OT. = 02/17. Rhabdomyolysis improving CPK 2159. Continue IV fluids. = 02/18. Rhabdomyolysis continues improving, now with CK 1000, creatinine within normal limits. //cellulitis of the right upper extremity start on IV Ancef- keep the right upper extremity elevated. XR of the right shoulder/humerus; negative venous doppler negative for DVT/ XR of the right elbow and right forearm; negative for fracture continue with pain control. //Hypokalemia/Hypocalcemia S/t alcohol abuse, decreased PO intake. -will replace and monitor. = 02/18. Potassium 3.2. Magnesium within normal limits. Replace. And monitor //Alcohol withdrawal The pt drinks large quantities of beer daily. -CIWA protocol. -seizure precautions. -started on thiamine and multivitamin -cessation instruction. = No longer requiring CIWA protocol. Will discontinue. //Anemia/Thrombocytopenia Acute on chronic. Suspect exacerbated by alcohol abuse. -s/p PRBC transfusion - Hemoccult pending. -will monitor H/H = Patient refused EGD/colonoscopy. Patient with low normal ferritin, low iron. Could be secondary to bedbugs. Will start on PPI given history of ulcers. Will give single dose of IV iron. = 02/18. Hemoglobin stable at 7.7. No signs of acute bleeding. Status post IV iron infusion 02/17. Will start on p.o. iron supplementation. Can follow-up with GI as outpatient. Start on lactulose to prevent constipation. //elevated LFT's- possible due to alcohol and rhabdomyolysis- improving. -liver sonogram with possible cirrhosis/ small amount of ascites and hepatitis profile negative. - repeat the LFT's in am. = LFTs slowly improving. //Bedbugs Noted in the ED. -contact precautions. //Right wrist pain and swelling. X-ray negative for fracture. Suspect patient has a ligamentous injury. This will need to be splinted with follow-up orthopedics as outpatient. Placed orthopedic consult. //PPx: SCDs Discharge Planning: Expect discharge to SNF tomorrow.
[2018-02-18] MEDS: Ferrous Sulfate 325 MG Tablet PO SCH ×2 (10:01→21:49)
[2018-02-18] MEDS: Pantoprazole Inj 40 MG Vial IV.PUSH SCH ×2 (10:02→23:07)
[2018-02-18] MEDS ORDERED: Sodium Chloride 0.9% 2 ML Flush PRN IV.FLUSH (10:02)
--- NOTE | 2018-02-18 19:55 | XR ---
EXAM DATE: 02/18/2018 12:00 AM EDT AGE/SEX: 72 years / Male INDICATIONS: Pain in right wrist. CLINICAL DATA: This is the patient's initial encounter. Patient reports that signs and symptoms have been present for 1 week and indicates a pain score of 10/10. MEDICAL/SURGICAL HISTORY: None. None. COMPARISON: [facility] – [place] WRIST RIGHT COMPLETE ([id number]), 08/12/2017. . FINDINGS: No fracture or acute appearing malalignment is seen of the right wrist. However, there is soft tissue swelling evident, especially dorsally. Severe, chronic degenerative changes are seen of the radiocarpal joint. 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 CONCLUSION: 1. Nonspecific soft tissue swelling. 2. No acute fracture seen. 3. 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 Electronically signed by: Nehemias Gonzalez MD 02/18/2018 7:53 PM EDT
[2018-02-18] MEDS: Sodium Chloride 0.9% 2 ML Flush BID IV.FLUSH SCH (21:50)
[2018-02-19 01:00] VITALS: RESP 20
[2018-02-19] MEDS: Sod Chloride 0.9% Inj 1,000 ML IV.CONT SCH ×3 (03:38→16:54)
[2018-02-19 08:31] LABS: Baso % (Auto) 0.8 % (0.0-2.0); Eos # (Auto) 0.1 th/mm3 (0.0-0.4); Eos % (Auto) 2.3 % (0.0-4.0); Hematocrit 23.4 % (39.0-51.0); Hemoglobin 7.5 gm/dL (13.0-17.0); Lymph # (Auto) 1.4 th/mm3 (1.0-4.8); Lymph % (Auto) 26.1 % (9.0-44.0); Mean Corpuscular HGB Conc 31.9 % (32.0-36.0); Mean Corpuscular Hemoglobin 27.4 pg (27.0-34.0); Mean Platelet Volume 9.1 fL (7.0-11.0); Mono # (Auto) 1.1 th/mm3 (0.0-0.9); Neut # (Auto) 2.7 th/mm3 (1.8-7.7); Neut % (Auto) 50.8 % (16.0-70.0); Platelet Count 99 th/mm3 (150-450); Red Blood Count 2.72 mil/mm3 (4.50-5.90); White Blood Count 5.4 th/mm3 (4.0-11.0)
--- NOTE | 2018-02-19 08:39 | P.CONOP ---
[facility] Orthopedics Consult Note - [facility] Consult date: 02/18/18 Consult reason: other (right arm swelling) Chief complaint: Rhabdomyolysis, Hypokalemia with frequent PVCs Narrative: 72 year old male with history of alcohol abuse who sustained a fall 5 days ago and landed on the right arm at home. He was down for an extended period of time. He had x-rays done on presentation which did not show a fracture. However he is complaining of swelling from the hand to the elbow. He denies issues with this previously. He does also complain of numbness in the fingers. He reports pain "all over" but worse in the wrist and forearm. Review of Systems All other systems reviewed negative except as stated in [facility] - History History Provided By: Patient - Medical History Medical History: Medical History (Last Reviewed 02/19/18 @ 08:29 by Gabby Valladares MD) Alcohol abuse Patient denies medical problems - Family History Family History: Family History (Last Reviewed 02/19/18 @ 08:29 by Gabby Valladares MD) Other Patient denies significant medical history - Social History I have reviewed the patient's Social History: Yes - Tobacco History Second Hand Smoke Exposure: Yes Tobacco Use In Past 30 Days: No Smoking Status: Former smoker Tobacco Type: Cigars - Alcohol History How Often Do You Have a Drink Containing Alcohol: 4 or more times a week - Substance Use History Substance History: No History of Abuse - Substance Use Type Alcohol Status: Active Route Used: By Mouth - Travel History Recent Travel in the [facility] Within the Last 8 Weeks: No Recent Travel Out of the Country Within the Last 8 Weeks: No - Immunization History Tetanus Immunization: >5 Years Hx Influenza Vaccine This Season: No Medications and Allergies Active Medications: Active Medications Acetaminophen (Tylenol) 650 mg PO Q4H PRN PRN Reason: Temp > 100.4 Last Admin: 02/13/18 09:16 Dose: 650 mg Ferrous Sulfate (Ferosul) 325 mg PO BID [facility] Last Admin: 02/18/18 21:49 Dose: 325 mg Sodium Chloride (Ns Inj) 1,000 mls @ 150 mls/hr IV.CONT .Q6H40M [facility] Last Admin: 02/19/18 05:31 Dose: 150 mls/hr Cefazolin Sodium 1,000 mg/ (Sodium Chloride) 100 mls @ 200 mls/hr IV.SIG Q8H [facility] Last Infusion: 02/19/18 04:10 Dose: Infused Lactulose (Lactulose Liq) 30 ml PO DAILY [facility] Last Admin: 02/18/18 10:01 Dose: 30 ml Multivitamins (Theragran) 1 tab PO DAILY [facility] Last Admin: 02/18/18 08:51 Dose: 1 tab Pantoprazole Sodium (Protonix Inj) 40 mg IV.PUSH Q12H [facility] Last Admin: 02/18/18 23:07 Dose: 40 mg Sodium Chloride (Ns Flush) 2 ml IV.FLUSH BID [facility] Last Admin: 02/18/18 21:50 Dose: Not Given Sodium Chloride (Ns Flush) 2 ml IV.FLUSH PRN PRN PRN Reason: FLUSH AFTER USING IV ACCESS Thiamine HCl (Vitamin B1) 100 mg PO DAILY [facility] Last Admin: 02/18/18 08:51 Dose: 100 mg Allergies Allergy/AdvReac Type Severity Reaction Status Date / Time No Known Allergies Allergy Unverified 02/12/18 10:45 Home Medications Medication Instructions Recorded Confirmed Type No Known Home Medications 02/12/18 02/12/18 History Exam Vital signs: Vital Signs 02/18/18 11:47 02/18/18 12:00 02/18/18 12:47 Temperature 98.9 F 99.0 F 99 F Pulse Rate 99 H 96 H 96 H Respiratory Rate 22 20 20 Blood Pressure 148/70 H 145/67 H 145/67 H Pulse Oximetry 98 98 98 02/18/18 13:40 02/18/18 14:47 02/18/18 16:00 Temperature 96.8 F L 98.9 F 98.6 F Pulse Rate 89 81 92 H Respiratory Rate 19 18 20 Blood Pressure 158/72 H 145/79 H 156/71 H Pulse Oximetry 97 96 95 02/18/18 18:28 02/18/18 20:00 02/19/18 00:00 Temperature 98.8 F 98.3 F 97.6 F Pulse Rate 89 99 H 92 H Respiratory Rate 19 18 20 Blood Pressure 152/66 H 135/58 L 148/70 H Pulse Oximetry 96 97 96 02/19/18 04:00 Temperature 97.8 F Pulse Rate 96 H Respiratory Rate 20 Blood Pressure 137/81 Pulse Oximetry 97 Intake & Output 02/18/18 02/19/18 02/19/18 18:59 06:59 18:59 Intake Total 1200 / 1200 2100 / 2100 Output Total 600 / 600 Balance 1200 / 1200 1500 / 1500 Intake: IV 1200 / 1200 2100 / 2100 NS Inj 1,000 ML @ 150 mls/hr IV 1000 / 1000 2000 / 2000 .CONT .Q6H40M [facility] Rx#:[id number] Ancef Inj 1,000 MG In NS Inj 200 / 200 100 / 100 100 ML @ 200 mls/hr IV.SIG Q8H [facility] Rx#:[id number] Oral 0 / 0 Output: Urine 600 / 600 Other: # Voids 1 # Bowel Movements 1 - Constitutional no acute distress, chronically ill appearing - Routine Cardiovascular Exam Present: RRR - Routine Extremities Exam Comments: right upper extremity shows soft tissue swelling of the hand, wrist, forearm and elbow. He is able to actively flex and extend the elbow. He has a chronic appearing wrist deformity with some limitation of motion. He is able to wiggle his fingers but has difficulty making a fist. Notes numbness to his fingertips. Palpable radial pulse. Compartments are soft and compressible. Results - Labs Result Diagrams: 02/18/18 05:33 02/18/18 05:33 Labs: Laboratory Results - last 24 hr 02/18/18 02/18/18 02/18/18 05:33 05:33 10:19 WBC Differential . Diff Scan Auto diff confirmed Platelet Estimate Low L Platelet Morphology Normal Ovalocytes 1+ H Sodium 141 Potassium 3.2 L Chloride 107 Carbon Dioxide 24.6 Anion Gap 9 BUN 3 L Creatinine 0.47 L Estimated GFR Greater than 89 Random Glucose 80 Calcium 7.2 L* Phosphorus 2.8 Magnesium 1.7 Ammonia 38 H Total Creatine Kinase 1017 H CK-MB (CK-2) 2.3 CK-MB (CK-2) % 0.2 Albumin 2.1 L - Diagnostic results Imaging: Impressions Wrist X-Ray 02/18/18 00:00 CONCLUSION: 1. Nonspecific soft tissue swelling. 2. No acute fracture seen. 3. 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 Plan: 1. No acute surgical intervention indicated at this time 2. I would recommend treating conservatively with elevation and occupational therapy 3. He may follow up with a hand surgeon upon discharge for his wrist if this continues to bother him.
[2018-02-19 08:57] LABS: Albumin 2.2 g/dL (3.4-5.0); Anion Gap 10 meq/L (5-15); Aspartate Aminotransferase 160 U/L (15-37); Blood Urea Nitrogen 4 mg/dL (7-18); Calcium 7.5 mg/dL (8.5-10.1); Carbon Dioxide 22.2 meq/L (21.0-32.0); Chloride 106 meq/L (98-107); Glomerular Filtration Rate Greater Than 89 mL/min (>89); Glucose,Random 80 mg/dL (74-106); Magnesium 1.6 mg/dL (1.5-2.5); Potassium 3.1 meq/L (3.5-5.1); Sodium 138 meq/L (136-145)
[2018-02-19 08:58] LABS: Alanine Aminotransferase 57 U/L (12-78); Phosphorus 2.7 mg/dL (2.5-4.9)
[2018-02-19] MEDS ORDERED: Senna/Docusate Sodium 8.6/50 MG Tablet PO SCH (09:00)
[2018-02-19] MEDS ORDERED: Propranolol 10 MG Tablet PO SCH (09:00)
[2018-02-19 09:02] LABS: Alkaline Phosphatase 101 U/L (45-117)
[2018-02-19 09:21] LABS: Platelet Morphology Normal (Normal)
[2018-02-19] MEDS ORDERED: Iron Sucrose Inj 100 MG/5 ML Vial IV.PUSH ONE (10:00)
[2018-02-19] MEDS: Ferrous Sulfate 325 MG Tablet PO SCH (10:03)
[2018-02-19] MEDS: Sodium Chloride 0.9% 2 ML Flush BID IV.FLUSH SCH (10:03)
[2018-02-19] MEDS: Pantoprazole Inj 40 MG Vial IV.PUSH SCH (10:03)
--- NOTE | 2018-02-19 10:44 | P.DCO ---
- Diagnosis (2) Rhabdomyolysis - Physical Therapy Order: Evaluate and treat - Occupational Therapy Order: Evaluate and treat - Home Health Nursing Order: Nursing assessment with vital signs Instructions: Patient will need home health nurse for medication management. - Home Health Aide Order: To assist in: residential program manager and meal prep - Residential Nurse Order: To evaluate: Living conditions/environment, Support services Order: To provide: Long range planning, Community services - Case Management Consult Yes - Certification I have seen patient Mario Jo on 02/19/18. My clinical findings support the need for the requested home health care services because: Limited ability to care for self I certify that my clinical findings support that this patient is homebound because: Unsafe to leave home unassisted (2) Rhabdomyolysis Qualifiers: Rhabdomyolysis type: traumatic Encounter type: initial encounter Qualified Code(s): T79.6XXA - Traumatic ischemia of muscle, initial encounter
--- NOTE | 2018-02-19 10:49 | P.PNIM ---
Subjective Interval history: Patient is alert and oriented x4. He denies any pain. He would like to go home. He refuses to go to SNF. Physical Exam Vital signs: Vital Signs 02/18/18 11:47 02/18/18 12:00 02/18/18 12:47 Temperature 98.9 F 99.0 F 99 F Pulse Rate 99 H 96 H 96 H Respiratory Rate 22 20 20 Blood Pressure 148/70 H 145/67 H 145/67 H Pulse Oximetry 98 98 98 02/18/18 13:40 02/18/18 14:47 02/18/18 16:00 Temperature 96.8 F L 98.9 F 98.6 F Pulse Rate 89 81 92 H Respiratory Rate 19 18 20 Blood Pressure 158/72 H 145/79 H 156/71 H Pulse Oximetry 97 96 95 02/18/18 18:28 02/18/18 20:00 02/19/18 00:00 Temperature 98.8 F 98.3 F 97.6 F Pulse Rate 89 99 H 92 H Respiratory Rate 19 18 20 Blood Pressure 152/66 H 135/58 L 148/70 H Pulse Oximetry 96 97 96 02/19/18 04:00 02/19/18 08:00 Temperature 97.8 F 99.4 F Pulse Rate 96 H 66 Respiratory Rate 20 20 Blood Pressure 137/81 149/74 H Pulse Oximetry 97 96 Intake & Output 02/18/18 02/19/18 02/19/18 18:59 06:59 18:59 Intake Total 1200 / 1200 2100 / 2100 Output Total 600 / 600 Balance 1200 / 1200 1500 / 1500 Intake: IV 1200 / 1200 2100 / 2100 NS Inj 1,000 ML @ 150 mls/hr IV 1000 / 1000 2000 / 2000 .CONT .Q6H40M RAY Rx#:[id number] Ancef Inj 1,000 MG In NS Inj 200 / 200 100 / 100 100 ML @ 200 mls/hr IV.SIG Q8H RAY Rx#:[id number] Oral 0 / 0 Output: Urine 600 / 600 Other: # Voids 1 # Bowel Movements 1 Narrative: GENERAL: Patient sitting up in bed. He is alert and oriented x3. No change on exam SKIN: Warm and dry. HEAD: Normocephalic. EYES: No scleral icterus. No injection or drainage. NECK: Supple, trachea midline. No JVD. CARDIOVASCULAR: Regular rate and rhythm without murmurs, gallops, or rubs. RESPIRATORY: Breath sounds equal bilaterally. No accessory muscle use. GASTROINTESTINAL: Abdomen soft, non-tender, nondistended. MUSCULOSKELETAL: No cyanosis, or edema. BACK: Nontender without obvious deformity. No CVA tenderness. Results - Labs CBC & Chem 7: 02/19/18 08:00 02/19/18 08:00 Laboratory Results - last 24 hr 02/18/18 02/19/18 02/19/18 10:19 08:00 08:00 WBC 5.4 RBC 2.72 L Hgb 7.5 L Hct 23.4 L MCV 86.0 MCH 27.4 MCHC 31.9 L RDW 23.0 H Plt Count 99 L MPV 9.1 Prelim Diff (Auto) Slide review pending Neut % (Auto) 50.8 Lymph % (Auto) 26.1 [place] % (Auto) 20.0 H Eos % (Auto) 2.3 Baso % (Auto) 0.8 Neut # (Auto) 2.7 Lymph # (Auto) 1.4 [place] # (Auto) 1.1 H Eos # (Auto) 0.1 Baso # (Auto) 0.0 WBC Differential . Diff Scan Auto diff confirmed Differential Comment . Platelet Estimate Low L Platelet Morphology Normal Sodium 138 Potassium 3.1 L Chloride 106 Carbon Dioxide 22.2 Anion Gap 10 BUN 4 L Creatinine 0.55 L Estimated GFR Greater than 89 Random Glucose 80 Calcium 7.5 L Phosphorus 2.7 Magnesium 1.6 Total Bilirubin 0.8 Direct Bilirubin 0.4 H Indirect Bilirubin 0.4 AST 160 H ALT 57 Alkaline Phosphatase 101 Ammonia 38 H Total Protein 6.0 L Albumin 2.2 L - Imaging Impressions Wrist X-Ray 02/18/18 00:00 CONCLUSION: 1. Nonspecific soft tissue swelling. 2. No acute fracture seen. 3. 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 Assessment and Plan - Assessment (1) Alcohol abuse Code(s): F10.10 - Alcohol abuse, uncomplicated Status: Acute (2) Rhabdomyolysis Code(s): M62.82 - Rhabdomyolysis Status: Acute (3) Swelling of right upper extremity Code(s): M79.89 - Other specified soft tissue disorders Status: Acute - Plan //Fall/ Rhabdo The pt says he was on the floor for about [address] cervical spine: Mild wedge-shaped compression deformity of T1 with subtle 3 mm anterolisthesis of C7 on T1; Suspect findings are chronic although chronicity cannot be validated due to lack of prior exams; Mild anterolisthesis of C4 on C5 likely due to facet arthrosis. -continue to trend the CPK level. -continue IVFs. -avoid nephrotoxins. -follow Is and Os. -PT/OT. = 02/17. Rhabdomyolysis improving CPK 2159. Continue IV fluids. = 02/18. Rhabdomyolysis continues improving, now with CK 1000, creatinine within normal limits. = 02/19. Patient will need to avoid alcohol, follow-up with primary care //cellulitis of the right upper extremity start on IV Ancef- keep the right upper extremity elevated. XR of the right shoulder/humerus; negative venous doppler negative for DVT/ XR of the right elbow and right forearm; negative for fracture continue with pain control. //Hypokalemia/Hypocalcemia S/t alcohol abuse, decreased PO intake. -will replace and monitor. = 02/18. Potassium 3.2. Magnesium within normal limits. Replace. And monitor = 02/19. Potassium 3.1. Replace. Magnesium slightly low. Will replace as well. //Alcohol withdrawal The pt drinks large quantities of beer daily. -CIWA protocol. -seizure precautions. -started on thiamine and multivitamin -cessation instruction. = No longer requiring CIWA protocol. Will discontinue. = Patient counseled extensively on avoiding alcohol. //Anemia/Thrombocytopenia //Bedbug infestation. Acute on chronic. Suspect exacerbated by alcohol abuse. -s/p PRBC transfusion - Hemoccult pending. -will monitor H/H = Patient refused EGD/colonoscopy. Patient with low normal ferritin, low iron. Could be secondary to bedbugs. Will start on PPI given history of ulcers. Will give single dose of IV iron. = 02/18. Hemoglobin stable at 7.7. No signs of acute bleeding. Status post IV iron infusion 02/17. Will start on p.o. iron supplementation. Can follow-up with GI as outpatient. Start on lactulose to prevent constipation. = 02/19. Hemoglobin stable at 7.5. Patient with continued weakness. As he is refusing to go to rehab, and would like to go home today, we will transfuse 1 unit of PRBCs for symptomatic anemia. Again, patient has refused workup. Per discussion with case management, patient's caregiver reports that they have treated bedbugs. //elevated LFT's- possible due to alcohol and rhabdomyolysis- improving. -liver sonogram with possible cirrhosis/ small amount of ascites and hepatitis profile negative. - repeat the LFT's in am. = LFTs continue slowly improving. //Bedbugs Noted in the ED. -contact precautions. //Right wrist pain and swelling. X-ray negative for fracture. Suspect patient has a ligamentous injury. This will need to be splinted with follow-up orthopedics as outpatient. Placed orthopedic consult. = Follow-up with orthopedic as an outpatient. //PPx: SCDs Discharge Planning: Patient refuses discharge to SNF. Will discharge home with home health (2) Rhabdomyolysis Qualifiers: Rhabdomyolysis type: traumatic Encounter type: initial encounter Qualified Code(s): T79.6XXA - Traumatic ischemia of muscle, initial encounter
--- NOTE | 2018-02-19 10:50 | P.DS ---
Date of admission: 02/12/18 16:23 Primary care physician: UNKNOWN Brief History from admission: The patient is a 72-year-old male with a past medical history significant for alcohol abuse who presents with a complaint of fall. He states that he was using the restroom in the middle of the night when he slipped and fell while he was holding the towel rack. He said he had an emergency button nearby but he was unable to reach it. He hurt his right arm and hip during the fall. He called out for help but says he was on the ground for more than 6 hours. He states that after the fall he had difficulty moving his right upper extremity with some numbness of the extremity as well. His range of motion has improved but he still can't lift his right arm over his head. He does not remember if he hit his head or not. He states he is a lifelong alcoholic. He says that he typically doesn't eat much. He was found to have bedbugs in the ED. DS: Diagnosis - Discharge Diagnosis (1) Alcohol abuse Status: Chronic (2) Rhabdomyolysis Status: Resolved (3) Swelling of right upper extremity Status: Acute DS: Summary Hospital Course: Patient presented with rhabdomyolysis likely secondary to being found down. This improved with IV fluids. Right upper extremity cellulitis resolved with IV Ancef. Patient was also treated for alcohol withdrawal as well as started on Timentin with improvement in mental status. Patient subsequently alert and oriented 4. Refused GI workup for anemia. Anemia likely secondary to bedbugs. Patient with persistent right wrist pain and swelling. X-ray negative , Ortho recommends wrist brace. Due to continued weakness, recommend SNF. Patient refused to go to SNF. Discharged home AGAINST MEDICAL ADVICE. For problem-based summary from most recent progress note, please see below. //Fall/ Rhabdo The pt says he was on the floor for about [address] cervical spine: Mild wedge-shaped compression deformity of T1 with subtle 3 mm anterolisthesis of C7 on T1; Suspect findings are chronic although chronicity cannot be validated due to lack of prior exams; Mild anterolisthesis of C4 on C5 likely due to facet arthrosis. -continue to trend the CPK level. -continue IVFs. -avoid nephrotoxins. -follow Is and Os. -PT/OT. = 02/17. Rhabdomyolysis improving CPK 2159. Continue IV fluids. = 02/18. Rhabdomyolysis continues improving, now with CK 1000, creatinine within normal limits. = 02/19. Patient will need to avoid alcohol, follow-up with primary care //cellulitis of the right upper extremity start on IV Ancef- keep the right upper extremity elevated. XR of the right shoulder/humerus; negative venous doppler negative for DVT/ XR of the right elbow and right forearm; negative for fracture continue with pain control. //Hypokalemia/Hypocalcemia S/t alcohol abuse, decreased PO intake. -will replace and monitor. = 02/18. Potassium 3.2. Magnesium within normal limits. Replace. And monitor = 02/19. Potassium 3.1. Replace. Magnesium slightly low. Will replace as well. //Alcohol withdrawal The pt drinks large quantities of beer daily. -CIWA protocol. -seizure precautions. -started on thiamine and multivitamin -cessation instruction. = No longer requiring CIWA protocol. Will discontinue. = Patient counseled extensively on avoiding alcohol. //Anemia/Thrombocytopenia //Bedbug infestation. Acute on chronic. Suspect exacerbated by alcohol abuse. -s/p PRBC transfusion - Hemoccult pending. -will monitor H/H = Patient refused EGD/colonoscopy. Patient with low normal ferritin, low iron. Could be secondary to bedbugs. Will start on PPI given history of ulcers. Will give single dose of IV iron. = 02/18. Hemoglobin stable at 7.7. No signs of acute bleeding. Status post IV iron infusion 02/17. Will start on p.o. iron supplementation. Can follow-up with GI as outpatient. Start on lactulose to prevent constipation. = 02/19. Hemoglobin stable at 7.5. Patient with continued weakness. As he is refusing to go to rehab, and would like to go home today, we will transfuse 1 unit of PRBCs for symptomatic anemia. Again, patient has refused workup. Per discussion with case management, patient's caregiver reports that they have treated bedbugs. //elevated LFT's- possible due to alcohol and rhabdomyolysis- improving. -liver sonogram with possible cirrhosis/ small amount of ascites and hepatitis profile negative. - repeat the LFT's in am. = LFTs continue slowly improving. //Bedbugs Noted in the ED. -contact precautions. //Right wrist pain and swelling. X-ray negative for fracture. Suspect patient has a ligamentous injury. This will need to be splinted with follow-up orthopedics as outpatient. Placed orthopedic consult. = Follow-up with orthopedic as an outpatient. //PPx: SCDs Discharge Planning: Patient refuses discharge to SNF. Will discharge home with home health - Time Spent with Patient Total time spent providing and/or coordinating discharge services: Greater than 30 minutes - Quality: VTE Deep Vein Thrombosis/Pulmonary Embolism Present on Admission: No Exam Vital signs: Vital Signs 02/18/18 11:47 02/18/18 12:00 02/18/18 12:47 Temperature 98.9 F 99.0 F 99 F Pulse Rate 99 H 96 H 96 H Respiratory Rate 22 20 20 Blood Pressure 148/70 H 145/67 H 145/67 H Pulse Oximetry 98 98 98 02/18/18 13:40 02/18/18 14:47 02/18/18 16:00 Temperature 96.8 F L 98.9 F 98.6 F Pulse Rate 89 81 92 H Respiratory Rate 19 18 20 Blood Pressure 158/72 H 145/79 H 156/71 H Pulse Oximetry 97 96 95 02/18/18 18:28 02/18/18 20:00 02/19/18 00:00 Temperature 98.8 F 98.3 F 97.6 F Pulse Rate 89 99 H 92 H Respiratory Rate 19 18 20 Blood Pressure 152/66 H 135/58 L 148/70 H Pulse Oximetry 96 97 96 02/19/18 04:00 02/19/18 08:00 Temperature 97.8 F 99.4 F Pulse Rate 96 H 91 H Respiratory Rate 20 20 Blood Pressure 137/81 149/74 H Pulse Oximetry 97 96 Intake & Output 02/18/18 02/19/18 02/19/18 18:59 06:59 18:59 Intake Total 1200 / 1200 2100 / 2100 Output Total 600 / 600 Balance 1200 / 1200 1500 / 1500 Intake: IV 1200 / 1200 2100 / 2100 NS Inj 1,000 ML @ 150 mls/hr IV 1000 / 1000 2000 / 2000 .CONT .Q6H40M RAY Rx#:[id number] Ancef Inj 1,000 MG In NS Inj 200 / 200 100 / 100 100 ML @ 200 mls/hr IV.SIG Q8H RAY Rx#:[id number] Oral 0 / 0 Output: Urine 600 / 600 Other: # Voids 1 # Bowel Movements 1 Results Procedures completed during hospitalization: no invasive procedures. Labs on day of discharge: Labs from last 24 hours 02/19/18 02/19/18 02/18/18 08:00 08:00 10:19 WBC 5.4 RBC 2.72 L Hgb 7.5 L Hct 23.4 L MCV 86.0 MCH 27.4 MCHC 31.9 L RDW 23.0 H Plt Count 99 L MPV 9.1 Prelim Diff (Auto) Slide review pending Neut % (Auto) 50.8 Lymph % (Auto) 26.1 [place] % (Auto) 20.0 H Eos % (Auto) 2.3 Baso % (Auto) 0.8 Neut # (Auto) 2.7 Lymph # (Auto) 1.4 [place] # (Auto) 1.1 H Eos # (Auto) 0.1 Baso # (Auto) 0.0 WBC Differential . Diff Scan Auto diff confirmed Differential Comment . Platelet Estimate Low L Platelet Morphology Normal Sodium 138 Potassium 3.1 L Chloride 106 Carbon Dioxide 22.2 Anion Gap 10 BUN 4 L Creatinine 0.55 L Estimated GFR Greater than 89 Random Glucose 80 Calcium 7.5 L Phosphorus 2.7 Magnesium 1.6 Total Bilirubin 0.8 Direct Bilirubin 0.4 H Indirect Bilirubin 0.4 AST 160 H ALT 57 Alkaline Phosphatase 101 Ammonia 38 H Total Protein 6.0 L Albumin 2.2 L - Impressions ITS Impressions Chest X-Ray 02/12/18 10:37 CONCLUSION: 1. Negative portable chest. Head CTA 02/12/18 10:37 CONCLUSION: 1. Negative CTA Head. Specifically, no evidence for large vessel occlusion. Humerus X-Ray 02/12/18 10:37 CONCLUSION: 1. No acute fracture or dislocation. Neck CTA 02/12/18 10:37 CONCLUSION: 1. No significant carotid flow-limiting stenosis. 2. Eccentric calcified plaque in the distal vertebral arteries bilaterally near the vertebrobasilar junction with resultant bilateral mild stenosis. Pelvis X-Ray 02/12/18 10:37 CONCLUSION: 1. Subacute to chronic right femoral greater trochanteric fracture with fracture fragment retracted cephalad and medially. 2. Degenerative osteoarthritis of the hips. Shoulder X-Ray 02/12/18 10:37 CONCLUSION: 1. No acute fracture or dislocation. 2. Degenerative osteoarthritis. Cervical Spine CT 02/12/18 10:38 CONCLUSION: 1. Mild wedge-shaped compression deformity of T1 with subtle 3 mm anterolisthesis of C7 on T1. Suspect findings are chronic although chronicity cannot be validated due to lack of prior exams. Clinical correlation with physical exam is recommended. Flexion and extension views may be obtained if there is significant concern regarding ligamentous instability and there is continued clinical uncertainty. 2. Mild anterolisthesis of C4 on C5 likely due to facet arthrosis. Head CT 02/12/18 10:38 CONCLUSION: 1. No acute intracranial abnormality. 2. Prominent diffuse cerebral atrophy out of proportion to age. 3. Moderate periventricular ischemic white matter denomination. 4. Bilateral paranasal sinus mucosal disease with fluid in the right maxillary sinus. . Elbow X-Ray 02/13/18 00:00 CONCLUSION: Soft tissue swelling without evidence of acute fracture, dislocation or significant arthropathy. Forearm X-Ray 02/13/18 00:00 CONCLUSION: Soft tissue swelling without evidence of acute fracture or dislocation. Venous Doppler Study 02/13/18 00:00 CONCLUSION: 1. The study is negative for upper extremity deep venous thrombosis. Liver Ultrasound 02/15/18 00:00 CONCLUSION: 1. Heterogeneous echotexture of the liver suggesting possible cirrhosis. 2. There is a small amount of ascites in the upper abdomen. 3. Gallbladder is unremarkable in appearance. Wrist X-Ray 02/18/18 00:00 CONCLUSION: 1. Nonspecific soft tissue swelling. 2. No acute fracture seen. 3. 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 Discharge Plan - Discharge Disposition Patient Disposition: Against Medical Advice - Discharge Condition Condition: Stable - Discharge Order Discharge Orders: AMA Discharge (Routine); Ordered 02/19/18 Ordered By: Georges Ferreira - Discharge Details Anticipated Discharge Date: 02/19/18 Discharge Comment: Discharge home after blood transfusion. - Physicians Team Primary Care Provider: UNKNOWN, Attending Provider: Georges Ferreira Other Providers: [employer] ; [facility] ; Gabby Valladares MD
[2018-02-19] MEDS ORDERED: Sodium Chlor 0.9% Inj 250 ML IV.SIG SCH (11:00)
[2018-02-19] MEDS ORDERED: Mag Sulf 1 gm/100 ml Premix 100 ML IV.SIG ONE (11:30)
[2018-02-19] MEDS ORDERED: Influenza (Quadrivalent) Vaccine 0.5 ML Syringe IM ONE (17:00)
[2018-02-19 17:59] VITALS: BP 119/59; PULSE 71; TEMP 98.3; O2SAT 98
== END 2018-02-19 20:32 | disposition left against medical advice (07) ==
LOC: NEPC 10:16 → NEDA 16:23 → N04 18:15
PROVIDERS: ADMIT Internal Medicine; ATTEND Internal Medicine

== ENCOUNTER 2018-02-21 12:59 | Inpatient (IN) ==
--- NOTE | 2018-02-21 14:05 | ED ---
HPI General Chief complaint: Altered Mental Status Stated complaint: AMS Time Seen by Provider: 02/21/18 13:05 Source: patient and EMS Mode of arrival: EMS Limitations: altered mental status History of Present Illness HPI narrative: Patient is a 72-year-old male brought in by EMS due to altered mental status. Per EMS, he was found by maintenance staff in his building on the ground. EMS states his apartment was trashed with broken furniture, a broken television. Patient is very altered and unable to provide any history. He says he threw a constitution party. He also believes he is in [place] currently. EMS states he had vacuum cord wrapped around his arms and was tangled in all sorts of debris. He was recently admitted for rhabdomyolysis and per old records is a chronic alcoholic. Related Data Home Medications Medication Instructions Recorded Confirmed No Known Home Medications 02/21/18 02/21/18 Allergies Allergy/AdvReac Type Severity Reaction Status Date / Time No Known Allergies Allergy Unverified 02/12/18 10:45 Review of Systems ROS Unobtainable ROS Unobtainable: unobtainable due to mental status PMFSH Medical History Medical History Anxiety (Acute) Arthritis (Acute) Cirrhosis (Acute) Fall (Acute) History of subdural hematoma (Acute) Hypertension (Acute) Pancreatitis (Acute) Seizures (Acute) Alcohol abuse (Acute) Patient denies medical problems (Acute) Surgical History Surgical History History of open reduction and internal fixation (ORIF) procedure (Acute) Family History Family History Other Patient denies significant medical history Social History Social History Substance History: Unable to Obtain Second Hand Smoke Exposure: Yes Smoking Status: Cognitive impairment Tobacco Type: Cigars How Often Do You Have a Drink Containing Alcohol: Unable to Obtain Recent Travel in [facility] within the Last 8 Weeks: No Recent Out of Country Travel within the Last 8 Weeks: No Immunization History Tetanus Immunization: Unsure Exam Narrative Exam Narrative: GENERAL: Awake and alert, in no acute distress. Unkept, dirty. SKIN: Focused skin assessment warm/dry. HEAD: Atraumatic. Normocephalic. EYES: Pupils equal and round and reactive. No scleral icterus. Extraocular movements intact. ENT: Mucous membranes pink and moist. NECK: Trachea midline. No JVD. CARDIOVASCULAR: Regular rate and rhythm. No murmur appreciated. RESPIRATORY: No accessory muscle use. Clear to auscultation. Breath sounds equal bilaterally. GASTROINTESTINAL: Abdomen soft, non-tender, nondistended. MUSCULOSKELETAL: No obvious deformities. No clubbing. No cyanosis. No edema. NEUROLOGICAL: Awake and alert, but confused. No obvious cranial nerve deficits. Motor grossly within normal limits. Normal speech. PSYCHIATRIC: Appropriate mood and affect; insight and judgment normal. Course Initial Documented Vital Signs Temperature 98.6 F 02/21/18 13:23 Pulse Rate 92 H 02/21/18 13:23 Respiratory Rate 19 02/21/18 13:23 Blood Pressure 136/69 02/21/18 13:23 Pulse Oximetry 100 02/21/18 13:23 Last Documented Vital Signs Temperature 98.1 F 02/22/18 16:00 Pulse Rate 71 02/22/18 16:00 Respiratory Rate 17 02/22/18 16:00 Blood Pressure 152/67 H 02/22/18 16:00 Pulse Oximetry 100 02/22/18 16:00 Medical Decision Making [facility] Narrative Medical decision making narrative: Patient is a 72-year-old male who comes in due to altered mental status. He is clearly confused and believes he is in [facility]. IV established, labs sent. Patient connected to the quality assurance monitor body. Labs show elevated CK to 1100. CT head performed shows no acute abnormalities. Patient given IV fluids. He will be admitted for further management. Medical Screen Exam Complete: Yes Emergency Medical Condition: Yes Differential Diagnosis Differential Diagnosis: Alcohol withdrawal versus rhabdomyolysis versus electrolyte abnormality versus infection Medical Records Medical records reviewed: Yes I reviewed the patient's medical records. Lab Data Result diagrams: 02/22/18 04:36 02/22/18 04:36 Lab Results 02/21/18 02/21/18 02/21/18 Range/Units 13:31 13:32 13:33 WBC 8.5 (4.0-11.0) th/mm3 RBC 2.89 L (4.50-5.90) mil/mm3 Hgb 7.8 L (13.0-17.0) gm/dL Hct 25.2 L (39.0-51.0) % MCV 86.9 (80.0-100.0) fL MCH 26.8 L (27.0-34.0) pg MCHC 30.9 L (32.0-36.0) % RDW 24.1 H (11.6-17.2) % Plt Count 224 D (150-450) th/mm3 MPV 9.2 (7.0-11.0) fL Neut % (Auto) 68.5 (16.0-70.0) % Lymph % (Auto) 14.9 (9.0-44.0) % [place] % (Auto) 15.1 H (0.0-8.0) % Eos % (Auto) 0.2 (0.0-4.0) % Baso % (Auto) 1.3 (0.0-2.0) % Neut # (Auto) 5.8 (1.8-7.7) th/mm3 Lymph # (Auto) 1.3 (1.0-4.8) th/mm3 [place] # (Auto) 1.3 H (0.0-0.9) th/mm3 Eos # (Auto) 0.0 (0.0-0.4) th/mm3 Baso # (Auto) 0.1 (0.0-0.2) th/mm3 WBC Differential . Differential Comment Auto diff final PT (9.8-11.6) sec INR Ratio APTT (24.3-30.1) sec Puncture Site Patient Temperature O2 Saturation (90-100) % ABG pH (7.380-7.420) ABG pCO2 (38-42) mmHg ABG pO2 (61-120) mmHg ABG HCO3 (22-26) mmol/L ABG O2 Content (12.0-20.0) Vol % ABG Base Excess (-2-2) mmol/L ABG Methemoglobin (0-2) % [place] Test Hemoglobin (12.0-16.0) G/DL Carboxyhemoglobin (0-4) % O2 Delivery Device Inspired O2 % Critical Value Sodium (136-145) meq/L Potassium (3.5-5.1) meq/L Chloride (98-107) meq/L Carbon Dioxide (21.0-32.0) meq/L Anion Gap (5-15) meq/L BUN (7-18) mg/dL Creatinine (0.60-1.30) mg/dL Estimated GFR (>89) mL/min POC Glucose 70 (68-110) mg/dl Random Glucose (74-106) mg/dL Hemoglobin A1c (4.3-6.0) % Calcium (8.5-10.1) mg/dL Phosphorus (2.5-4.9) mg/dL Magnesium (1.5-2.5) mg/dL Total Bilirubin (0.2-1.0) mg/dL Direct Bilirubin (0.0-0.2) mg/dL Indirect Bilirubin (0.0-0.8) mg/dL AST (15-37) U/L ALT (12-78) U/L Alkaline Phosphatase (45-117) U/L Ammonia 38 H (11-32) mcmol/L Total Creatine Kinase (39-308) U/L CK-MB (CK-2) (0.5-3.6) ng/mL CK-MB (CK-2) % (0.0-4.0) % Troponin I (0.02-0.05) ng/mL Total Protein (6.4-8.2) g/dL Albumin (3.4-5.0) g/dL TSH (0.358-3.740) uIU/mL Free T4 (0.76-1.46) ng/dL Urine Color (Yellw/Straw) Urine Clarity (Clear) Urine pH (5.0-8.5) Ur Specific [place] (1.002-1.035) Urine Protein (Neg-Trace) mg/dL Urine Glucose (UA) (Negative) mg/dL Urine Ketones (Negative) mg/dL Urine Occult Blood (Negative) Urine Nitrate (Negative) Urine Bilirubin (Negative) Urine Urobilinogen (Less than 2) mg/dL Ur Leukocyte Esterase (Negative) Urine RBC (0-3) /hpf Urine WBC (0-5) /hpf Ur Squamous Epith Cells (0-5) /hpf Urine Bacteria (None) /hpf Hyaline Casts (0-3) /lpf Micro UA Comment Ur Microscopic Review Urine Culture Comments Urine Opiates Screen (Neg) Ur Barbiturates Screen (Neg) Ur Amphetamines Screen (Neg) U Benzodiazepines Scrn (Neg) Urine Cocaine Screen (Neg) U Cannabinoids Screen (Neg) Serum Alcohol (0-5) mg/dL 02/21/18 02/21/18 02/21/18 Range/Units 13:33 13:33 13:40 WBC (4.0-11.0) th/mm3 RBC (4.50-5.90) mil/mm3 Hgb (13.0-17.0) gm/dL Hct (39.0-51.0) % MCV (80.0-100.0) fL MCH (27.0-34.0) pg MCHC (32.0-36.0) % RDW (11.6-17.2) % Plt Count (150-450) th/mm3 MPV (7.0-11.0) fL Neut % (Auto) (16.0-70.0) % Lymph % (Auto) (9.0-44.0) % [place] % (Auto) (0.0-8.0) % Eos % (Auto) (0.0-4.0) % Baso % (Auto) (0.0-2.0) % Neut # (Auto) (1.8-7.7) th/mm3 Lymph # (Auto) (1.0-4.8) th/mm3 [place] # (Auto) (0.0-0.9) th/mm3 Eos # (Auto) (0.0-0.4) th/mm3 Baso # (Auto) (0.0-0.2) th/mm3 WBC Differential Differential Comment PT (9.8-11.6) sec INR Ratio APTT (24.3-30.1) sec Puncture Site Patient Temperature O2 Saturation (90-100) % ABG pH (7.380-7.420) ABG pCO2 (38-42) mmHg ABG pO2 (61-120) mmHg ABG HCO3 (22-26) mmol/L ABG O2 Content (12.0-20.0) Vol % ABG Base Excess (-2-2) mmol/L ABG Methemoglobin (0-2) % [place] Test Hemoglobin (12.0-16.0) G/DL Carboxyhemoglobin (0-4) % O2 Delivery Device Inspired O2 % Critical Value Sodium 141 (136-145) meq/L Potassium 3.6 (3.5-5.1) meq/L Chloride 107 (98-107) meq/L Carbon Dioxide 17.6 L (21.0-32.0) meq/L Anion Gap 16 H (5-15) meq/L BUN 7 (7-18) mg/dL Creatinine 0.45 L (0.60-1.30) mg/dL Estimated GFR Greater than 89 (>89) mL/min POC Glucose (68-110) mg/dl Random Glucose 56 L (74-106) mg/dL Hemoglobin A1c (4.3-6.0) % Calcium 7.9 L (8.5-10.1) mg/dL Phosphorus (2.5-4.9) mg/dL Magnesium (1.5-2.5) mg/dL Total Bilirubin 1.4 H (0.2-1.0) mg/dL Direct Bilirubin (0.0-0.2) mg/dL Indirect Bilirubin (0.0-0.8) mg/dL AST 159 H (15-37) U/L ALT 56 (12-78) U/L Alkaline Phosphatase 84 (45-117) U/L Ammonia (11-32) mcmol/L Total Creatine Kinase 1174 H Cancelled (39-308) U/L CK-MB (CK-2) 7.2 H (0.5-3.6) ng/mL CK-MB (CK-2) % 0.6 (0.0-4.0) % Troponin I 0.05 (0.02-0.05) ng/mL Total Protein 6.3 L (6.4-8.2) g/dL Albumin 2.4 L (3.4-5.0) g/dL TSH (0.358-3.740) uIU/mL Free T4 (0.76-1.46) ng/dL Urine Color (Yellw/Straw) Urine Clarity (Clear) Urine pH (5.0-8.5) Ur Specific [place] (1.002-1.035) Urine Protein (Neg-Trace) mg/dL Urine Glucose (UA) (Negative) mg/dL Urine Ketones (Negative) mg/dL Urine Occult Blood (Negative) Urine Nitrate (Negative) Urine Bilirubin (Negative) Urine Urobilinogen (Less than 2) mg/dL Ur Leukocyte Esterase (Negative) Urine RBC (0-3) /hpf Urine WBC (0-5) /hpf Ur Squamous Epith Cells (0-5) /hpf Urine Bacteria (None) /hpf Hyaline Casts (0-3) /lpf Micro UA Comment Ur Microscopic Review Urine Culture Comments Urine Opiates Screen Neg (Neg) Ur Barbiturates Screen Neg (Neg) Ur Amphetamines Screen Neg (Neg) U Benzodiazepines Scrn Neg (Neg) Urine Cocaine Screen Neg (Neg) U Cannabinoids Screen Neg (Neg) Serum Alcohol Less than 3 (0-5) mg/dL 02/21/18 02/21/18 02/21/18 Range/Units 13:40 15:00 15:01 WBC (4.0-11.0) th/mm3 RBC (4.50-5.90) mil/mm3 Hgb (13.0-17.0) gm/dL Hct (39.0-51.0) % MCV (80.0-100.0) fL MCH (27.0-34.0) pg MCHC (32.0-36.0) % RDW (11.6-17.2) % Plt Count (150-450) th/mm3 MPV (7.0-11.0) fL Neut % (Auto) (16.0-70.0) % Lymph % (Auto) (9.0-44.0) % [place] % (Auto) (0.0-8.0) % Eos % (Auto) (0.0-4.0) % Baso % (Auto) (0.0-2.0) % Neut # (Auto) (1.8-7.7) th/mm3 Lymph # (Auto) (1.0-4.8) th/mm3 [place] # (Auto) (0.0-0.9) th/mm3 Eos # (Auto) (0.0-0.4) th/mm3 Baso # (Auto) (0.0-0.2) th/mm3 WBC Differential Differential Comment PT 12.2 H (9.8-11.6) sec INR 1.2 Ratio APTT 21.6 L (24.3-30.1) sec Puncture Site Patient Temperature O2 Saturation (90-100) % ABG pH (7.380-7.420) ABG pCO2 (38-42) mmHg ABG pO2 (61-120) mmHg ABG HCO3 (22-26) mmol/L ABG O2 Content (12.0-20.0) Vol % ABG Base Excess (-2-2) mmol/L ABG Methemoglobin (0-2) % [place] Test Hemoglobin (12.0-16.0) G/DL Carboxyhemoglobin (0-4) % O2 Delivery Device Inspired O2 % Critical Value Sodium (136-145) meq/L Potassium (3.5-5.1) meq/L Chloride (98-107) meq/L Carbon Dioxide (21.0-32.0) meq/L Anion Gap (5-15) meq/L BUN (7-18) mg/dL Creatinine (0.60-1.30) mg/dL Estimated GFR (>89) mL/min POC Glucose 68 (68-110) mg/dl Random Glucose (74-106) mg/dL Hemoglobin A1c (4.3-6.0) % Calcium (8.5-10.1) mg/dL Phosphorus (2.5-4.9) mg/dL Magnesium (1.5-2.5) mg/dL Total Bilirubin (0.2-1.0) mg/dL Direct Bilirubin (0.0-0.2) mg/dL Indirect Bilirubin (0.0-0.8) mg/dL AST (15-37) U/L ALT (12-78) U/L Alkaline Phosphatase (45-117) U/L Ammonia (11-32) mcmol/L Total Creatine Kinase (39-308) U/L CK-MB (CK-2) (0.5-3.6) ng/mL CK-MB (CK-2) % (0.0-4.0) % Troponin I (0.02-0.05) ng/mL Total Protein (6.4-8.2) g/dL Albumin (3.4-5.0) g/dL TSH (0.358-3.740) uIU/mL Free T4 (0.76-1.46) ng/dL Urine Color Yellow (Yellw/Straw) Urine Clarity Clear (Clear) Urine pH 6.0 (5.0-8.5) Ur Specific [place] 1.017 (1.002-1.035) Urine Protein Negative (Neg-Trace) mg/dL Urine Glucose (UA) Negative (Negative) mg/dL Urine Ketones 80 or greater H (Negative) mg/dL Urine Occult Blood Negative (Negative) Urine Nitrate Negative (Negative) Urine Bilirubin Negative (Negative) Urine Urobilinogen 2.0 H (Less than 2) mg/dL Ur Leukocyte Esterase Negative (Negative) Urine RBC Less than 1 (0-3) /hpf Urine WBC Less than 1 (0-5) /hpf Ur Squamous Epith Cells <1 (0-5) /hpf Urine Bacteria Rare H (None) /hpf Hyaline Casts 3 (0-3) /lpf Micro UA Comment Cath-culture ind Ur Microscopic Review Not Reportable Urine Culture Comments Cath-cult indicated Urine Opiates Screen (Neg) Ur Barbiturates Screen (Neg) Ur Amphetamines Screen (Neg) U Benzodiazepines Scrn (Neg) Urine Cocaine Screen (Neg) U Cannabinoids Screen (Neg) Serum Alcohol (0-5) mg/dL 02/21/18 02/21/18 02/21/18 Range/Units 15:43 15:52 21:47 WBC (4.0-11.0) th/mm3 RBC (4.50-5.90) mil/mm3 Hgb (13.0-17.0) gm/dL Hct (39.0-51.0) % MCV (80.0-100.0) fL MCH (27.0-34.0) pg MCHC (32.0-36.0) % RDW (11.6-17.2) % Plt Count (150-450) th/mm3 MPV (7.0-11.0) fL Neut % (Auto) (16.0-70.0) % Lymph % (Auto) (9.0-44.0) % [place] % (Auto) (0.0-8.0) % Eos % (Auto) (0.0-4.0) % Baso % (Auto) (0.0-2.0) % Neut # (Auto) (1.8-7.7) th/mm3 Lymph # (Auto) (1.0-4.8) th/mm3 [place] # (Auto) (0.0-0.9) th/mm3 Eos # (Auto) (0.0-0.4) th/mm3 Baso # (Auto) (0.0-0.2) th/mm3 WBC Differential Differential Comment PT (9.8-11.6) sec INR Ratio APTT (24.3-30.1) sec Puncture Site Right radial Patient Temperature 98.6 O2 Saturation 95 (90-100) % ABG pH 7.45 H (7.380-7.420) ABG pCO2 24 L* (38-42) mmHg ABG pO2 92 (61-120) mmHg ABG HCO3 17 L (22-26) mmol/L ABG O2 Content 10.8 L (12.0-20.0) Vol % ABG Base Excess -6.5 L (-2-2) mmol/L ABG Methemoglobin 0.3 (0-2) % [place] Test Present Hemoglobin 8.0 L (12.0-16.0) G/DL Carboxyhemoglobin 2.3 (0-4) % O2 Delivery Device Room air Inspired O2 21 % Critical Value Yes Sodium 140 (136-145) meq/L Potassium 3.1 L (3.5-5.1) meq/L Chloride 108 H (98-107) meq/L Carbon Dioxide 20.3 L (21.0-32.0) meq/L Anion Gap 12 (5-15) meq/L BUN 7 (7-18) mg/dL Creatinine 0.51 L (0.60-1.30) mg/dL Estimated GFR Greater than 89 (>89) mL/min POC Glucose 87 (68-110) mg/dl Random Glucose 71 L (74-106) mg/dL Hemoglobin A1c (4.3-6.0) % Calcium 8.0 L (8.5-10.1) mg/dL Phosphorus 2.9 (2.5-4.9) mg/dL Magnesium 1.8 (1.5-2.5) mg/dL Total Bilirubin 1.4 H (0.2-1.0) mg/dL Direct Bilirubin (0.0-0.2) mg/dL Indirect Bilirubin (0.0-0.8) mg/dL AST 152 H (15-37) U/L ALT 56 (12-78) U/L Alkaline Phosphatase 91 (45-117) U/L Ammonia (11-32) mcmol/L Total Creatine Kinase (39-308) U/L CK-MB (CK-2) (0.5-3.6) ng/mL CK-MB (CK-2) % (0.0-4.0) % Troponin I (0.02-0.05) ng/mL Total Protein 6.8 (6.4-8.2) g/dL Albumin 2.4 L (3.4-5.0) g/dL TSH (0.358-3.740) uIU/mL Free T4 (0.76-1.46) ng/dL Urine Color (Yellw/Straw) Urine Clarity (Clear) Urine pH (5.0-8.5) Ur Specific [place] (1.002-1.035) Urine Protein (Neg-Trace) mg/dL Urine Glucose (UA) (Negative) mg/dL Urine Ketones (Negative) mg/dL Urine Occult Blood (Negative) Urine Nitrate (Negative) Urine Bilirubin (Negative) Urine Urobilinogen (Less than 2) mg/dL Ur Leukocyte Esterase (Negative) Urine RBC (0-3) /hpf Urine WBC (0-5) /hpf Ur Squamous Epith Cells (0-5) /hpf Urine Bacteria (None) /hpf Hyaline Casts (0-3) /lpf Micro UA Comment Ur Microscopic Review Urine Culture Comments Urine Opiates Screen (Neg) Ur Barbiturates Screen (Neg) Ur Amphetamines Screen (Neg) U Benzodiazepines Scrn (Neg) Urine Cocaine Screen (Neg) U Cannabinoids Screen (Neg) Serum Alcohol (0-5) mg/dL 02/21/18 02/21/18 02/21/18 Range/Units 21:47 21:47 23:23 WBC 6.3 (4.0-11.0) th/mm3 RBC 2.87 L (4.50-5.90) mil/mm3 Hgb 7.7 L (13.0-17.0) gm/dL Hct 24.7 L (39.0-51.0) % MCV 86.0 (80.0-100.0) fL MCH 26.8 L (27.0-34.0) pg MCHC 31.1 L (32.0-36.0) % RDW 24.2 H (11.6-17.2) % Plt Count 210 (150-450) th/mm3 MPV 8.9 (7.0-11.0) fL Neut % (Auto) 58.1 (16.0-70.0) % Lymph % (Auto) 23.8 (9.0-44.0) % [place] % (Auto) 16.4 H (0.0-8.0) % Eos % (Auto) 0.6 (0.0-4.0) % Baso % (Auto) 1.1 (0.0-2.0) % Neut # (Auto) 3.6 (1.8-7.7) th/mm3 Lymph # (Auto) 1.5 (1.0-4.8) th/mm3 [place] # (Auto) 1.0 H (0.0-0.9) th/mm3 Eos # (Auto) 0.0 (0.0-0.4) th/mm3 Baso # (Auto) 0.1 (0.0-0.2) th/mm3 WBC Differential . Differential Comment Auto diff final PT (9.8-11.6) sec INR Ratio APTT (24.3-30.1) sec Puncture Site Patient Temperature O2 Saturation (90-100) % ABG pH (7.380-7.420) ABG pCO2 (38-42) mmHg ABG pO2 (61-120) mmHg ABG HCO3 (22-26) mmol/L ABG O2 Content (12.0-20.0) Vol % ABG Base Excess (-2-2) mmol/L ABG Methemoglobin (0-2) % [place] Test Hemoglobin (12.0-16.0) G/DL Carboxyhemoglobin (0-4) % O2 Delivery Device Inspired O2 % Critical Value Sodium (136-145) meq/L Potassium (3.5-5.1) meq/L Chloride (98-107) meq/L Carbon Dioxide (21.0-32.0) meq/L Anion Gap (5-15) meq/L BUN (7-18) mg/dL Creatinine (0.60-1.30) mg/dL Estimated GFR (>89) mL/min POC Glucose (68-110) mg/dl Random Glucose (74-106) mg/dL Hemoglobin A1c (4.3-6.0) % Calcium (8.5-10.1) mg/dL Phosphorus (2.5-4.9) mg/dL Magnesium (1.5-2.5) mg/dL Total Bilirubin (0.2-1.0) mg/dL Direct Bilirubin (0.0-0.2) mg/dL Indirect Bilirubin (0.0-0.8) mg/dL AST (15-37) U/L ALT (12-78) U/L Alkaline Phosphatase (45-117) U/L Ammonia 30 (11-32) mcmol/L Total Creatine Kinase 1050 H (39-308) U/L CK-MB (CK-2) 6.4 H (0.5-3.6) ng/mL CK-MB (CK-2) % 0.6 (0.0-4.0) % Troponin I 0.03 (0.02-0.05) ng/mL Total Protein (6.4-8.2) g/dL Albumin (3.4-5.0) g/dL TSH (0.358-3.740) uIU/mL Free T4 (0.76-1.46) ng/dL Urine Color (Yellw/Straw) Urine Clarity (Clear) Urine pH (5.0-8.5) Ur Specific [place] (1.002-1.035) Urine Protein (Neg-Trace) mg/dL Urine Glucose (UA) (Negative) mg/dL Urine Ketones (Negative) mg/dL Urine Occult Blood (Negative) Urine Nitrate (Negative) Urine Bilirubin (Negative) Urine Urobilinogen (Less than 2) mg/dL Ur Leukocyte Esterase (Negative) Urine RBC (0-3) /hpf Urine WBC (0-5) /hpf Ur Squamous Epith Cells (0-5) /hpf Urine Bacteria (None) /hpf Hyaline Casts (0-3) /lpf Micro UA Comment Ur Microscopic Review Urine Culture Comments Urine Opiates Screen (Neg) Ur Barbiturates Screen (Neg) Ur Amphetamines Screen (Neg) U Benzodiazepines Scrn (Neg) Urine Cocaine Screen (Neg) U Cannabinoids Screen (Neg) Serum Alcohol (0-5) mg/dL 02/21/18 02/22/18 02/22/18 Range/Units 23:51 04:36 04:36 WBC (4.0-11.0) th/mm3 RBC (4.50-5.90) mil/mm3 Hgb (13.0-17.0) gm/dL Hct (39.0-51.0) % MCV (80.0-100.0) fL MCH (27.0-34.0) pg MCHC (32.0-36.0) % RDW (11.6-17.2) % Plt Count (150-450) th/mm3 MPV (7.0-11.0) fL Neut % (Auto) (16.0-70.0) % Lymph % (Auto) (9.0-44.0) % [place] % (Auto) (0.0-8.0) % Eos % (Auto) (0.0-4.0) % Baso % (Auto) (0.0-2.0) % Neut # (Auto) (1.8-7.7) th/mm3 Lymph # (Auto) (1.0-4.8) th/mm3 [place] # (Auto) (0.0-0.9) th/mm3 Eos # (Auto) (0.0-0.4) th/mm3 Baso # (Auto) (0.0-0.2) th/mm3 WBC Differential Differential Comment PT 12.7 H (9.8-11.6) sec INR 1.3 Ratio APTT (24.3-30.1) sec Puncture Site Patient Temperature O2 Saturation (90-100) % ABG pH (7.380-7.420) ABG pCO2 (38-42) mmHg ABG pO2 (61-120) mmHg ABG HCO3 (22-26) mmol/L ABG O2 Content (12.0-20.0) Vol % ABG Base Excess (-2-2) mmol/L ABG Methemoglobin (0-2) % [place] Test Hemoglobin (12.0-16.0) G/DL Carboxyhemoglobin (0-4) % O2 Delivery Device Inspired O2 % Critical Value Sodium 141 (136-145) meq/L Potassium 3.0 L (3.5-5.1) meq/L Chloride 107 (98-107) meq/L Carbon Dioxide 24.0 (21.0-32.0) meq/L Anion Gap 10 (5-15) meq/L BUN 6 L (7-18) mg/dL Creatinine 0.45 L (0.60-1.30) mg/dL Estimated GFR Greater than 89 (>89) mL/min POC Glucose 75 (68-110) mg/dl Random Glucose 77 (74-106) mg/dL Hemoglobin A1c (4.3-6.0) % Calcium 7.7 L (8.5-10.1) mg/dL Phosphorus 2.8 (2.5-4.9) mg/dL Magnesium 1.8 (1.5-2.5) mg/dL Total Bilirubin 1.2 H (0.2-1.0) mg/dL Direct Bilirubin (0.0-0.2) mg/dL Indirect Bilirubin (0.0-0.8) mg/dL AST 118 H (15-37) U/L ALT 49 (12-78) U/L Alkaline Phosphatase 81 (45-117) U/L Ammonia (11-32) mcmol/L Total Creatine Kinase 718 H (39-308) U/L CK-MB (CK-2) 4.3 H (0.5-3.6) ng/mL CK-MB (CK-2) % 0.6 (0.0-4.0) % Troponin I 0.04 (0.02-0.05) ng/mL Total Protein 6.0 L D (6.4-8.2) g/dL Albumin 2.2 L (3.4-5.0) g/dL TSH 1.180 (0.358-3.740) uIU/mL Free T4 1.47 H (0.76-1.46) ng/dL Urine Color (Yellw/Straw) Urine Clarity (Clear) Urine pH (5.0-8.5) Ur Specific [place] (1.002-1.035) Urine Protein (Neg-Trace) mg/dL Urine Glucose (UA) (Negative) mg/dL Urine Ketones (Negative) mg/dL Urine Occult Blood (Negative) Urine Nitrate (Negative) Urine Bilirubin (Negative) Urine Urobilinogen (Less than 2) mg/dL Ur Leukocyte Esterase (Negative) Urine RBC (0-3) /hpf Urine WBC (0-5) /hpf Ur Squamous Epith Cells (0-5) /hpf Urine Bacteria (None) /hpf Hyaline Casts (0-3) /lpf Micro UA Comment Ur Microscopic Review Urine Culture Comments Urine Opiates Screen (Neg) Ur Barbiturates Screen (Neg) Ur Amphetamines Screen (Neg) U Benzodiazepines Scrn (Neg) Urine Cocaine Screen (Neg) U Cannabinoids Screen (Neg) Serum Alcohol (0-5) mg/dL 02/22/18 02/22/18 02/22/18 Range/Units 04:36 04:36 04:36 WBC 4.7 (4.0-11.0) th/mm3 RBC 2.81 L (4.50-5.90) mil/mm3 Hgb 7.7 L (13.0-17.0) gm/dL Hct 24.3 L (39.0-51.0) % MCV 86.4 (80.0-100.0) fL MCH 27.3 (27.0-34.0) pg MCHC 31.6 L (32.0-36.0) % RDW 24.3 H (11.6-17.2) % Plt Count 196 (150-450) th/mm3 MPV 8.9 (7.0-11.0) fL Neut % (Auto) 57.6 (16.0-70.0) % Lymph % (Auto) 22.7 (9.0-44.0) % [place] % (Auto) 16.8 H (0.0-8.0) % Eos % (Auto) 1.7 (0.0-4.0) % Baso % (Auto) 1.2 (0.0-2.0) % Neut # (Auto) 2.7 (1.8-7.7) th/mm3 Lymph # (Auto) 1.1 (1.0-4.8) th/mm3 [place] # (Auto) 0.8 (0.0-0.9) th/mm3 Eos # (Auto) 0.1 (0.0-0.4) th/mm3 Baso # (Auto) 0.1 (0.0-0.2) th/mm3 WBC Differential . Differential Comment Auto diff final PT (9.8-11.6) sec INR Ratio APTT (24.3-30.1) sec Puncture Site Patient Temperature O2 Saturation (90-100) % ABG pH (7.380-7.420) ABG pCO2 (38-42) mmHg ABG pO2 (61-120) mmHg ABG HCO3 (22-26) mmol/L ABG O2 Content (12.0-20.0) Vol % ABG Base Excess (-2-2) mmol/L ABG Methemoglobin (0-2) % [place] Test Hemoglobin (12.0-16.0) G/DL Carboxyhemoglobin (0-4) % O2 Delivery Device Inspired O2 % Critical Value Sodium (136-145) meq/L Potassium (3.5-5.1) meq/L Chloride (98-107) meq/L Carbon Dioxide (21.0-32.0) meq/L Anion Gap (5-15) meq/L BUN (7-18) mg/dL Creatinine (0.60-1.30) mg/dL Estimated GFR (>89) mL/min POC Glucose (68-110) mg/dl Random Glucose (74-106) mg/dL Hemoglobin A1c 4.3 (4.3-6.0) % Calcium (8.5-10.1) mg/dL Phosphorus (2.5-4.9) mg/dL Magnesium (1.5-2.5) mg/dL Total Bilirubin (0.2-1.0) mg/dL Direct Bilirubin (0.0-0.2) mg/dL Indirect Bilirubin (0.0-0.8) mg/dL AST (15-37) U/L ALT (12-78) U/L Alkaline Phosphatase (45-117) U/L Ammonia 25 (11-32) mcmol/L Total Creatine Kinase (39-308) U/L CK-MB (CK-2) (0.5-3.6) ng/mL CK-MB (CK-2) % (0.0-4.0) % Troponin I (0.02-0.05) ng/mL Total Protein (6.4-8.2) g/dL Albumin (3.4-5.0) g/dL TSH (0.358-3.740) uIU/mL Free T4 (0.76-1.46) ng/dL Urine Color (Yellw/Straw) Urine Clarity (Clear) Urine pH (5.0-8.5) Ur Specific [place] (1.002-1.035) Urine Protein (Neg-Trace) mg/dL Urine Glucose (UA) (Negative) mg/dL Urine Ketones (Negative) mg/dL Urine Occult Blood (Negative) Urine Nitrate (Negative) Urine Bilirubin (Negative) Urine Urobilinogen (Less than 2) mg/dL Ur Leukocyte Esterase (Negative) Urine RBC (0-3) /hpf Urine WBC (0-5) /hpf Ur Squamous Epith Cells (0-5) /hpf Urine Bacteria (None) /hpf Hyaline Casts (0-3) /lpf Micro UA Comment Ur Microscopic Review Urine Culture Comments Urine Opiates Screen (Neg) Ur Barbiturates Screen (Neg) Ur Amphetamines Screen (Neg) U Benzodiazepines Scrn (Neg) Urine Cocaine Screen (Neg) U Cannabinoids Screen (Neg) Serum Alcohol (0-5) mg/dL 02/22/18 02/22/18 02/22/18 Range/Units 09:40 09:40 12:54 WBC (4.0-11.0) th/mm3 RBC (4.50-5.90) mil/mm3 Hgb (13.0-17.0) gm/dL Hct (39.0-51.0) % MCV (80.0-100.0) fL MCH (27.0-34.0) pg MCHC (32.0-36.0) % RDW (11.6-17.2) % Plt Count (150-450) th/mm3 MPV (7.0-11.0) fL Neut % (Auto) (16.0-70.0) % Lymph % (Auto) (9.0-44.0) % [place] % (Auto) (0.0-8.0) % Eos % (Auto) (0.0-4.0) % Baso % (Auto) (0.0-2.0) % Neut # (Auto) (1.8-7.7) th/mm3 Lymph # (Auto) (1.0-4.8) th/mm3 [place] # (Auto) (0.0-0.9) th/mm3 Eos # (Auto) (0.0-0.4) th/mm3 Baso # (Auto) (0.0-0.2) th/mm3 WBC Differential Differential Comment PT (9.8-11.6) sec INR Ratio APTT (24.3-30.1) sec Puncture Site Patient Temperature O2 Saturation (90-100) % ABG pH (7.380-7.420) ABG pCO2 (38-42) mmHg ABG pO2 (61-120) mmHg ABG HCO3 (22-26) mmol/L ABG O2 Content (12.0-20.0) Vol % ABG Base Excess (-2-2) mmol/L ABG Methemoglobin (0-2) % [place] Test Hemoglobin (12.0-16.0) G/DL Carboxyhemoglobin (0-4) % O2 Delivery Device Inspired O2 % Critical Value Sodium (136-145) meq/L Potassium (3.5-5.1) meq/L Chloride (98-107) meq/L Carbon Dioxide (21.0-32.0) meq/L Anion Gap (5-15) meq/L BUN (7-18) mg/dL Creatinine (0.60-1.30) mg/dL Estimated GFR (>89) mL/min POC Glucose 110 (68-110) mg/dl Random Glucose (74-106) mg/dL Hemoglobin A1c (4.3-6.0) % Calcium (8.5-10.1) mg/dL Phosphorus (2.5-4.9) mg/dL Magnesium (1.5-2.5) mg/dL Total Bilirubin 1.2 H (0.2-1.0) mg/dL Direct Bilirubin 0.5 H (0.0-0.2) mg/dL Indirect Bilirubin 0.7 (0.0-0.8) mg/dL AST 123 H (15-37) U/L ALT 52 (12-78) U/L Alkaline Phosphatase 86 (45-117) U/L Ammonia (11-32) mcmol/L Total Creatine Kinase 650 H (39-308) U/L CK-MB (CK-2) 3.7 H (0.5-3.6) ng/mL CK-MB (CK-2) % 0.6 (0.0-4.0) % Troponin I 0.03 (0.02-0.05) ng/mL Total Protein 6.4 (6.4-8.2) g/dL Albumin 2.3 L (3.4-5.0) g/dL TSH 1.110 (0.358-3.740) uIU/mL Free T4 (0.76-1.46) ng/dL Urine Color (Yellw/Straw) Urine Clarity (Clear) Urine pH (5.0-8.5) Ur Specific [place] (1.002-1.035) Urine Protein (Neg-Trace) mg/dL Urine Glucose (UA) (Negative) mg/dL Urine Ketones (Negative) mg/dL Urine Occult Blood (Negative) Urine Nitrate (Negative) Urine Bilirubin (Negative) Urine Urobilinogen (Less than 2) mg/dL Ur Leukocyte Esterase (Negative) Urine RBC (0-3) /hpf Urine WBC (0-5) /hpf Ur Squamous Epith Cells (0-5) /hpf Urine Bacteria (None) /hpf Hyaline Casts (0-3) /lpf Micro UA Comment Ur Microscopic Review Urine Culture Comments Urine Opiates Screen (Neg) Ur Barbiturates Screen (Neg) Ur Amphetamines Screen (Neg) U Benzodiazepines Scrn (Neg) Urine Cocaine Screen (Neg) U Cannabinoids Screen (Neg) Serum Alcohol (0-5) mg/dL 02/22/18 Range/Units 16:59 WBC (4.0-11.0) th/mm3 RBC (4.50-5.90) mil/mm3 Hgb (13.0-17.0) gm/dL Hct (39.0-51.0) % MCV (80.0-100.0) fL MCH (27.0-34.0) pg MCHC (32.0-36.0) % RDW (11.6-17.2) % Plt Count (150-450) th/mm3 MPV (7.0-11.0) fL Neut % (Auto) (16.0-70.0) % Lymph % (Auto) (9.0-44.0) % [place] % (Auto) (0.0-8.0) % Eos % (Auto) (0.0-4.0) % Baso % (Auto) (0.0-2.0) % Neut # (Auto) (1.8-7.7) th/mm3 Lymph # (Auto) (1.0-4.8) th/mm3 [place] # (Auto) (0.0-0.9) th/mm3 Eos # (Auto) (0.0-0.4) th/mm3 Baso # (Auto) (0.0-0.2) th/mm3 WBC Differential Differential Comment PT (9.8-11.6) sec INR Ratio APTT (24.3-30.1) sec Puncture Site Patient Temperature O2 Saturation (90-100) % ABG pH (7.380-7.420) ABG pCO2 (38-42) mmHg ABG pO2 (61-120) mmHg ABG HCO3 (22-26) mmol/L ABG O2 Content (12.0-20.0) Vol % ABG Base Excess (-2-2) mmol/L ABG Methemoglobin (0-2) % [place] Test Hemoglobin (12.0-16.0) G/DL Carboxyhemoglobin (0-4) % O2 Delivery Device Inspired O2 % Critical Value Sodium (136-145) meq/L Potassium (3.5-5.1) meq/L Chloride (98-107) meq/L Carbon Dioxide (21.0-32.0) meq/L Anion Gap (5-15) meq/L BUN (7-18) mg/dL Creatinine (0.60-1.30) mg/dL Estimated GFR (>89) mL/min POC Glucose 102 (68-110) mg/dl Random Glucose (74-106) mg/dL Hemoglobin A1c (4.3-6.0) % Calcium (8.5-10.1) mg/dL Phosphorus (2.5-4.9) mg/dL Magnesium (1.5-2.5) mg/dL Total Bilirubin (0.2-1.0) mg/dL Direct Bilirubin (0.0-0.2) mg/dL Indirect Bilirubin (0.0-0.8) mg/dL AST (15-37) U/L ALT (12-78) U/L Alkaline Phosphatase (45-117) U/L Ammonia (11-32) mcmol/L Total Creatine Kinase (39-308) U/L CK-MB (CK-2) (0.5-3.6) ng/mL CK-MB (CK-2) % (0.0-4.0) % Troponin I (0.02-0.05) ng/mL Total Protein (6.4-8.2) g/dL Albumin (3.4-5.0) g/dL TSH (0.358-3.740) uIU/mL Free T4 (0.76-1.46) ng/dL Urine Color (Yellw/Straw) Urine Clarity (Clear) Urine pH (5.0-8.5) Ur Specific [place] (1.002-1.035) Urine Protein (Neg-Trace) mg/dL Urine Glucose (UA) (Negative) mg/dL Urine Ketones (Negative) mg/dL Urine Occult Blood (Negative) Urine Nitrate (Negative) Urine Bilirubin (Negative) Urine Urobilinogen (Less than 2) mg/dL Ur Leukocyte Esterase (Negative) Urine RBC (0-3) /hpf Urine WBC (0-5) /hpf Ur Squamous Epith Cells (0-5) /hpf Urine Bacteria (None) /hpf Hyaline Casts (0-3) /lpf Micro UA Comment Ur Microscopic Review Urine Culture Comments Urine Opiates Screen (Neg) Ur Barbiturates Screen (Neg) Ur Amphetamines Screen (Neg) U Benzodiazepines Scrn (Neg) Urine Cocaine Screen (Neg) U Cannabinoids Screen (Neg) Serum Alcohol (0-5) mg/dL Imaging Data Radiologist's impression: Chest X-Ray 02/21/18 13:26 CONCLUSION: Moderate cardiomegaly without overt congestive failure or pneumothorax. Head CT 02/21/18 13:26 CONCLUSION: Atrophy, otherwise negative for an acute process. Delmer Hernandez MD FACR . ECG Data EKG Prior to Arrival: Yes Attestation: I personally reviewed and interpreted this ECG as follows: Interpretation: ECG shows normal sinus rhythm at a rate of 85, occasional PVCs, no ST elevation or depression Discharge Plan Discharge Disposition Patient Disposition: 30 Still Patient Discharge Condition Condition: Stable Discharge Details Diagnosis: Rhabdomyolysis, Anemia, Acute metabolic encephalopathy, Alcohol abuse Physicians Team ED Provider: Concha Benz Primary Care Provider: UNKNOWN, Attending Provider: Angelika Franklin Discharge Interventions Interventions: ED Discharge Assessment Last Done: 02/21/18 16:51 Vital Signs Last Done: 02/21/18 14:26 Status ED Status: Left Department Discharge Information Discharge Date/Time: 02/21/18 16:54
[2018-02-21 14:07] LABS: Bacteria,Urine Rare /hpf; Bilirubin,Urine Negative (Negative); Clarity,Urine Clear (Clear); Color,Urine Yellow (Yellw/Straw); Glucose,Urine (UA) Negative (Negative); Hyaline Casts,Urine 3 /lpf (0-3); Leukocyte Esterase,Urine Negative (Negative); Nitrite,Urine Negative (Negative); Specific Gravity,Urine 1.017 (1.002-1.035); Squamous Epithelial Cell,Urine <1 /hpf (0-5)
[2018-02-21 14:10] LABS: Amphetamine Screen,Urine Neg (Neg); Barbiturate Screen,Urine Neg (Neg); Cannabinoid Screen,Urine Neg (Neg); Cocaine Screen,Urine Neg (Neg)
[2018-02-21 14:15] LABS: Baso # (Auto) 0.1 th/mm3 (0.0-0.2); Baso % (Auto) 1.3 % (0.0-2.0); Eos % (Auto) 0.2 % (0.0-4.0); Hematocrit 25.2 % (39.0-51.0); Hemoglobin 7.8 gm/dL (13.0-17.0); Lymph # (Auto) 1.3 th/mm3 (1.0-4.8); Lymph % (Auto) 14.9 % (9.0-44.0); Mean Corpuscular Hemoglobin 26.8 pg (27.0-34.0); Mean Corpuscular Volume 86.9 fL (80.0-100.0); Mean Platelet Volume 9.2 fL (7.0-11.0); Mono # (Auto) 1.3 th/mm3 (0.0-0.9); Mono % (Auto) 15.1 % (0.0-8.0); Neut # (Auto) 5.8 th/mm3 (1.8-7.7); Neut % (Auto) 68.5 % (16.0-70.0); Platelet Count 224 th/mm3 (150-450); Red Blood Count 2.89 mil/mm3 (4.50-5.90); Red Cell Distribution Width 24.1 % (11.6-17.2); White Blood Count 8.5 th/mm3 (4.0-11.0)
[2018-02-21 14:16] LABS: Mean Corpuscular HGB Conc 30.9 % (32.0-36.0)
[2018-02-21 14:17] LABS: Opiate Screen,Urine Neg (Neg)
--- NOTE | 2018-02-21 14:20 | CT ---
EXAM DATE: 02/21/2018 1:31 PM EDT AGE/SEX: 72 years / Male INDICATIONS: Altered mental status. CLINICAL DATA: This is the patient's initial encounter. Patient reports that signs and symptoms have been present for 1 day and indicates a pain score of 0/10. MEDICAL/SURGICAL HISTORY: . ETOH . RADIATION DOSE: 64.33 CTDI (mGy) COMPARISON: [facility] [place], CT HEAD W/O CONTRAST, 02/12/2018. . TECHNIQUE: CT of the head without contrast. Using automated exposure control and adjustment of the mA and/or kV according to patient size, radiation dose was kept as low as reasonably achievable to ob tain optimal diagnostic quality images. DICOM format image data is available electronically for revi ew and comparison. FINDINGS: There is central and cortical atrophy with dilatation of ventricular and sulcal spaces. There is no parenchymal hemorrhage, acute infarction or mass lesion identified. There are no extra-axial fluid c ollections appreciated. Periventricular white matter changes are noted. The posterior fossa is unrem arkable with midline fourth ventricle. The portion of the orbits and paranasal sinuses visualized are unremarkable. CONCLUSION: Atrophy, otherwise negative for an acute process. Delmer Hernandez MD FACR . Electronically signed by: Delmer Hernandez MD 02/21/2018 2:19 PM EDT
--- NOTE | 2018-02-21 14:21 | XR ---
EXAM DATE: 02/21/2018 1:26 PM EDT AGE/SEX: 72 years / Male INDICATIONS: Chest pain. CLINICAL DATA: This is the patient's initial encounter. Patient reports that signs and symptoms have been present for 1 day and indicates a pain score of 0/10. MEDICAL/SURGICAL HISTORY: None. None. COMPARISON: [facility] – [place], CHEST 1V SINGLE AP, 02/12/2018. . FINDINGS: The heart is enlarged. Pleural vascularity is normal. There is no interstitial edema, pneumothorax or pleural effusion. The portion of the bony skeleton visualized is unremarkable. CONCLUSION: Moderate cardiomegaly without overt congestive failure or pneumothorax. Electronically signed by: Delmer Hernandez MD 02/21/2018 2:20 PM EDT
[2018-02-21 14:33] LABS: Alanine Aminotransferase 56 U/L (12-78); Albumin 2.4 g/dL (3.4-5.0); Anion Gap 16 meq/L (5-15); Aspartate Aminotransferase 159 U/L (15-37); Blood Urea Nitrogen 7 mg/dL (7-18); Calcium 7.9 mg/dL (8.5-10.1); Carbon Dioxide 17.6 meq/L (21.0-32.0); Chloride 107 meq/L (98-107); Glomerular Filtration Rate Greater Than 89 mL/min (>89); Glucose,Random 56 mg/dL (74-106); Potassium 3.6 meq/L (3.5-5.1); Sodium 141 meq/L (136-145)
[2018-02-21 14:47] LABS: Alkaline Phosphatase 84 U/L (45-117); Creatine Kinase 1174 U/L (39-308); Total Protein 6.3 g/dL (6.4-8.2); Troponin I 0.05 ng/mL (0.02-0.05)
[2018-02-21] MEDS ORDERED: Sod Chloride 0.9% Inj 1,000 ML IV.SIG SCH (15:00)
[2018-02-21 15:06] LABS: CKMB Percent 0.6 % (0.0-4.0); Creatine Kinase MB 7.2 ng/mL (0.5-3.6)
[2018-02-21] MEDS ORDERED: Haloperidol Inj 5 MG/ML Ampul IV.PUSH PRN ×2 (15:31→16:08)
[2018-02-21] MEDS ORDERED: Acetaminophen 325 MG Tablet PO PRN (15:36)
[2018-02-21] MEDS ORDERED: Bisacodyl 10 MG Supp RECTAL PRN (15:36)
[2018-02-21 15:53] LABS: ABG Base Excess -6.5 mmol/L (-2-2); ABG PCO2 24 mmHg (38-42); ABG PO2 92 mmHg (61-120)
[2018-02-21 15:56] LABS: Activated Partial Thrombo Time 21.6 sec (24.3-30.1); INR 1.2 Ratio; Prothrombin Time 12.2 sec (9.8-11.6)
--- NOTE | 2018-02-21 16:23 | P.HP ---
History of Present Illness Service: [facility] Primary Care Physician: UNKNOWN Chief Complaint: Altered mental status History of Present Illness: Mr. Jo is a 72-year-old male with a past medical history significant for alcohol abuse, pancreatitis, HTN, SDH, seizures secondary ETOH abuse, gastric ulcers, frequent falls, arthritis. Pt. brought by EMS for AMS. Patient was found by maintenance of in his building, apparently his apartment was stretched around with broken furniture. Patient was very altered, disheveled, had a vacuum corrected on his arms and was tangled in all sorts of degrees. He was brought into the emergency room for further evaluation. Patient was evaluated, laboratory workup was completed. BMP remarkable for carbon dioxide of 17.6, random glucose 56, AST 159, ammonia 38, CPK 1174. CBC remarkable for hemoglobin 7.8, hematocrit 25.2. Chest x-ray with moderate cardiomegaly, no overt congestive heart failure. CT of the head negative. Patient was recently admitted from February 12 to February 18 for fall, alcohol withdrawal, cellulitis right upper extremity, rhabdomyolysis, anemia. He had multiple imaging studies, no acute fractures. He is not able to lift his right arm, the wrist is noted limp. He had a wrist x-ray on 02/18 that only show severe osteoarthritis at the radiocarpal joint, was evaluated by Ortho and recommended OT and follow-up with hand surgeon. He is thought to have a ligamentous injury. Patient is eating at this time, he knows he is in [place], not sure of the year. He says he was having a constitution party, states that he drinks about "75%" but otherwise will not quantify. Per nursing record, he was dirty and was noted with what look like bedbugs on his buttocks. During prior admission, he was noted anemic and required blood transfusion. GI was consulted and he was offered EGD/colonoscopy however he declined. Unable to obtain any history from the patient, unclear if there has any been any hematemesis or any black stools. He has no pain, no recent fever, no chills. ROS is difficult to obtain. During his previous admission, he refused to go to SNF. Patient is admitted for further evaluation and treatment. - Diagnosis (1) Acute metabolic encephalopathy (2) Fall (3) Anemia (4) Rhabdomyolysis (5) Alcohol abuse (6) Right wrist drop Inpatient Certification: I certify that the inpatient services were ordered in accordance with Medicare regulations governing the order. This includes certification that hospital inpatient services are reasonable and necessary and in the case of services not specified as inpatient-only under 42 CFR 419.22(n), that they are appropriately provided as inpatient services in accordance to with the 2-midnight benchmark under 43 CFR 412.3(e) Estimated Total Length of Stay (Days): 3 Plans for Post Hospital Care: SNF Review of Systems unobtainable due to mental condition PMFSH - History History Provided By: Patient - Medical History Medical History: Medical History (Last Reviewed 02/21/18 @ 16:56 by TOSHA Turner) Anxiety Arthritis Cirrhosis Fall History of subdural hematoma Hypertension Pancreatitis Seizures Alcohol abuse Patient denies medical problems - Surgical History Surgical History: Surgical History (Last Reviewed 02/21/18 @ 16:56 by TOSHA Turner) History of open reduction and internal fixation (ORIF) procedure - Family History Family History: Family History (Last Reviewed 02/21/18 @ 16:56 by TOSHA Turner) Other Patient denies significant medical history - Social History I have reviewed the patient's Social History: Yes - Tobacco History Second Hand Smoke Exposure: Yes Tobacco Use In Past 30 Days: Yes Smoking Status: Current some day smoker Tobacco Type: Cigars - Alcohol History How Often Do You Have a Drink Containing Alcohol: 4 or more times a week - Substance Use History Substance History: No History of Abuse - Travel History Recent Travel in the [place] Within the Last 8 Weeks: No Recent Travel Out of the Country Within the Last 8 Weeks: No - Immunization History Tetanus Immunization: Unsure Medications and Allergies Active Medications: Active Medications Acetaminophen (Tylenol) 650 mg PO Q4H PRN PRN Reason: Temp > 100.4 Al Hydroxide/Mg Hydroxide (Milk Of Magnesia Liq) 30 ml PO Q12H PRN PRN Reason: Mild Constipation Bisacodyl (Dulcolax Supp) 10 mg RECTAL DAILY PRN PRN Reason: SEVERE CONSITIPATION Clonidine HCl (Catapres) 0.1 mg PO Q6H PRN PRN Reason: For SBP >/= 180, DBP >/= 100 Flumazenil (Romazecon Inj) 0.2 mg IV.PUSH Q1M PRN PRN Reason: OVERSEDATION Folic Acid (Folic Acid) 1 mg PO DAILY [facility] Stop: 02/27/18 08:59 Haloperidol Lactate (Haldol Inj) 1 mg IV.PUSH Q15M PRN PRN Reason: for severe agitation Sodium Chloride (Ns Inj) 1,000 mls @ 0 mls/hr IV.SIG BOLUS RAY Sodium Chloride (Ns Inj) 1,000 mls @ 100 mls/hr IV.CONT .Q10H [facility] Multivitamins 10 ml/ Folic Acid 1 mg/ Thiamine HCl 100 mg / Sodium Chloride 511.2 mls @ 125 mls/hr IV.SIG DAILY [facility] Stop: 02/21/18 22:06 Lactulose (Lactulose Liq) 30 ml PO DAILY PRN PRN Reason: SEVERE CONSITIPATION Lorazepam (Ativan) 1 mg PO Q4H PRN PRN Reason: for CIWA 8-10 Lorazepam (Ativan) 2 mg PO Q2H PRN PRN Reason: for CIWA 11-14 Lorazepam (Ativan Inj) 2 mg IV.PUSH Q2H PRN PRN Reason: for CIWA 11-14 Lorazepam (Ativan Inj) 2 mg IV.PUSH Q1H PRN PRN Reason: for CIWA 15-20 Lorazepam (Ativan Inj) 2 mg IV.PUSH Q15M PRN PRN Reason: for CIWA > 20 Lorazepam (Ativan Inj) 1 mg IV.PUSH Q4H PRN PRN Reason: for CIWA 8-10 Multivitamins/Minerals (Theragran-M) 1 tab PO DAILY [facility] Stop: 02/27/18 08:59 Ondansetron HCl (Zofran Inj) 4 mg IV.PUSH Q6H PRN PRN Reason: NAUSEA OR VOMITING Pantoprazole Sodium (Protonix) 40 mg PO DAILY [facility] Propranolol HCl (Inderal) 10 mg PO BID [facility] Senna/Docusate Sodium (Mali-Colace) 1 tab PO BID [facility] Sennosides (Senokot) 17.2 mg PO Q12H PRN PRN Reason: Moderate Constipation Sodium Chloride (Ns Flush) 2 ml IV.FLUSH PRN PRN PRN Reason: FLUSH AFTER USING IV ACCESS Thiamine HCl (Vitamin B1) 100 mg PO DAILY [facility] Allergies Allergy/AdvReac Type Severity Reaction Status Date / Time No Known Allergies Allergy Unverified 02/12/18 10:45 Home Medications Medication Instructions Recorded Confirmed Type No Known Home Medications 02/21/18 02/21/18 History Exam Vital signs: Vital Signs 02/21/18 13:23 02/21/18 13:29 02/21/18 13:32 Temperature 98.6 F Pulse Rate 92 H 87 Respiratory Rate 19 Blood Pressure 136/69 Pulse Oximetry 100 98 02/21/18 14:26 Temperature Pulse Rate 97 H Respiratory Rate 18 Blood Pressure 135/61 Pulse Oximetry 99 Intake & Output 02/20/18 02/21/18 02/21/18 18:59 06:59 18:59 Output Total 250 / 250 Balance -250 / -250 Weight 83.915 kg Output: Urine Amount (Catheter) 250 / 250 Straight 250 / 250 Narrative: GENERAL: 72-year-old elderly male, confused. SKIN: Dirt noted on his hands. Skin is warm, dry. Scab left knee. Mild erythema right antecubital area. HEAD: Atraumatic. Normocephalic. EYES: Pupils equal and round. No scleral icterus. No injection or drainage. ENT: No nasal bleeding or discharge. Mucous membranes pink and moist. NECK: Trachea midline. No JVD. CARDIOVASCULAR: S1-S2. Regular rate and rhythm. No murmurs, no rubs, no gallops. RESPIRATORY: No accessory muscle use. Clear to auscultation. Breath sounds equal bilaterally. GASTROINTESTINAL: Abdomen soft, non-tender, nondistended. Hepatic and splenic margins not palpable. MUSCULOSKELETAL: Limited ROM left shoulder. Right wrist drop noted. RUE swelling. NEUROLOGICAL: Awake, disoriented. Following simple commands. Left upper extremity strength 3 out of 5. Right upper extremity strength 2 out of 5, unable to flex right wrist. PSYCHIATRIC: unable to assess, confused. Results - Labs CBC & Chem 7: 02/23/18 07:32 02/24/18 06:09 Labs: Laboratory Results - last 24 hr 02/21/18 02/21/18 02/21/18 13:31 13:32 13:33 WBC 8.5 RBC 2.89 L Hgb 7.8 L Hct 25.2 L MCV 86.9 MCH 26.8 L MCHC 30.9 L RDW 24.1 H Plt Count 224 D MPV 9.2 Neut % (Auto) 68.5 Lymph % (Auto) 14.9 [place] % (Auto) 15.1 H Eos % (Auto) 0.2 Baso % (Auto) 1.3 Neut # (Auto) 5.8 Lymph # (Auto) 1.3 [place] # (Auto) 1.3 H Eos # (Auto) 0.0 Baso # (Auto) 0.1 WBC Differential . Differential Comment Auto diff final PT INR APTT Puncture Site Patient Temperature O2 Saturation ABG pH ABG pCO2 ABG pO2 ABG HCO3 ABG O2 Content ABG Base Excess ABG Methemoglobin [place] Test Hemoglobin Carboxyhemoglobin O2 Delivery Device Inspired O2 Critical Value Sodium Potassium Chloride Carbon Dioxide Anion Gap BUN Creatinine Estimated GFR POC Glucose 70 Random Glucose Calcium Total Bilirubin AST ALT Alkaline Phosphatase Ammonia 38 H Total Creatine Kinase CK-MB (CK-2) CK-MB (CK-2) % Troponin I Total Protein Albumin Urine Color Urine Clarity Urine pH Ur Specific [place] Urine Protein Urine Glucose (UA) Urine Ketones Urine Occult Blood Urine Nitrate Urine Bilirubin Urine Urobilinogen Ur Leukocyte Esterase Urine RBC Urine WBC Ur Squamous Epith Cells Urine Bacteria Hyaline Casts Micro UA Comment Ur Microscopic Review Urine Culture Comments Urine Opiates Screen Ur Barbiturates Screen Ur Amphetamines Screen U Benzodiazepines Scrn Urine Cocaine Screen U Cannabinoids Screen Serum Alcohol 02/21/18 02/21/18 02/21/18 13:33 13:33 13:40 WBC RBC Hgb Hct MCV MCH MCHC RDW Plt Count MPV Neut % (Auto) Lymph % (Auto) [place] % (Auto) Eos % (Auto) Baso % (Auto) Neut # (Auto) Lymph # (Auto) [place] # (Auto) Eos # (Auto) Baso # (Auto) WBC Differential Differential Comment PT INR APTT Puncture Site Patient Temperature O2 Saturation ABG pH ABG pCO2 ABG pO2 ABG HCO3 ABG O2 Content ABG Base Excess ABG Methemoglobin [place] Test Hemoglobin Carboxyhemoglobin O2 Delivery Device Inspired O2 Critical Value Sodium 141 Potassium 3.6 Chloride 107 Carbon Dioxide 17.6 L Anion Gap 16 H BUN 7 Creatinine 0.45 L Estimated GFR Greater than 89 POC Glucose Random Glucose 56 L Calcium 7.9 L Total Bilirubin 1.4 H AST 159 H ALT 56 Alkaline Phosphatase 84 Ammonia Total Creatine Kinase 1174 H Cancelled CK-MB (CK-2) 7.2 H CK-MB (CK-2) % 0.6 Troponin I 0.05 Total Protein 6.3 L Albumin 2.4 L Urine Color Urine Clarity Urine pH Ur Specific [place] Urine Protein Urine Glucose (UA) Urine Ketones Urine Occult Blood Urine Nitrate Urine Bilirubin Urine Urobilinogen Ur Leukocyte Esterase Urine RBC Urine WBC Ur Squamous Epith Cells Urine Bacteria Hyaline Casts Micro UA Comment Ur Microscopic Review Urine Culture Comments Urine Opiates Screen Neg Ur Barbiturates Screen Neg Ur Amphetamines Screen Neg U Benzodiazepines Scrn Neg Urine Cocaine Screen Neg U Cannabinoids Screen Neg Serum Alcohol Less than 3 02/21/18 02/21/18 02/21/18 13:40 15:00 15:01 WBC RBC Hgb Hct MCV MCH MCHC RDW Plt Count MPV Neut % (Auto) Lymph % (Auto) [place] % (Auto) Eos % (Auto) Baso % (Auto) Neut # (Auto) Lymph # (Auto) [place] # (Auto) Eos # (Auto) Baso # (Auto) WBC Differential Differential Comment PT 12.2 H INR 1.2 APTT 21.6 L Puncture Site Patient Temperature O2 Saturation ABG pH ABG pCO2 ABG pO2 ABG HCO3 ABG O2 Content ABG Base Excess ABG Methemoglobin [place] Test Hemoglobin Carboxyhemoglobin O2 Delivery Device Inspired O2 Critical Value Sodium Potassium Chloride Carbon Dioxide Anion Gap BUN Creatinine Estimated GFR POC Glucose 68 Random Glucose Calcium Total Bilirubin AST ALT Alkaline Phosphatase Ammonia Total Creatine Kinase CK-MB (CK-2) CK-MB (CK-2) % Troponin I Total Protein Albumin Urine Color Yellow Urine Clarity Clear Urine pH 6.0 Ur Specific [place] 1.017 Urine Protein Negative Urine Glucose (UA) Negative Urine Ketones 80 or greater H Urine Occult Blood Negative Urine Nitrate Negative Urine Bilirubin Negative Urine Urobilinogen 2.0 H Ur Leukocyte Esterase Negative Urine RBC Less than 1 Urine WBC Less than 1 Ur Squamous Epith Cells <1 Urine Bacteria Rare H Hyaline Casts 3 Micro UA Comment Cath-culture ind Ur Microscopic Review Not Reportable Urine Culture Comments Cath-cult indicated Urine Opiates Screen Ur Barbiturates Screen Ur Amphetamines Screen U Benzodiazepines Scrn Urine Cocaine Screen U Cannabinoids Screen Serum Alcohol 02/21/18 02/21/18 15:43 15:52 WBC RBC Hgb Hct MCV MCH MCHC RDW Plt Count MPV Neut % (Auto) Lymph % (Auto) [place] % (Auto) Eos % (Auto) Baso % (Auto) Neut # (Auto) Lymph # (Auto) [place] # (Auto) Eos # (Auto) Baso # (Auto) WBC Differential Differential Comment PT INR APTT Puncture Site Right radial Patient Temperature 98.6 O2 Saturation 95 ABG pH 7.45 H ABG pCO2 24 L* ABG pO2 92 ABG HCO3 17 L ABG O2 Content 10.8 L ABG Base Excess -6.5 L ABG Methemoglobin 0.3 [place] Test Present Hemoglobin 8.0 L Carboxyhemoglobin 2.3 O2 Delivery Device Room air Inspired O2 21 Critical Value Yes Sodium Potassium Chloride Carbon Dioxide Anion Gap BUN Creatinine Estimated GFR POC Glucose 87 Random Glucose Calcium Total Bilirubin AST ALT Alkaline Phosphatase Ammonia Total Creatine Kinase CK-MB (CK-2) CK-MB (CK-2) % Troponin I Total Protein Albumin Urine Color Urine Clarity Urine pH Ur Specific [place] Urine Protein Urine Glucose (UA) Urine Ketones Urine Occult Blood Urine Nitrate Urine Bilirubin Urine Urobilinogen Ur Leukocyte Esterase Urine RBC Urine WBC Ur Squamous Epith Cells Urine Bacteria Hyaline Casts Micro UA Comment Ur Microscopic Review Urine Culture Comments Urine Opiates Screen Ur Barbiturates Screen Ur Amphetamines Screen U Benzodiazepines Scrn Urine Cocaine Screen U Cannabinoids Screen Serum Alcohol - Imaging Impressions Chest X-Ray 02/21/18 13:26 CONCLUSION: Moderate cardiomegaly without overt congestive failure or pneumothorax. Head CT 02/21/18 13:26 CONCLUSION: Atrophy, otherwise negative for an acute process. Delmer Hernandez MD FACR . Caprini VTE Risk Assessment Caprini VTE Risk Assessment: Moderate/High Risk (score >= 2) VTE Pharmacological Exception Reason: High risk for bleeding Caprini Risk Assessment Model: Point Value = 1 Point Value = 2 Point Value = 3 Point Value = 5 Age 41-60 Minor surgery BMI > 25 kg/m2 Swollen legs Varicose veins or History of unexplained or recurrent spontaneous Oral contraceptives or hormone replacement Sepsis (< 1 month) Serious lung disease, including pneumonia (< 1 month) Abnormal pulmonary function Acute myocardial infarction Congestive heart failure (< 1 month) History of inflammatory bowel disease Medical patient at bed rest Age 61-74 Arthroscopic surgery Major open surgery (> 45 min) Laparoscopic surgery (> 45 min) Malignancy Confined to bed (> 72 hours) Immobilizing plaster cast Central venous access Age >= 75 History of VTE Family history of VTE Factor V Leiden Prothrombin [id number] Lupus anticoagulant Anticardiolipin antibodies Elevated serum homocysteine Heparin-induced thrombocytopenia Other congenital or acquired thrombophilia Stroke (< 1 month) Elective arthroplasty Hip, pelvis, or leg fracture Acute spinal cord injury (< 1 month) Prophylaxis Regimen: Total Risk Factor Score Risk Level Prophylaxis Regimen 0-1 Low Early ambulation 2 Moderate Order ONE of the following: *Sequential Compression Device (SCD) *Heparin 5000 units SQ BID 3-4 Higher Order ONE of the following medications: *Heparin 5000 units SQ TID *Enoxaparin/Lovenox 40 mg SQ daily (WT < 150 kg, CrCl > 30 mL/min) *Enoxaparin/Lovenox 30 mg SQ daily (WT < 150 kg, CrCl > 10-29 mL/min) *Enoxaparin/Lovenox 30 mg SQ BID (WT < 150 kg, CrCl > 30 mL/min) AND/OR *Sequential Compression Device (SCD) 5 or more Highest Order ONE of the following medications: *Heparin 5000 units SQ TID (Preferred with Epidurals) *Enoxaparin/Lovenox 40 mg SQ daily (WT < 150 kg, CrCl > 30 mL/min) *Enoxaparin/Lovenox 30 mg SQ daily (WT < 150 kg, CrCl > 10-29 mL/min) *Enoxaparin/Lovenox 30 mg SQ BID (WT < 150 kg, CrCl > 30 mL/min) AND *Sequential Compression Device (SCD) Assessment and Plan - Assessment (1) Acute metabolic encephalopathy Code(s): G93.41 - Metabolic encephalopathy Status: Acute (2) Fall Code(s): W19.XXXA - Unspecified fall, initial encounter Status: Acute (3) Anemia Code(s): D64.9 - Anemia, unspecified Status: Acute (4) Rhabdomyolysis Code(s): M62.82 - Rhabdomyolysis Status: Acute (5) Alcohol abuse Code(s): F10.10 - Alcohol abuse, uncomplicated Status: Acute (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 Was found in rhabdomyolysis, ammonia 38, dehydrated. Patient with history of alcohol abuse. History of frequent admissions for falls secondary to alcohol abuse. He was just discharged on February 18 for the same and at that time refused to go to SNF as recommended. Acute metabolic encephalopathy secondary to alcohol abuse Alcohol withdrawal Continue alcohol use, history of prior seizures Ammonia 30 CIWA protocol -Monitor for seizures -Patient will be put on multivitamin, folic acid, thiamine in normal saline at 125 an hour -Replace electrolytes as needed -Lactulose 30 mils daily -Repeat ammonia in the morning -Patient will need to avoid alcohol, has had multiple admissions for the same. Rhabdomyolysis, CPK 1174 Dehydration -Continue IV fluids Monitor renal function Repeat CPK in the morning Anemia, hemoglobin 7.8, hematocrit 25.2 History of duodenitis, gastric ulcers and Schatzki's ring. Last EGD was March 2017 During recent admission, he required blood and iron transfusion, was evaluated by gastroenterology but refused EGD and colonoscopy. No active bleeding is noted Continue to monitor CBC Transfusion if hemoglobin less than 7 When patient is more alert and oriented, we will address whether he is agreeable for GI evaluation. Bedbugs noted in the emergency room Contact precautions Elevated liver enzymes, AST greater than ALT possibly secondary to alcohol abuse Underlying cirrhosis Had a recent liver ultrasound showing possible cirrhosis, small amount of ascites. Her recent hepatitis profile that was negative -Follow LFTs in the morning -Continue Inderal 10 mg p.o. twice daily Right wrist drop, was recently evaluated. X-ray negative, orthopedic surgeon evaluated suspect ligamentous injury. -Consult OT We will order splint for the wrist Will avoid any anticoagulation at this time due to anemia, SCDs for DVT prophylaxis Repeat labs in the morning Plan of care discussed with patient and RN. Further management of the patient will be dependent on the hospital course Code Status: Full code Discussed Condition With: RN, patient Discharge Planning: Benefits from SNF placement, poss dc in 2 days (2) Fall Qualifiers: Encounter type: initial encounter Qualified Code(s): W19.XXXA - Unspecified fall, initial encounter (3) Anemia Qualifiers: Anemia type: unspecified type Qualified Code(s): D64.9 - Anemia, unspecified (4) Rhabdomyolysis Qualifiers: Rhabdomyolysis type: traumatic Encounter type: initial encounter Qualified Code(s): T79.6XXA - Traumatic ischemia of muscle, initial encounter
[2018-02-21] MEDS ORDERED: Multivitamin Inj 10 ML, Folic Acid Inj 1 MG in Sodium Chlor 0.9% Inj 500 ML IV.SIG SCH (17:00)
[2018-02-21] MEDS ORDERED: [UNRECOGNIZED DRUG - OTHER] IV.SIG SCH (18:00)
[2018-02-21] MEDS ORDERED: THIAMINE IV.SIG SCH (18:00)
[2018-02-21] MEDS ORDERED: MULTIVITAMIN IV.SIG SCH (18:00)
[2018-02-21] MEDS ORDERED: FOLIC ACID IV.SIG SCH (18:00)
[2018-02-21] MEDS: LORazepam 1 MG Tablet PO PRN (18:27)
[2018-02-21 22:15] LABS: Albumin 2.4 g/dL (3.4-5.0); Anion Gap 12 meq/L (5-15); Aspartate Aminotransferase 152 U/L (15-37); Blood Urea Nitrogen 7 mg/dL (7-18); Carbon Dioxide 20.3 meq/L (21.0-32.0); Chloride 108 meq/L (98-107); Glomerular Filtration Rate Greater Than 89 mL/min (>89); Glucose,Random 71 mg/dL (74-106); Magnesium 1.8 mg/dL (1.5-2.5); Potassium 3.1 meq/L (3.5-5.1); Sodium 140 meq/L (136-145)
[2018-02-21 22:16] LABS: Alanine Aminotransferase 56 U/L (12-78); Phosphorus 2.9 mg/dL (2.5-4.9)
[2018-02-21 22:19] LABS: Alkaline Phosphatase 91 U/L (45-117); Total Protein 6.8 g/dL (6.4-8.2)
[2018-02-21 23:13] LABS: Troponin I 0.03 ng/mL (0.02-0.05)
[2018-02-21 23:26] LABS: CKMB Percent 0.6 % (0.0-4.0); Creatine Kinase MB 6.4 ng/mL (0.5-3.6)
[2018-02-22 00:01] LABS: Baso # (Auto) 0.1 th/mm3 (0.0-0.2); Baso % (Auto) 1.1 % (0.0-2.0); Eos % (Auto) 0.6 % (0.0-4.0); Hematocrit 24.7 % (39.0-51.0); Hemoglobin 7.7 gm/dL (13.0-17.0); Lymph # (Auto) 1.5 th/mm3 (1.0-4.8); Lymph % (Auto) 23.8 % (9.0-44.0); Mean Corpuscular HGB Conc 31.1 % (32.0-36.0); Mean Corpuscular Hemoglobin 26.8 pg (27.0-34.0); Mean Platelet Volume 8.9 fL (7.0-11.0); Mono % (Auto) 16.4 % (0.0-8.0); Neut # (Auto) 3.6 th/mm3 (1.8-7.7); Neut % (Auto) 58.1 % (16.0-70.0); Platelet Count 210 th/mm3 (150-450); Red Blood Count 2.87 mil/mm3 (4.50-5.90); Red Cell Distribution Width 24.2 % (11.6-17.2); White Blood Count 6.3 th/mm3 (4.0-11.0)
[2018-02-22] MEDS: Sod Chloride 0.9% Inj 1,000 ML IV.CONT SCH ×4 (01:30→21:21)
[2018-02-22] MEDS: LORazepam 1 MG Tablet PO PRN ×2 (02:22→21:19)
[2018-02-22 05:01] LABS: Baso # (Auto) 0.1 th/mm3 (0.0-0.2); Baso % (Auto) 1.2 % (0.0-2.0); Eos # (Auto) 0.1 th/mm3 (0.0-0.4); Eos % (Auto) 1.7 % (0.0-4.0); Hematocrit 24.3 % (39.0-51.0); Hemoglobin 7.7 gm/dL (13.0-17.0); Lymph # (Auto) 1.1 th/mm3 (1.0-4.8); Lymph % (Auto) 22.7 % (9.0-44.0); Mean Corpuscular HGB Conc 31.6 % (32.0-36.0); Mean Corpuscular Hemoglobin 27.3 pg (27.0-34.0); Mean Corpuscular Volume 86.4 fL (80.0-100.0); Mean Platelet Volume 8.9 fL (7.0-11.0); Mono # (Auto) 0.8 th/mm3 (0.0-0.9); Mono % (Auto) 16.8 % (0.0-8.0); Neut # (Auto) 2.7 th/mm3 (1.8-7.7); Neut % (Auto) 57.6 % (16.0-70.0); Platelet Count 196 th/mm3 (150-450); Red Blood Count 2.81 mil/mm3 (4.50-5.90); Red Cell Distribution Width 24.3 % (11.6-17.2); White Blood Count 4.7 th/mm3 (4.0-11.0)
[2018-02-22 05:14] LABS: INR 1.3 Ratio; Prothrombin Time 12.7 sec (9.8-11.6)
[2018-02-22 05:15] LABS: Alanine Aminotransferase 49 U/L (12-78); Albumin 2.2 g/dL (3.4-5.0); Anion Gap 10 meq/L (5-15); Aspartate Aminotransferase 118 U/L (15-37); Blood Urea Nitrogen 6 mg/dL (7-18); Calcium 7.7 mg/dL (8.5-10.1); Chloride 107 meq/L (98-107); Glomerular Filtration Rate Greater Than 89 mL/min (>89); Glucose,Random 77 mg/dL (74-106); Magnesium 1.8 mg/dL (1.5-2.5); Sodium 141 meq/L (136-145)
[2018-02-22 05:24] LABS: Alkaline Phosphatase 81 U/L (45-117); Creatine Kinase 718 U/L (39-308); Free T4 (Free Thyroxine) 1.47 ng/dL (0.76-1.46); Phosphorus 2.8 mg/dL (2.5-4.9); Troponin I 0.04 ng/mL (0.02-0.05)
[2018-02-22 05:37] LABS: CKMB Percent 0.6 % (0.0-4.0); Creatine Kinase MB 4.3 ng/mL (0.5-3.6)
[2018-02-22] MEDS: Senna/Docusate Sodium 8.6/50 MG Tablet PO SCH ×3 (06:00→21:19)
[2018-02-22] MEDS: Propranolol 10 MG Tablet PO SCH ×3 (08:51→21:19)
[2018-02-22] MEDS: Multivitamin/Minerals Therapeutic Tablet PO SCH (09:09)
[2018-02-22] MEDS: Folic Acid 1 MG Tablet PO SCH (09:18)
[2018-02-22 10:05] LABS: Albumin 2.3 g/dL (3.4-5.0)
[2018-02-22 10:07] LABS: Troponin I 0.03 ng/mL (0.02-0.05)
[2018-02-22 10:14] LABS: Thyroid Stimulating Hormone 1.11 uIU/mL (0.358-3.740); Total Protein 6.4 g/dL (6.4-8.2)
[2018-02-22 10:20] LABS: CKMB Percent 0.6 % (0.0-4.0); Creatine Kinase MB 3.7 ng/mL (0.5-3.6)
--- NOTE | 2018-02-22 11:30 | P.PN ---
Subjective Interval history: follow up on altered mental status, rhabdomyolysis, anemia: Pt. awake, remains disoriented. At times he believes he is in [place], then states [place]. Calm at this time. Ativan overnight based on CIWA. Trying to eat. Right arm in brace. No fever. States he has a brother in town, but has little contact with him. Physical Exam Vital signs: Vital Signs 02/21/18 13:23 02/21/18 13:29 02/21/18 13:32 Temperature 98.6 F Pulse Rate 92 H 87 Respiratory Rate 19 Blood Pressure 136/69 Pulse Oximetry 100 98 02/21/18 14:26 02/21/18 16:00 02/21/18 20:00 Temperature 98.4 F 98.5 F Pulse Rate 97 H 86 88 Respiratory Rate 18 18 18 Blood Pressure 135/61 140/70 150/68 H Pulse Oximetry 99 100 100 02/22/18 00:00 02/22/18 04:00 02/22/18 08:00 Temperature 98.2 F 99 F 98.1 F Pulse Rate 88 73 70 Respiratory Rate 18 18 17 Blood Pressure 154/71 H 132/61 157/69 H Pulse Oximetry 100 96 98 Intake & Output 02/21/18 02/22/18 02/22/18 18:59 06:59 18:59 Intake Total 600 / 600 500 / 500 Output Total 250 / 250 Balance -250 / -250 600 / 600 500 / 500 Weight 83.915 kg 88.8 kg Intake: IV 500 / 500 500 / 500 MVI-12 Inj 10 ML Folvite Inj 1 500 / 500 500 / 500 MG Thiamine Inj 100 MG In NS Inj 500 ML @ 125 mls/hr IV.SIG DAILY [facility] Rx#:[id number] Oral 100 / 100 Output: Urine Amount (Catheter) 250 / 250 Straight 250 / 250 Other: # Voids 2 Weight On Admission 83.915 kg Narrative: GENERAL: 72-year-old elderly male, confused. SKIN: Dirt noted on his hands. Skin is warm, dry. Scab left knee. Mild erythema right antecubital area. HEAD: Atraumatic. Normocephalic. EYES: Pupils equal and round. No scleral icterus. No injection or drainage. ENT: No nasal bleeding or discharge. Mucous membranes pink and moist. NECK: Trachea midline. No JVD. CARDIOVASCULAR: S1-S2. Regular rate and rhythm. No murmurs, no rubs, no gallops. RESPIRATORY: No accessory muscle use. Clear to auscultation. Breath sounds equal bilaterally. GASTROINTESTINAL: Abdomen soft, non-tender, nondistended. Hepatic and splenic margins not palpable. MUSCULOSKELETAL: Limited ROM left shoulder. Right wrist drop noted. RUE swelling. NEUROLOGICAL: Awake, disoriented. Following simple commands. Left upper extremity strength 3 out of 5. Right upper extremity strength 2 out of 5, unable to flex right wrist. PSYCHIATRIC: unable to assess, confused. - Urinary Catheter Management Straight Cath placed during this visit: yes, but has since been removed by the nurse Reason for continuing: Not indwelling catheter Insertion date: 02/21/18 Removal date: 02/21/18 Results - Labs CBC & Chem 7: 02/22/18 04:36 02/22/18 04:36 Laboratory Results - last 24 hr 02/21/18 02/21/18 02/21/18 13:31 13:32 13:33 WBC 8.5 RBC 2.89 L Hgb 7.8 L Hct 25.2 L MCV 86.9 MCH 26.8 L MCHC 30.9 L RDW 24.1 H Plt Count 224 D MPV 9.2 Neut % (Auto) 68.5 Lymph % (Auto) 14.9 [place] % (Auto) 15.1 H Eos % (Auto) 0.2 Baso % (Auto) 1.3 Neut # (Auto) 5.8 Lymph # (Auto) 1.3 [place] # (Auto) 1.3 H Eos # (Auto) 0.0 Baso # (Auto) 0.1 WBC Differential . Differential Comment Auto diff final PT INR APTT Puncture Site Patient Temperature O2 Saturation ABG pH ABG pCO2 ABG pO2 ABG HCO3 ABG O2 Content ABG Base Excess ABG Methemoglobin [place] Test Hemoglobin Carboxyhemoglobin O2 Delivery Device Inspired O2 Critical Value Sodium Potassium Chloride Carbon Dioxide Anion Gap BUN Creatinine Estimated GFR POC Glucose 70 Random Glucose Calcium Phosphorus Magnesium Total Bilirubin Direct Bilirubin Indirect Bilirubin AST ALT Alkaline Phosphatase Ammonia 38 H Total Creatine Kinase CK-MB (CK-2) CK-MB (CK-2) % Troponin I Total Protein Albumin TSH Free T4 Urine Color Urine Clarity Urine pH Ur Specific [place] Urine Protein Urine Glucose (UA) Urine Ketones Urine Occult Blood Urine Nitrate Urine Bilirubin Urine Urobilinogen Ur Leukocyte Esterase Urine RBC Urine WBC Ur Squamous Epith Cells Urine Bacteria Hyaline Casts Micro UA Comment Ur Microscopic Review Urine Culture Comments Urine Opiates Screen Ur Barbiturates Screen Ur Amphetamines Screen U Benzodiazepines Scrn Urine Cocaine Screen U Cannabinoids Screen Serum Alcohol 02/21/18 02/21/18 02/21/18 13:33 13:33 13:40 WBC RBC Hgb Hct MCV MCH MCHC RDW Plt Count MPV Neut % (Auto) Lymph % (Auto) [place] % (Auto) Eos % (Auto) Baso % (Auto) Neut # (Auto) Lymph # (Auto) [place] # (Auto) Eos # (Auto) Baso # (Auto) WBC Differential Differential Comment PT INR APTT Puncture Site Patient Temperature O2 Saturation ABG pH ABG pCO2 ABG pO2 ABG HCO3 ABG O2 Content ABG Base Excess ABG Methemoglobin [place] Test Hemoglobin Carboxyhemoglobin O2 Delivery Device Inspired O2 Critical Value Sodium 141 Potassium 3.6 Chloride 107 Carbon Dioxide 17.6 L Anion Gap 16 H BUN 7 Creatinine 0.45 L Estimated GFR Greater than 89 POC Glucose Random Glucose 56 L Calcium 7.9 L Phosphorus Magnesium Total Bilirubin 1.4 H Direct Bilirubin Indirect Bilirubin AST 159 H ALT 56 Alkaline Phosphatase 84 Ammonia Total Creatine Kinase 1174 H Cancelled CK-MB (CK-2) 7.2 H CK-MB (CK-2) % 0.6 Troponin I 0.05 Total Protein 6.3 L Albumin 2.4 L TSH Free T4 Urine Color Urine Clarity Urine pH Ur Specific [place] Urine Protein Urine Glucose (UA) Urine Ketones Urine Occult Blood Urine Nitrate Urine Bilirubin Urine Urobilinogen Ur Leukocyte Esterase Urine RBC Urine WBC Ur Squamous Epith Cells Urine Bacteria Hyaline Casts Micro UA Comment Ur Microscopic Review Urine Culture Comments Urine Opiates Screen Neg Ur Barbiturates Screen Neg Ur Amphetamines Screen Neg U Benzodiazepines Scrn Neg Urine Cocaine Screen Neg U Cannabinoids Screen Neg Serum Alcohol Less than 3 02/21/18 02/21/18 02/21/18 13:40 15:00 15:01 WBC RBC Hgb Hct MCV MCH MCHC RDW Plt Count MPV Neut % (Auto) Lymph % (Auto) [place] % (Auto) Eos % (Auto) Baso % (Auto) Neut # (Auto) Lymph # (Auto) [place] # (Auto) Eos # (Auto) Baso # (Auto) WBC Differential Differential Comment PT 12.2 H INR 1.2 APTT 21.6 L Puncture Site Patient Temperature O2 Saturation ABG pH ABG pCO2 ABG pO2 ABG HCO3 ABG O2 Content ABG Base Excess ABG Methemoglobin [place] Test Hemoglobin Carboxyhemoglobin O2 Delivery Device Inspired O2 Critical Value Sodium Potassium Chloride Carbon Dioxide Anion Gap BUN Creatinine Estimated GFR POC Glucose 68 Random Glucose Calcium Phosphorus Magnesium Total Bilirubin Direct Bilirubin Indirect Bilirubin AST ALT Alkaline Phosphatase Ammonia Total Creatine Kinase CK-MB (CK-2) CK-MB (CK-2) % Troponin I Total Protein Albumin TSH Free T4 Urine Color Yellow Urine Clarity Clear Urine pH 6.0 Ur Specific [place] 1.017 Urine Protein Negative Urine Glucose (UA) Negative Urine Ketones 80 or greater H Urine Occult Blood Negative Urine Nitrate Negative Urine Bilirubin Negative Urine Urobilinogen 2.0 H Ur Leukocyte Esterase Negative Urine RBC Less than 1 Urine WBC Less than 1 Ur Squamous Epith Cells <1 Urine Bacteria Rare H Hyaline Casts 3 Micro UA Comment Cath-culture ind Ur Microscopic Review Not Reportable Urine Culture Comments Cath-cult indicated Urine Opiates Screen Ur Barbiturates Screen Ur Amphetamines Screen U Benzodiazepines Scrn Urine Cocaine Screen U Cannabinoids Screen Serum Alcohol 02/21/18 02/21/18 02/21/18 15:43 15:52 21:47 WBC RBC Hgb Hct MCV MCH MCHC RDW Plt Count MPV Neut % (Auto) Lymph % (Auto) [place] % (Auto) Eos % (Auto) Baso % (Auto) Neut # (Auto) Lymph # (Auto) [place] # (Auto) Eos # (Auto) Baso # (Auto) WBC Differential Differential Comment PT INR APTT Puncture Site Right radial Patient Temperature 98.6 O2 Saturation 95 ABG pH 7.45 H ABG pCO2 24 L* ABG pO2 92 ABG HCO3 17 L ABG O2 Content 10.8 L ABG Base Excess -6.5 L ABG Methemoglobin 0.3 [place] Test Present Hemoglobin 8.0 L Carboxyhemoglobin 2.3 O2 Delivery Device Room air Inspired O2 21 Critical Value Yes Sodium 140 Potassium 3.1 L Chloride 108 H Carbon Dioxide 20.3 L Anion Gap 12 BUN 7 Creatinine 0.51 L Estimated GFR Greater than 89 POC Glucose 87 Random Glucose 71 L Calcium 8.0 L Phosphorus 2.9 Magnesium 1.8 Total Bilirubin 1.4 H Direct Bilirubin Indirect Bilirubin AST 152 H ALT 56 Alkaline Phosphatase 91 Ammonia Total Creatine Kinase CK-MB (CK-2) CK-MB (CK-2) % Troponin I Total Protein 6.8 Albumin 2.4 L TSH Free T4 Urine Color Urine Clarity Urine pH Ur Specific [place] Urine Protein Urine Glucose (UA) Urine Ketones Urine Occult Blood Urine Nitrate Urine Bilirubin Urine Urobilinogen Ur Leukocyte Esterase Urine RBC Urine WBC Ur Squamous Epith Cells Urine Bacteria Hyaline Casts Micro UA Comment Ur Microscopic Review Urine Culture Comments Urine Opiates Screen Ur Barbiturates Screen Ur Amphetamines Screen U Benzodiazepines Scrn Urine Cocaine Screen U Cannabinoids Screen Serum Alcohol 02/21/18 02/21/18 02/21/18 21:47 21:47 23:23 WBC 6.3 RBC 2.87 L Hgb 7.7 L Hct 24.7 L MCV 86.0 MCH 26.8 L MCHC 31.1 L RDW 24.2 H Plt Count 210 MPV 8.9 Neut % (Auto) 58.1 Lymph % (Auto) 23.8 [place] % (Auto) 16.4 H Eos % (Auto) 0.6 Baso % (Auto) 1.1 Neut # (Auto) 3.6 Lymph # (Auto) 1.5 [place] # (Auto) 1.0 H Eos # (Auto) 0.0 Baso # (Auto) 0.1 WBC Differential . Differential Comment Auto diff final PT INR APTT Puncture Site Patient Temperature O2 Saturation ABG pH ABG pCO2 ABG pO2 ABG HCO3 ABG O2 Content ABG Base Excess ABG Methemoglobin [place] Test Hemoglobin Carboxyhemoglobin O2 Delivery Device Inspired O2 Critical Value Sodium Potassium Chloride Carbon Dioxide Anion Gap BUN Creatinine Estimated GFR POC Glucose Random Glucose Calcium Phosphorus Magnesium Total Bilirubin Direct Bilirubin Indirect Bilirubin AST ALT Alkaline Phosphatase Ammonia 30 Total Creatine Kinase 1050 H CK-MB (CK-2) 6.4 H CK-MB (CK-2) % 0.6 Troponin I 0.03 Total Protein Albumin TSH Free T4 Urine Color Urine Clarity Urine pH Ur Specific [place] Urine Protein Urine Glucose (UA) Urine Ketones Urine Occult Blood Urine Nitrate Urine Bilirubin Urine Urobilinogen Ur Leukocyte Esterase Urine RBC Urine WBC Ur Squamous Epith Cells Urine Bacteria Hyaline Casts Micro UA Comment Ur Microscopic Review Urine Culture Comments Urine Opiates Screen Ur Barbiturates Screen Ur Amphetamines Screen U Benzodiazepines Scrn Urine Cocaine Screen U Cannabinoids Screen Serum Alcohol 02/21/18 02/22/18 02/22/18 23:51 04:36 04:36 WBC RBC Hgb Hct MCV MCH MCHC RDW Plt Count MPV Neut % (Auto) Lymph % (Auto) [place] % (Auto) Eos % (Auto) Baso % (Auto) Neut # (Auto) Lymph # (Auto) [place] # (Auto) Eos # (Auto) Baso # (Auto) WBC Differential Differential Comment PT 12.7 H INR 1.3 APTT Puncture Site Patient Temperature O2 Saturation ABG pH ABG pCO2 ABG pO2 ABG HCO3 ABG O2 Content ABG Base Excess ABG Methemoglobin [place] Test Hemoglobin Carboxyhemoglobin O2 Delivery Device Inspired O2 Critical Value Sodium 141 Potassium 3.0 L Chloride 107 Carbon Dioxide 24.0 Anion Gap 10 BUN 6 L Creatinine 0.45 L Estimated GFR Greater than 89 POC Glucose 75 Random Glucose 77 Calcium 7.7 L Phosphorus 2.8 Magnesium 1.8 Total Bilirubin 1.2 H Direct Bilirubin Indirect Bilirubin AST 118 H ALT 49 Alkaline Phosphatase 81 Ammonia Total Creatine Kinase 718 H CK-MB (CK-2) 4.3 H CK-MB (CK-2) % 0.6 Troponin I 0.04 Total Protein 6.0 L D Albumin 2.2 L TSH 1.180 Free T4 1.47 H Urine Color Urine Clarity Urine pH Ur Specific [place] Urine Protein Urine Glucose (UA) Urine Ketones Urine Occult Blood Urine Nitrate Urine Bilirubin Urine Urobilinogen Ur Leukocyte Esterase Urine RBC Urine WBC Ur Squamous Epith Cells Urine Bacteria Hyaline Casts Micro UA Comment Ur Microscopic Review Urine Culture Comments Urine Opiates Screen Ur Barbiturates Screen Ur Amphetamines Screen U Benzodiazepines Scrn Urine Cocaine Screen U Cannabinoids Screen Serum Alcohol 02/22/18 02/22/18 02/22/18 04:36 04:36 09:40 WBC 4.7 RBC 2.81 L Hgb 7.7 L Hct 24.3 L MCV 86.4 MCH 27.3 MCHC 31.6 L RDW 24.3 H Plt Count 196 MPV 8.9 Neut % (Auto) 57.6 Lymph % (Auto) 22.7 [place] % (Auto) 16.8 H Eos % (Auto) 1.7 Baso % (Auto) 1.2 Neut # (Auto) 2.7 Lymph # (Auto) 1.1 [place] # (Auto) 0.8 Eos # (Auto) 0.1 Baso # (Auto) 0.1 WBC Differential . Differential Comment Auto diff final PT INR APTT Puncture Site Patient Temperature O2 Saturation ABG pH ABG pCO2 ABG pO2 ABG HCO3 ABG O2 Content ABG Base Excess ABG Methemoglobin [place] Test Hemoglobin Carboxyhemoglobin O2 Delivery Device Inspired O2 Critical Value Sodium Potassium Chloride Carbon Dioxide Anion Gap BUN Creatinine Estimated GFR POC Glucose Random Glucose Calcium Phosphorus Magnesium Total Bilirubin Direct Bilirubin Indirect Bilirubin AST ALT Alkaline Phosphatase Ammonia 25 Total Creatine Kinase 650 H CK-MB (CK-2) 3.7 H CK-MB (CK-2) % 0.6 Troponin I 0.03 Total Protein Albumin TSH Free T4 Urine Color Urine Clarity Urine pH Ur Specific [place] Urine Protein Urine Glucose (UA) Urine Ketones Urine Occult Blood Urine Nitrate Urine Bilirubin Urine Urobilinogen Ur Leukocyte Esterase Urine RBC Urine WBC Ur Squamous Epith Cells Urine Bacteria Hyaline Casts Micro UA Comment Ur Microscopic Review Urine Culture Comments Urine Opiates Screen Ur Barbiturates Screen Ur Amphetamines Screen U Benzodiazepines Scrn Urine Cocaine Screen U Cannabinoids Screen Serum Alcohol 02/22/18 09:40 WBC RBC Hgb Hct MCV MCH MCHC RDW Plt Count MPV Neut % (Auto) Lymph % (Auto) [place] % (Auto) Eos % (Auto) Baso % (Auto) Neut # (Auto) Lymph # (Auto) [place] # (Auto) Eos # (Auto) Baso # (Auto) WBC Differential Differential Comment PT INR APTT Puncture Site Patient Temperature O2 Saturation ABG pH ABG pCO2 ABG pO2 ABG HCO3 ABG O2 Content ABG Base Excess ABG Methemoglobin [place] Test Hemoglobin Carboxyhemoglobin O2 Delivery Device Inspired O2 Critical Value Sodium Potassium Chloride Carbon Dioxide Anion Gap BUN Creatinine Estimated GFR POC Glucose Random Glucose Calcium Phosphorus Magnesium Total Bilirubin 1.2 H Direct Bilirubin 0.5 H Indirect Bilirubin 0.7 AST 123 H ALT 52 Alkaline Phosphatase 86 Ammonia Total Creatine Kinase CK-MB (CK-2) CK-MB (CK-2) % Troponin I Total Protein 6.4 Albumin 2.3 L TSH 1.110 Free T4 Urine Color Urine Clarity Urine pH Ur Specific [place] Urine Protein Urine Glucose (UA) Urine Ketones Urine Occult Blood Urine Nitrate Urine Bilirubin Urine Urobilinogen Ur Leukocyte Esterase Urine RBC Urine WBC Ur Squamous Epith Cells Urine Bacteria Hyaline Casts Micro UA Comment Ur Microscopic Review Urine Culture Comments Urine Opiates Screen Ur Barbiturates Screen Ur Amphetamines Screen U Benzodiazepines Scrn Urine Cocaine Screen U Cannabinoids Screen Serum Alcohol - Imaging Impressions Chest X-Ray 02/21/18 13:26 CONCLUSION: Moderate cardiomegaly without overt congestive failure or pneumothorax. Head CT 02/21/18 13:26 CONCLUSION: Atrophy, otherwise negative for an acute process. Delmer Hernandez MD FACR . 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 Was found in rhabdomyolysis, ammonia 38, dehydrated. Patient with history of alcohol abuse. History of frequent admissions for falls secondary to alcohol abuse. He was just discharged on February 18 for the same and at that time refused to go to SNF as recommended. Acute metabolic encephalopathy secondary to alcohol abuse Alcohol withdrawal Continue alcohol use, history of prior seizures Ammonia trending down, 25. Remains altered. [facility] protocol -Monitor for seizures -continue multivitamin, folic acid, thiamine in normal saline, dec. rate of IVF -Replace electrolytes as needed -Lactulose 30 mils daily -Ammonia improving, 25. now. -Patient will need to avoid alcohol, has had multiple admissions for the same. Rhabdomyolysis, CPK 1174 Dehydration -Continue IV fluids Monitor renal function CPK trending down, 650. Anemia, hemoglobin 7.8, hematocrit 25.2 History of duodenitis, gastric ulcers and Schatzki's ring. Last EGD was March 2017 During recent admission, he required blood and iron transfusion, was evaluated by gastroenterology but refused EGD and colonoscopy. No active bleeding is noted Continue to monitor CBC Transfusion if hemoglobin less than 7 When patient is more alert and oriented, we will address whether he is agreeable for GI evaluation. -HH stable, 7.7/24.3 Bedbugs noted in the emergency room Contact precautions Elevated liver enzymes, AST greater than ALT possibly secondary to alcohol abuse Underlying cirrhosis Had a recent liver ultrasound showing possible cirrhosis, small amount of ascites. Her recent hepatitis profile that was negative -LFTs better today -Continue Inderal 10 mg p.o. twice daily Right wrist drop, was recently evaluated. X-ray negative, orthopedic surgeon evaluated suspect ligamentous injury. -Consult OT keep right wrist in splint. Will avoid any anticoagulation at this time due to anemia, SCDs for DVT prophylaxis Attempted to call brother and pt's friend, no answer. Labs in am Code Status: Full code Discussed Condition With: RN, pt Discharge Planning: Benefits from SNF placement, poss dc in 2 days (2) Fall Qualifiers: Encounter type: initial encounter Qualified Code(s): W19.XXXA - Unspecified fall, initial encounter (3) Anemia Qualifiers: Anemia type: unspecified type Qualified Code(s): D64.9 - Anemia, unspecified (4) Rhabdomyolysis Qualifiers: Rhabdomyolysis type: traumatic Encounter type: initial encounter Qualified Code(s): T79.6XXA - Traumatic ischemia of muscle, initial encounter
--- NOTE | 2018-02-22 13:23 | ECG ---
Date Performed: 02/21/2018 Time Performed: 13:42:06 PTAGE: 72 years EKG: Sinus rhythm WITH OCCASIONAL SUPRAVENTRICULAR PREMATURE COMPLEXES BORDERLINE ECG PREVIOUS TRACING : 02/12/2018 10.29 DOCTOR: Brennen Alba Interpretating Date/Time 02/22/2018 13:15:23
[2018-02-22 14:30] LABS: Hemoglobin A1c 4.3 % (4.3-6.0)
[2018-02-23] MEDS: Sod Chloride 0.9% Inj 1,000 ML IV.CONT SCH ×2 (06:55→18:44)
[2018-02-23 08:30] LABS: Hematocrit 28.1 % (39.0-51.0); Hemoglobin 8.6 gm/dL (13.0-17.0); Mean Corpuscular Hemoglobin 26.4 pg (27.0-34.0); Mean Corpuscular Volume 86.1 fL (80.0-100.0); Platelet Count 278 th/mm3 (150-450); Red Blood Count 3.27 mil/mm3 (4.50-5.90); Red Cell Distribution Width 23.8 % (11.6-17.2); White Blood Count 5.4 th/mm3 (4.0-11.0)
[2018-02-23 08:35] LABS: Mean Corpuscular HGB Conc 30.6 % (32.0-36.0)
[2018-02-23 08:36] LABS: INR 1.2 Ratio; Prothrombin Time 12.5 sec (9.8-11.6)
[2018-02-23] MEDS: Senna/Docusate Sodium 8.6/50 MG Tablet PO SCH ×2 (08:37→22:57)
[2018-02-23] MEDS: Multivitamin/Minerals Therapeutic Tablet PO SCH (08:37)
[2018-02-23] MEDS: Propranolol 10 MG Tablet PO SCH ×2 (08:37→22:57)
[2018-02-23] MEDS: Folic Acid 1 MG Tablet PO SCH (08:37)
[2018-02-23 08:50] LABS: Anion Gap 9 meq/L (5-15); Blood Urea Nitrogen 3 mg/dL (7-18); Calcium 7.8 mg/dL (8.5-10.1); Carbon Dioxide 24.8 meq/L (21.0-32.0); Chloride 105 meq/L (98-107); Glomerular Filtration Rate Greater Than 89 mL/min (>89); Glucose,Random 82 mg/dL (74-106); Potassium 3.1 meq/L (3.5-5.1); Sodium 139 meq/L (136-145)
[2018-02-23 08:52] LABS: Creatine Kinase 358 U/L (39-308)
[2018-02-23 09:09] LABS: CKMB Percent 0.8 % (0.0-4.0)
[2018-02-23] MEDS ORDERED: Potassium Chloride 25 MEQ Effervescent Tablet PO ONE (10:30)
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
[2018-02-24 07:25] LABS: Anion Gap 11 meq/L (5-15); Blood Urea Nitrogen 3 mg/dL (7-18); Calcium 7.9 mg/dL (8.5-10.1); Carbon Dioxide 22.2 meq/L (21.0-32.0); Chloride 103 meq/L (98-107); Glomerular Filtration Rate Greater Than 89 mL/min (>89); Glucose,Random 68 mg/dL (74-106); Potassium 3.4 meq/L (3.5-5.1); Sodium 136 meq/L (136-145)
[2018-02-24 07:28] LABS: Creatine Kinase 184 U/L (39-308)
[2018-02-24] MEDS: Multivitamin/Minerals Therapeutic Tablet PO SCH (09:47)
[2018-02-24] MEDS: Senna/Docusate Sodium 8.6/50 MG Tablet PO SCH ×2 (09:47→21:24)
[2018-02-24] MEDS: Folic Acid 1 MG Tablet PO SCH (09:48)
[2018-02-24] MEDS: Propranolol 10 MG Tablet PO SCH ×2 (09:48→21:24)
[2018-02-24] MEDS ORDERED: Influenza (Quadrivalent) Vaccine 0.5 ML Syringe IM ONE (10:30)
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
[2018-02-24] MEDS: Spironolactone 25 MG Tablet PO SCH (12:49)
[2018-02-24] MEDS: Sod Chloride 0.9% Inj 1,000 ML IV.CONT SCH (13:02)
[2018-02-25 07:02] LABS: Hemoglobin 8.1 gm/dL (13.0-17.0); Mean Corpuscular HGB Conc 31.2 % (32.0-36.0); Mean Corpuscular Hemoglobin 26.5 pg (27.0-34.0); Mean Corpuscular Volume 84.9 fL (80.0-100.0); Platelet Count 313 th/mm3 (150-450); Red Blood Count 3.05 mil/mm3 (4.50-5.90); Red Cell Distribution Width 23.5 % (11.6-17.2); White Blood Count 6.3 th/mm3 (4.0-11.0)
[2018-02-25 07:44] LABS: Anion Gap 10 meq/L (5-15); Blood Urea Nitrogen 4 mg/dL (7-18); Calcium 7.7 mg/dL (8.5-10.1); Carbon Dioxide 25.1 meq/L (21.0-32.0); Chloride 106 meq/L (98-107); Glomerular Filtration Rate Greater Than 89 mL/min (>89); Glucose,Random 94 mg/dL (74-106); Potassium 3.4 meq/L (3.5-5.1); Sodium 141 meq/L (136-145)
[2018-02-25] MEDS: Multivitamin/Minerals Therapeutic Tablet PO SCH (08:00)
[2018-02-25] MEDS: Spironolactone 25 MG Tablet PO SCH (08:00)
[2018-02-25] MEDS: Propranolol 10 MG Tablet PO SCH ×2 (08:00→21:36)
[2018-02-25] MEDS: Folic Acid 1 MG Tablet PO SCH (08:00)
[2018-02-25] MEDS: Sod Chloride 0.9% Inj 1,000 ML IV.CONT SCH ×2 (08:02→09:28)
[2018-02-25] MEDS: Senna/Docusate Sodium 8.6/50 MG Tablet PO SCH ×2 (08:02→21:36)
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
--- NOTE | 2018-02-25 15:14 | P.NPEVAL ---
Disclaimer Patient was given an explanation of the nature and purpose of the evaluation. Patient agreed to proceed with the evaluation and treatment plan. History - Reason for Referral The patient is a 72 year old right handed with a past medical history significant for alcohol abuse/dependence, pancreatitis, HTN, SDH, seizures secondary ETOH abuse, gastric ulcers, frequent falls, arthritis. Pt. brought by EMS for AMS. Patient was found by maintenance of in his building, apparently his apartment was stretched around with broken furniture. Patient was very altered, disheveled, had a vacuum corrected on his arms and was tangled in all sorts of degrees. He was brought into the emergency room for further evaluation. Patient was evaluated, laboratory workup was completed. BMP remarkable for carbon dioxide of 17.6, random glucose 56, AST 159, ammonia 38, CPK 1174. CBC remarkable for hemoglobin 7.8, hematocrit 25.2. Chest x-ray with moderate cardiomegaly, no overt congestive heart failure. CT of the head negative. Patient was recently admitted from February 12 to February 18 for fall , alcohol withdrawal, cellulitis right upper extremity, rhabdomyolysis, anemia. He had multiple imaging studies, no acute fractures. He is not able to lift his right arm, the wrist is noted limp. He had a wrist x-ray on 02/18 that only show severe osteoarthritis at the radiocarpal joint, was evaluated by Ortho and recommended OT and follow-up with hand surgeon. He is thought to have a ligamentous injury. Patient is eating at this time, he knows he is in [place], not sure of the year. He says he was having a alliance party, states that he drinks about "75%" but otherwise will not quantify. Per nursing record, he was dirty and was noted with what look like bedbugs on his buttocks. During prior admission, he was noted anemic and required blood transfusion. GI was consulted and he was offered EGD/colonoscopy however he declined. Unable to obtain any history from the patient, unclear if there has any been any hematemesis or any black stools. He has no pain, no recent fever, no chills. ROS is difficult to obtain. During his previous admission, he refused to go to SNF. Patient is admitted for further evaluation and treatment. Since his admission, he has been on CIWA to manage alcohol withdrawal symptoms, and there is a concern regarding decision making capacity within the context of possible metabolic encephalopathy versus Wernicke's encephalopathy versus major neurocognitive disorder due to Alcohol dependence. He is now referred for baseline neuropsychological evaluation to assess cognitive, behavioral and emotional aspects of his condition, and to provide treatment recommendations. - Additional Psychosocial History Smoking Status: Current some day smoker Tobacco Use In Past 30 Days: Yes Alcohol Use: Heavy Hx Substance Use: Yes Education Level: 12 Years or Less Employment Status: Retired Living Arrangement Prior to Admission: Lives Alone Living Arrangement Prior to Admission: Alone Hand Dominance: Right PMFSH - History History Provided By: Patient - Medical History Medical History: Medical History (Last Reviewed 02/24/18 @ 08:49 by Cortney Carmona) Anxiety Arthritis Cirrhosis Fall History of subdural hematoma Hypertension Pancreatitis Seizures Alcohol abuse Patient denies medical problems - Surgical History Surgical History: Surgical History (Last Reviewed 02/24/18 @ 07:54 by Boo Cee) History of open reduction and internal fixation (ORIF) procedure - Family History Family History: Family History (Last Reviewed 02/24/18 @ 08:49 by Cortney Carmona) Other Patient denies significant medical history - Tobacco History Second Hand Smoke Exposure: Yes Tobacco Use In Past 30 Days: Yes Smoking Status: Current some day smoker Tobacco Type: Cigars - Alcohol History How Often Do You Have a Drink Containing Alcohol: 4 or more times a week - Substance Use History Substance History: No History of Abuse - Travel History Recent Travel in the [place] Within the Last 8 Weeks: No Recent Travel Out of the Country Within the Last 8 Weeks: No - Immunization History Tetanus Immunization: Unsure Hx Influenza Vaccine This Season: No Medications Active Medications Acetaminophen (Tylenol) 650 mg PO Q4H PRN PRN Reason: Temp > 100.4 Al Hydroxide/Mg Hydroxide (Milk Of Magnesia Liq) 30 ml PO Q12H PRN PRN Reason: Mild Constipation Bisacodyl (Dulcolax Supp) 10 mg RECTAL DAILY PRN PRN Reason: SEVERE CONSITIPATION Clonidine HCl (Catapres) 0.1 mg PO Q6H PRN PRN Reason: For SBP >/= 180, DBP >/= 100 Flumazenil (Romazecon Inj) 0.2 mg IV.PUSH Q1M PRN PRN Reason: OVERSEDATION Folic Acid (Folic Acid) 1 mg PO DAILY RAY Stop: 02/27/18 08:59 Last Admin: 02/25/18 08:00 Dose: 1 mg Haloperidol Lactate (Haldol Inj) 1 mg IV.PUSH Q15M PRN PRN Reason: for severe agitation Lactulose (Lactulose Liq) 30 ml PO DAILY [facility] Last Admin: 02/25/18 08:02 Dose: Not Given Lorazepam (Ativan) 1 mg PO Q4H PRN PRN Reason: for CIWA 8-10 Last Admin: 02/22/18 21:19 Dose: 1 mg Lorazepam (Ativan) 2 mg PO Q2H PRN PRN Reason: for CIWA 11-14 Last Admin: 02/22/18 14:41 Dose: 2 mg Lorazepam (Ativan Inj) 2 mg IV.PUSH Q2H PRN PRN Reason: for CIWA 11-14 Last Admin: 02/23/18 06:49 Dose: 2 mg Lorazepam (Ativan Inj) 2 mg IV.PUSH Q1H PRN PRN Reason: for CIWA 15-20 Lorazepam (Ativan Inj) 2 mg IV.PUSH Q15M PRN PRN Reason: for CIWA > 20 Lorazepam (Ativan Inj) 1 mg IV.PUSH Q4H PRN PRN Reason: for CIWA 8-10 Multivitamins/Minerals (Theragran-M) 1 tab PO DAILY [facility] Stop: 02/27/18 08:59 Last Admin: 02/25/18 08:00 Dose: 1 tab Ondansetron HCl (Zofran Inj) 4 mg IV.PUSH Q6H PRN PRN Reason: NAUSEA OR VOMITING Pantoprazole Sodium (Protonix) 40 mg PO DAILY [facility] Last Admin: 02/25/18 08:00 Dose: 40 mg Propranolol HCl (Inderal) 10 mg PO BID [facility] Last Admin: 02/25/18 08:00 Dose: 10 mg Senna/Docusate Sodium (Mali-Colace) 1 tab PO BID [facility] Last Admin: 02/25/18 08:02 Dose: Not Given Sennosides (Senokot) 17.2 mg PO Q12H PRN PRN Reason: Moderate Constipation Sodium Chloride (Ns Flush) 2 ml IV.FLUSH PRN PRN PRN Reason: FLUSH AFTER USING IV ACCESS Spironolactone (Aldactone) 25 mg PO DAILY [facility] Last Admin: 02/25/18 08:00 Dose: 25 mg Thiamine HCl (Vitamin B1) 100 mg PO DAILY [facility] Last Admin: 02/25/18 08:00 Dose: 100 mg Mental Status Assessment - Mental Status Orientation: oriented to: Self, Place, Time, Situation Mental Status: WFL: Language/interactions, Attention, Learning/memory, Variable : Problem-solving, Impaired: Thought processing Absent: Hallucinations, Delusions Adjustment/Coping Assessment - Adjustment/Coping Adjustment/Coping: Mild: Depression, Awareness, Insight - Observation In terms of emotional functioning, the patient demonstrated challenges. This patient demonstrated no signs of agitation, impulsivity or disinhibition, nor was there remarkable evidence of a formal thought disorder or psychosis. There was at best minimal evidence of depression or anxiety. The Geriatric Depression Scale-Short Form was administered given the ease to which it is administered to persons with known neurological pathology, and the patient endorsed 4 of 15 symptoms, which falls within the borderline depressed range. Thought content was free from suicidal, homicidal or paranoid ideation, and thought processes were generally logical and goal-directed, although at times he would perseverate on prior topics. The patients mood was euthymic, and his affect was stable and appropriate. The patient appears to possess some insight and awareness into their situation and within the limits of this brief evaluation, questionable judgment. - Goals/Team Members LTG Status: Deferred STG Status: Deferred Team Members: Neuropsychologist Effort Effort: Average Cognition Assessment - Attention/Processing Speed Rating: WFL: Language, Immediate & delayed memory, Variable: Attention/ processing, Executive, Awareness - insight adjustment Observation: The patient was alert and oriented to person, place, time and circumstances surrounding the recent hospitalization. The Mini-Mental State Exam was administered, and the patient obtained a score of 24 out of 28 points (two tasks could not be given because of his right arm/hand impairment), which falls in the normal range. However, on further evaluation, specific deficits were identified. In terms of attention skills, the patient exhibited essentially normal abilities. The patient was able to remain on task and remember basic and complex verbal instructions. The patient was able to spell the word WORLD backwards, he was able to recite a list of words at expected levels, and he was able to complete oral arithmetic problems accurately. In terms of memory functioning, the patient exhibited essentially normal abilities. The patients initial registration of verbal information was normal, and the patient was able to improve their memory with repetition. After a period of delay, the patient was able to recall this information from memory. More specifically, on the Luria Memory Words Test-Short Form, the patients trial one performance was 4 of 7 words, trial five performance was 7 of 7 words, the patients Total Learning score was 27 (above cut-off), and the patients Delayed recall score was 4 of 7 words (above cut-off). The patients ability to recall verbal information in a paragraph format was considered normal, as he was able to recall 75% of such information after a ten minute delay. In terms of speech and language skills, the patient demonstrated normal abilities. The patients initiated spontaneous conversation throughout the assessment. Speech was characterized by adequate prosody, grammar, articulation, volume and rate. No remarkable dysnomic or paraphasic errors were noted either during conversational speech or on confrontation naming tasks. Reading recognition skills were adequate; writing skills were not assessed. The patients comprehension for basic one- and two-stage commands was normal. In terms of problem-solving skills, the patient exhibited challenges. The patients ability to understand abstraction reasoning was abnormal, as reflected in his inability to consistent be able to abstract essential shared characteristics of objects and concepts. Deficits of abstract reasoning are often observed in persons with alcohol related dementias. Mathematical reasoning skills were normal, as noted above. Speed of information processing, as evaluated by both the Letter and Category Fluency Tests was abnormal, again often observed in persons with alcohol related dementias. Summary/Diagnosis - Summary/Impressions Summary: This 72 year old man with a long past medical history of alcohol dependence and recent admission for altered mental status, now essentially managed for withdrawal symptoms by [facility]. He was alert and oriented x 4 on exam, and no evidence of a encephalopathic process for this exam was appreciated. On further neuropsychological examination, this patient demonstrated generally functional memory and learning abilities, but impairment of abstract reasoning and processing speed. On head CT, he demonstrates atrophy. The concordance of these findings are consistent with an alcohol related dementia, early onset. His memory functioning (although at times he does perseverate) rules out a Wernicke's encephalopathy at this time. In terms of practical outcome based on these results it would be my clinical opinion that while he does have neurocognitive deficits, they are not of sufficient quality or quantity as to have compromised his decision making capacity at this time. In other words, Mr. Jo still retains the right to make the wrong decision. However, if he continues to drink, he will eventually "cross over" that threshold either from injury or metabolic dysfunction, and he was specifically told this conclusion at the end of today's examination, and he demonstrated to this examiner awareness and understanding of the implications of his decisions going forward. Recommendations Recommendations: It is recommended that this patient abstain from all alcohol products going forward for the betterment of his health. If he is unable to do so, it is recommended that he seek assistance through 12-step programs or an inpatient facility. Based on today's neuropsychological evaluation, this patient demonstrated the basic ability to appreciate a situation and its likely consequences, and he is able to manipulate information rationally. In other words, it is my clinical opinion that he possesses decision making capacity. 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 If he continues to drink, his dementia will progress. It is recommended that he consider a physical rehabilitative program to assist him in increasing his strength and endurance. Continue CIWA while an inpatient, unless medically contraindicated.
[2018-02-26] MEDS: Multivitamin/Minerals Therapeutic Tablet PO SCH (08:06)
[2018-02-26] MEDS: Folic Acid 1 MG Tablet PO SCH (08:06)
[2018-02-26] MEDS: Spironolactone 25 MG Tablet PO SCH (08:06)
[2018-02-26] MEDS: Propranolol 10 MG Tablet PO SCH ×2 (08:06→22:46)
[2018-02-26] MEDS: Senna/Docusate Sodium 8.6/50 MG Tablet PO SCH ×2 (08:06→22:46)
--- NOTE | 2018-02-26 10:59 | P.DS ---
Date of admission: 02/21/18 15:30 Primary care physician: UNKNOWN Anticipated date of discharge: 02/26/18 Brief History from admission: Mr. Jo is a 72-year-old male with a past medical history significant for alcohol abuse, pancreatitis, HTN, SDH, seizures secondary ETOH abuse, gastric ulcers, frequent falls, arthritis. Pt. brought by EMS for AMS. Patient was found by maintenance of in his building, apparently his apartment was stretched around with broken furniture. Patient was very altered, disheveled, had a vacuum corrected on his arms and was tangled in all sorts of degrees. He was brought into the emergency room for further evaluation. Patient was evaluated, laboratory workup was completed. BMP remarkable for carbon dioxide of 17.6, random glucose 56, AST 159, ammonia 38, CPK 1174. CBC remarkable for hemoglobin 7.8, hematocrit 25.2. Chest x-ray with moderate cardiomegaly, no overt congestive heart failure. CT of the head negative. Patient was recently admitted from February 12 to February 18 for fall, alcohol withdrawal, cellulitis right upper extremity, rhabdomyolysis, anemia. He had multiple imaging studies, no acute fractures. He is not able to lift his right arm, the wrist is noted limp. He had a wrist x-ray on 02/18 that only show severe osteoarthritis at the radiocarpal joint, was evaluated by Ortho and recommended OT and follow-up with hand surgeon. He is thought to have a ligamentous injury. Patient is eating at this time, he knows he is in [place], not sure of the year. He says he was having a republican, states that he drinks about "75%" but otherwise will not quantify. Per nursing record, he was dirty and was noted with what look like bedbugs on his buttocks. During prior admission, he was noted anemic and required blood transfusion. GI was consulted and he was offered EGD/colonoscopy however he declined. Unable to obtain any history from the patient, unclear if there has any been any hematemesis or any black stools. He has no pain, no recent fever, no chills. ROS is difficult to obtain. During his previous admission, he refused to go to SNF. Patient is admitted for further evaluation and treatment. Patient update on day of discharge: Patient reports he is feeling much better. Agreeable to go to rehab. Try to get stronger. No complaints of abdominal pain. Understands the risk of continued alcohol use. DS: Diagnosis - Discharge Diagnosis (1) Acute metabolic encephalopathy Status: Resolved Diagnosis: Principal (2) Fall Status: Acute Diagnosis: Principal (3) Anemia Status: Chronic Diagnosis: Secondary (4) Rhabdomyolysis Status: Resolved Diagnosis: Secondary (5) Alcohol abuse Status: Chronic Diagnosis: Secondary (6) Right wrist drop Status: Chronic Diagnosis: Secondary (7) Alcohol dependence in controlled environment Status: Chronic Diagnosis: Secondary DS: Summary Hospital Course: These are the medical issues addressed during this hospitalization: 72-year-old male found altered, had a cord wrapped around arms, was tangled in debris. Was found in rhabdomyolysis, ammonia 38, dehydrated. Patient with history of alcohol abuse. History of frequent admissions for falls secondary to alcohol abuse. He was just discharged on February 18 for the same and at that time refused to go to SNF as recommended. 1. Acute metabolic encephalopathy secondary to alcohol abuse Active alcohol withdrawal which now has improved. Continue alcohol use, history of prior seizures Ammonia trending down, 25. CIWA protocol was initiated during the hospitalization -Monitor for seizures -continue multivitamin, folic acid, thiamine -Replace electrolytes as needed -Lactulose 30 mils daily given -Ammonia improving, 25. now. -Patient will need to avoid alcohol, has had multiple admissions for the same. Attempted to psychotherapist counselor patient however initially he continues to be resistant to alcohol cessation or going to a short-term rehab. This is a second readmission in the past 2 weeks. Neuropsychiatry service was consulted. Appreciate Dr. Hubbard's evaluation and recommendations of the patient. He is developing early alcohol induced dementia however has capacity at this time to make decisions. After significant counseling, patient now agreeable to going to short-term senior care facility. 2. Rhabdomyolysis, CPK trending down. Dehydration during the hospitalization was resolved. 3. Hypokalemia, -repleted -Continue IV fluids Monitor renal function CPK trending down, at 184 today. -Replace potassium 3. Anemia, hemoglobin 7.8, hematocrit 25.2 History of duodenitis, gastric ulcers and Schatzki's ring. Last EGD was March 2017 During recent admission, he required blood and iron transfusion, was evaluated by gastroenterology but refused EGD and colonoscopy. No active bleeding is noted during the hospitalization Last hemoglobin 8.6 4. Bedbugs noted in the emergency room Contact precautions There has not been any noted bed back since one seen in the emergency room. Patient is cleared from needing any further contact precautions. 5. Elevated liver enzymes, AST greater than ALT possibly secondary to alcohol abuse Underlying cirrhosis Had a recent liver ultrasound showing possible cirrhosis, small amount of ascites. Her recent hepatitis profile that was negative -LFTs improved -Continue Inderal 10 mg p.o. twice daily Added Aldactone 6. Right wrist drop, was recently evaluated. X-ray negative, orthopedic surgeon evaluated suspect ligamentous injury. -Consult OT keep right wrist in splint. 7. Will avoid any anticoagulation at this time due to anemia, SCDs for DVT prophylaxis - Time Spent with Patient Total time spent providing and/or coordinating discharge services: Less than 30 minutes - Quality: VTE Deep Vein Thrombosis/Pulmonary Embolism Present on Admission: No Exam Vital signs: Vital Signs 02/25/18 12:00 02/25/18 16:00 02/25/18 20:00 Temperature 98.9 F 99.0 F 98.7 F Pulse Rate 73 69 73 Respiratory Rate 18 18 18 Blood Pressure 135/62 114/59 L 131/63 Pulse Oximetry 98 96 96 02/26/18 00:00 02/26/18 04:00 Temperature 98.4 F 98.2 F Pulse Rate 73 77 Respiratory Rate 18 18 Blood Pressure 137/63 122/58 L Pulse Oximetry 98 96 Intake & Output 02/25/18 02/26/18 02/26/18 18:59 06:59 18:59 Intake Total 1730 / 1730 40 / 40 Output Total 600 / 600 1600 / 1600 Balance 1130 / 1130 -1560 / -1560 Weight 88.8 kg Intake: IV 1250 / 1250 NS Inj 1,000 ML @ 50 mls/hr IV. 1250 / 1250 CONT .Q20H [facility] Rx#:[id number] Oral 480 / 480 40 / 40 Output: Urine 600 / 600 1600 / 1600 Other: Date of Last Bowel Movement 02/25/18 02/25/18 Narrative: GENERAL: This is a well-nourished, well-developed patient, in no apparent distress. CARDIOVASCULAR: Regular rate and rhythm RESPIRATORY: Clear to auscultation. Breath sounds equal bilaterally. No wheezes , rales, or rhonchi. GASTROINTESTINAL: Abdomen soft, non-tender, nondistended. Normal active bowel sounds MUSCULOSKELETAL: Extremities without clubbing, cyanosis, trace edema NEURO: Alert and oriented to person and place and time. Moves all 4 extremities. Has capacity to make decisions. Follows directions. Results Procedures completed during hospitalization: None Labs on day of discharge: Labs from last 24 hours 02/26/18 02/25/18 01:05 17:15 POC Glucose 103 115 H - Impressions ITS Impressions Chest X-Ray 02/21/18 13:26 CONCLUSION: Moderate cardiomegaly without overt congestive failure or pneumothorax. Head CT 02/21/18 13:26 CONCLUSION: Atrophy, otherwise negative for an acute process. Delmer Hernandez MD FACR . Discharge Plan - Discharge Disposition Patient Disposition: Discharge to SNF - Discharge Condition Condition: Stable - Discharge Order Discharge Orders: Discharge Order (Routine); Ordered 02/26/18 Ordered By: Danna Contreras - Physicians Team Primary Care Provider: UNKNOWN, Attending Provider: Danna Contreras Other Providers: José Manuel,Camillaa ; Jose Armando Hubbard, PhD ; [facility] ; [facility]
[2018-02-27 06:39] VITALS: RESP 18
[2018-02-27] MEDS: Propranolol 10 MG Tablet PO SCH (09:20)
[2018-02-27] MEDS: Senna/Docusate Sodium 8.6/50 MG Tablet PO SCH (09:20)
[2018-02-27] MEDS: Spironolactone 25 MG Tablet PO SCH (09:20)
[2018-02-27 12:31] VITALS: BP 134/63; PULSE 73; TEMP 98.7; O2SAT 93
== END 2018-02-27 14:09 ==
LOC: NEPE 12:59 → NEDA 15:30 → N06 16:52
PROVIDERS: ADMIT Family Medicine; ATTEND Family Medicine